=== PATIENT | female | born 1985 | race African-American/Black ===

== ENCOUNTER → 2020-04-15 11:07 | Outpatient (REF) | payer MEDICAID, SELFPAY | LOC: HO.SL 11:07 | PROVIDERS: PCP Internal Medicine Geriatric Medicine; Visit Provider Internal Medicine Geriatric Medicine | DX: G47.33 Obstructive sleep apnea (adult) (pediatric) (principal); E66.01 Morbid (severe) obesity due to excess calories; R06.83 Snoring; R40.0 Somnolence | CPT/HCPCS: 95806 ==

== ENCOUNTER 2020-06-14 11:54 | Outpatient (REF) | payer MEDICAID, SELFPAY ==
--- NOTE | 2020-06-14 12:02 | XR_ITS ---
EXAMINATION: XR HIP, RIGHT CLINICAL INFORMATION: Pain right hip: COMPARISON: None TECHNIQUE: Two views of the right hip. FINDINGS: There is no visible acute fracture, dislocation or subluxation. No bony erosive changes are seen. There is mild right lateral acetabular spurring. The soft tissues are normal. XR/XR hip RT min 2V IMPRESSION: Mild reduction in the right hip joint space. No visible acute fracture, dislocation or lytic process seen
== END 2020-06-14 11:55 | disposition home or self-care (01) ==
LOC: HO.XRAY 11:54
PROVIDERS: PCP Internal Medicine Geriatric Medicine; Visit Provider Internal Medicine Geriatric Medicine
DX: M25.551 Pain in right hip (principal)
CPT/HCPCS: 73502

== ENCOUNTER 2020-07-12 07:32 | Day surgery (SDC) | payer MEDICAID, SELFPAY ==
[2020-03-22 14:44] VITALS: BMI 45.4
--- NOTE | 2020-03-28 10:56 | HO.ANESPROP2 ---
HPI - Anesthesia Eval Consult details Narrative: 34yo F for Sacroiliac Joint Steroid Injection Rescheduled to 05/03/20 [facility] Past Medical History Medical History (Updated 03/28/20 @ 10:57 by Ute Kaur) Anemia Anxiety Asthma Chronic back pain Degenerative disc disease Depression Gait disturbance GERD (gastroesophageal reflux disease) History of blood transfusion Migraine Neuropathy ASAEL on CPAP Sacroiliitis Seizure disorder Surgical History Surgical History History of 3 sections History of partial hysterectomy Hx of umbilical hernia repair Social History Social History Smoking Status: Former smoker Second Hand Smoke Exposure: Yes Meds Allergies Allergy/AdvReac Type Severity Reaction Status Date / Time codeine [CODEINE] Allergy Unknown Itching Unverified 03/22/20 14:36 [place] Allergy Severe throat Uncoded 03/22/20 14:36 closed Home Medications Medication Instructions Recorded Confirmed Type albuterol sulfate 2.5 mg INHALATION QID PRN 03/22/20 03/22/20 History albuterol sulfate [ProAir HFA] 2 puff INHALATION Q4-6H PRN 03/22/20 03/22/20 History cyclobenzaprine 10 mg PO TID 03/22/20 03/22/20 History fluticasone propionate [Flovent 1 puff INHALATION Q12H 03/22/20 03/22/20 History HFA] levetiracetam [Keppra] 1,000 mg PO BID 03/22/20 03/22/20 History loperamide 2 mg PO Q4H PRN 03/22/20 03/22/20 History loratadine [Claritin] 10 mg PO DAILY 03/22/20 03/22/20 History nortriptyline 10 mg PO BEDTIME 03/22/20 03/22/20 History pantoprazole [Protonix] 40 mg PO DAILY 03/22/20 03/22/20 History quetiapine [Seroquel] 50 mg PO BEDTIME 03/22/20 03/22/20 History sumatriptan succinate [Imitrex] 50 mg PO Q2-4H PRN 03/22/20 03/22/20 History topiramate [Topamax] 100 mg PO BID 03/22/20 03/22/20 History Exam Exam Date and Time: March 28, 2020 1056 Height,Weight and Vital Signs: Height 5 ft 5 in Weight 123.831 kg Pertinent Lab Results Pertinent Lab Results: Laboratory Tests 12/24/19 12/24/19 12:37 12:37 WBC 7.2 Hgb 12.0 Hct 39.3 Plt Count 264 Sodium 141 Potassium 4.3 Chloride 109 H BUN 8 L Creatinine 0.83 Assessment and Plan Assessment Anesthesia Assessment: Chart Reviewed
--- NOTE | 2020-03-29 07:46 | MHC.SHP ---
Pre-Procedural Eval Section A The patient is an INPATIENT: No The History & Physical has been completed within 30 days and I have reviewed it.: No Section B Chief Complaint: SACROILIITIS Details of Present Illness: sacroliiltis Relevant Family History (Specify if Yes): No Present Medications: see Short Stay Collaborative assessment Medical History: No relevant PMH History of Previous Operations: No relevant previous surgery Allergies: Allergies Allergy/AdvReac Type Severity Reaction Status Date / Time codeine [CODEINE] Allergy Unknown Itching Unverified 03/22/20 14:36 [place] Allergy Severe throat Uncoded 03/22/20 14:36 closed Review of Systems Sugical H&P ROS: Negative: Constitution, Cardiovascular, Respiratory, Neurological, Psychiatric, Hem-Onc, Allergic/Immunologic, Gastrointestinal, Genitourinary, Musculoskeletal, Integumentary, Endocrine and Eyes/Ears/Nose/Throat Exam Surgical H&P Exam: Normal: HEENT, Normal: Heart, Normal: Lungs, Normal: Extremities, Normal: Abdomen, Normal: Skin and Normal: Neurological Plan Diagnosis/Plan: Unchanged Patient has been examined and remains a candidate for the planned procedure
--- NOTE | 2020-05-02 13:29 | P.CONAN_ITS ---
HPI - Anesthesia Eval Consult details Narrative: 34yo F for Sacroiliac Joint Steroid Injection (R) PMFSH Past Medical History Medical History (Updated 03/28/20 @ 10:57 by Ute Kaur) Anemia Anxiety Asthma Chronic back pain Degenerative disc disease Depression Gait disturbance GERD (gastroesophageal reflux disease) History of blood transfusion Migraine Neuropathy ASAEL on CPAP Sacroiliitis Seizure disorder Surgical History Surgical History History of 3 sections History of partial hysterectomy Hx of umbilical hernia repair Social History Social History Smoking Status: Former smoker Second Hand Smoke Exposure: Yes Meds Allergies Allergy/AdvReac Type Severity Reaction Status Date / Time codeine [CODEINE] Allergy Unknown Itching Unverified 03/22/20 14:36 [place] Allergy Severe throat Uncoded 03/22/20 14:36 closed Home Medications Medication Instructions Recorded Confirmed Type albuterol sulfate 2.5 mg INHALATION QID PRN 03/22/20 03/22/20 History albuterol sulfate [ProAir HFA] 2 puff INHALATION Q4-6H PRN 03/22/20 03/22/20 History cyclobenzaprine 10 mg PO TID 03/22/20 03/22/20 History fluticasone propionate [Flovent 1 puff INHALATION Q12H 03/22/20 03/22/20 History HFA] levetiracetam [Keppra] 1,000 mg PO BID 03/22/20 03/22/20 History loperamide 2 mg PO Q4H PRN 03/22/20 03/22/20 History loratadine [Claritin] 10 mg PO DAILY 03/22/20 03/22/20 History nortriptyline 10 mg PO BEDTIME 03/22/20 03/22/20 History pantoprazole [Protonix] 40 mg PO DAILY 03/22/20 03/22/20 History quetiapine [Seroquel] 50 mg PO BEDTIME 03/22/20 03/22/20 History sumatriptan succinate [Imitrex] 50 mg PO Q2-4H PRN 03/22/20 03/22/20 History topiramate [Topamax] 100 mg PO BID 03/22/20 03/22/20 History Exam Exam Date and Time: May 02, 2020 1329 Height,Weight and Vital Signs: Height 5 ft 5 in Weight 123.831 kg Pertinent Lab Results Pertinent Lab Results: Laboratory Tests 12/24/19 12/24/19 12:37 12:37 WBC 7.2 Hgb 12.0 Hct 39.3 Plt Count 264 Sodium 141 Potassium 4.3 Chloride 109 H BUN 8 L Creatinine 0.83 Assessment and Plan Assessment Anesthesia Assessment: Chart Reviewed
--- NOTE | 2020-07-11 13:39 | HO.ANESPROP2 ---
Documented by User: Ute Kaur 07/11/20 13:41 HPI - Anesthesia Eval Consult details Narrative: 34yo F for Sacroiliac Joint Steroid Injection PMFSH Past Medical History Medical History (Updated 07/11/20 @ 13:40 by Ute Kaur) Anemia Anxiety Asthma Chronic back pain Degenerative disc disease Depression Gait disturbance GERD (gastroesophageal reflux disease) History of blood transfusion Migraine Neuropathy Obesity PTSD (post-traumatic stress disorder) Sacroiliitis Seizure disorder Sleep apnea Surgical History Surgical History History of 3 sections History of partial hysterectomy Hx of umbilical hernia repair Social History Social History (Updated 07/09/20 @ 17:16 by Shantel Sterling) Smoking Status: Former smoker Smoking Quit Date: years Ago Second Hand Smoke Exposure: Yes Use of substances other than those prescribed or required for medical reasons: No Have you been hit, kicked, punched, or otherwise hurt by someone within the past year? If so, by whom?: No Advance Directives: No Advance Directives Information Provided: No Advance Directives on File: No Recently lost weight without trying: No Meds Allergies Allergy/AdvReac Type Severity Reaction Status Date / Time codeine [CODEINE] Allergy Unknown Itching Verified 07/12/20 08:03 [place] Allergy Severe throat Uncoded 07/12/20 08:03 closed Home Medications Medication Instructions Recorded Confirmed Last Taken Type albuterol sulfate 2.5 mg INHALATION QID PRN 03/22/20 03/22/20 Unknown History albuterol sulfate [ProAir HFA] 2 puff INHALATION Q4-6H PRN 03/22/20 03/22/20 Unknown History cyclobenzaprine 10 mg PO TID 03/22/20 03/22/20 Unknown History fluticasone propionate [Flovent 1 puff INHALATION Q12H 03/22/20 03/22/20 Unknown History HFA] levetiracetam [Keppra] 1,000 mg PO BID 03/22/20 03/22/20 Unknown History loperamide 2 mg PO Q4H PRN 03/22/20 03/22/20 Unknown History loratadine [Claritin] 10 mg PO DAILY 03/22/20 03/22/20 Unknown History nortriptyline 10 mg PO BEDTIME 03/22/20 03/22/20 Unknown History pantoprazole [Protonix] 40 mg PO DAILY 03/22/20 03/22/20 Unknown History quetiapine [Seroquel] 50 mg PO BEDTIME 03/22/20 03/22/20 Unknown History sumatriptan succinate [Imitrex] 50 mg PO Q2-4H PRN 03/22/20 03/22/20 Unknown History topiramate [Topamax] 100 mg PO BID 03/22/20 03/22/20 Unknown History Exam Exam Date and Time: July 11, 2020 1339 Height,Weight and Vital Signs: Height 5 ft 5 in Weight 123.831 kg Pertinent Lab Results Pertinent Lab Results: Laboratory Tests 12/24/19 12/24/19 12:37 12:37 WBC 7.2 Hgb 12.0 Hct 39.3 Plt Count 264 Sodium 141 Potassium 4.3 Chloride 109 H BUN 8 L Creatinine 0.83 Assessment and Plan Assessment Anesthesia Assessment: Chart Reviewed Documented by User: Nils Espinal MD 07/12/20 08:15 PMF Past Medical History Medical History (Updated 07/11/20 @ 13:40 by Ute Kaur) Anemia Anxiety Asthma Chronic back pain Degenerative disc disease Depression Gait disturbance GERD (gastroesophageal reflux disease) History of blood transfusion Migraine Neuropathy Obesity PTSD (post-traumatic stress disorder) Sacroiliitis Seizure disorder Sleep apnea Surgical History Surgical History History of 3 sections History of partial hysterectomy Hx of umbilical hernia repair Social History Social History (Updated 07/09/20 @ 17:16 by Shantel Sterling) Smoking Status: Former smoker Smoking Quit Date: years Ago Second Hand Smoke Exposure: Yes Use of substances other than those prescribed or required for medical reasons: No Have you been hit, kicked, punched, or otherwise hurt by someone within the past year? If so, by whom?: No Advance Directives: No Advance Directives Information Provided: No Advance Directives on File: No Recently lost weight without trying: No Meds Allergies Allergy/AdvReac Type Severity Reaction Status Date / Time codeine [CODEINE] Allergy Unknown Itching Verified 07/12/20 08:03 [place] Allergy Severe throat Uncoded 07/12/20 08:03 closed Home Medications Medication Instructions Recorded Confirmed Last Taken Type albuterol sulfate 2.5 mg INHALATION QID PRN 03/22/20 03/22/20 Unknown History albuterol sulfate [ProAir HFA] 2 puff INHALATION Q4-6H PRN 03/22/20 03/22/20 Unknown History cyclobenzaprine 10 mg PO TID 03/22/20 03/22/20 Unknown History fluticasone propionate [Flovent 1 puff INHALATION Q12H 03/22/20 03/22/20 Unknown History HFA] levetiracetam [Keppra] 1,000 mg PO BID 03/22/20 03/22/20 Unknown History loperamide 2 mg PO Q4H PRN 03/22/20 03/22/20 Unknown History loratadine [Claritin] 10 mg PO DAILY 03/22/20 03/22/20 Unknown History nortriptyline 10 mg PO BEDTIME 03/22/20 03/22/20 Unknown History pantoprazole [Protonix] 40 mg PO DAILY 03/22/20 03/22/20 Unknown History quetiapine [Seroquel] 50 mg PO BEDTIME 03/22/20 03/22/20 Unknown History sumatriptan succinate [Imitrex] 50 mg PO Q2-4H PRN 03/22/20 03/22/20 Unknown History topiramate [Topamax] 100 mg PO BID 03/22/20 03/22/20 Unknown History Assessment and Plan Assessment Anesthesia Assessment: Anesthesia Plan Discussed and Chart Reviewed Final Anesthetic Review NPO: Yes ASA Class: III Final Preanesthetic Review: No Changes in Pt Med Stat, Meds/Allgs Chart Reviewed, Consent Obtained/Reviewed and Anes Risks/Benef Reviewed Patient Risk: High Procedure Risk: Low Anesthetic Plan Anesthetic Plan: MAC: Disposition: Standard PACU
--- NOTE | ~2020-07-12 | FL_ITS ---
EXAMINATION: XR FLUOROSCOPY WITH IMAGES CLINICAL INFORMATION: Right sacroiliac joint injection COMPARISON: None. TECHNIQUE: Fluoroscopy performed by Dr. Juan Francisco Kay. Fluoroscopy time: 0.2 minutes DAP: 4.8 mGycm2 Images: 1 FINDINGS: Images demonstrate needle placement and contrast injection over the right inferior sacroiliac joint. FL/FL guidance in OR IMPRESSION: Fluoroscopic guidance for right sacroiliac joint injection.
[2020-07-12 07:41] VITALS: BP 133/79; PULSE 85; RESP 18; TEMP 35.8; O2SAT 98
[2020-07-12] MEDS: Lactated Ringers 1,000 ML 100 ML IVCONT (08:07)
--- NOTE | 2020-07-12 08:11 | MHC.SHP ---
Pre-Procedural Eval Section A The patient is an INPATIENT: No Changes since office visit: Yes Patient answered all questions The History & Physical has been completed within 30 days and I have reviewed it.: No Section B Chief Complaint: SACROILIITIS Details of Present Illness: as above Relevant Family History (Specify if Yes): No Relevant Social History: None Present Medications: see Short Stay Collaborative assessment Medical History: Significant History History of Previous Operations: No relevant previous surgery Allergies: Allergies Allergy/AdvReac Type Severity Reaction Status Date / Time codeine [CODEINE] Allergy Unknown Itching Verified 07/12/20 08:03 [place] Allergy Severe throat Uncoded 07/12/20 08:03 closed Review of Systems Sugical H&P ROS: Negative: Cardiovascular, Respiratory, Neurological, Psychiatric, Hem-Onc, Allergic/Immunologic, Gastrointestinal, Genitourinary, Musculoskeletal, Integumentary, Endocrine and Eyes/Ears/Nose/Throat and Yes, Specify: Constitution (morbid obesity) Exam Surgical H&P Exam: Normal: HEENT, Normal: Heart, Normal: Lungs, Normal: Extremities, Normal: Abdomen, Normal: Skin and Normal: Neurological Plan Diagnosis/Plan: Unchanged I have reviewed the history and physical and performed a pertinent physical examination on my patient. No changes have occurred unless specified.
--- NOTE | 2020-07-12 08:19 | PC.NURSE ---
THIS RN TOLD DR. PRUITT ABOUT PATIENT'S ALLERGY TO FACET INJECTION MEDICATION (name of medication unknown). ANESTHESIA AWARE.
[2020-07-12 08:45] VITALS: BP 108/56; PULSE 72; RESP 16; TEMP 36.2; O2SAT 100
--- NOTE | 2020-07-12 08:52 | PM.OP ---
Brief Operative Note Date of Service: 07/12/20 Pre-op diagnosis: sacroiliitis Post-op diagnosis: other Procedure: sacroiliac joint instability Surgeon: Juan Francisco Kay MD Anesthesia: MAC Estimated blood loss (mL): 0 Condition: stable Disposition: PACU
[2020-07-12] MEDS: levETIRAcetam 1,000 MG TABLET 1000 MG PO (08:58)
[2020-07-12 09:00] VITALS: BP 108/56; PULSE 84; RESP 17; O2SAT 100
--- NOTE | 2020-07-17 07:58 | P.OP_ITS ---
Operative Note Operative Note Date of Service: 07/12/20 Narrative: Informed consent was explained thoroughly to the patient. All questions about benefits and risks for the procedure were answered. Patient came to the operating room she was positioned prone on the operating table with the pillow under her pelvis. [place] [employer] monitors were applied and patient was deeply sedated. Her lower back and buttocks was prepped with ChloraPrep prepped and draped with sterile towels. Sterilely draped C-arm was brought over the operating field and sq picture of patient's pelvis was demonstrated on the screen. For right joint tilting C-arm contralateral to the site of the joint and 10? to the foot of the patient the most posterior portion of the joints were clearly delineated on the screen. Skin was injected in the projection of the joint slightly medial to the location of the joint with 25 gauge 1/2 inch needle using local lidocaine 2% without epinephrine. After that 22 gauge 3 and 1/2 inch needle was driven to were each point of interest in tunnel vision fashion. When needle entered the joint capsule injection of the contrast was performed demonstrating intra-articular and minimally periarticular spread of the contrast. After that 4 cc. of bupivacaine 0.5% mixed with kenalog was injected into the joint. Upon completion of the injections the needles were removed and pressure were applied. Sterile dressing was applied. Upon completion of the injection patient was awaken taking outside of the operating room to the recovery room where she recovered uneventfully. She went home without immediate complications.
--- NOTE | 2020-07-17 13:25 | W.PM.OPN ---
Operative Note Operative Note Date of Service: 07/12/20 Narrative: Informed consent was explained thoroughly to the patient. All questions about benefits and risks for the procedure were answered. Patient came to the operating room she was positioned prone on the operating table with the pillow under her pelvis. [place] [employer] monitors were applied and patient was deeply sedated. Her lower back and buttocks was prepped with ChloraPrep prepped and draped with sterile towels. Sterilely draped C-arm was brought over the operating field and sq picture of patient's pelvis was demonstrated on the screen. For right joint tilting C-arm contralateral to the site of the joint and 10 ? to the foot of the patient the most posterior portion of the joints were clearly delineated on the screen. Skin was injected in the projection of the joint slightly medial to the location of the joint with 25 gauge 1/2 inch needle using local lidocaine 2% without epinephrine. After that 22 gauge 3 and 1/2 inch needle was driven to were each point of interest in tunnel vision fashion. When needle entered the joint capsule injection of the contrast was performed demonstrating intra-articular and minimally periarticular spread of the contrast. After that 4 cc. of bupivacaine 0.5% mixed with Kenalog 40 mg was injected into right joint. Upon completion of the injections the needle was removed and pressure were applied. Sterile dressing was applied. Upon completion of the injection patient was awaken , taken outside of the operating room to the recovery room where she recovered uneventfully. She went home without immediate complications.
== END 2020-07-12 09:39 | disposition home or self-care (01) ==
PROVIDERS: PCP Internal Medicine Geriatric Medicine; Visit Provider Anesthesiology
PROC: 3E0U33Z Introduction of Anti-inflammatory into Joints, Percutaneous Approach (ICD-10-PCS; CPT 27096; principal; 2020-07-12 08:50)
DX: M46.1 Sacroiliitis, not elsewhere classified (principal); M47.816 Spondylosis without myelopathy or radiculopathy, lumbar region; G89.4 Chronic pain syndrome; G47.33 Obstructive sleep apnea (adult) (pediatric); G40.909 Epilepsy, unspecified, not intractable, without status epilepticus; J45.909 Unspecified asthma, uncomplicated; Z79.51 Long term (current) use of inhaled steroids; Z79.899 Other long term (current) drug therapy; Z88.8 Allergy status to other drugs, medicaments and biological substances
CPT/HCPCS: 27096; J0131; J2250; J3010; J3300; Q9967

== ENCOUNTER 2020-08-18 13:18 | Emergency (ER) | payer MEDICAID, SELFPAY ==
--- NOTE | 2020-08-18 | ECG_ITS ---
Test Reason : CP Blood Pressure : / mmHG Vent. Rate : 076 BPM Atrial Rate : 076 BPM P-R Int : 174 ms QRS Dur : 078 ms QT Int : 382 ms P-R-T Axes : 047 051 031 degrees QTc Int : 429 ms Normal sinus rhythm with sinus arrhythmia Normal ECG When compared with ECG of 14-MAY-2019 21:27, No significant change was found Referred By: Cynthia Reed Electronically Signed By:DARRELL HYDE
--- NOTE | ~2020-08-18 | US_ITS ---
EXAMINATION: US VENOUS ULTRASOUND WITH DOPPLER LOWER EXTREMITY, BILATERAL CLINICAL INFORMATION: Swelling evaluate for DVT COMPARISON: None TECHNIQUE: Ultrasound of the deep veins is performed from the hip to the calf with compression sonography and color and pulse Doppler assessment. Spectral analysis with color-flow imaging is performed. FINDINGS: RIGHT: There is normal venous compression and respiratory variation and augmented flow. The visualized common femoral vein, superficial femoral vein, profunda femoral vein, popliteal vein, and the trifurcation region shows no evidence of deep venous thrombosis. There is no significant popliteal fossa cyst. LEFT: There is normal venous compression and respiratory variation and augmented flow. The visualized common femoral vein, superficial femoral vein, profunda femoral vein, popliteal vein, and the trifurcation region shows no evidence of deep venous thrombosis. There is no significant popliteal fossa cyst. US/US venous duplex LE BI IMPRESSION: No DVT demonstrated in the bilateral lower extremity.
--- NOTE | ~2020-08-18 | CT_ITS ---
EXAMINATION: CT ANGIOGRAM OF THE CHEST WITH AND WITHOUT CONTRAST (CT PULMONARY ANGIOGRAM FOR PE) CLINICAL INFORMATION: Sudden onset chest pain and lower extremity swelling. COMPARISON: Chest radiograph dated 05/14/2019. TECHNIQUE: Prior to contrast administration, noncontrast localization images were obtained. Subsequently, multidetector volumetric imaging was performed from the thoracic inlet to below the diaphragms following the administration of 71 mL Omnipaque 350 intravenous contrast. No contrast reaction reported. Sagittal, coronal, and MIP oblique sagittal reformatted images were obtained on the CT workstation, uploaded to PACS, and reviewed. This CT examination was performed using dose optimization techniques as appropriate, variously including the following: *Automated exposure control. *Adjustment of mA and/or kV according to patient size (this includes techniques or standardized protocols for targeted exams where dose is matched to indication/reason for exam; i.e. extremities or head). *Use of iterative reconstruction technique. Total exam dose-length product 547 mGy-cm. FINDINGS: QUALITY OF STUDY/CONTRAST BOLUS: Satisfactory. PULMONARY ARTERIES: Within a subsegmental left lower lobe pulmonary artery, there is a focal filling defect (series 6 image [id number], series 602 image 5/32). Findings may represent a focal subsegmental pulmonary embolism. Alternatively, findings may be due to underdistention with contrast. No additional pulmonary emboli is identified. THORACIC AORTA: No aneurysm or dissection. LUNG: No focal consolidation, nodules or masses. PLEURA: No pleural effusion or pneumothorax. MEDIASTINUM: No cardiomegaly. No pericardial effusion. No significant mediastinal or hilar lymphadenopathy. Partially visualized and unremarkable thyroid. No evidence of septal bowing or right heart strain. CHEST WALL/AXILLA: No axillary or internal mammary lymphadenopathy. OSSEOUS STRUCTURES: No acute or suspicious osseous abnormality. UPPER ABDOMEN: Unremarkable. No reflux of contrast into the hepatic veins to suggest elevated right heart pressures. CT/CT angio chest PE protocol IMPRESSION: 1. Focal contrast filling defect within a left lower lobe subsegmental pulmonary artery. Findings may represent a subsegmental pulmonary embolism. Alternatively, findings may be due to underdistention with contrast. No additional pulmonary emboli identified. 2. No pulmonary nodule, mass, or airspace consolidation. 3. No significant lymphadenopathy. VTE: positive This critical result was discussed with Dr. Reed at 4:19 PM on 08/18/2020 and it was ascertained that the content and urgency of the report was understood at the time of direct communication.
[2020-08-18 13:29] VITALS: BP 119/86; PULSE 70; RESP 16; TEMP 36.5; O2SAT 100; BMI 40.1
--- NOTE | 2020-08-18 13:33 | ED_ITS ---
HPI - Chest Pain General Chief Complaint: Chest Pain Stated Complaint: CHEST PAIN Time Seen by Provider: 08/18/20 13:29 Source: patient and family Mode of arrival: ambulatory Limitations: no limitations History of Present Illness HPI narrative: 34-year-old female was driven into our emergency department by her , patient with complains of severe chest pain in the chest, and bilateral lower extremity swelling and pain in the lower extremities, symptoms started about 2 weeks ago but today the chest pain and lower extremities pain and swelling is the worst today that is why patient seek medical attention, p atient declined any recent travel or history of DVT or PE in the past, patient also declined any cardiac history, patient declined use of heroin or cocaine ?only use medical marijuana ?patient also complain of shortness of breath when she has the chest pain. Patient also been complaining of urinary incontinence for the past 3 months. Pain is localized to the mid chest, started 2 weeks ago but today was the worst, with no radiation, described as severe 10/10, associated with shortness of breath, nothing made the pain better, nothing made it worse, patient never had this pain before. Related Data Home Medications Medication Instructions Recorded Confirmed albuterol sulfate 2.5 mg INHALATION QID PRN 03/22/20 03/22/20 albuterol sulfate [ProAir HFA] 2 puff INHALATION Q4-6H PRN 03/22/20 03/22/20 cyclobenzaprine 10 mg PO TID 03/22/20 03/22/20 fluticasone propionate [Flovent 1 puff INHALATION Q12H 03/22/20 03/22/20 HFA] levetiracetam [Keppra] 1,000 mg PO BID 03/22/20 03/22/20 loperamide 2 mg PO Q4H PRN 03/22/20 03/22/20 loratadine [Claritin] 10 mg PO DAILY 03/22/20 03/22/20 nortriptyline 10 mg PO BEDTIME 03/22/20 03/22/20 pantoprazole [Protonix] 40 mg PO DAILY 03/22/20 03/22/20 quetiapine [Seroquel] 50 mg PO BEDTIME 03/22/20 03/22/20 sumatriptan succinate [Imitrex] 50 mg PO Q2-4H PRN 03/22/20 03/22/20 topiramate [Topamax] 100 mg PO BID 03/22/20 03/22/20 Previous Rx's Medication Instructions Recorded apixaban [Eliquis DVT-PE Treat 30D 5 mg PO BID #74 ea 08/18/20 Start] furosemide [Lasix] 20 mg PO DAILY #7 tab 08/18/20 Allergies Allergy/AdvReac Type Severity Reaction Status Date / Time codeine [CODEINE] Allergy Unknown Itching Verified 07/12/20 08:03 [place] Allergy Severe throat Uncoded 07/12/20 08:03 closed Review of Systems Review of Systems: All other systems are reviewed and are negative Constitutional: Reports as per HPI and Reports no additional constitutional complaints Eyes: Reports as per HPI and Reports no additional eye complaints Reports system reviewed and no additional complaints, except as documented Cardiovascular: Reports as per HPI and Reports no additional cardiovascular complaints Respiratory: Reports as per HPI and Reports no additional respiratory complaints Gastrointestinal: Reports as per HPI and Reports no additional gastrointestinal complaints Genitourinary: Reports no additional female genitourinary complaints Musculoskeletal: Reports no additional musculoskeletal complaints Skin/Breast: Reports system reviewed and no additional complaints, except as docu Psychiatric: Reports no additional psychiatric complaints Endocrine: Reports no additional endocrine complaints Hematologic/Lymphatic: Reports no additional hematologic/lymphatic complaints Allergic/Immunologic: Reports no additional allergic/immunologic complaints Reports system reviewed and no additional complaints, except as documented and Reports Abnormal speech present [facility] Past Medical History Medical History Anemia Anxiety Asthma Chronic back pain Degenerative disc disease Depression Gait disturbance GERD (gastroesophageal reflux disease) History of blood transfusion Migraine Neuropathy Obesity PTSD (post-traumatic stress disorder) Sacroiliitis Seizure disorder Sleep apnea Surgical History History of 3 sections History of partial hysterectomy Hx of umbilical hernia repair Social History Social History (Updated 07/09/20 @ 17:16 by Shantel Sterling) Smoking Status: Former smoker Second Hand Smoke Exposure: Yes Advance Directives: No Advance Directives Information Provided: No Physical Exam Vital Signs: Vital Signs: Last Vital Signs Temp 97.6 F 08/18/20 15:17 Pulse 63 08/18/20 16:00 Resp 16 08/18/20 16:00 BP 112/42 L 08/18/20 16:00 Pulse Ox 100 08/18/20 15:17 Body Mass Index 40.1 Vital signs have been reviewed as appeared to be correct. Blood pressure normal. Heart rate normal. Respiration rate normal. Temperature normal. Oxygen saturation normal. Appearance: Alert. Oriented X3. No acute distress. Head: Normal external exam. Normocephalic. Atraumatic. No Cervantes signs noted. No raccoon eyes noted Eyes: PERRLA. EOMI. Conjunctiva and sclera normal. Eyelids normal. ENT: TM's Normal. Pharynx normal. Uvula midline. Moist mucous membranes. No trismus noted. No drooling noted. No muffled voice noted. Neck: Normal inspection. Neck supple. FROM. No adenopathy. Thyroid Normal. No meningeal signs. No neck mass noted. CVS: Normal heart rate and rhythm. Heart sound normal. No murmurs noted. Pulses normal throughout. Respiratory: No respiratory distress. Painless inspiration. Breath sounds normal. No wheezes/rales/rhonchi noted. Chest nontender. No accessory muscle usage noted or decreased air movement noted. Abdomen: Soft, obese, and nontender. Bowel sounds normal in all 4 quadrants. No distention noted. No organomegaly noted. No visible injury noted. Back: No CVA tenderness. Full range of motion noted. Skin: Skin warm and dry. Normal skin color. Normal skin turgor. No rashes/lesions/lacerations noted. Extremities: +1 pitting edema bilaterally, bilateral leg tenderness to palpation. No calf tenderness. Neuro: Oriented X 3. No motor deficit. No sensory deficit. Reflexes normal. Course Course Course Narrative: 34 years old female who is morbidly obese presented today with 2 weeks of chest pain and lower extremity swelling. Patient labs are unremarkable, cardiac workup is unremarkable, PE is unlikely with a low value D-dimer however CTA is pending patient will be discharged after the result. Will start the patient on Lasix for week for diuresis and for follow-up with her primary doctor. Patient also been having urinary incontinence for the past 3 months will refer to Dr. Del Castillo for further outpatient workup. Reevaluation(s) Reevaluation #1: Radiologist called me for a verbal report on the CT of the chest, CT consistent with left focal subsegmental pulmonary embolism. Given patient's symptoms with concerning of pulmonary embolism will start the patient on Eliquis patient will be provided for 30 days supply. Patient has been satting 100% on room air, with normal heart rate, no tachypnea. Time: 16:33 MDM - Chest Pain Lab Data Attestation: I reviewed the patient's lab results. Result diagrams: 08/18/20 14:47 08/18/20 14:47 Labs: Lab Results 08/18/20 08/18/20 08/18/20 Range/Units 14:47 14:47 14:47 WBC 5.8 (4.8-10.8) X10*3/uL RBC 4.14 L (4.20-5.50) X10*6/uL Hgb 11.4 L (12.0-16.0) g/dl Hct 36.3 L (37-47) % MCV 87.7 (80-98) fL MCH 27.5 (27.0-33.0) pg MCHC 31.4 (31.0-35.0) g/dl RDW 14.6 (11.0-16.0) % Plt Count 261 (160-400) X10*3/uL MPV 9.8 (9.4-12.3) fL Immature Gran % (Auto) 0.2 (0.0-0.4) % Neut % (Auto) 54.3 (45-73) % Lymph % (Auto) 38.1 (20-40) % Starr % (Auto) 6.0 (2-11) % Eos % (Auto) 1.2 (0-4) % Baso % (Auto) 0.2 (0-2) % Lymph # (Auto) 2.2 (1.2-4.9) X10*3/uL Starr # (Auto) 0.4 (0.1-1.2) X10*3/uL Eos # (Auto) 0.1 (0.0-0.4) X10*3/uL Baso # (Auto) 0.0 (0.0-0.2) X10*3/uL Abs Immat Gran (auto) 0.01 (0.00-0.03) X10*3/uL Absolute Neuts (auto) 3.2 (2.0-8.3) X10*3/uL Absolute Nucleated RBC 0.000 (0.0-0.012) X10*3/uL Nucleated RBC % (auto) 0.0 (0.0-0.2) /100WBC PT (10.8-13.0) SEC INR (0.9-1.1) APTT (24.1-38.0) SEC D-Dimer NG/ML Sodium 140 (135-145) mmol/L Potassium 4.4 (3.3-5.1) mmol/L Chloride 104 (96-108) mmol/L Carbon Dioxide 27 (22-29) mmol/L Anion Gap 13 (12-20) BUN 10 (9-16) mg/dL Creatinine 0.84 (0.5-1.4) mg/dL Estim Creat Clear Calc 139.5 Estimated GFR > 60 Random Glucose 86 (60-115) mg/dL Calcium 8.7 (8.4-10.2) mg/dL Total Bilirubin < 0.2 (0.0-1.0) mg/dL Direct Bilirubin < 0.2 (0.0-0.5) mg/dL AST 18 (5-31) U/L ALT 12 (0-31) U/L Alkaline Phosphatase 91 (39-117) U/L Troponin I High Sens < 3.5 (<3.5-17.0) ng/L B-Natriuretic Peptide < 10 (<100) pg/mL Total Protein 6.9 (6.5-8.0) g/dL Albumin 3.8 (3.5-5.0) g/dL Lipase 4 L (8-78) U/L Urine Color Urine Appearance Urine pH (5.0-8.0) Ur Specific [place] (1.005-1.025) Urine Protein (NEG-TRACE) MG/DL Urine Glucose (UA) (NEG) MG/DL Urine Ketones (NEG) MG/DL Urine Blood (NEG) Urine Nitrite (NEG) Ur Leukocyte Esterase (NEG) Urine Test (NEGATIVE) COVID-19 (DANIELA) (Negative) COVID-19 Clin Com 08/18/20 08/18/20 08/18/20 Range/Units 14:47 15:05 15:05 WBC (4.8-10.8) X10*3/uL RBC (4.20-5.50) X10*6/uL Hgb (12.0-16.0) g/dl Hct (37-47) % MCV (80-98) fL MCH (27.0-33.0) pg MCHC (31.0-35.0) g/dl RDW (11.0-16.0) % Plt Count (160-400) X10*3/uL MPV (9.4-12.3) fL Immature Gran % (Auto) (0.0-0.4) % Neut % (Auto) (45-73) % Lymph % (Auto) (20-40) % Starr % (Auto) (2-11) % Eos % (Auto) (0-4) % Baso % (Auto) (0-2) % Lymph # (Auto) (1.2-4.9) X10*3/uL Starr # (Auto) (0.1-1.2) X10*3/uL Eos # (Auto) (0.0-0.4) X10*3/uL Baso # (Auto) (0.0-0.2) X10*3/uL Abs Immat Gran (auto) (0.00-0.03) X10*3/uL Absolute Neuts (auto) (2.0-8.3) X10*3/uL Absolute Nucleated RBC (0.0-0.012) X10*3/uL Nucleated RBC % (auto) (0.0-0.2) /100WBC PT (10.8-13.0) SEC INR (0.9-1.1) APTT (24.1-38.0) SEC D-Dimer NG/ML Sodium (135-145) mmol/L Potassium (3.3-5.1) mmol/L Chloride (96-108) mmol/L Carbon Dioxide (22-29) mmol/L Anion Gap (12-20) BUN (9-16) mg/dL Creatinine (0.5-1.4) mg/dL Estim Creat Clear Calc Estimated GFR Random Glucose (60-115) mg/dL Calcium (8.4-10.2) mg/dL Total Bilirubin (0.0-1.0) mg/dL Direct Bilirubin (0.0-0.5) mg/dL AST (5-31) U/L ALT (0-31) U/L Alkaline Phosphatase (39-117) U/L Troponin I High Sens (<3.5-17.0) ng/L B-Natriuretic Peptide (<100) pg/mL Total Protein (6.5-8.0) g/dL Albumin (3.5-5.0) g/dL Lipase (8-78) U/L Urine Color STRAW Urine Appearance CLEAR Urine pH 8.5 H (5.0-8.0) Ur Specific [place] 1.015 (1.005-1.025) Urine Protein NEG (NEG-TRACE) MG/DL Urine Glucose (UA) NEG (NEG) MG/DL Urine Ketones NEG (NEG) MG/DL Urine Blood NEG (NEG) Urine Nitrite NEG (NEG) Ur Leukocyte Esterase NEG (NEG) Urine Test NEGATIVE (NEGATIVE) COVID-19 (DANIELA) Negative (Negative) COVID-19 Clin Com See Note 08/18/20 Range/Units 15:14 WBC (4.8-10.8) X10*3/uL RBC (4.20-5.50) X10*6/uL Hgb (12.0-16.0) g/dl Hct (37-47) % MCV (80-98) fL MCH (27.0-33.0) pg MCHC (31.0-35.0) g/dl RDW (11.0-16.0) % Plt Count (160-400) X10*3/uL MPV (9.4-12.3) fL Immature Gran % (Auto) (0.0-0.4) % Neut % (Auto) (45-73) % Lymph % (Auto) (20-40) % Starr % (Auto) (2-11) % Eos % (Auto) (0-4) % Baso % (Auto) (0-2) % Lymph # (Auto) (1.2-4.9) X10*3/uL [place] # (Auto) (0.1-1.2) X10*3/uL Eos # (Auto) (0.0-0.4) X10*3/uL Baso # (Auto) (0.0-0.2) X10*3/uL Abs Immat Gran (auto) (0.00-0.03) X10*3/uL Absolute Neuts (auto) (2.0-8.3) X10*3/uL Absolute Nucleated RBC (0.0-0.012) X10*3/uL Nucleated RBC % (auto) (0.0-0.2) /100WBC PT 11.9 (10.8-13.0) SEC INR 1.0 (0.9-1.1) APTT 40.1 H (24.1-38.0) SEC D-Dimer 234 NG/ML Sodium (135-145) mmol/L Potassium (3.3-5.1) mmol/L Chloride (96-108) mmol/L Carbon Dioxide (22-29) mmol/L Anion Gap (12-20) BUN (9-16) mg/dL Creatinine (0.5-1.4) mg/dL Estim Creat Clear Calc Estimated GFR Random Glucose (60-115) mg/dL Calcium (8.4-10.2) mg/dL Total Bilirubin (0.0-1.0) mg/dL Direct Bilirubin (0.0-0.5) mg/dL AST (5-31) U/L ALT (0-31) U/L Alkaline Phosphatase (39-117) U/L Troponin I High Sens (<3.5-17.0) ng/L B-Natriuretic Peptide (<100) pg/mL Total Protein (6.5-8.0) g/dL Albumin (3.5-5.0) g/dL Lipase (8-78) U/L Urine Color Urine Appearance Urine pH (5.0-8.0) Ur Specific [place] (1.005-1.025) Urine Protein (NEG-TRACE) MG/DL Urine Glucose (UA) (NEG) MG/DL Urine Ketones (NEG) MG/DL Urine Blood (NEG) Urine Nitrite (NEG) Ur Leukocyte Esterase (NEG) Urine Test (NEGATIVE) COVID-19 (DANIELA) (Negative) COVID-19 Clin Com Imaging Data Venous duplex bilateral lower extremities: Radiologist's impression: No DVT demonstrated in the bilateral lower extremity. CT angiogram chest: Radiologist's impression: Possible left focal subsegmental pulmonary embolism. ECG Data ECG #1: Interpretation: Normal sinus rhythm with sinus arrhythmia at 76 beats per minutes, normal axis deviation, normal intervals, nonspecific T-wave inversion in lead III. Discharge Plan Discharge Clinical Impression: Atypical chest pain, Bilateral edema of lower extremity Urinary incontinence Qualifiers: Urinary Incontinence type: unspecified incontinence Qualified Code(s): R32 - Unspecified urinary incontinence Pulmonary embolism Qualifiers: Pulmonary embolism type: other Chronicity: acute Acute cor pulmonale presence: without acute cor pulmonale Qualified Code(s): I26.99 - Other pulmonary embolism without acute cor pulmonale Patient Disposition: Home, Self-Care Instructions: Edema (ED) Prescriptions: New furosemide [Lasix] 20 mg tablet 20 mg PO DAILY Qty: 7 RF: 0 Eliquis DVT-PE Treat 30D Start 5 mg (74 tabs) tablets,dose pack 5 mg PO BID Qty: 74 RF: 0 No Action cyclobenzaprine 10 mg Tablet 10 mg PO TID RF: 0 albuterol sulfate 2.5 mg /3 mL (0.083 %) Solution For Nebulization 2.5 mg INHALATION QID PRN (Reason: Wheezing) RF: 0 loperamide 2 mg Capsule 2 mg PO Q4H PRN (Reason: Diarrhea) RF: 0 sumatriptan succinate [Imitrex] 50 mg Tablet 50 mg PO Q2-4H PRN (Reason: Migraine Headache) RF: 0 pantoprazole [Protonix] 40 mg Tablet,Delayed Release (Dr/Ec) 40 mg PO DAILY RF: 0 nortriptyline 10 mg Capsule 10 mg PO BEDTIME RF: 0 Flovent HFA 220 mcg/actuation Hfa Aerosol Inhaler 1 puff INHALATION Q12H RF: 0 albuterol sulfate [ProAir HFA] 90 mcg/actuation Hfa Aerosol Inhaler 2 puff INHALATION Q4-6H PRN (Reason: Wheezing) RF: 0 topiramate [Topamax] 100 mg Tablet 100 mg PO BID RF: 0 loratadine [Claritin] 10 mg Tablet 10 mg PO DAILY RF: 0 quetiapine [Seroquel] 50 mg Tablet 50 mg PO BEDTIME RF: 0 levetiracetam [Keppra] 1,000 mg Tablet 1,000 mg PO BID RF: 0 Referrals: Ariel Del Castillo MD [Physician] - 2 days Name,MD Ernie [Primary Care Provider] - 2 days
[2020-08-18 14:51] LABS: MANUAL DIFF FLAG NO
[2020-08-18 14:53] LABS: Basophils Percent Auto 0.2 % (0-2); Eosinophils Absolute Auto 0.1 X10*3/uL (0.0-0.4); Eosinophils Percent Auto 1.2 % (0-4); Hematocrit 36.3 % (37-47); Hemoglobin 11.4 g/dl (12.0-16.0); Imm Gran Abs Auto 0.01 X10*3/uL (0.00-0.03); Imm Gran Pct Auto 0.2 % (0.0-0.4); Lymphocytes Absolute Auto 2.2 X10*3/uL (1.2-4.9); Lymphocytes Percent Auto 38.1 % (20-40); Mean Corpuscular HGB Conc 31.4 g/dl (31.0-35.0); Mean Corpuscular Hemoglobin 27.5 pg (27.0-33.0); Mean Corpuscular Volume 87.7 fL (80-98); Mean Platelet Volume 9.8 fL (9.4-12.3); Monocytes Absolute Auto 0.4 X10*3/uL (0.1-1.2); Neutrophils Absolute Auto 3.2 X10*3/uL (2.0-8.3); Neutrophils Percent Auto 54.3 % (45-73); Platelet Count 261 X10*3/uL (160-400); Red Blood Count 4.14 X10*6/uL (4.20-5.50); Red Cell Distribution Width 14.6 % (11.0-16.0); White Blood Count 5.8 X10*3/uL (4.8-10.8)
[2020-08-18] MEDS: 0.9 % Sodium Chloride 1,000 ML 999 ML IVCONT (15:07)
[2020-08-18 15:09] LABS: COVID-19 Test Negative (Negative)
[2020-08-18 15:13] LABS: Alanine Aminotransferase 12 U/L (0-31); Albumin Level 3.8 g/dL (3.5-5.0); Alkaline Phosphatase 91 U/L (39-117); Anion Gap 13 (12-20); Aspartate Amino Transferase 18 U/L (5-31); Bilirubin Direct < 0.2 mg/dL (0.0-0.5); Bilirubin Total < 0.2 mg/dL (0.0-1.0); Blood Urea Nitrogen 10 mg/dL (9-16); Calcium 8.7 mg/dL (8.4-10.2); Carbon Dioxide 27 mmol/L (22-29); Chloride 104 mmol/L (96-108); Creatinine Clr Calc Pharmacy 139.5; Estimated Glomerular Filt Rate > 60; Glucose Random 86 mg/dL (60-115); Lipase 4 U/L (8-78); Potassium 4.4 mmol/L (3.3-5.1); Sodium 140 mmol/L (135-145); Total Protein 6.9 g/dL (6.5-8.0)
[2020-08-18 15:16] LABS: Glucose Urine UA NEG (NEG); Leukocyte Esterase Urine NEG (NEG); Nitrite Urine NEG (NEG); PH 8.5 (5.0-8.0); Specific Gravity - Urine 1.015 (1.005-1.025); Urine Blood NEG (NEG); Urine Ketones NEG (NEG); Urine Protein NEG (NEG-TRACE)
[2020-08-18 15:17] VITALS: PULSE 62; RESP 21; TEMP 36.4; O2SAT 100
[2020-08-18 15:18] LABS: B Type Natriuretic Peptide < 10 pg/mL (<100); Troponin-I High Sensitivity < 3.5 ng/L (<3.5-17.0)
[2020-08-18 15:18] LABS: Appearance Urine CLEAR; Color Urine STRAW; UPreg QC Valid YES; Urine Pregnancy NEGATIVE (NEGATIVE)
[2020-08-18 15:28] LABS: Prothrombin Time 11.9 SEC (10.8-13.0)
[2020-08-18 15:31] LABS: D Dimer 234 NG/ML; Partial Thromboplastin Time 40.1 SEC (24.1-38.0)
[2020-08-18 16:00] VITALS: BP 112/42; PULSE 63; RESP 16
[2020-08-18] MEDS: Morphine Sulfate 2 MG/ML CARTRIDGE IVPUSH (16:00)
[2020-08-18] MEDS: Furosemide 40 MG TABLET PO (16:00)
[2020-08-18] MEDS: Apixaban 5 MG TABLET 10 MG PO (16:59)
== END 2020-08-18 19:03 | disposition home or self-care (01) ==
PROVIDERS: Emergency Provider Emergency Medicine; PCP Internal Medicine Geriatric Medicine
DX: R07.89 Other chest pain (principal); I26.99 Other pulmonary embolism without acute cor pulmonale; R60.0 Localized edema; R32 Unspecified urinary incontinence; M79.662 Pain in left lower leg; M79.661 Pain in right lower leg; Z20.822 Contact with and (suspected) exposure to COVID-19; J45.909 Unspecified asthma, uncomplicated
CPT/HCPCS: 36415; 71275; 80048; 80076; 81003; 81025; 83690; 83880; 84484; 85025; 85379; 85610; 85730; 87635; 93005; 93970; 96361; 96374; 99284; J2270; Q9967

== ENCOUNTER 2020-10-15 15:51 | Emergency (ER) | payer MEDICAID, SELFPAY ==
[2020-10-15 16:27] VITALS: BP 133/66; PULSE 83; RESP 18; TEMP 36.6; O2SAT 97; BMI 49.1
== END 2020-10-15 19:10 | disposition left against medical advice (07) ==
PROVIDERS: Emergency Provider Emergency Medicine; PCP Internal Medicine Geriatric Medicine
DX: L02.213 Cutaneous abscess of chest wall (principal)
CPT/HCPCS: 99281; 99282

== ENCOUNTER → 2020-11-21 10:19 | Outpatient (BNVA) | payer MEDICAID, SELFPAY | PROVIDERS: PCP Internal Medicine Geriatric Medicine; Referring Provider Internal Medicine Geriatric Medicine; Visit Provider Surgery | DX: L73.2 Hidradenitis suppurativa (principal); L72.0 Epidermal cyst | CPT/HCPCS: 99202 ==

== ENCOUNTER 2020-12-06 | Outpatient (REF) | payer MEDICAID, SELFPAY ==
[2020-12-06 12:41] VITALS: BP 130/79; PULSE 88; RESP 19; TEMP 36.6; O2SAT 100; BMI 48.2
--- NOTE | 2020-12-06 13:31 | P.OP_ITS ---
Operative Note Operative Note Date of Service: 12/06/20 Narrative: Preoperative diagnosis: Dermal inclusion cyst left chest Postoperative diagnosis: Same Procedure: Excision of epidermal inclusion cyst left chest Surgeon: Rico Martinez MD Timing Adjuster: No physician Anesthesia: Local Indications for procedure: 35-year-old female with a previously infected cyst located in the inframammary crease of the left breast, presenting today for excision prevent recurrent infections Operative findings:. 1 cm epidermal inclusion cyst evidence of infection. Specimen: Epidermal inclusion cyst left chest Estimated blood loss: 2 mL Complications: None Procedure details: Patient was brought to the minor surgery suite placed in a supine position. The site of surgery was confirmed by the patient in the left chest below the inframammary crease. Informed consent was confirmed as well. Skin was prepped with Betadine and draped in sterile fashion. Local anesthesia consisting of 1% lidocaine with epinephrine was then infiltrated around the cyst in elliptical incision oriented parallel to the inframammary crease was then created with a scalpel. This was carried out through subcutaneous tissue and around the cyst wall. Lesion was completely excised and sent to pathology for further examination. Dermis was then reapproximated using interrupted 3-0 Polysorb sutures. Skin was closed using interrupted 4 0 nylon sutures. Sterile dressings consisting of 2 x 2 gauze and Tegaderm were then applied. The patient tolerated the procedure well. Sponge, instrument, and needle counts reported as correct. Patient was discharged to home in stable condition.
--- NOTE | 2020-12-06 13:34 | MHC.SHP ---
Pre-Procedural Eval Section A Date of Service: 12/06/20 The patient is an INPATIENT: No Changes since office visit: Yes Patient answered all questions; No Cold of Flu in the past 2 weeks, No New Medical Problems and No Changes in Medication The History & Physical has been completed within 30 days and I have reviewed it.: Yes Section B Chief Complaint: Inclusion Cyst Allergies: Allergies Allergy/AdvReac Type Severity Reaction Status Date / Time codeine [CODEINE] Allergy Unknown Itching Verified 07/12/20 08:03 nut - unspecified Allergy Anaphylaxis Verified 10/15/20 16:27 [place] Allergy Severe throat Uncoded 07/12/20 08:03 closed Plan Diagnosis/Plan: Unchanged I have reviewed the history and physical and performed a pertinent physical examination on my patient. No changes have occurred unless specified.
== END 2020-12-06 00:01 | disposition home or self-care (01) ==
LOC: HO.MS
PROVIDERS: PCP Internal Medicine Geriatric Medicine; Visit Provider Surgery
PROC: (CPT 11401; principal; 2020-12-06 12:50)
DX: L72.0 Epidermal cyst (principal); L08.9 Local infection of the skin and subcutaneous tissue, unspecified
CPT/HCPCS: 11401; 88304; 88305

== ENCOUNTER → 2020-12-09 14:18 | Outpatient (BNVA) | payer MEDICAID, SELFPAY | PROVIDERS: PCP Internal Medicine Geriatric Medicine; Referring Provider Internal Medicine Geriatric Medicine; Visit Provider Surgery ==

== ENCOUNTER → 2020-12-13 11:10 | Outpatient (BNVA) | payer MEDICAID, SELFPAY | PROVIDERS: PCP Internal Medicine Geriatric Medicine; Referring Provider Internal Medicine Geriatric Medicine; Visit Provider Surgery | DX: Z48.817 Encounter for surgical aftercare following surgery on the skin and subcutaneous tissue (principal); Z87.2 Personal history of diseases of the skin and subcutaneous tissue | CPT/HCPCS: 99212 ==

== ENCOUNTER → 2021-06-04 14:35 | Outpatient (BNVA) | payer MEDICAID, SELFPAY | PROVIDERS: PCP Internal Medicine Geriatric Medicine; Visit Provider Anesthesiology | DX: M46.1 Sacroiliitis, not elsewhere classified (principal); M47.816 Spondylosis without myelopathy or radiculopathy, lumbar region; E66.01 Morbid (severe) obesity due to excess calories; Z68.43 Body mass index [BMI] 50.0-59.9, adult | CPT/HCPCS: 99212 ==

== ENCOUNTER → 2021-08-06 11:21 | Outpatient (BNVA) | payer MEDICAID, SELFPAY | PROVIDERS: PCP Internal Medicine Geriatric Medicine; Visit Provider Anesthesiology ==

== ENCOUNTER → 2021-08-08 11:40 | Outpatient (BNV) | payer MEDICAID, SELFPAY | PROVIDERS: PCP Internal Medicine Geriatric Medicine; Visit Provider Internal Medicine Medical Oncology | DX: D64.9 Anemia, unspecified (principal); I26.99 Other pulmonary embolism without acute cor pulmonale | CPT/HCPCS: 99203; 99213 ==

== ENCOUNTER 2021-08-08 13:06 | Emergency (ER) | payer MEDICAID, SELFPAY | END 2021-08-08 16:43 | disposition left against medical advice (07) | PROVIDERS: Emergency Provider Emergency Medicine | DX: R20.0 Anesthesia of skin (principal) ==

== ENCOUNTER 2021-09-15 12:14 | Outpatient (REF) | payer MEDICAID, SELFPAY ==
--- NOTE | ~2021-09-15 | XR_ITS ---
EXAMINATION: XR LUMBOSACRAL SPINE WITH OBLIQUES CLINICAL INFORMATION: Low back pain. COMPARISON: None TECHNIQUE: AP, both oblique, and lateral views of the lumbar spine. Lateral view of the lumbosacral junction. FINDINGS: The vertebral bodies and posterior elements are normal. The disc spaces are preserved and the vertebral alignment is normal. The paraspinal soft tissues are normal. Pelvic phleboliths. XR/XR lumbar spine 4V min IMPRESSION: Unremarkable examination. However, if pain persists consider correlation with an MR or CT.
--- NOTE | ~2021-09-15 | XR_ITS ---
EXAMINATION: XR CERVICAL SPINE CLINICAL INFORMATION: Cervicalgia. COMPARISON: None TECHNIQUE: 4 views of the cervical spine were obtained. FINDINGS: There are no prevertebral soft tissue or bony abnormalities demonstrated. No compression fractures or subluxations are identified. Alignment is maintained at the atlanto-axial articulation. The disc spaces are preserved. No endplate changes are seen. The prevertebral soft tissues are normal. The foramina are patent. XR/XR cervical spine 4V IMPRESSION: Unremarkable examination. However, if pain persists, consider correlation with a CT or MR.
== END 2021-09-15 12:15 | disposition home or self-care (01) ==
LOC: HO.XRAY 12:14
PROVIDERS: PCP Internal Medicine Geriatric Medicine; Visit Provider Internal Medicine Geriatric Medicine
DX: M54.2 Cervicalgia (principal); M54.50 Low back pain, unspecified
CPT/HCPCS: 72050; 72110

== ENCOUNTER 2022-05-22 10:54 | Outpatient (REF) | payer MEDICAID, SELFPAY | END 2022-05-22 10:55 | disposition home or self-care (01) | LOC: HO.MDS 10:54 | PROVIDERS: Visit Provider Internal Medicine Medical Oncology | DX: D50.9 Iron deficiency anemia, unspecified (principal) | CPT/HCPCS: 96365; J1756 ==

== ENCOUNTER 2022-06-02 11:15 | Outpatient (REF) | payer MEDICAID, SELFPAY | END 2022-06-02 11:16 | disposition home or self-care (01) | LOC: HO.MDS 11:15 | PROVIDERS: Visit Provider Internal Medicine Medical Oncology | DX: D50.9 Iron deficiency anemia, unspecified (principal) | CPT/HCPCS: 96365; J1756 ==

== ENCOUNTER 2022-06-22 10:52 | Outpatient (REF) | payer MEDICAID, SELFPAY | END 2022-06-22 10:53 | disposition home or self-care (01) | LOC: HO.MDS 10:52 | PROVIDERS: Visit Provider Internal Medicine Medical Oncology | DX: D50.9 Iron deficiency anemia, unspecified (principal) | CPT/HCPCS: 96365; J1756 ==

== ENCOUNTER 2022-07-16 10:23 | Outpatient (REF) | payer MEDICAID, SELFPAY ==
[2022-07-16 11:28] LABS: MANUAL DIFF FLAG NO
[2022-07-16 11:49] LABS: Basophils Percent Auto 0.1 % (0-2); Eosinophils Absolute Auto 0.1 X10*3/uL (0.0-0.4); Eosinophils Percent Auto 1.8 % (0-4); Hematocrit 36.3 % (37.0-47.0); Hemoglobin 11.8 g/dl (12.0-16.0); Imm Gran Abs Auto 0.03 X10*3/uL (0.00-0.03); Imm Gran Pct Auto 0.4 % (0.0-0.4); Lymphocytes Absolute Auto 3.1 X10*3/uL (1.2-4.9); Lymphocytes Percent Auto 42.4 % (20-40); Mean Corpuscular HGB Conc 32.5 g/dl (31.0-35.0); Mean Corpuscular Hemoglobin 27.4 pg (27.0-33.0); Mean Corpuscular Volume 84.4 fL (80.0-98.0); Mean Platelet Volume 10.1 fL (9.4-12.3); Monocytes Absolute Auto 0.3 X10*3/uL (0.1-1.2); Monocytes Percent Auto 3.8 % (2-11); Neutrophils Absolute Auto 3.7 x10*3/uL (2.0-8.3); Neutrophils Percent Auto 51.5 % (45-73); Platelet Count 236 X10*3/uL (160-400); Red Cell Distribution Width 14.6 % (11.0-16.0); White Blood Count 7.2 X10*3/uL (4.8-10.8)
== END 2022-07-16 10:24 | disposition home or self-care (01) ==
LOC: HO.MDS 10:23
PROVIDERS: Visit Provider Internal Medicine Medical Oncology
DX: D50.9 Iron deficiency anemia, unspecified (principal)
CPT/HCPCS: 36415; 85025; 96413; J1756

== ENCOUNTER 2022-10-20 10:14 | Outpatient (REF) | payer MEDICAID, SELFPAY ==
--- NOTE | ~2022-10-20 | XR_ITS ---
EXAMINATION: XR HIP, RIGHT CLINICAL INFORMATION: Chronic right hip pain COMPARISON: Previous x-ray May 2020 TECHNIQUE: Two views of the right hip. FINDINGS: Bone alignment is normal. No fracture or dislocation. Mild degenerative changes with superior lateral acetabular osteophyte. Soft tissues are normal. XR/XR hip RT min 2V IMPRESSION: Mild right hip arthritis.
== END 2022-10-20 10:15 | disposition home or self-care (01) ==
LOC: HO.XRAY 10:14
PROVIDERS: PCP Internal Medicine Geriatric Medicine; Visit Provider Internal Medicine Geriatric Medicine
DX: M70.61 Trochanteric bursitis, right hip (principal)
CPT/HCPCS: 73502

== ENCOUNTER 2022-10-20 10:48 | Emergency (ER) | payer MEDICAID, SELFPAY ==
--- NOTE | ~2022-10-20 | CT_ITS ---
EXAMINATION: Head and cervical spine CT without IV contrast CLINICAL INFORMATION: Seizure. Patient on blood thinning medicine. COMPARISON: Cervical spine x-ray August 2021 TECHNIQUE: Axial images through the head and cervical spine without IV contrast. Sagittal and coronal reconstructions on the technologist workstation were performed. This CT examination was performed using dose optimization techniques as appropriate, variously including the following: *Automated exposure control *Adjustment of mA and/or kV according to patient size (this includes techniques or standardized protocols for targeted exams where dose is matched to indication/reason for exam; i.e. extremities or head) *Use of iterative reconstruction technique DLP 753+7-0 mg/cm. FINDINGS: Cervical spine CT: Bone alignment is normal. No acute fracture or dislocation. Disc spaces are normal. Degenerative changes at the C1 dens articulation. Prevertebral soft tissues are normal. Visualized lung apices are clear. Head CT: There is no evidence of an extra-axial collection. There is no evidence of intra or extra-axial hemorrhage. Ventricles and extra-axial CSF spaces are appropriate. Clay-white matter differentiation is normal. No mass, mass effect or infarct. No skull fracture. Inflammatory changes in the ethmoid sinuses. Small polyp or cyst in the left maxillary sinus. CT/CT head/brain wo IV con IMPRESSION: Cervical spine: Degenerative changes of the C1 dens articulation otherwise unremarkable exam. Head CT: Unremarkable exam.
--- NOTE | ~2022-10-20 | CT_ITS ---
EXAMINATION: Head and cervical spine CT without IV contrast CLINICAL INFORMATION: Seizure. Patient on blood thinning medicine. COMPARISON: Cervical spine x-ray August 2021 TECHNIQUE: Axial images through the head and cervical spine without IV contrast. Sagittal and coronal reconstructions on the technologist workstation were performed. This CT examination was performed using dose optimization techniques as appropriate, variously including the following: *Automated exposure control *Adjustment of mA and/or kV according to patient size (this includes techniques or standardized protocols for targeted exams where dose is matched to indication/reason for exam; i.e. extremities or head) *Use of iterative reconstruction technique DLP 753+7-0 mg/cm. FINDINGS: Cervical spine CT: Bone alignment is normal. No acute fracture or dislocation. Disc spaces are normal. Degenerative changes at the C1 dens articulation. Prevertebral soft tissues are normal. Visualized lung apices are clear. Head CT: There is no evidence of an extra-axial collection. There is no evidence of intra or extra-axial hemorrhage. Ventricles and extra-axial CSF spaces are appropriate. Clay-white matter differentiation is normal. No mass, mass effect or infarct. No skull fracture. Inflammatory changes in the ethmoid sinuses. Small polyp or cyst in the left maxillary sinus. CT/CT cervical spine wo IV con IMPRESSION: Cervical spine: Degenerative changes of the C1 dens articulation otherwise unremarkable exam. Head CT: Unremarkable exam.
[2022-10-20 10:54] VITALS: BP 125/67; PULSE 75; RESP 18; TEMP 37; O2SAT 98; BMI 47.3
--- NOTE | 2022-10-20 10:54 | ED.GENADULT ---
HPI - General Adult General Chief complaint: Seizure Stated complaint: seizure fell in hallway Time Seen by Provider: 10/20/22 10:54 Source: patient and family () Mode of arrival: other (Brought to ED by a stretcher from Radiology) Limitations: no limitations History of Present Illness HPI narrative: Patient is a 36-year-old female with history of seizure disorder, recent PE on Eliquis presenting after witnessed seizure in radiology. Patient states she was there for a hip x-ray due to recent pain, and there was loud construction noises. She states that she told her she felt as though she was about to have a seizure and asked him to get a wheelchair. Has been states he did not feel he would have time to get a wheelchair so he had patient sit in a chair. He reports that she began to have tonic clonic movements consistent with her prior seizures. He states that he and another male that was present lowered patient to the ground. He states that patient did not fall or hit her head. Patient states that she takes Keppra and Topamax for her seizures. She states that she took her usually doses as prescribed this morning. She states that she has been taking medication as prescribed without any missed doses. She denies any recent episodes of nausea or vomiting. She denies any current headache, blurred vision or other vision changes. She denies any drug or alcohol use. She denies recent fever or any recent infectious symptoms. She denies any head, neck or back pain. MD complaint: seizure Onset (ago): minute(s) Treatments prior to arrival: none Related Data Home Medications Medication Instructions Recorded Confirmed albuterol sulfate 2.5 mg/3 mL 2.5 mg inhalation QID PRN Wheezing 03/22/20 08/06/22 (0.083 %) solution for nebulization albuterol sulfate 90 mcg/actuation 2 puff inhalation Q4-6H PRN 03/22/20 08/06/22 aerosol inhaler (ProAir HFA) Wheezing fluticasone propionate 220 1 puff inhalation Q12H 03/22/20 08/06/22 mcg/actuation HFA aerosol inhaler (Flovent HFA) levetiracetam 1,000 mg tablet 1,000 mg PO BID 03/22/20 08/06/22 (Keppra) loperamide 2 mg capsule 2 mg PO Q4H PRN Diarrhea 03/22/20 08/06/22 loratadine 10 mg tablet (Claritin) 10 mg PO DAILY 03/22/20 08/06/22 nortriptyline 10 mg capsule 10 mg PO BEDTIME 03/22/20 08/06/22 pantoprazole 40 mg tablet,delayed 40 mg PO DAILY 03/22/20 08/06/22 release (Protonix) quetiapine 50 mg tablet (Seroquel) 50 mg PO BEDTIME 03/22/20 08/06/22 topiramate 100 mg tablet (Topamax) 100 mg PO BID 03/22/20 08/06/22 Previous Rx's Medication Instructions Recorded apixaban 5 mg (74 tabs) tablets in 5 mg PO BID #74 ea 08/18/20 a dose pack (Eliquis DVT-PE Treat 30D Start) furosemide 20 mg tablet (Lasix) 20 mg PO DAILY #7 tabs 08/18/20 chlorhexidine gluconate 4 % 1 appl topical .3 times weekly 1 11/21/20 topical liquid (Hibiclens) month #473 mL baclofen 20 mg tablet 20 mg PO TID 30 days #90 tabs 06/04/21 apixaban 5 mg tablet (Eliquis) 5 mg PO BID #60 tabs 11/03/21 folic acid 1 mg tablet 1 mg PO DAILY #90 tabs 11/03/21 Allergies Allergy/AdvReac Type Severity Reaction Status Date / Time codeine [CODEINE] Allergy Unknown Itching Verified 05/07/22 11:39 nut - unspecified Allergy Anaphylaxis Verified 05/07/22 11:39 [place] Allergy Severe throat Uncoded 05/07/22 11:39 closed Review of Systems Review of Systems: As per HPI Yes all other systems are reviewed and are negative Constitutional: Constitutional: Reports no additional constitutional complaints Eyes: Eyes: Reports no additional eye complaints ENT: Reports system reviewed and no additional complaints, except as documented Cardiovascular: Cardiovascular: Reports no additional cardiovascular complaints Respiratory: Respiratory: Reports no additional respiratory complaints Gastrointestinal: Gastrointestinal: Reports no additional gastrointestinal complaints Genitourinary: Genitourinary: Reports no additional female genitourinary complaints Musculoskeletal: Musculoskeletal: Reports no additional musculoskeletal complaints Integumentary/Breasts: Skin/Breast: Reports system reviewed and no additional complaints, except as docu Neurologic: Reports system reviewed and no additional complaints, except as documented Psychiatric: Psychiatric: Reports no additional psychiatric complaints Endocrine: Endocrine: Reports no additional endocrine complaints Hematologic/Lymphatic: Hematologic/Lymphatic: Reports no additional hematologic/lymphatic complaints Allergic/Immunologic: Allergic/Immunologic: Reports no additional allergic/immunologic complaints [facility] Past Medical History Medical History (Updated 10/20/22 @ 13:54 by Genny Negro NP) Anemia Anxiety Asthma Chronic back pain Degenerative disc disease Depression Gait disturbance GERD (gastroesophageal reflux disease) History of blood transfusion Migraine Morbid obesity due to excess calories Neuropathy Obesity PTSD (post-traumatic stress disorder) Sacroiliitis Sacroiliitis Seizure disorder Sleep apnea Spondylosis of lumbar spine Surgical History History of 3 sections History of partial hysterectomy Hx of umbilical hernia repair Family History Family History Maternal Uncle Lung cancer Father Prostate cancer Social History Social History Household Members: Spouse and Children Housing: Apartment Are you a primary career services officer to a significant other at home: No 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 have visiting nurse or other home 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 (final operations technician) Alcohol intake: never Patient Tobacco Use Status: Never used Tobacco Smoked in Last 30 Days: No Second Hand Smoke Exposure: Yes Use of substances other than those prescribed or required for medical reasons: No Advance Directives: No Advance Directives Information Provided: Yes Patient : No service: No Current occupational status: disabled Physical Exam ED Vital Signs: Vital Signs - 24 hr 10/20/22 10:54 Temperature 98.6 F Pulse Rate 75 Respiratory Rate 18 Blood Pressure 125/67 Pulse Oximetry 98 Oxygen Delivery Method Room Air BMI result Body Mass Index 47.3 Vital signs have been reviewed and appear to be correct. Blood pressure normal. Heart rate normal. Respiratory rate normal. Temperature normal. Oxygen saturation normal. Const General: cooperative, healthy appearing, no acute distress and awake; No acute distress Nutritional Appearance: obese Orientation/consciousness: oriented to person, oriented to place, oriented to time and patient oriented x3 Limitations: no limitations HENMT Head: Yes normocephalic and Yes atraumatic Ears: external ears normal General nose exam: Normal external nose present Face and sinus: Yes face symmetric Mouth: oropharynx normal and moist mucous membranes Throat: Yes uvula midline Eyes General: appearance normal, both eyes and all related structures Pupils: Equal, round and reactive pupils present EOM: EOMs intact bilaterally Neck Neck: Yes normal visual inspection and Yes supple Resp Effort & Inspection: normal respiratory effort and able to speak in complete sentences Auscultation: clear to auscultation bilaterally Cardio Rate: regular rate Rhythm: regular rhythm Heart sounds: S1 normal heart sound present and S2 normal heart sound present GI Palpation (GI): Soft to palpation and nontender Auscultation: normoactive bowel sounds General: Yes no CVA tenderness Back/Spine/Pelvis Back: no CVA tenderness Cervical Spine: cervical ROM normal, No Cervical spine tenderness and No step off deformity Thoracic/Lumbar Spine: No thoracic spinal tenderness and No lumbar spinal tenderness Skin General skin exam: elasticity normal and turgor normal Neuro General: oriented to person, oriented to place, oriented to time, patient oriented x3, moves all extremities, no focal motor deficits and CN's II-XI intact bilaterally Cranial nerves: Yes Equal, round and reactive pupils present Cognition (Neuro): normal cognition Extrem General: Yes full ROM, Yes no pedal edema and Yes no calf tenderness Psych Mental Status: mental status grossly normal Affect: normal affect Thought process: Normal thought process present Medications Administered Discontinued Medications Generic Name Dose Route Start Last Admin Trade Name Kathrine PRN Reason Stop Dose Admin Acetaminophen 975 mg 10/20/22 12:52 10/20/22 13:25 Acetaminophen 325 Mg Tablet PO 10/20/22 12:53 975 mg ONCE ONE Administration Ibuprofen 600 mg 10/20/22 12:52 10/20/22 13:25 Ibuprofen 600 Mg Tablet PO 10/20/22 12:53 600 mg ONCE ONE Administration Medical Decision Making Medical Decision Making [facility] Narrative: Patient is a 36-year-old female with history of seizure disorder, recent PE on Eliquis presenting after witnessed seizure in radiology. On exam patient is awake, A+Ox3, remembers all events leading up to her seizure, normal neurological exam without focal deficits, head atraumatic, no midline C-spine, T-spine, or L-spine tenderness, stepoffs, crepitus, or deformities. Presentation and physical exam findings are consistent with patient's typical seizures per herself and her . Will obtain CT head and neck to rule out ICH or spinal fracture. Considered, but think less likely, secondary etiologies such as metabolic disturbances, acute PARENT TRAINER infections, mass/malignancy. Unlikely CVA as patient is currently anticoagulated. Think syncope less likely given 's report that episode was consistent with prior seizures, but will obtain EKG and labs including troponin to rule out cardiac etiology. Plan: labs, including troponin, Keppra level, head and neck CT, reassess 12:53 patient now complaining of headache, awaiting results of CT, will order Tylenol and ibuprofen and reassess. 13:48 Patient stating that she has to leave to get her children off the bus. Patient has remained seizure-free during ED stay. Labs pending. Instructed patient that we will contact her if any lab values indicate need for intervention. Risks up to and including , of leaving prior to completion of exam were discussed with patient and who verbalizing understanding. Patient signed AMA form. Differential Diagnosis Differential Diagnoses: The differential diagnosis associated with the presentation includes As above. Admission/Observation Consideration of admission/observation: Escalation of care including admission/observation considered Lab Data MDM Lab Attestation statement: I reviewed the patient's lab results. 10/20/22 13:30 10/20/22 13:30 Labs: Lab Results 10/20/22 Range/Units 13:30 WBC 6.8 (4.8-10.8) X10*3/uL RBC 4.40 (4.20-5.50) X10*6/uL Hgb 11.9 L (12.0-16.0) g/dl Hct 37.5 (37.0-47.0) % MCV 85.2 (80.0-98.0) fL MCH 27.0 (27.0-33.0) pg MCHC 31.7 (31.0-35.0) g/dl RDW 13.9 (11.0-16.0) % Plt Count 252 (160-400) X10*3/uL MPV 9.8 (9.4-12.3) fL Immature Gran % (Auto) 0.1 (0.0-0.4) % Neut % (Auto) 45.9 (45-73) % Lymph % (Auto) 47.5 H (20-40) % Bradley % (Auto) 4.9 (2-11) % Eos % (Auto) 1.3 (0-4) % Baso % (Auto) 0.3 (0-2) % Lymph # (Auto) 3.2 (1.2-4.9) X10*3/uL Bradley # (Auto) 0.3 (0.1-1.2) X10*3/uL Eos # (Auto) 0.1 (0.0-0.4) X10*3/uL Baso # (Auto) 0.0 (0.0-0.2) X10*3/uL Abs Immat Gran (auto) 0.01 (0.00-0.03) X10*3/uL Absolute Neuts (auto) 3.1 (2.0-8.3) x10*3/uL Absolute Nucleated RBC 0.000 (0.0-0.012) X10*3/uL Nucleated RBC % (auto) 0.0 (0.0-0.2) /100WBC Independent Interpretation I performed an independent interpretation of an: EKG and CT Scan Interpretation: EKG: Normal sinus rhythm with sinus arrhythmia, rate 60 3p p.m., normal VT/QT intervals, no evidence of STEMI. I independently reviewed the CT scans and agree with the radiologist's interpretation. Radiology Impression Discussion of test interpretation with radiology: I have reviewed the radiologist's reading. Radiologist Impression: FINDINGS: Cervical spine CT: Bone alignment is normal. No acute fracture or dislocation. Disc spaces are normal. Degenerative changes at the C1 dens articulation. Prevertebral soft tissues are normal. Visualized lung apices are clear. Head CT: There is no evidence of an extra-axial collection. There is no evidence of intra or extra-axial hemorrhage. Ventricles and extra-axial CSF spaces are appropriate. Clay-white matter differentiation is normal. No mass, mass effect or infarct. No skull fracture. Inflammatory changes in the ethmoid sinuses. Small polyp or cyst in the left maxillary sinus.? CT/CT cervical spine wo IV con IMPRESSION: ? Cervical spine: Degenerative changes of the C1 dens articulation otherwise unremarkable exam. Head CT: Unremarkable exam.? Independent Historian Clinical information obtained from an independent historian. History obtained from or confirmed by: Spouse External Record Review External record reviewed: Inpatient record, Office record and Outpatient record Prescription Management I considered prescription management with: Pain Medication Discharge Plan Discharge Clinical Impression: Epileptic seizure, Seizure Patient Disposition: Home, Self-Care Instructions: Recurrent Seizures in Adults (ED) Additional Instructions: You were evaluated in the emergency department today following a seizure. You are choosing to leave prior to completion of the full exam. Your CT scan of your brain was unremarkable. You will be contacted if any of your lab values that are pending require intervention. Please follow-up with your primary care physician within 2 days. Return to the emergency department for additional seizures, severe headache, difficulty walking or moving her arms or legs, slurred speech, difficulty with normal activities, abnormal behavior, vision changes or for any other concerning symptoms. Prescriptions: No Action albuterol sulfate 2.5 mg /3 mL (0.083 %) Solution For Nebulization 2.5 mg INHALATION QID PRN (Reason: Wheezing) loperamide 2 mg Capsule 2 mg PO Q4H PRN (Reason: Diarrhea) pantoprazole [Protonix] 40 mg Tablet,Delayed Release (Dr/Ec) 40 mg PO DAILY nortriptyline 10 mg Capsule 10 mg PO BEDTIME fluticasone propionate [Flovent HFA] 220 mcg/actuation Hfa Aerosol Inhaler 1 puff INHALATION Q12H albuterol sulfate [ProAir HFA] 90 mcg/actuation Hfa Aerosol Inhaler 2 puff INHALATION Q4-6H PRN (Reason: Wheezing) topiramate [Topamax] 100 mg Tablet 100 mg PO BID loratadine [Claritin] 10 mg Tablet 10 mg PO DAILY quetiapine [Seroquel] 50 mg Tablet 50 mg PO BEDTIME levetiracetam [Keppra] 1,000 mg Tablet 1,000 mg PO BID furosemide [Lasix] 20 mg tablet 20 mg PO DAILY Qty: 7 0RF Eliquis DVT-PE Treat 30D Start 5 mg (74 tabs) tablets,dose pack 5 mg PO BID Qty: 74 0RF Rx Instructions: take 10 mg (2 tablets) twice a day for 7 days then take 5 mg ( one tablet) twice a day for next 23 days. folic acid 1 mg Tablet 1 mg PO DAILY Qty: 90 4RF Eliquis 5 mg Tablet 5 mg PO BID Qty: 60 3RF chlorhexidine gluconate [Hibiclens] 4 % liquid 1 appl topical .3 times weekly 30 Days Qty: 473 0RF baclofen 20 mg tablet 20 mg PO TID 30 Days Qty: 90 8RF Stand Alone Forms: Against Medical Advice Interventions: ED Discharge Assessment Last Done: 10/20/22 13:49 Discharge Date/Time: 10/20/22 13:49
--- NOTE | 2022-10-20 11:00 | ECG_ITS ---
Test Reason : SEIZURE VS SYNCOPE Blood Pressure : / mmHG Vent. Rate : 063 BPM Atrial Rate : 063 BPM P-R Int : 178 ms QRS Dur : 076 ms QT Int : 390 ms P-R-T Axes : 044 014 005 degrees QTc Int : 399 ms Normal sinus rhythm with sinus arrhythmia Low voltage QRS Borderline ECG When compared with ECG of 18-AUG-2020 13:21, No significant change was found Referred By: Genny Negro Electronically Signed By:DARRELL HYDE
[2022-10-20] MEDS: Acetaminophen 325 MG TABLET 975 MG PO (13:25)
[2022-10-20] MEDS: Ibuprofen 600 MG TABLET PO (13:25)
[2022-10-20 13:37] LABS: MANUAL DIFF FLAG NO
[2022-10-20 13:42] LABS: Basophils Percent Auto 0.3 % (0-2); Eosinophils Absolute Auto 0.1 X10*3/uL (0.0-0.4); Eosinophils Percent Auto 1.3 % (0-4); Hematocrit 37.5 % (37.0-47.0); Hemoglobin 11.9 g/dl (12.0-16.0); Imm Gran Abs Auto 0.01 X10*3/uL (0.00-0.03); Imm Gran Pct Auto 0.1 % (0.0-0.4); Lymphocytes Absolute Auto 3.2 X10*3/uL (1.2-4.9); Lymphocytes Percent Auto 47.5 % (20-40); Mean Corpuscular HGB Conc 31.7 g/dl (31.0-35.0); Mean Corpuscular Volume 85.2 fL (80.0-98.0); Mean Platelet Volume 9.8 fL (9.4-12.3); Monocytes Absolute Auto 0.3 X10*3/uL (0.1-1.2); Monocytes Percent Auto 4.9 % (2-11); Neutrophils Absolute Auto 3.1 x10*3/uL (2.0-8.3); Neutrophils Percent Auto 45.9 % (45-73); Platelet Count 252 X10*3/uL (160-400); Red Cell Distribution Width 13.9 % (11.0-16.0); White Blood Count 6.8 X10*3/uL (4.8-10.8)
[2022-10-20 13:59] LABS: Alanine Aminotransferase 16 U/L (0-31); Albumin Level 4.2 g/dL (3.5-5.0); Alkaline Phosphatase 84 U/L (39-117); Anion Gap 11 (12-20); Aspartate Amino Transferase 15 U/L (5-31); Bilirubin Total 0.4 mg/dL (0.0-1.0); Blood Urea Nitrogen 10 mg/dL (9-16); Calcium 9.3 mg/dL (8.4-10.2); Carbon Dioxide 25 mmol/L (22-29); Chloride 109 mmol/L (96-108); Creatinine Clr Calc Pharmacy 130.8; Estimated Glomerular Filt Rate > 60; Glucose Random 89 mg/dL (60-115); Potassium 4.2 mmol/L (3.3-5.1); Sodium 141 mmol/L (135-145); Total Protein 7.2 g/dL (6.5-8.0)
[2022-10-20 14:00] LABS: INTERNATIONAL NORM RATIO 1.2 (0.9-1.1); Prothrombin Time 13.3 SEC (10.0-13.1)
[2022-10-20 14:04] LABS: Troponin-I High Sensitivity < 2.7 ng/L (<3.5-17.0)
[2022-10-20 15:03] LABS: Erythrocyte Sedimentation Rate 13 MM/HR (0-20)
[2022-10-22 19:09] LABS: CRP High Sensitivity >10.0 mg/L
[2022-10-26 18:24] LABS: Levetiracetam Keppra 14.5 mcg/mL (6.0-46.0)
== END 2022-10-20 13:49 | disposition home or self-care (01) ==
LOC: HO.ED 11:09
PROVIDERS: Registered Nurse Emergency; Emergency Provider Emergency Medicine Emergency Medical Services; PCP Internal Medicine Geriatric Medicine
DX: G40.909 Epilepsy, unspecified, not intractable, without status epilepticus (principal); I26.99 Other pulmonary embolism without acute cor pulmonale; Z79.01 Long term (current) use of anticoagulants; Z79.899 Other long term (current) drug therapy
CPT/HCPCS: 36415; 70450; 72125; 80053; 80177; 84484; 85025; 85610; 85652; 86141; 93005; 99284

== ENCOUNTER 2023-02-15 09:57 | Outpatient (RCR) | payer MEDICAID, SELFPAY ==
[2023-02-15 10:03] VITALS: PULSE 66; O2SAT 97
== END 2023-05-18 11:35 | disposition home or self-care (01) ==
LOC: HO.PTWFD 09:57
PROVIDERS: PCP Internal Medicine Geriatric Medicine; Visit Provider Family Medicine
DX: M54.31 Sciatica, right side (principal); M54.16 Radiculopathy, lumbar region; R29.898 Other symptoms and signs involving the musculoskeletal system
CPT/HCPCS: 97163; 97530; 97535

== ENCOUNTER 2023-04-27 08:03 | Outpatient (REF) | payer MEDICAID, SELFPAY ==
--- NOTE | ~2023-04-27 | XR_ITS ---
EXAMINATION: XR WRIST, RIGHT CLINICAL INFORMATION: Patient states right wrist pain. COMPARISON: None available. TECHNIQUE: Four views of the right wrist. FINDINGS: Moderate degenerative changes in the first carpometacarpal joint with joint space narrowing and hypertrophic change. Ulnar minus variance. No displaced fracture. Recommend follow-up imaging in 10-14 days if fracture is suspected. XR/XR wrist RT min 3V IMPRESSION: 1. Moderate degenerative changes in the first carpometacarpal joint. 2. Ulnar minus variance. 3. No displaced fracture. Recommend follow-up imaging in 10-14 days if fracture is suspected.
== END 2023-04-27 08:04 | disposition home or self-care (01) ==
LOC: HO.XRAY 08:03
PROVIDERS: Visit Provider Family Medicine
DX: M25.531 Pain in right wrist (principal)
CPT/HCPCS: 73110

== ENCOUNTER 2023-05-06 10:53 | Outpatient (AMB) | payer MEDICAID, SELFPAY ==
--- NOTE | 2023-05-06 10:55 | A.OFFVIS_ITS ---
Intake Vital Signs 05/06/23 10:56 Height 5 ft 5 in Weight 305 lb 2 oz BMI 50.8 BP 130/90 H Blood Pressure Location Lt brachial Position Sitting Pulse 76 Intake Visit Reasons: abscess axilla Intake Note: Patient is seen in office for evaluation of an abscess of the axilla. Pt c/o: onset 3 wks, discharge for the past week, greenish , foul odor, sensitive to touch, redness, swollen, went down some, had some in the past that have resolve on its own, currently not taking antibiotics Package Liner Required: No Accompanied by: Self / Same As Patient Allergies codeine [CODEINE] Allergy (Unknown, Verified 05/06/23 11:06) Itching nut - unspecified Allergy (Verified 05/06/23 11:06) Anaphylaxis [place] Allergy (Severe, Uncoded 05/06/23 11:06) throat closed HPI HPI Comments History of Present Illness Details 37-year-old female presenting with a right axillary abscess which was quite painful several days ago but then began to drain spontaneously. She has a history of hidradenitis with numerous infections in the bilateral axilla. She denies fever, chills, nausea or vomiting. She does note some purulence discharge from the outer portion of the axilla. She is not currently on any antibiotics. [facility] Medical History Morbid obesity due to excess calories Spondylosis of lumbar spine Sacroiliitis Obesity PTSD (post-traumatic stress disorder) Sleep apnea Sacroiliitis Gait disturbance Degenerative disc disease Chronic back pain History of blood transfusion Anemia GERD (gastroesophageal reflux disease) Neuropathy Anxiety Depression Migraine Seizure disorder Asthma Surgical History H/O excision of epidermal inclusion cyst (12/06/20) Hx of umbilical hernia repair History of partial hysterectomy History of 3 sections Family History Maternal Uncle Lung cancer Father Prostate cancer Social History Household Members: Spouse and Children Housing: Apartment Are you a primary field care advocate to a significant other at home: No 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 have visiting nurse or 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 home 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 (platform inspector) Alcohol intake: never Comment: no count Patient Tobacco Use Status: Never used Tobacco Second Hand Smoke Exposure: Yes service: No Current occupational status: disabled Female Reproductive History Menstrual Age of Menarche: 12 Review of Systems Const All systems reviewed & are unremarkable except as noted in HPI and below Denies chills, Denies fever(s), Denies poor appetite and Denies weight loss Card Denies chest pain, Denies rapid heart rate and Denies irregular heart rhythm Resp Denies chest congestion, Denies cough and Denies hemoptysis GI Reports no additional complaints Denies nipple discharge Skin/Breast Reports as per HPI and Denies nipple discharge Rahul/Lymph Reports easy bleeding and Denies lymphadenopathy Physical Exam Vital Signs: Last Vital Signs Pulse 76 05/06/23 10:56 BP 174/107 H 05/06/23 10:56 BMI result Body Mass Index 50.8 HEENT Head: Yes normocephalic and Yes atraumatic Ears: hearing grossly normal bilaterally Chest Other: Right axilla with evidence of scarring from prior hidradenitis. An area of drainage is identified with underlying inflammation in the lateral axilla which is moderately tender to palpation. No erythema is appreciated. Findings are suggestive of a resolving hidradenitis infection. Resp Effort & Inspection: normal respiratory effort GI Inspection: Yes normal to inspection Skin Other: as noted above, otherwise warm, dry without rashes Extrem General: Yes no clubbing, cyanosis or edema Assessment & Plan Assessment & Plan (1) Hidradenitis: Code(s): L73.2 - Hidradenitis suppurativa Plan 37-year-old female patient with a prior history of hidradenitis now with a new abscess of the right axilla which drained spontaneously. I recommended starting oral antibiotics and warm compresses. A clean dressing was applied. She will return 1 week for follow-up Examination. Medications: New sulfamethoxazole-trimethoprim 800-160 mg (Bactrim DS) 1 tab PO Q12H 20 tabs 0RF L73.2 - Hidradenitis suppurativa Coding Level of Care Code Est Pt Level 3 (76751) Diagnoses Hidradenitis L73.2
[2023-05-06 10:56] VITALS: BP 130/90; PULSE 76; BMI 50.8
== END 2023-05-06 11:16 | disposition home or self-care (01) ==
PROVIDERS: PCP Internal Medicine Geriatric Medicine; Referring Provider Internal Medicine Geriatric Medicine; Visit Provider Surgery
DX: L73.2 Hidradenitis suppurativa (principal)
CPT/HCPCS: 99213

== ENCOUNTER → 2023-05-06 10:53 | Outpatient (BNVA) | payer MEDICAID, SELFPAY | PROVIDERS: PCP Internal Medicine Geriatric Medicine; Referring Provider Internal Medicine Geriatric Medicine; Visit Provider Surgery | DX: L73.2 Hidradenitis suppurativa (principal) | CPT/HCPCS: 99212 ==

== ENCOUNTER → 2023-05-11 19:30 | Outpatient (REF) | payer MEDICAID, SELFPAY | LOC: HO.SL 19:30 | PROVIDERS: PCP Internal Medicine Geriatric Medicine; Visit Provider Emergency Medicine | DX: G47.33 Obstructive sleep apnea (adult) (pediatric) (principal) | CPT/HCPCS: 95810 ==

== ENCOUNTER → 2023-05-11 19:30 | Outpatient (BNV) | payer MEDICAID, SELFPAY | PROVIDERS: PCP Internal Medicine Geriatric Medicine; Visit Provider Psychiatry & Neurology Neurology | DX: R06.83 Snoring (principal) | CPT/HCPCS: 95810 ==

== ENCOUNTER 2023-05-14 10:32 | Outpatient (AMB) | payer MEDICAID, SELFPAY ==
--- NOTE | 2023-05-14 10:34 | A.OFFVIS_ITS ---
Intake Vital Signs 05/14/23 10:41 Height 5 ft 5 in Weight 305 lb BMI 50.7 BP 175/108 H Blood Pressure Location Lt brachial Position Sitting Pulse 85 Intake Visit Reasons: 1 wk follow up abscess axilla Intake Note: Patient is seen in office for one week follow up visit, following hidradenitis of the right axilla. Pt c/o: minimal discharge since last visit, still taking the antibiotics, feels there still a pocket of fluid Family Assessment Worker Required: No Accompanied by: Family/Other Allergies codeine [CODEINE] Allergy (Unknown, Verified 05/14/23 10:40) Itching nut - unspecified Allergy (Verified 05/14/23 10:40) Anaphylaxis [place] Allergy (Severe, Uncoded 05/14/23 10:40) throat closed HPI HPI Comments History of Present Illness Details Patient returns for follow-up examination of her right axilla. She reports minimal to no discharge currently and reports the pain is much improved. She has nearly completed the antibiotic course and denies any fever or chills. [facility] Medical History Morbid obesity due to excess calories Spondylosis of lumbar spine Sacroiliitis Obesity PTSD (post-traumatic stress disorder) Sleep apnea Sacroiliitis Gait disturbance Degenerative disc disease Chronic back pain History of blood transfusion Anemia GERD (gastroesophageal reflux disease) Neuropathy Anxiety Depression Migraine Seizure disorder Asthma Surgical History H/O excision of epidermal inclusion cyst (12/06/20) Hx of umbilical hernia repair History of partial hysterectomy History of 3 sections Family History Maternal Uncle Lung cancer Father Prostate cancer Social History Household Members: Spouse and Children Housing: Apartment Are you a primary clinical care coordinator to a significant other at home: No 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 have visiting nurse or other 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) Alcohol intake: never Comment: no count Patient Tobacco Use Status: Never used Tobacco Second Hand Smoke Exposure: Yes service: No Current occupational status: disabled Female Reproductive History Menstrual Age of Menarche: 12 Physical Exam Const General: healthy appearing Chest Other: Right axilla with some postinflammatory changes to the overlying skin but no palpable abscess and no residual hidradenitis appreciated Resp Effort & Inspection: normal respiratory effort Assessment & Plan Assessment & Plan (1) Hidradenitis: Code(s): L73.2 - Hidradenitis suppurativa Plan 37-year-old female patient presenting with a recent history of hidradenitis abscess of the right axilla. The site drained spontaneously and has essentially resolved with oral antibiotics. There is no evidence of residual abscess at this time. No surgical intervention is required at this time. I recommended patient seek consultation with a training and development professional to discuss possible biologic treatments for this disease. She expressed understanding and agrees with the plan. Coding Level of Care Code Est Pt Level 3 (29323) Diagnoses Hidradenitis L73.2
[2023-05-14 10:41] VITALS: BP 175/108; PULSE 85; BMI 50.7
== END 2023-05-14 10:44 | disposition home or self-care (01) ==
PROVIDERS: PCP Internal Medicine Geriatric Medicine; Visit Provider Surgery
DX: L73.2 Hidradenitis suppurativa (principal)
CPT/HCPCS: 99213

== ENCOUNTER → 2023-05-14 10:32 | Outpatient (BNVA) | payer MEDICAID, SELFPAY | PROVIDERS: PCP Internal Medicine Geriatric Medicine; Visit Provider Surgery | DX: L73.2 Hidradenitis suppurativa (principal) | CPT/HCPCS: 99212 ==

== ENCOUNTER 2023-06-03 10:05 | Outpatient (REF) | payer MEDICAID, SELFPAY | END 2023-06-03 10:06 | disposition home or self-care (01) | LOC: HO.NEURO 10:05 | PROVIDERS: PCP Internal Medicine Geriatric Medicine; Visit Provider Family Medicine | DX: M25.531 Pain in right wrist (principal) | CPT/HCPCS: 95886; 95909 ==

== ENCOUNTER 2023-07-27 14:47 | Outpatient (AMB) | payer MEDICAID, SELFPAY ==
[2023-07-27 14:48] VITALS: BMI 50.7
--- NOTE | 2023-07-27 14:48 | A.OFFVIS_ITS ---
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 States pain is mainly on her volar aspect of wrist. Pain with ROM for approx 2-3 months. Denies recent injury. She is experiencing numbness and tingling constant thought out the day. 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 The patient reports her pain is mainly on the volar aspect of her right wrist. She reports pain with ROM for the past 2-3 months. She does not recall any known injury. She reports numbness and tingling through out the day. [facility] Medical History Morbid obesity due to excess calories Spondylosis of lumbar spine Sacroiliitis Obesity PTSD (post-traumatic stress disorder) Sleep apnea Sacroiliitis Gait disturbance Degenerative disc disease Chronic back pain History of blood transfusion Anemia GERD (gastroesophageal reflux disease) Neuropathy Anxiety Depression Migraine Seizure disorder Asthma Surgical History H/O excision of epidermal inclusion cyst (12/06/20) Hx of umbilical hernia repair History of partial hysterectomy History of 3 sections Family History Maternal Uncle Lung cancer Father Prostate cancer Social History (Updated 07/27/23 @ 14:58 by MANJU Jarrett) Household Members: Spouse and Children Housing: Apartment Are you a primary pet care worker to a significant other at home: No 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 have 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) Alcohol intake: never Comment: no count Patient Tobacco Use Status: Never used Tobacco Second Hand Smoke Exposure: Yes service: No Current occupational status: disabled 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 No ecchymosis, erythema, or edema. Able to perform full finger flexion, extension, abduction, adduction, finger cross, okay sign, and thumbs up without deficit. Able to make a closed fist. Positive Cassandra?s. Tenderness to palpation over the first dorsal compartment. Sensation intact. Capillary refill is brisk. Radial pulse intact. Assessment & Plan Assessment & Plan (1) De Quervain's tenosynovitis, right: Code(s): M65.4 - Radial styloid tenosynovitis [de Quervain] Plan Ms. Brothers is a 37-year-old female who presents in the office today, as a new patient, for an evaluation of right wrist pain. The patient reports her pain is mainly on the volar aspect of her right wrist. She reports pain with ROM for the past 2-3 months. She does not recall any known injury. She reports numbness and tingling through out the day. The patient was given a comfort cool brace off the shelf. Follow up will be in 6 weeks for possible injections, or sooner if needed. EMG of the right upper extremity, obtained on 06/03/2023, revealed: This is an unremarkable study with no evidence of entrapment, neuropathy, or radiculopathy. Patient Instructions: Scribed by Marlee Lange medical radiation therapist, for Ann Bright PA-C on 07/20/2023 at 3:03 pm, EST. Coding Level of Care Code New Pt Level 3 (65949) Diagnoses De Quervain's tenosynovitis, right M65.4
== END 2023-07-27 15:37 | disposition home or self-care (01) ==
PROVIDERS: PCP Internal Medicine Geriatric Medicine; Visit Provider Orthopaedic Surgery
DX: M65.4 Radial styloid tenosynovitis [de Quervain] (principal)
CPT/HCPCS: 99203

== ENCOUNTER → 2023-07-27 14:47 | Outpatient (BNVA) | payer MEDICAID, SELFPAY | PROVIDERS: PCP Internal Medicine Geriatric Medicine; Visit Provider Orthopaedic Surgery | DX: M65.4 Radial styloid tenosynovitis [de Quervain] (principal) | CPT/HCPCS: 99202 ==

== ENCOUNTER 2023-08-10 11:49 | Outpatient (REF) | payer MEDICAID, SELFPAY ==
[2023-08-14 16:33] LABS: Levetiracetam Keppra 12.9 mcg/mL (6.0-46.0)
== END 2023-08-10 11:50 | disposition home or self-care (01) ==
LOC: HO.HHCL 11:49
PROVIDERS: Visit Provider Family Medicine
DX: G40.909 Epilepsy, unspecified, not intractable, without status epilepticus (principal)
CPT/HCPCS: 36415; 80177

== ENCOUNTER 2023-09-22 10:47 | Outpatient (REF) | payer OTHER, SELFPAY ==
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
== END 2023-09-22 10:48 | disposition home or self-care (01) ==
LOC: HO.HHCX 10:47
PROVIDERS: Visit Provider Emergency Medicine
DX: S13.4XXS Sprain of ligaments of cervical spine, sequela (principal); V89.2XXS Person injured in unspecified motor-vehicle accident, traffic, sequela
CPT/HCPCS: 72040

== ENCOUNTER 2023-09-23 10:48 | Observation (INO) | payer MEDICAID, SELFPAY ==
--- NOTE | 2023-09-23 | EEG_ITS ---
This is a 16-channel EEG with an EKG lead. The patient is reported awake and drowsy during the tracing. Background EEG rhythm is low to medium amplitude, mixed theta, beta with no obvious asymmetry or paroxysmal tendency. Photic stimulation and hyperventilation were not performed. Cardiac lead did not reveal any significant abnormality. IMPRESSION: Unremarkable EEG. MD SANAZ Villalta/THANG / [id number]
--- NOTE | ~2023-09-23 | CT_ITS ---
EXAMINATION: CT HEAD WITHOUT CONTRAST CLINICAL INFORMATION: Seizure. COMPARISON: 10/20/2022 TECHNIQUE: Contiguous axial imaging was performed from the skull base to vertex without intravenous administration of contrast. This CT examination was performed using dose optimization techniques as appropriate, variously including the following: *Automated exposure control *Adjustment of mA and/or kV according to patient size (this includes techniques or standardized protocols for targeted exams where dose is matched to indication/reason for exam; i.e. extremities or head) *Use of iterative reconstruction technique DLP: 672 mGy-cm FINDINGS: The brain parenchyma has normal attenuation. The contreras-white matter differentiation is well preserved. No evidence of an acute major vascular territory infarction. No intracranial hemorrhage, extra-axial fluid collection, focal mass effect or midline shift. The ventricles have normal size and configuration; no hydrocephalus. The brainstem and cerebellum have a normal appearance. The cerebellar tonsils are in normal position. The calvarium is intact. There is lack of development of the frontal sinuses. Mucosal thickening observed at some of the ethmoid air cells, anterior wall of the sphenoid sinus and hope of the partially visualized maxillary sinuses. The orbits and temporomandibular joints are normal. The mastoid air cells are well aerated. CT/CT head/brain wo IV con IMPRESSION: No acute intracranial pathology. No evidence of intracranial mass, hemorrhage or infarction.
[2023-09-23 10:53] VITALS: BP 108/78; BP 120/67; PULSE 80; PULSE 88; RESP 18; TEMP 37; O2SAT 100; O2SAT 98; BMI 49.1
--- OUTSIDE RECORDS SUMMARY | 2023-09-23 11:25 | XMS_ITS | Continuity of Care Document ---
Author Organization [facility] Address [address] [place] [address]- Care Team Providers Care Supervisor Payroll Name Role Phone Name Ernie MOE Primary Care Physician Encounter [facility] Date(s): 01/21/21 - 01/21/[address] [address]- Encounter Diagnosis Seizure(Final) - 01/21/21 Discharge Disposition: A-D/C Home Attending Physician: Moira Goodrich DO Admitting Physician: Moira Goodrich DO Referring Physician: Not on Staff, Referring MD Allergies, Adverse Reactions, Alerts Substance Reaction Severity Status codeine Active Immunizations Given and Recorded Vaccine Date Status Refusal Reason pneumococcal 23-valent vaccine 10/23/18 Given Medications dicyclomine 10 mg oral capsule 1 capsule = 10 mg, By Mouth, 3 times a day, # 28 capsule, 0 Refills, Maintenance, 10/22/18 14:23:48EDT, Capsule Start Date: 10/22/18 Stop Date: 10/29/18 Status: Ordered esomeprazole 20 mg oral enteric coated capsule 1 capsule = 20 mg, By Mouth, 2 times a day, # 60 capsule, 0 Refills, Maintenance, 07/01/20 8:56:00 EST, EC Capsule, [id number], Partial fill upon patient request if the prescription is for a schedule II opioid drug., 165, cm, 04/30/20... Start Date: 07/01/20 Stop Date: 07/31/20 Status: Ordered Keppra XR 500 mg oral tablet, extended release 2 tablet = 1,000 mg, By Mouth, Daily, # 60 tablet, 0 Refills, Maintenance, 04/01/19 23:31:50 EDT, ER Tablet Start Date: 04/01/19 Status: Ordered topiramate 100 mg oral tablet 1 tablet = 100 mg, By Mouth, 2 times a day, # 60 tablet, 0 Refills, Maintenance, 02/10/20 9:06:00 EDT, Tablet Start Date: 02/10/20 Status: Ordered Problem List Condition Effective Dates Status Health Status Inform ant Anxiety(Confirmed) Active Facet syndrome, lumbar(Confirmed) Active Morbid obesity(Confirmed) Active Lumbar radiculitis(Confirmed) Active PTSD (post-traumatic stress disorder)(Confirmed) Active (Confirmed) Active Results Radiology Reports * Exam Date Time Procedure Performing Provider Status 01/21/21 10:59 AM Chest Portable Sudha Pruitt (Verified) Notes: (Chest Portable) Reason For Exam: Shortness of Breath RESULT: Chest Portable Chest Portable CLINICAL INDICATION: Shortness of breath. COMPARISON: Chest x-ray, 05/29/2007. FINDINGS: The cardiac silhouette is within normal limits. Hilar and mediastinal contours are normal. The lungs are clear. There is no pleural effusion, pneumothorax, or evidence of CHF. No acute osseous abnormality is noted. IMPRESSION: No acute cardiopulmonary process. WSN: [id number] Ordering Physician: Moira Goodrich Dictated By: Samantha Almonte MD Dictated Date/Time: 01/21/21 11:03 a Reviewed By: Samantha Almonte MD Signed By: Samantha Almonte MD Signed Date/Time: 01/21/21 11:03 am Transcribed By: ANGEL Transcribed Date/Time: 01/21/21 11:02 am Vital Signs Most recent to oldest [Reference Range]: 1 2 Oxygen Saturation [94-100 %] 100 % (01/21/21 1:06 PM) 100 % (01/21/21 10:22 AM) Pulse Rate [55-90 bpm] 60 bpm (01/21/21 1:06 PM) 58 bpm (01/21/21 10:22 AM) Blood Pressure [90-138/55-84 mm Hg] 118/ 67mm Hg (01/21/21 1:06 PM) 113/87mm Hg (01/21/21 10:22 AM) Respiratory Rate [16-30 br/min] 18 br/mi n (01/21/21 1:06 PM) 16 br/min (01/21/21 10:22 AM) Temperature [96.8-100.4 DegF] 98.4 DegF (01/21/21 10:22 AM) Blood pressure sites Arm, left (01/21/21 1:06 PM) Arm, left (01/21/21 10:22 AM) Temperature Route Oral (01/21/21 10:22 AM) Social History Social History Type Response Smoking Status Former smoker, quit more than 30 days ago entered on: 04/30/20 Sex
--- OUTSIDE RECORDS SUMMARY | 2023-09-23 11:25 | XMS_ITS | Continuity of Care Document ---
Author Organization [facility] Address [address] [place] [address]- Care Team Providers Care Director Of Catering Name Role Phone Name Ernie MOE Primary Care Physician [place] [facility] Date(s): 02/22/23 - 03/24/23 [facility] [address] [place] [address]- Attending Physician: Mahogany Westfall Admitting Physician: Mahogany Westfall Referring Physician: Admtr, Ar8 Allergies, Adverse Reactions, Alerts Substance Reaction Severity Status codeine Active Other Food Allergy 1 Active 1mayonnaise and all nuts except peanuts Immunizations Given and Recorded Vaccine Date Status Refusal Reason pneumococcal 23-valent vaccine 10/23/18 Given Medications albuterol 5 mg/mL (0.5%) inhalation solution 0.5 mL = 2.5 mg, Neb, Every 6 hours, PRN as needed for wheezing, # 30 mL, 0 Refills, Maintenance, 04/01/21 10:08:00 EDT, Solution, Partial fill upon patient request if the prescription is for a schedule II opioid drug. Start Date: 04/01/21 Status: Ordered baclofen 20 mg oral tablet 20 mg, 1, tablet, By Mouth, Daily, Refills 0, Maintenance, 10/11/21 12:43:00 EDT, Partial fill uponpatient request if the prescription is for a schedule II opioid drug. Start Date: 10/11/21 Status: Ordered dicyclomine 10 mg oral capsule 1 capsule, By Mouth, 4 times a day, # 40 capsule, 4 Refills, Maintenance, 01/20/23 17:32:00 EDT, [facility], 164, cm, 12/17/22 22:30:00 EDT, Height, 131.5, kg, 12/17/22 22:30:00 EDT, Dry Weight Start Date: 01/20/23 Stop Date: 01/30/23 Status: Ordered Eliquis 5 mg oral tablet 1 tablet = 5 mg, By Mouth, 2 times a day, # 60 tablet, 5 Refills, Maintenance, 08/13/21 6:41:00 EDT, Tablet, Partial fill upon patient request if the prescription is for a schedule II opioid drug. Start Date: 08/13/21 Status: Ordered esomeprazole 20 mg oral enteric coated capsule 1 capsule = 20 mg, By Mouth, 2 times a day, # 60 capsule, 3 Refills, Maintenance, 05/28/21 16:06:00EST, EC Capsule, [facility], Partial fill upon patient request if the prescription is for a schedule II opioid drug., 165, cm, 05/01... Start Date: 05/28/21 Stop Date: 09/25/21 Status: Ordered Flonase 50 mcg/inh nasal spray 1 sprays, Nares, Both, 2 times a day, # 16 Gm, 0 Refills, Maintenance, 03/30/21 16:16:00 EDT, [place], [id number], Partial fill upon patient request if the prescription is for a schedule II opioid drug., 1 sprays Nares, Both 2 times a d... Start Date: 03/30/21 Status: Ordered Flovent Diskus 50 mcg/inh inhalation powder 1 each, Inhalation, 2 times a day, # 60 each, 0 Refills, Maintenance, 04/01/21 10:09:00 EDT, Powder, Partial fill upon patient request if the prescription is for a schedule II opioid drug. Start Date: 04/01/21 Status: Ordered gabapentin 300 mg oral capsule 300 mg, 1, capsule, By Mouth, 3 times a day, # 90 capsule, Refills 0, Tot. Refills 0, Maintenance, 09/20/21 13:59:00 EDT, Route to Pharmacy Electronically, [facility], Partial fill uponpatient request if the prescription is for a schedu... Start Date: 09/20/21 Status: Ordered HydrOXYzine = 10 mg, By Mouth, 2 times a day, 0 Refills, Maintenance, 10/11/21 12:43:00 EDT, Partial fill upon patient request if the prescription is for a schedule II opioid drug. Start Date: 10/11/21 Status: Ordered Keppra XR 750 mg oral tablet, extended release 2 tablet = 1,500 mg, By Mouth, Daily, # 60 tablet, 0 Refills, Maintenance, 01/29/21 10:58:00 EDT, ER Tablet, Partial fill upon patient request if the prescription is for a schedule II opioid drug. Start Date: 01/29/21 Status: Ordered lidocaine 5% topical ointment 1 application, Topically, 3 times a day, for 10 days, # 30 Gm, 0 Refills, Acute 03/26/23 2:19:00 EDT, 03/16/23 2:19:00 EDT, Ointment, [facility], Partial fill upon patient requestif the prescription is for a schedule II opioid theodore... Start Date: 03/16/23 Stop Date: 03/26/23 Status: Ordered loperamide 2 mg oral tablet 1 tablet = 2 mg, By Mouth, 2 times a day, 0 Refills, Maintenance, 10/11/21 12:45:00 EDT, Partial fill upon patient request if the prescription is for a schedule II opioid drug. Start Date: 10/11/21 Status: Ordered prazosin 1 mg oral capsule 1 mg, 1, capsule, By Mouth, Daily at bedtime, # 30 tablet, Refills 0, Maintenance, 08/13/21 6:41:00EDT, Partial fill upon patient request if the prescription is for a schedule II opioid drug. Start Date: 08/13/21 Status: Ordered SEROquel 50 mg oral tablet 1 tablet = 50 mg, By Mouth, Daily at bedtime, # 30 tablet, 0 Refills, Maintenance, 09/20/21 14:00:00 EDT, Tablet, [facility], Partial fill upon patient request if the prescription is for a schedule II opioid drug., 165, cm, 09/20/21 11:4... Start Date: 09/20/21 Status: Ordered topiramate 100 mg oral tablet 1 tablet = 100 mg, By Mouth, 2 times a day, # 60 tablet, 0 Refills, Maintenance, 02/10/20 9:06:00 EDT, Tablet Start Date: 02/10/20 Status: Ordered Viberzi 100 mg oral tablet 1 tablet = 100 mg, By Mouth, 2 times a day, with food, # 60 tablet, 0 Refills, Maintenance, 02/23/23 14:22:00 EDT, Tablet, [id number], Partial fill upon patient request if the prescription is for a schedule II opioid drug., 164, cm, 0... Start Date: 02/23/23 Status: Ordered Problem List Condition Confirmation Course Effective Dates Status Health St atus Informant Anxiety Confirmed Active Factor XI deficiency Confirmed Active History of pulmonary embolism Confirmed Active Irritable bowel syndrome Confirmed Active Facet syndrome, lumbar Confirmed Active Migraines Confirmed Active Morbid obesity Confirmed Active Lumbar radiculitis Confirmed Active Obstructive sleep apnea Confirmed Active PTSD (post-traumatic stress disorder) Confirmed Active Confirmed Active Severe obesity Confirmed Active Social History Social History Type Response Smoking Status Never (less than 100 in lifetime) entered on: 10/11/21 Sex Patient Care team information Care Team Personnel Name: Sonia Loomis RN Position: [facility] RN Member Role: Primary Care Nurse Name: Diamond Pollack RN Position: [facility] HBO Wound Member Role: Primary Care Nurse Name: Graciela Kunz Position: [facility] Outreach Member Role: Lifetime Consulting Physician Name: Ernie Nobles MD Position: [facility] Outreach Member Role: PCP Address: Address: [address] [place] [address]- Name: Mar Elizondo RN Position: [facility] SN RN Member Role: Primary Care Nurse Name: Tammie Fonseca RN Position: [facility] SN RN Member Role: Primary Care Nurse Care Team Related Persons Name: WALDO ROJAS Address: home [address] [address] Name: WILBER BOWDEN Address: home PT UNEMPLOYMENT BENEFITS CLAIMS TAKER Name: CONNOR FAGAN Address: [address] [address]
--- OUTSIDE RECORDS SUMMARY | 2023-09-23 11:25 | XMS_ITS | Continuity of Care Document ---
Author Organization [facility] Address [address] [place] [address]- Care Team Providers Care Sample Grader Name Role Phone Name Ernie MOE Primary Care Physician Encounter [facility] Date(s): 02/06/22 - 03/08/22 [facility] [address] [place] [address]- Attending Physician: Mahogany Westfall Admitting Physician: Mahogany Westfall Referring Physician: [id number] Allergies, Adverse Reactions, Alerts Substance Reaction Severity [...] opioid drug. Start Date: 10/11/21 Status: Ordered Eliquis 5 mg oral tablet [...] 3 Refills, Maintenance, 05/28/21 16:06:00EST, EC Capsule, [facility], Partial fill upon patient request if the prescription is for a schedule II opioid drug., 165, cm, 05/01... Start Date: 05/28/21 Stop Date: 09/25/21 Status: Ordered Flonase 50 mcg/inh nasal spray 1 sprays, Nares, Both, 2 times a day, # 16 Gm, 0 Refills, Maintenance, 03/30/21 16:16:00 EDT, [place], [id number], Partial fill upon patient request if the [...] 09/20/21 13:59:00 EDT, Route to Pharmacy Electronically, [facility], Partial fill uponpatient request if the [...] opioid drug. Start Date: 01/29/21 Status: Ordered loperamide 2 mg oral tablet [...] 0 Refills, Maintenance, 09/20/21 14:00:00 EDT, Tablet, [facility], Partial fill upon patient request if the prescription is for a schedule II opioid drug., 165, cm, 09/20/21 11:4... Start Date: 09/20/21 Status: Ordered topiramate 100 mg oral tablet 1 tablet = 100 mg, By Mouth, 2 times a day, # 60 tablet, 0 Refills, Maintenance, 02/10/20 9:06:00 EDT, Tablet Start Date: 02/10/20 Status: Ordered Problem List Condition Confirmation Course [...] on: 10/11/21 Sex Patient Care team information Personnel Name: Name Ernie MOE Address: Address: [address] [place] [id number]
--- OUTSIDE RECORDS SUMMARY | 2023-09-23 11:25 | XMS_ITS | Continuity of Care Document ---
Author Organization [facility] Address [address] [place] [address]- Care Team Providers Care Perl Developer Name Role Phone Name Ernie MOE Primary Care Physician [place] [facility] [place](s): 09/21/22 - 10/21/22 [facility] [address] [place] [address]- Attending Physician: Mahogany Westfall Admitting Physician: Mahogany [...] 3 Refills, Maintenance, 05/28/21 16:06:00EST, EC Capsule, [facility], Partial fill upon patient request if the prescription is for a schedule II opioid drug., 165, cm, 05/01... Start Date: 05/28/21 Stop Date: 09/25/21 Status: Ordered Flonase 50 mcg/inh nasal spray 1 sprays, Nares, Both, 2 times a day, # 16 Gm, 0 Refills, Maintenance, 03/30/21 16:16:00 EDT, [place], [facility] #[id number], Partial fill upon patient request if the [...] 09/20/21 13:59:00 EDT, Route to Pharmacy Electronically, [facility], Partial fill uponpatient request if the [...] 0 Refills, Maintenance, 09/20/21 14:00:00 EDT, Tablet, [facility], Partial fill upon patient request if [...] Care team information Care Team Personnel Name: Renzo Hagan RN Position: [facility] RN Member Role: Primary Care Nurse Name: Sonia Loomis RN Position: [facility] RN Member Role: Primary Care Nurse Name: Diamond Pollack RN Position: [facility] HBO Wound Member Role: Primary Care Nurse Name: Jailene Kaur RN Position: [facility] AMB Nurse Member Role: Primary Care Nurse Name: Graciela Kunz Position: [facility] Outreach Member Role: Lifetime Consulting Physician Name: Ernie Nobles MD Position: [facility] Outreach Member Role: PCP Address: Address: [address] [place] [address]- Name: Raymundo VIZCARRA, Tammie Alfaro Position: S RN Member Role: Primary Care Nurse Care Team Related Persons Name: WALDO ROJAS Address: home [address] [facility] [address] [place] [address] Name: WILBER BOWDEN Address: home PT DIRECTOR OF ADVERTISING SALES Name: CONNOR FAGAN Address: home [address] [facility] [address] [place] [address]
--- OUTSIDE RECORDS SUMMARY | 2023-09-23 11:25 | XMS_ITS | Continuity of Care Document ---
Author Organization [facility] Address [address] [place] [address] [address], [address] [place] [address]- Care Team Providers Care Well Shooter Name Role Phone Name Ernie MOE Primary Care Physician Encounter [facility] [place] Date(s): 12/18/19 - 02/10/20 [facility] [address] [place] [address] Drive, [address] [place] [address]- [facility] Attending Physician: Sean Hatch MD Referring Physician: Ramses Hunt, Vinicio Robledo Allergies, Adverse Reactions, Alerts Substance Reaction Severity Status codeine Active Immunizations Given and Recorded Vaccine Date Status Refusal Reason pneumococcal 23-valent vaccine 10/23/18 Given Medications dicyclomine 10 mg oral capsule 1 capsule = 10 mg, By Mouth, 3 times a day, # 28 capsule, 0 Refills, Maintenance, 10/22/18 14:23:48EDT, Capsule Start Date: 10/22/18 Stop Date: 10/29/18 Status: Ordered Keppra XR 500 mg oral tablet, extended release 2 tablet = 1,000 mg, By Mouth, Daily, # 60 tablet, 0 Refills, Maintenance, 04/01/19 23:31:50 EDT, ER Tablet Start Date: 04/01/19 Status: Ordered omeprazole 20 mg oral delayed release tablet 1 tablet = 20 mg, By Mouth, Daily, # 30 tablet, 11 Refills, Maintenance, 01/26/19 10:59:09 EDT Start Date: 01/26/19 Stop Date: 01/21/20 Status: Ordered topiramate 100 mg oral tablet 1 tablet = 100 mg, By Mouth, 2 times a day, # 60 tablet, 0 Refills, Maintenance, 02/10/20 9:06:00 EDT, Tablet Start Date: 02/10/20 Status: Ordered Problem List Condition Effective Dates Status Health Status Inform ant Anxiety(Confirmed) Active Facet syndrome, lumbar(Confirmed) Active Morbid obesity(Confirmed) Active Lumbar radiculitis(Confirmed) Active PTSD (post-traumatic stress disorder)(Confirmed) Active (Confirmed) Active Vital Signs Most recent to oldest [Reference Range]: 1 Height 165 cm (01/10/20 4:53 PM) Weight 125.2 kg (01/10/20 4:53 PM) Body Mass Index [18.5-24.99] 45.99 *>HHI* (01/10/20 4:53 PM) Social History Social History Type Response Smoking Status Never (less than 100 in lifetime) entered on: 12/13/18 Sex
--- OUTSIDE RECORDS SUMMARY | 2023-09-23 11:25 | XMS_ITS | Continuity of Care Document ---
Author Organization [facility] Address [address] [place] [address] [address], [address] [place] [address]- Care Team Providers Care Compound Mixer Name Role Phone Name Ernie MOE Primary Care Physician Encounter [facility] [place] Date(s): 03/29/23 - 05/12/23 [facility] [address] [place] [address] Drive, [address] [place] [address]- Attending Physician: Funmi Soto MD Allergies, Adverse Reactions, Alerts Substance Reaction [...] opioid drug. Start Date: 04/01/21 Status: Ordered dicyclomine 10 mg oral capsule 1 capsule, By Mouth, 4 times a day, # 40 capsule, 4 Refills, Maintenance, 01/20/23 17:32:00 EDT, [facility], 164, cm, 12/17/22 22:30:00 EDT, [...] 3 Refills, Maintenance, 05/28/21 16:06:00EST, EC Capsule, [facility], Partial fill upon patient request if the prescription is for a schedule II opioid drug., 165, cm, 05/01... Start Date: 05/28/21 Stop Date: 09/25/21 Status: Ordered Flonase 50 mcg/inh nasal spray 1 sprays, Nares, Both, 2 times a day, # 16 Gm, 0 Refills, Maintenance, 03/30/21 16:16:00 EDT, [place], [facility] #[id number], Partial fill upon patient request if the [...] opioid drug. Start Date: 04/01/21 Status: Ordered HydrOXYzine = 50 mg, By Mouth, 2 times a day, [...] opioid drug. Start Date: 10/11/21 Status: Ordered OXcarbazepine 150 mg oral tablet TAKE 1 TABLET BY MOUTH TWICE DAILY Start Date: 04/20/23 Status: Ordered prazosin 1 mg oral capsule 1 mg, 1, capsule, By Mouth, Daily at bedtime, # 30 tablet, Refills 0, Maintenance, 08/13/21 6:41:00EDT, Partial fill upon patient request if the prescription is for a schedule II opioid drug. Start Date: 08/13/21 Status: Ordered topiramate 100 mg oral tablet 1 tablet = 100 mg, By Mouth, 2 times a day, # 60 tablet, 0 Refills, Maintenance, 02/10/20 9:06:00 EDT, Tablet Start Date: 02/10/20 Status: Ordered Viberzi 100 mg oral tablet 1 tablet = 100 mg, By Mouth, 2 times a day, with food, # 60 tablet, 0 Refills, Maintenance, 02/23/23 14:22:00 EDT, [place], [facility] #[id number], Partial fill upon patient request if the [...] Team Personnel Name: Sonia Loomis RN Position: [facility] RN Member Role: Primary Care Nurse Name: Diamond Pollack RN Position: [facility] HBO Wound Member Role: Primary Care Nurse Name: Graciela Kunz Position: [facility] Outreach Member Role: Lifetime Consulting Physician Name: Ernie Nobles MD Position: [facility] Outreach Member Role: PCP Address: Address: [address] [place] [id number] Name: Mar Elizondo RN Position: [facility] SN RN Member Role: Primary Care Nurse Name: Tammie Fonseca RN Position: [facility] SN RN Member Role: Primary Care Nurse Care Team Related Persons Name: WALDO ROJAS Address: home [address] [facility] [address] [place] [address] Name: WILBER BOWDEN Address: home PT CYBER INTEL PLANNER Name: CONNOR FAGAN Address: home [address] [address]
--- OUTSIDE RECORDS SUMMARY | 2023-09-23 11:25 | XMS_ITS | Continuity of Care Document ---
Author Organization [facility] Address [address] [place] [address] [address], [address] [place] [address]- Care Team Providers Care Systems Protection Technician Name Role Phone Name Ernie MOE Primary Care Physician Encounter [facility] Date(s): 04/12/23 - 05/12/[address], [address] [place], [place] [address] Attending Physician: Admarnaud, Mahogany Admitting Physician: AdmtrMahogany Referring Physician: Admtr, Ar8 Allergies, Adverse Reactions, [...] capsule, 4 Refills, Maintenance, 01/20/23 17:32:00 EDT, [facility], 164, cm, 12/17/22 22:30:00 EDT, [...] 3 Refills, Maintenance, 05/28/21 16:06:00EST, EC Capsule, [facility], Partial fill upon patient request if the prescription is for a schedule II opioid drug., 165, cm, 05/01... Start Date: 05/28/21 Stop Date: 09/25/21 Status: Ordered Flonase 50 mcg/inh nasal spray 1 sprays, Nares, Both, 2 times a day, # 16 Gm, 0 Refills, Maintenance, 03/30/21 16:16:00 EDT, [place], [facility] #[id number], Partial fill upon patient request if the [...] 0 Refills, Maintenance, 02/23/23 14:22:00 EDT, [place], [facility] #[id number], Partial fill upon patient request if the [...] Team Personnel Name: Sonia Loomis RN Position: [facility] RN Member Role: Primary Care Nurse Name: Diamond Pollack RN Position: [facility] HBO Wound Member Role: Primary Care Nurse Name: Graciela Kunz Position: [facility] Outreach Member Role: Lifetime Consulting Physician Name: Name Ernie MOE Position: [facility] Outreach Member Role: PCP Address: Address: [address] [place] [id number] Name: Mar Elizondo RN Position: [facility] SN RN Member Role: Primary Care Nurse Name: Tammie Fonseca RN Position: [facility] RN Member Role: Primary Care Nurse Care Team Related Persons Name: WALDO ROJAS Address: home [address] [place] [address] Name: WILBER BOWDEN Address: home PT PROFESSIONAL SYSTEM ADMINISTRATOR Name: CONNOR FAGAN Address: home [address] [place] [address]
--- OUTSIDE RECORDS SUMMARY | 2023-09-23 11:25 | XMS_ITS | Continuity of Care Document ---
Author Organization [facility] Address [address] [place] [address]- Care Team Providers Care Chief Petroleum Engineer Name Role Phone Name Ernie MOE Primary Care Physician [id number] Date[facility]s): 02/06/22 - 05/28/22 [facility] [address] [place] [address]- Attending Physician: Fly Villalobos MD Admitting Physician: Fly Villalobos MD Referring Physician: Marina Bedolla MD Allergies, Adverse Reactions, Alerts Substance Reaction [...] 3 Refills, Maintenance, 05/28/21 16:06:00EST, EC Capsule, [facility], Partial fill upon patient request if the prescription is for a schedule II opioid drug., 165, cm, 05/01... Start Date: 05/28/21 Stop Date: 09/25/21 Status: Ordered Flonase 50 mcg/inh nasal spray 1 sprays, Nares, Both, 2 times a day, # 16 Gm, 0 Refills, Maintenance, 03/30/21 16:16:00 EDT, [place], [facility] #[id number], Partial fill upon patient request if the [...] 09/20/21 13:59:00 EDT, Route to Pharmacy Electronically, [facility], Partial fill uponpatient request [...] Maintenance, 09/20/21 14:00:00 EDT, Tablet, [facility], Partial fill upon patient [...] Team Personnel Name: Sonia Loomis RN Position: [facility] RN Member Role: Primary Care Nurse Name: Diamond Pollack RN Position: [facility] HBO Wound Member Role: Primary Care Nurse Name: Jailene Kaur RN Position: [facility] AMB Nurse Member Role: Primary Care Nurse Name: Graciela Kunz Position: [facility] Outreach Member Role: Lifetime Consulting Physician Name: Ernie Nobles MD Position: [facility] Outreach Member Role: PCP Address: Address: [address] [place] [id number]- Name: Diamond Desai RN Position: S RN Member Role: Primary Care Nurse Name: Mar Elizondo RN Position: [facility] RN Member Role: Primary Care Nurse Name: Tammie Fonseca RN Position: [facility] RN Member Role: Primary Care Nurse Care Team Related Persons Name: WALDO ROJAS Address: home [address] [facility] [address] [place] [address] Name: CONNOR FAGAN Address: home [address] [address]
--- OUTSIDE RECORDS SUMMARY | 2023-09-23 11:25 | XMS_ITS | Continuity of Care Document ---
Author Organization [facility] Address Unknown Care Team Providers Care Custody Assistant Name Role Phone Name Ernie MOE Primary Care Physician Encounter [facility] Date(s): 03/14/21 - 04/13/21 [facility] Attending Physician: Mahogany Westfall Admitting Physician: Mahogany Westfall Referring Physician: Mahogany Westfall Allergies, Adverse Reactions, Alerts Substance Reaction Severity [...] Ordered dicyclomine 10 mg oral capsule 1 capsule = 10 mg, By Mouth, 3 times a day, # 28 capsule, 0 Refills, Maintenance, 10/22/18 14:23:48EDT, Capsule Start Date: 10/22/18 Stop Date: 10/29/18 Status: Ordered esomeprazole 20 mg oral enteric coated capsule 1 capsule = 20 mg, By Mouth, 2 times a day, # 60 capsule, 0 Refills, Maintenance, 07/01/20 8:56:00 EST, EC Capsule, [facility] #[id number], Partial fill upon patient request if the prescription is for a schedule II opioid drug., 165, cm, 04/30/20... Start Date: 07/01/20 Stop Date: 07/31/20 Status: Ordered Flonase 50 mcg/inh nasal spray 1 sprays, Nares, Both, 2 times a day, # 16 Gm, 0 Refills, Maintenance, 03/30/21 16:16:00 EDT, [place], [facility] #[id number], Partial fill upon patient request if the [...] opioid drug. Start Date: 04/01/21 Status: Ordered Keppra 1000 mg oral tablet 1 tablet = 1,000 mg, By Mouth, Daily at bedtime, # 30 tablet, 0 Refills, Maintenance, 03/30/21 15:10:00 EDT, Tablet, Partial fill upon patient request if the prescription is for a schedule II opioid drug. Start Date: 03/30/21 Status: Ordered Keppra XR 750 mg oral tablet, extended release 2 tablet = 1,500 mg, By Mouth, Daily, # 60 tablet, 0 Refills, Maintenance, 01/29/21 10:58:00 EDT, ER Tablet, Partial fill upon patient request if the prescription is for a schedule II opioid drug. Start Date: 01/29/21 Status: Ordered topiramate 100 mg oral tablet 1 tablet = 100 mg, By Mouth, 2 times a day, # 60 tablet, 0 Refills, Maintenance, 02/10/20 9:06:00 EDT, Tablet Start Date: 02/10/20 Status: Ordered Problem List Condition Effective Dates Status Health Status Inform ant Anxiety(Confirmed) Active Facet syndrome, lumbar(Confirmed) Active Morbid obesity(Confirmed) Active Lumbar radiculitis(Confirmed) Active PTSD (post-traumatic stress disorder)(Confirmed) Active (Confirmed) Active Social History Social History Type Response Smoking Status Former smoker, quit more than 30 days ago entered on: 01/29/21 Sex
--- OUTSIDE RECORDS SUMMARY | 2023-09-23 11:25 | XMS_ITS | Continuity of Care Document ---
Author Organization [facility] Address [address] [place] [address]- Care Team Providers Care Motion Picture Projectionist Name Role Phone Name Ernie MOE Primary Care Physician [place] [facility] Date(s): 05/27/21 - 06/26/21 [facility] [address] [place] [address]- Allergies, Adverse Reactions, Alerts Substance Reaction Severity [...] 3 Refills, Maintenance, 05/28/21 16:06:00EST, EC Capsule, [facility], Partial fill upon patient request if the prescription is for a schedule II opioid drug., 165, cm, 05/01... Start Date: 05/28/21 Stop Date: 09/25/21 Status: Ordered Flonase 50 mcg/inh nasal spray 1 sprays, Nares, Both, 2 times a day, # 16 Gm, 0 Refills, Maintenance, 03/30/21 16:16:00 EDT, [place], [facility] #[id number], Partial fill upon patient request if the [...] PTSD (post-traumatic stress disorder)(Confirmed) Active (Confirmed) Active Severe obesity(Confirmed) Active Social History Social History Type Response Smoking Status Former smoker, quit more than 30 days ago entered on: 01/29/21 Sex
[2023-09-23 11:26] LABS: MANUAL DIFF FLAG NO
--- OUTSIDE RECORDS SUMMARY | 2023-09-23 11:26 | XMS_ITS | Continuity of Care Document ---
Author Organization [facility] Address Unknown Care Team Providers Care Rifle Case Repairer Name Role Phone Name Ernie MOE Primary Care Physician Encounter [facility] [place] Date(s): 12/02/21 - 01/01/22 [facility] Attending Physician: Mahogany Westfall Admitting [...] 3 Refills, Maintenance, 05/28/21 16:06:00EST, EC Capsule, [facility], Partial fill upon patient request if the prescription is for a schedule II opioid drug., 165, cm, 05/01... Start Date: 05/28/21 Stop Date: 09/25/21 Status: Ordered Flonase 50 mcg/inh nasal spray 1 sprays, Nares, Both, 2 times a day, # 16 Gm, 0 Refills, Maintenance, 03/30/21 16:16:00 EDT, [place], [facility] #[id number], Partial fill upon patient request if the [...] 09/20/21 13:59:00 EDT, Route to Pharmacy Electronically, [facility], Partial fill uponpatient request [...] 0 Refills, Maintenance, 09/20/21 14:00:00 EDT, Tablet, [facility], Partial fill upon patient [...] Status Health Status Inform ant Anxiety(Confirmed) Active Factor XI deficiency(Confirmed) Active History of pulmonary embolism(Confirmed) Active Irritable bowel syndrome(Confirmed) Active Facet syndrome, lumbar(Confirmed) Active Migraines(Confirmed) Active Morbid obesity(Confirmed) Active Lumbar radiculitis(Confirmed) Active Obstructive sleep apnea(Confirmed) Active PTSD (post-traumatic stress disorder)(Confirmed) Active (Confirmed) Active Severe obesity(Confirmed) Active Social History Social History Type Response Smoking Status Never (less than 100 in lifetime) entered on: 10/11/21 Sex
--- OUTSIDE RECORDS SUMMARY | 2023-09-23 11:26 | XMS_ITS | Continuity of Care Document ---
Author Organization [facility] Address [address] [place] [address]- Care Team Providers Care Lasting Floorworker Name Role Phone Name Ernie MOE Primary Care Physician [place] [facility] [place] 10/04/20 - 10/04/[address] [address]- Discharge Disposition: A-D/C Home Attending Physician: Enrique Elena MD Admitting Physician: Enrique Elena MD Referring Physician: Not on Staff, Referring MD [...] Refills, Maintenance, 07/01/20 8:56:00 EST, EC Capsule, [facility] #[id number], Partial fill upon patient request if the [...] Exam Date Time Procedure Performing Provider Status 10/04/20 2:09 PM Cervical Spine 3 Views or Less Tuyet Pugh (Verified) Notes: (Cervical Spine 3 Views or Less) Reason For Exam: with Pain;Trauma RESULT: Cervical Spine 3 Views or Less Cervical spine 3 views dated October 14, 2020. No prior studies are available. HISTORY: Pain. FINDINGS: There is reversal of normal cervical adenosis consistent with muscular spasm. The vertebral bodies are normal in height. Intervertebral disc spaces are well preserved. Prevertebral soft tissues are within normal limits. IMPRESSION: Evidence of muscular spasm. No evidence of fracture or dislocation. Examination [address]. Thank you for allowing me to participate in the care of this patient. WSN: [id number] Ordering Physician: Enrique Elena Dictated By: Андрей Diallo MD Dictated Date/Time: 10/04/20 2:12 pm Reviewed By: Андрей Diallo MD Signed By: Андрей Diallo MD Signed Date/Time: 10/04/20 2:12 pm Transcribed By: ANGEL Transcribed Date/Time: 10/04/20 2:10 pm Vital Signs Most recent to oldest [Reference Range]: 1 2 Height 165 cm (10/04/20 12:38 PM) Weight 135.5 kg (10/04/20 12:38 PM) Oxygen Saturation [94-100 %] 99 % (10/04/20 1:26 PM) 96 % (10/04/20 12:38 PM) Pulse Rate [55-90 bpm] 69 bpm (10/04/20 1:26 PM) 66 bpm (10/04/20 12:38 PM) Blood Pressure [90-138/55-84 mm Hg] 127/ 69mm Hg (10/04/20 1:26 PM) 119/78mm Hg (10/04/20 12:38 PM) Respiratory Rate [16-30 br/min] 17 br/mi n (10/04/20 1:26 PM) 20 br/min (10/04/20 12:38 PM) Temperature [96.8-100.4 DegF] 98.2 DegF (10/04/20 1:26 PM) 98.0 DegF (10/04/20 12:38 PM) Mode of Delivery (Oxygen) Room air (10/04/20 1:26 PM) Room air (10/04/20 12:38 PM) Temperature Route Oral (10/04/20 1:26 PM) Oral (10/04/20 12:38 PM) Dry Weight 135.5 kg (10/04/20 12:38 PM) Social History Social History Type Response Smoking Status Former smoker, quit more than 30 days ago entered on: 04/30/20 Sex
--- OUTSIDE RECORDS SUMMARY | 2023-09-23 11:26 | XMS_ITS | Continuity of Care Document ---
Author Organization [facility] Address [address] [place] [address]- Care Team Providers Care Small Engine Mechanic Name Role Phone Name Ernie MOE Primary Care Physician Encounter [facility] [place] Date(s): 12/05/21 - 12/05/[address] [address]- Encounter Diagnosis Postictal state(Final) - 12/05/21 Discharge Disposition: A-D/C Home Attending Physician: Florin Hope MD Admitting Physician: Florin Hope MD Referring Physician: Not on Staff, Referring MD Vital Signs Most recent to oldest [Reference Range]: 1 2 Oxygen Saturation [94-100 %] 97 % (12/05/21 9:33 AM) 96 % (12/05/21 4:45 AM) Pulse Rate [55-90 bpm] 67 bpm (12/05/21 9:33 AM) 80 bpm (12/05/21 4:45 AM) Blood Pressure [90-138/55-84 mm Hg] 118/ 65mm Hg (12/05/21 9:33 AM) 126/88mm Hg (12/05/21 4:45 AM) Respiratory Rate [16-30 br/min] 20 br/mi n (12/05/21 9:33 AM) 17 br/min (12/05/21 4:45 AM) Temperature [96.8-100.4 DegF] 97.8 DegF (12/05/21 9:33 AM) 98.5 DegF (12/05/21 4:45 AM) Mode of Delivery (Oxygen) Room air (12/05/21 9:33 AM) Room air (12/05/21 4:45 AM) Blood pressure sites Arm, left (12/05/21 9:33 AM) Arm, left (12/05/21 4:45 AM) Temperature Route Oral (12/05/21 9:33 AM) Oral (12/05/21 4:45 AM)
--- OUTSIDE RECORDS SUMMARY | 2023-09-23 11:26 | XMS_ITS | Continuity of Care Document ---
Author Organization [facility] Address [address] [place] [address]- Care Team Providers Care Orchid Worker Name Role Phone Name Ernie MOE Primary Care Physician [phone] [id number] Date(s): 11/25/22 - 12/25/22 [facility] [address] [place] [address]- Patient Care team information Care Team Personnel Name: Name Ernie MOE Position: [facility] Outreach Member Role: PCP Address: Address: [address] [place] [id number]
--- OUTSIDE RECORDS SUMMARY | 2023-09-23 11:26 | XMS_ITS | Continuity of Care Document ---
Author Organization [facility] Address [address] [place] [address]- Care Team Providers Care Sample Card Maker Name Role Phone Name Ernie MOE Primary Care Physician [place] [facility] [place](s): 11/08/21 - 03/08/22 [facility] [address] [place] [address]- Attending Physician: Fly Villalobos MD Admitting Physician: Fly Villalobos MD Referring Physician: Name Ernie MOE Allergies, Adverse Reactions, Alerts Substance Reaction Severity [...] 3 Refills, Maintenance, 05/28/21 16:06:00EST, EC Capsule, [facility], Partial fill upon patient request if the prescription is for a schedule II opioid drug., 165, cm, 05/01... Start Date: 05/28/21 Stop Date: 09/25/21 Status: Ordered Flonase 50 mcg/inh nasal spray 1 sprays, Nares, Both, 2 times a day, # 16 Gm, 0 Refills, Maintenance, 03/30/21 16:16:00 EDT, [place], [facility] #[id number], Partial fill upon patient request if the [...] 09/20/21 13:59:00 EDT, Route to Pharmacy Electronically, [facility], Partial fill uponpatient request if the [...] 0 Refills, Maintenance, 09/20/21 14:00:00 EDT, Tablet, [facility], Partial fill upon patient request if [...] Personnel Name: Name Ernie MOE Address: Address: [address] [place] [address]
--- OUTSIDE RECORDS SUMMARY | 2023-09-23 11:26 | XMS_ITS | Continuity of Care Document ---
Author Organization [facility] ter Address [address] [place] [address]- Care Team Providers Care Claim Attorney Name Role Phone Name Ernei MOE Primary Care Physician Encounter [facility] Date(s): 08/27/23 - 08/27/[address] [address]- Encounter Diagnosis Seizure-like activity(Final) - 08/27/23 Discharge Disposition: A-D/C Home Attending Physician: Noreen Mcarthur MD Admitting Physician: Noreen Mcarthur MD Referring Physician: Not on Staff, Referring [...] capsule, 4 Refills, Maintenance, 01/20/23 17:32:00 EDT, [facility], 164, cm, 12/17/22 22:30:00 EDT, [...] 3 Refills, Maintenance, 05/28/21 16:06:00EST, EC Capsule, [facility], Partial fill upon patient request if the prescription is for a schedule II opioid drug., 165, cm, 05/01... Start Date: 05/28/21 Stop Date: 09/25/21 Status: Ordered Flonase 50 mcg/inh nasal spray 1 sprays, Nares, Both, 2 times a day, # 16 Gm, 0 Refills, Maintenance, 03/30/21 16:16:00 EDT, [place], [facility] #[id number], Partial fill upon patient request if the [...] opioid drug. Start Date: 04/01/21 Status: Ordered FLUoxetine (Eqv-Prozac) 10 mg oral tablet 1 tablet = 10 mg, By Mouth, Daily, 0 Refills, Maintenance, 06/29/23 15:39:00 EST, Partial fill uponpatient request if the prescription is for a schedule II opioid drug. Start Date: 06/29/23 Status: Ordered HydrOXYzine = 50 mg, By [...] opioid drug. Start Date: 10/11/21 Status: Ordered nortriptyline 10 mg oral capsule TAKE 1 CAPSULE BY MOUTH EVERY DAY Start Date: 06/29/23 Status: Ordered OXcarbazepine 150 mg oral tablet TAKE 1 TABLET BY MOUTH TWICE DAILY Start Date: 04/20/23 Status: Ordered prazosin 1 mg oral capsule 1 mg, 1, capsule, By Mouth, Daily at bedtime, # 30 tablet, Refills 0, Maintenance, 08/13/21 6:41:00EDT, Partial fill upon patient request if the prescription is for a schedule II opioid drug. Start Date: 08/13/21 Status: Ordered SUMAtriptan 50 mg oral tablet TAKE 1 TABLET BY MOUTH AT ONSET OF MIGRAINE. MAY REPEAT ONCE AFTER 2 HOURS IF NEEDED, DO NOT EXCEED4 TABLETS IN 24 HOURS Start Date: 06/29/23 Status: Ordered topiramate 100 mg oral tablet 1 tablet = 100 mg, By Mouth, 2 times a day, # 60 tablet, 0 Refills, Maintenance, 02/10/20 9:06:00 EDT, Tablet Start Date: 02/10/20 Status: Ordered Viberzi 100 mg oral tablet 1 tablet = 100 mg, By Mouth, 2 times a day, with food, # 60 tablet, 0 Refills, Maintenance, 02/23/23 14:22:00 EDT, Table[place], [id number], Partial fill upon patient request if the [...] (post-traumatic stress disorder) Confirmed Active Confirmed Active Seizure - Recurrent Confirmed Active Severe obesity Confirmed Active Vital Signs Most recent to oldest [Reference Range]: 1 Oxygen Saturation [94-100 %] 96 % (08/27/23 10:48 AM) Pulse Rate [55-90 bpm] 81 bpm (08/27/23 10:48 AM) Blood Pressure [90-138/55-84 mm Hg] 114/ 75mm Hg (08/27/23 10:48 AM) Respiratory Rate [16-30 br/min] 18 br/mi n (08/27/23 10:48 AM) Temperature [96.8-100.4 DegF] 98.1 DegF (08/27/23 10:48 AM) Mode of Delivery (Oxygen) Room air (08/27/23 10:48 AM) Blood pressure sites Arm, right (08/27/23 10:48 AM) Temperature Route Oral (08/27/23 10:48 AM) Social History Social History Type Response Smoking Status Never (less than 100 in lifetime) entered on: 08/25/23 Sex Note * Isis Isidro DO: PERFORM Event Display: Patient Education Leaflets Authored Date: [id number] Recurrent Seizure (Adult) ?? [id number] Recurrent Seizure (Adult) You have had another seizure today. A common cause of seizures that keep happening (recurrent seizures) is missing doses of seizure medicine. But sometimes seizures are hard to control even when you take the medicine correctly. If this is the case for you, your healthcare provider may need to increase your dosage. Or you may need to add or change to another medicine. Home care Follow these tips when caring for yourself at home. ??? Seizures aren???t predictable. So don't do anything that might cause danger to you or other people if you have another seizure. Until the seizures are under good control, take these safety steps:o Don???t drive, ride a motorcycle, or ride a bike. o Don???t operate dangerous equipment such as power tools. o Take showers instead of baths. o Don???t swim or climb ladders, trees, or roofs. ??? Tell your close friends and relatives about your seizure. Teach them what to do for you if it happensagain. ??? If medicine was prescribed to prevent seizures, take it exactly as directed. Missing doses will increase the risk of having another seizure. ??? If you miss a dose, take the missed dose assoon as you remember. If it's almost time for your next dose, skip the missed dose. Restart the medicine at your next scheduled time. Don???t take extra medicine to make up for the missed dose. ??? Wear a Medic-Alert bracelet to let emergency staff know about your condition. ??? Follow a regular sleep schedule so that you get at least 6 to 8 hours of restful sleep every night. This is especially important when you're sick with a cold or flu or another type of infection. ??? Alcohol and illegal drugs can cause you to have more seizures. Ask your provider if you are allowed to drink any alcohol at all. For future seizures, if you're alone: ??? If you feel a seizure coming on, lie down on a bed or on the floor with something soft under your head. This will keep you from falling. Lie on your left side, not on your back. This will let fluid drain out of your mouth and prevent choking. Be sure you are clear of any objects that might injure you during the seizure. Call for help if there is time. For future seizures, if someone is with you: ??? The person should help you get into a safe position and call for help. The person shouldn???t try to force anything in your mouth once the seizure begins. This could harm your teeth or jaw. ?? Follow-up care Follow up with your healthcare provider. Keep a seizure calendar to record how often you have a seizure. If you're being started on anti-seizure medicine, ask your provider if you need additional control. Seizure medicine can affect how well control pills work, and you could become . Some women who take seizure medicine also need certain vitamins. Tell your provider if you plan on getting or if you become . Don't drink alcohol until your provider tells you it???s OK. Each state has different laws that say when someone with seizures is allowed to drive. Some states require that a seizure disorder to be reported to the state. They don't allow you to drive until your seizures are controlled. Talk with your provider to see if this applies to you. ?? Important Don't drive until you've followed up with your healthcare provider and you've been cleared to drive. ?? When to get medical care Call your healthcare provider right away??if any of these occur: ??? Seizures happen more often or last longer than normal ??? A seizure lasts more than 5 minutes ??? You don???t wake up between seizures ??? Confusion that lasts more than 30 minutes after a seizure ??? Injury during a seizure ??? Fever of 100.4??F (38.0??C) or higher, or as advised by your provider ??? Unusual grouchiness, drowsiness, or confusion ??? Stiff or painful neck ??? Headache that gets worse? Last Reviewed Date: 2021 ?? 1001-9847 [employer]. All rights reserved. This information is not intended as a substitute for professional medical care. Always follow your healthcare professional's instructions. ?? Patient Care team information Care Team Personnel Name: Renzo Hagan RN Position: [facility] RN Member Role: Primary Care Nurse Name: Sonia Loomis RN Position: [facility] RN Member Role: Primary Care Nurse Name: Diamond Pollack RN Position: [facility] HBO Wound Member Role: Primary Care Nurse Name: Graciela Kunz Position: [facility] Outreach Member Role: Lifetime Consulting Physician Name: Ernie Nobles MD Position: [facility] Outreach Member Role: PCP Address: Address: [address] [place] [id number] Name: Mar Elizondo RN Position: [facility] SN RN Member Role: Primary Care Nurse Name: Tammie Fonseca RN Position: [facility] SN RN Member Role: Primary Care Nurse Care Team Related Persons Name: WALDO ROJAS Address: home [address] [place] [address] Name: WILBER BOWDEN Address: home PT POCKETED SPRING MACHINE OPERATOR Name: CONNOR FAGAN Address: home [address] [place] [address]
--- OUTSIDE RECORDS SUMMARY | 2023-09-23 11:26 | XMS_ITS | Continuity of Care Document ---
Author Organization [facility] Address [address] [place] [address]- Care Team Providers Care Stock Shipper Name Role Phone Name Ernie MOE Primary Care Physician Encounter [facility] [id number] Date(s): 01/19/20 - 03/16/20 [facility] [address] [place] [address]- [facility] Attending Physician: Haily Christiansen Admitting Physician: Haily Christiansen Referring Physician: Fly Villalobos MD Allergies, Adverse Reactions, Alerts Substance Reaction [...]
--- OUTSIDE RECORDS SUMMARY | 2023-09-23 11:26 | XMS_ITS | Continuity of Care Document ---
Author Organization [facility] Address [address] [place] [address] [address], [address] [place] [address]- Care Team Providers Care Snailer Name Role Phone Name Ernie MOE Primary Care Physician [phone] Encounter [facility] Date(s): 03/29/23 - 04/28/23 [facility] [address] [place] [address], [address] [place] [address]- Allergies, Adverse Reactions, Alerts Substance Reaction Severity [...] capsule, 4 Refills, Maintenance, 01/20/23 17:32:00 EDT, [facility], 164, cm, 12/17/22 22:30:00 EDT, Height, [...] 3 Refills, Maintenance, 05/28/21 16:06:00EST, EC Capsule, [facility], Partial fill upon patient request if the prescription is for a schedule II opioid drug., 165, cm, 2... Start Date: 05/28/21 Stop Date: 09/25/21 Status: Ordered Flonase 50 mcg/inh nasal spray 1 sprays, Nares, Both, 2 times a day, # 16 Gm, 0 Refills, Maintenance, 03/30/21 16:16:00 EDT, [place], [facility] #[id number], Partial fill upon patient request if the [...] 0 Refills, Maintenance, 02/23/23 14:22:00 EDT, [place], [facility] #[id number], Partial fill upon patient request if the [...] Team Personnel Name: Sonia Loomis RN Position: [facility] RN Member Role: Primary Care Nurse Name: Diamond Pollack RN Position: [facility] HBO Wound Member Role: Primary Care Nurse Name: Graciela Kunz Position: [facility] Outreach Member Role: Lifetime Consulting Physician Name: Ernie Nobles MD Position: [facility] Outreach Member Role: PCP Address: Address: [address] [place] [id number] Name: Mar Elizondo RN Position: [facility] SN RN Member Role: Primary Care Nurse Name: Tammie Fonseca RN Position: [facility] SN RN Member Role: Primary Care Nurse Care Team Related Persons Name: WALDO ROJAS Address: home [address] [place] [address] Name: WILBER BOWDEN Address: home PT SENIOR ENVIRONMENTAL ENGINEER Name: CONNOR FAGAN Address: home [address] [address]
--- OUTSIDE RECORDS SUMMARY | 2023-09-23 11:26 | XMS_ITS | Continuity of Care Document ---
Author Organization [facility] Address [address] [place] [address] [address], [address] [place] [address]- Care Team Providers Care Braiding Machine Tender Name Role Phone Name Ernie MOE Primary Care Physician Encounter [facility] Date(s): 01/11/20 - 02/10/20 [facility] [address] [place] [address], [address] [place] [address]- [facility] Attending Physician: Mahogany Westfall Admitting Physician: AdmMahogany lares Referring Physician: Admtr Ar8 Allergies, Adverse Reactions, Alerts Substance Reaction [...]
--- OUTSIDE RECORDS SUMMARY | 2023-09-23 11:26 | XMS_ITS | Continuity of Care Document ---
Author Organization [facility] Address [address] [place] [address]- Care Team Providers Care Mathematics Department Chair Name Role Phone Name Ernie MOE Primary Care Physician [phone] Encounter [facility] Date(s): 02/15/20 - 03/16/20 [facility] [address] [place] [address]- [facility] Attending Physician: Mahogany Westfall Admitting Physician: Mahogany Westfall Referring Physician: AdmtrMahogany Allergies, Adverse Reactions, Alerts Substance Reaction Severity [...]
--- OUTSIDE RECORDS SUMMARY | 2023-09-23 11:26 | XMS_ITS | Continuity of Care Document ---
Author Organization [facility] Address [address] [place] [address]- Care Team Providers Care Tarper Name Role Phone Name Ernie MOE Primary Care Physician Encounter [facility] Date(s): 04/28/22 - 05/28/22 [facility] [address] [place] [address]- Attending Physician: Mahogany Westfall Admitting Physician: Mahogany [...] 3 Refills, Maintenance, 05/28/21 16:06:00EST, EC Capsule, [facility], Partial fill upon patient request if the prescription is for a schedule II opioid drug., 165, cm, 05/01... Start Date: 05/28/21 Stop Date: 09/25/21 Status: Ordered Flonase 50 mcg/inh nasal spray 1 sprays, Nares, Both, 2 times a day, # 16 Gm, 0 Refills, Maintenance, 03/30/21 16:16:00 EDT, [place], [facility] #[id number], Partial fill upon patient request if the [...] 09/20/21 13:59:00 EDT, Route to Pharmacy Electronically, [facility], Partial fill uponpatient request if the [...] 0 Refills, Maintenance, 09/20/21 14:00:00 EDT, Tablet, [facility], Partial fill upon patient request if [...] Team Personnel Name: Sonia Loomis RN Position: [facility] RN Member Role: Primary Care Nurse Name: Diamond Pollack RN Position: [facility] HBO Wound Member Role: Primary Care Nurse Name: Jailene Kaur RN Position: [facility] AMB Nurse Member Role: Primary Care Nurse Name: Graciela Kunz Position: [facility] Outreach Member Role: Lifetime Consulting Physician Name: Ernie Nobles MD Position: [facility] Outreach Member Role: PCP Address: Address: [address] [place] [address]- Name: Diamond Desai RN Position: S RN Member Role: Primary Care Nurse Name: Mar Elizondo RN Position: [facility] RN Member Role: Primary Care Nurse Name: Tammie Fonseca RN Position: [facility] RN Member Role: Primary Care Nurse Care Team Related Persons Name: WALDO ROJAS Address: home [address] [place] [address] Name: CONNOR FAGAN Address: home [address] [address]
--- OUTSIDE RECORDS SUMMARY | 2023-09-23 11:26 | XMS_ITS | Continuity of Care Document ---
Author Organization [facility] ter Address [address] [place] [address]- Care Team Providers Care China And Silverware Salesperson Name Role Phone Name Ernie MOE Primary Care Physician [phone] Encounter [facility] Date(s): 03/04/22 - 03/04/[address] [address]- Encounter Diagnosis Psychogenic nonepileptic seizure(Final) - 03/04/22 Discharge Disposition: A-D/C Home Attending Physician: Moira [...] 3 Refills, Maintenance, 05/28/21 16:06:00EST, EC Capsule, [facility], Partial fill upon patient request if the prescription is for a schedule II opioid drug., 165, cm, 05/01... Start Date: 05/28/21 Stop Date: 09/25/21 Status: Ordered Flonase 50 mcg/inh nasal spray 1 sprays, Nares, Both, 2 times a day, # 16 Gm, 0 Refills, Maintenance, 03/30/21 16:16:00 EDT, [place], [facility] #[id number], Partial fill upon patient request if the [...] 09/20/21 13:59:00 EDT, Route to Pharmacy Electronically, [facility], Partial fill uponpatient request if the [...] Refills, Maintenance, 09/20/21 14:00:00 EDT, Tablet, [facility], Partial fill upon patient request [...] Active Confirmed Active Severe obesity Confirmed Active Vital Signs Most recent to oldest [Reference Range]: 1 2 3 Oxygen Saturation [94-100 %] 99 % (03/04/22 2:31 PM) 100 % (03/04/22 11:34 AM) 3 % *L* (03/04/22 11:06 AM) Pulse Rate [55-90 bpm] 72 bpm (03/04/22 2:31 PM) 80 bpm (03/04/22 11:34 AM) 80 bpm (03/04/22 11:06 AM) Blood Pressure [90-138/55-84 mm Hg] 122/30mm Hg (03/04/22 2:31 PM) 109/62mm Hg (03/04/22 11:34 AM) 128/97mm Hg (03/04/22 11:06 AM) Respiratory Rate [16-30 br/min] 18 br/min (03/04/22 2:31 PM) 18 br/min (03/04/22 11:34 AM) 18 br/min (03/04/22 11:06 AM) Temperature [96.8-100.4 DegF] 98.4 DegF (03/04/22:34 AM) 97.7 DegF (03/04/22 11:06 AM) Mode of Delivery (Oxygen) Room air (03/04/22 2:31 PM) Room air (03/04/22 11:34 AM) Nasal cannula (03/04/22 11:06 AM) Blood pressure sites Arm, left (03/04/22 2:31 PM) Arm, right (03/04/22 11:34 AM) Arm, right (03/04/22 11:06 AM) Temperature Route Oral (03/04/22 11:34 AM) Oral (03/04/22 11:06 AM) Social History Social History Type Response Smoking Status Never (less than 100 in lifetime) entered on: 10/11/21 Sex Patient Care team information Personnel Name: Ernie Nobles MD Address: Address: [address] [place] [id number]
--- OUTSIDE RECORDS SUMMARY | 2023-09-23 11:26 | XMS_ITS | Continuity of Care Document ---
Author Organization [facility] ter Address [address] [place] [address]- Care Team Providers Care House Detective Name Role Phone Name Ernie MOE Primary Care Physician [phone] Encounter [facility] Date(s): 03/10/22 - 03/11/[address] [address]- Encounter Diagnosis Seizure-like activity(Final) - 03/11/22 Discharge Disposition: A-D/C Home Attending Physician: Kirsten Briones DO Admitting Physician: Kirsten Briones DO Referring Physician: Not on Staff, Referring [...] 3 Refills, Maintenance, 05/28/21 16:06:00EST, EC Capsule, [facility], Partial fill upon patient request if the prescription is for a schedule II opioid drug., 165, cm, 05/01... Start Date: 05/28/21 Stop Date: 09/25/21 Status: Ordered Flonase 50 mcg/inh nasal spray 1 sprays, Nares, Both, 2 times a day, # 16 Gm, 0 Refills, Maintenance, 03/30/21 16:16:00 EDT, [place], [facility] #[id number], Partial fill upon patient request if the [...] 09/20/21 13:59:00 EDT, Route to Pharmacy Electronically, [facility], Partial [...] 0 Refills, Maintenance, 09/20/21 14:00:00 EDT, Tablet, [facility], Partial fill [...] [Reference Range]: 1 Oxygen Saturation [94-100 %] 100 % (03/10/22 8:08 PM) Pulse Rate [55-90 bpm] 82 bpm (03/10/22 8:08 PM) Blood Pressure [90-138/55-84 mm Hg] 128/ 80mm Hg (03/10/22 8:08 PM) Respiratory Rate [16-30 br/min] 16 br/mi n (03/10/22 8:08 PM) Temperature [96.8-100.4 DegF] 98 DegF (03/10/22 8:08 PM) Mode of Delivery (Oxygen) Room air (03/10/22 8:08 PM) Blood pressure sites Arm, left (03/10/22 8:08 PM) Temperature Route Oral (03/10/22 8:08 PM) Social History Social History Type Response Smoking Status Never (less than 100 in lifetime) entered on: 10/11/21 Sex Patient Care team information Personnel Name: Name Ernie MOE Address: Address: [address] [place] [id number]
--- OUTSIDE RECORDS SUMMARY | 2023-09-23 11:26 | XMS_ITS | Continuity of Care Document ---
Author Organization [facility] ter Address [address] [place] [address]- Care Team Providers Care Log Loader Name Role Phone Name Ernie MOE Primary Care Physician [phone] Encounter [facility] Date(s): 09/16/21 - 09/20/[address] [address]- Discharge Disposition: A-D/C Home Attending Physician: Jessica Adames DO Admitting Physician: Bradley Lara MD Referring Physician: Not on Staff, Referring MD Allergies, Adverse Reactions, Alerts Substance Reaction Severity Status codeine Active Other Food Allergy 1 Active 1mayonnaise and all nuts except peanuts Immunizations Given and Recorded Vaccine Date Status Refusal Reason pneumococcal 23-valent vaccine 10/23/18 Given Medications Acetaminophen Tablet 650 mg, Tablet, By Mouth, Every 4 hours, PRN for Pain , Mild, Temperature Greater than 100.5, Routine, 09/17/21 0:19:00 EDT Start Date: 09/17/21 Stop Date: 09/21/21 Status: Discontinued albuterol 5 mg/mL (0.5%) inhalation solution 0.5 [...] Date: 10/22/18 Stop Date: 10/29/18 Status: Ordered Eliquis 5 mg oral tablet [...] 3 Refills, Maintenance, 05/28/21 16:06:00EST, EC Capsule, [facility], Partial fill upon patient request if the prescription is for a schedule II opioid drug., 165, cm, 05/01... Start Date: 05/28/21 Stop Date: 09/25/21 Status: Ordered Flonase 50 mcg/inh nasal spray 1 sprays, Nares, Both, 2 times a day, # 16 Gm, 0 Refills, Maintenance, 03/30/21 16:16:00 EDT, [place], [id number], Partial fill upon patient request if the [...] 09/20/21 13:59:00 EDT, Route to Pharmacy Electronically, [facility], Partial fill uponpatient request if the prescription is for a schedu... Start Date: 09/20/21 Status: Ordered gabapentin 300 mg oral capsule 300 mg, Capsule, By Mouth, 09/20/21 9:00:00 EDT Start Date: 09/20/21 Stop Date: 09/20/21 Status: Completed Keppra XR 750 mg oral tablet, extended release 2 tablet = 1,500 mg, By Mouth, Daily, # 60 tablet, 0 Refills, Maintenance, 01/29/21 10:58:00 EDT, ER Tablet, Partial fill upon patient request if the prescription is for a schedule II opioid drug. Start Date: 01/29/21 Status: Ordered MorPHINE Inj 1 mg, Injection, IV Push Slowly, Once, PRN for Pain , Moderate, Routine, 09/20/21 12:32:00 EDT Start Date: 09/20/21 Stop Date: 09/20/21 Status: Completed prazosin 1 mg oral capsule 1 mg, [...] 0 Refills, Maintenance, 09/20/21 14:00:00 EDT, Tablet, [facility], Partial fill upon patient request [...] Active Morbid obesity(Confirmed) Active Lumbar radiculitis(Confirmed) Active Obese class II(Confirmed) Active Obstructive sleep apnea(Confirmed) Active PTSD (post-traumatic stress disorder)(Confirmed) Active (Confirmed) Active Vital Signs Most recent to oldest [Reference Range]: 1 2 3 4 Height 165 cm (09/20/21 11:46 AM) 165 cm (09/20/21 7:49 AM) 165 cm (09/20/21 4:33 AM) Weight 107.1 kg (09/16/21 11:47 PM) Oxygen Saturation [94-100 %] 95 % (09/20/21 11:46 AM) 96 % (09/20/21 7:49 AM) 98 % (09/20/21 4:33 AM) Pulse Rate [55-90 bpm] 137 bpm *H* (09/20/21 11:46 AM) 101 bpm *H* (09/20/21 7:49 AM) 72 bpm (09/20/21 4:33 AM) Body Mass Index [18.5-24.99] 39.34 *>HHI* (09/16/21 11:47 PM) Blood Pressure [90-138/55-84 mm Hg] 153/108mm Hg *H* (09/20/21 11:46 AM) 110/67mm Hg (09/20/21 7:49 AM) 109/61mm Hg (09/20/21 4:33 AM) Respiratory Rate [16-30 br/min] 18 br/min (09/20/21 1:12 PM) 16 br/min (09/20/21 12:42 PM) 18 br/min (09/20/21 10:09 AM) 18 br/min (09/20/21 10:09 AM) Temperature [96.8-100.4 DegF] 98.3 DegF (09/20/21 11:46 AM) 97.9 DegF (09/20/21 7:49 AM) 97.8 DegF (09/20/21 4:33 AM) Mode of Delivery (Oxygen) Room air (09/20/21 11:46 AM) Room air (09/20/21 7:49 AM) Room air (09/20/21 4:33 AM) Blood pressure sites Arm, right (09/20/21 7:49 AM) Arm, right (09/20/21 4:33 AM) Arm, right (09/19/21 3:43 PM) Temperature Route Oral (09/20/21 11:46 AM) Oral (09/20/21 7:49 AM) Oral (09/20/21 4:33 AM) Dry Weight 107.1 kg (09/16/21 11:47 PM) Social History Social History Type Response Smoking Status Former smoker, quit more than 30 days ago entered on: 01/29/21 Sex
--- OUTSIDE RECORDS SUMMARY | 2023-09-23 11:26 | XMS_ITS | Continuity of Care Document ---
Author Organization [facility] ter Address [address] [place] [address]- Care Team Providers Care Intake Worker Name Role Phone Name Ernie MOE Primary Care Physician [phone] Encounter [facility] Date(s): 09/04/23 - 09/04/[address] [address]- Encounter Diagnosis Seizure(Final) - 09/04/23 PE (pulmonary thromboembolism)(Final) - 09/04/23 PTSD (post-traumatic stress disorder)(Final) - 09/04/23 Fall(Final) - 09/04/23 Discharge Disposition: A-D/C Home Attending Physician: Alberto Johnson DO Admitting Physician: Alberto Johnson DO Referring Physician: Not on Staff, Referring MD Allergies, Adverse Reactions, Alerts Substance Reaction Severity Status codeine Active Other Food Allergy 1 Active 1mayonnaise and all nuts except peanuts Immunizations Given and Recorded Vaccine Date Status Refusal Reason pneumococcal 23-valent vaccine 10/23/18 Given Medications Acetaminophen Tablet 975 mg, Tablet, By Mouth, Once, STAT, 09/04/23 14:07:00 EDT, Stop date 09/04/23 14:07:00 EDT Start Date: 09/04/23 Stop Date: 09/04/23 Status: Completed albuterol 5 mg/mL (0.5%) inhalation solution 0.5 [...] capsule, 4 Refills, Maintenance, 01/20/23 17:32:00 EDT, [facility], 164, cm, 12/17/22 22:30:00 EDT, [...] 3 Refills, Maintenance, 05/28/21 16:06:00EST, EC Capsule, [facility], Partial fill upon patient request if the prescription is for a schedule II opioid drug., 165, cm, 05/01... Start Date: 05/28/21 Stop Date: 09/25/21 Status: Ordered Flonase 50 mcg/inh nasal spray 1 sprays, Nares, Both, 2 times a day, # 16 Gm, 0 Refills, Maintenance, 03/30/21 16:16:00 EDT, [id number], Partial fill upon patient request if the [...] 0 Refills, Maintenance, 02/23/23 14:22:00 EDT, Tablet, [facility][id number], Partial fill upon patient request if the [...] Recurrent Confirmed Active Severe obesity Confirmed Active Results Radiology Reports * Exam Date Time Procedure Performing Provider Status 09/04/23 1:[address] Cervical Spine W/O Contrast Misty Coronado; Adrienne (Verified) Notes: (CT Cervical Spine W/O Contrast) Reason For Exam: Neck trauma, dangerous injury mechanism;Other: RESULT: CT Cervical Spine W/O Contrast INDICATION: Hx of Present Illness: HTN, head strike last night.; Reason: Trauma; Clinical Question(s): Hematoma; Order Comment: CLINICAL QUESTION: Hematoma TECHNIQUE: Noncontrast head and cervical spine CT using axial technique and reconstructed in axial,sagittal, and coronal plane. Age-based protocol was used to optimize exposure parameters. CTDIvol Body: 29.50 mGy, DLP Body: 718 mGy*cm. CTDIvol Head: 46.20 mGy, DLP Head: 773 mGy*cm. COMPARISON: 08/28/2023 FINDINGS: BRAIN: No parenchymal hemorrhage, midline shift or mass effect. Clay-white matter differentiation is well preserved. No acute infarct. Ventricles, sulci and basilar cisterns are normal. No white matter abnormalities. CALVARIUM, SKULL BASE and SINUSES: Moderate mucosal thickening in the right maxillary sinus. Bilateral mastoids are clear. There is no fracture. C-SPINE: The lung apices are clear. There is no acute fracture or subluxation. The prevertebral soft tissue is unremarkable. IMPRESSION: No acute findings. WSN: [id number] Ordering Physician: Rehana Goel Dictated By: Jana Waters MD Dictated Date/Time: 09/04/23 1:27 pm Reviewed By: Jana Waters MD Signed By: Jana Waters MD Signed Date/Time: 09/04/23 1:27 pm Transcribed By: ANGEL Transcribed Date/Time: 09/04/23 1:23 pm * Exam Date Time Procedure Performing Provider Status 09/04/23 1:[address] Head/Brain W/O Contrast Coronado Betitogh; Auth (Verified) Notes: (CT Head/Brain W/O Contrast) Reason For Exam: Trauma RESULT: CT Head/Brain W/O Contrast INDICATION: Hx of Present Illness: HTN, head strike last night.; Reason: Trauma; Clinical Question(s): Hematoma; Order Comment: CLINICAL QUESTION: Hematoma TECHNIQUE: Noncontrast head and cervical spine CT using axial technique and reconstructed in axial,sagittal, and coronal plane. Age-based protocol was used to optimize exposure parameters. CTDIvol Body: 29.50 mGy, DLP Body: 718 mGy*cm. CTDIvol Head: 46.20 mGy, DLP Head: 773 mGy*cm. COMPARISON: 08/28/2023 FINDINGS: BRAIN: No parenchymal hemorrhage, midline shift or mass effect. Clay-white matter differentiation is well preserved. No acute infarct. Ventricles, sulci and basilar cisterns are normal. No white matter abnormalities. CALVARIUM, SKULL BASE and SINUSES: Moderate mucosal thickening in the right maxillary sinus. Bilateral mastoids are clear. There is no fracture. C-SPINE: The lung apices are clear. There is no acute fracture or subluxation. The prevertebral soft tissue is unremarkable. IMPRESSION: No acute findings. WSN: [id number] Ordering Physician: Rehana Goel Dictated By: Jana Waters MD Dictated Date/Time: 09/04/23 1:27 pm Reviewed By: Jana Waters MD Signed By: Jana Waters MD Signed Date/Time: 09/04/23 1:27 pm Transcribed By: ANGEL Transcribed Date/Time: 09/04/23 1:23 pm * Exam Date Time Procedure Performing Provider Status 09/04/23 12:23 PM Chest 2 Views Frontal and Lat Tarik Wei; Auth (Verified) Notes: (Chest 2 Views Frontal and Lat) Reason For Exam: Shortness of Breath, Fever;Other: RESULT: Chest 2 Views Frontal and Lat Chest 2 Views Frontal and Lat Hx of Present Illness: HTN, head strike last night.; Reason: Other:; Shortness of Breath, Fever; Clinical Question(s): Pneumonia COMPARISON: Multiple prior chest x-rays, the most recent of which is dated 06/28/2023. FINDINGS: LINES AND TUBES: None. LUNGS AND PLEURA: Clear lungs. Normal pulmonary vascularity. No pleural effusion. No pneumothorax. HEART, MEDIASTINUM AND KASSY: Heart is normal in size. Normal mediastinal and hilar contour. BONES AND SOFT TISSUES: No acute abnormality. IMPRESSION: No acute abnormality. WSN: [id number] Ordering Physician: Rehana Goel Dictated By: Shannen Noyola MD Dictated Date/Time: 09/04/23 12:28 p Reviewed By: Shannen Noyola MD Signed By: Shannen Noyola MD Signed Date/Time: 09/04/23 12:28 pm Transcribed By: ANGEL Transcribed Date/Time: 09/04/23 12:27 pm Vital Signs Most recent to oldest [Reference Range]: 1 2 3 Height 165 cm (09/04/23 11:47 AM) Weight 138 kg (09/04/23 11:47 AM) Oxygen Saturation [94-100 %] 100 % (09/04/23 2:45 PM) 99 % (09/04/23 11:47 AM) Pulse Rate [55-90 bpm] 76 bpm (09/04/23 2:45 PM) 73 bpm (09/04/23 11:47 AM) Blood Pressure [90-138/55-84 mm Hg] 140/96mm Hg *H* (09/04/23 2:45 PM) 143/94mm Hg *H* (09/04/23 11:47 AM) Respiratory Rate [16-30 br/min] 18 br/min (09/04/23 3:10 PM) 22 br/min (09/04/23 2:45 PM) 19 br/min (09/04/23 11:47 AM) Temperature [96.8-100.4 DegF] 98.9 DegF (09/04/23 11:47 AM) Mode of Delivery (Oxygen) Room air (09/04/23 2:45 PM) Room air (09/04/23 11:47 AM) Temperature Route Oral (09/04/23 11:47 AM) Social History Social History Type Response Smoking Status Never (less than 100 in lifetime) entered on: 08/25/23 Sex EKG study * Event Display: ECG 12-Lead Authored Date: Please click on pdf link to open report * Event Display: ECG 12-Lead Authored Date: Ventricular Rate: 74 BPM Atrial Rate: 74 BPM P-R Interval: 180 ms QRS Duration: 80 ms Q-T Interval: 374 ms QTC Calculation(Bazett): 415 ms P Dixon: 49 degrees R Dixon: 17 degrees T Dixon: 24 degrees Normal sinus rhythm with sinus arrhythmia Low voltage QRS Borderline ECG When compared with ECG of 28-AUG-2023 13:21, No significant change was found Confirmed by DIANA FELIX MD ([id number]) on 09/04/2023 1:16:49 PM [place]: DIANA FELIX MD Note * Rehana Goel MD: PERFORM Event Display: Patient Education Leaflets Authored Date: Recurrent Seizure (Adult) ?? [id number] Recurrent Seizure (Adult) You have had another [...] gets worse? Last Reviewed Date: 2021 ?? [id number] [employer]. All rights reserved. This information is not intended as a substitute for professional medical care. Always follow your healthcare professional's instructions. ?? Patient Care team information Care Team Personnel Name: Renzo Hagan RN Position: [facility] RN Member Role: Primary Care Nurse Name: Sonia Loomis RN Position: [facility] RN Member Role: Primary Care Nurse Name: Diamond Pollack RN Position: [facility] HBO Wound Member Role: Primary Care Nurse Name: Graciela Kunz Position: [facility] Outreach Member Role: Lifetime Consulting Physician Name: Ernie Nobles MD Position: [facility] Outreach Member Role: PCP Address: Address: [address] [place] [address]- Name: Mar Elizondo RN Position: [facility] SN RN Member Role: Primary Care Nurse Name: Tammie Fonseca RN Position: [facility] SN RN Member Role: Primary Care Nurse Care Team Related Persons Name: WALDO ROJAS Address: home [address] [place] [address] Name: WILBER BOWDEN Address: home PT MEDICAL INSTRUMENT TECHNICIAN Name: CONNOR FAGAN Address: home [address] [facility] [address] [place] [address]
--- OUTSIDE RECORDS SUMMARY | 2023-09-23 11:26 | XMS_ITS | Continuity of Care Document ---
Author Organization [facility] Address [address], [address], [address] [place] [address]- Care Team Providers Care Silk Folder Name Role Phone Name Ernie MOE Primary Care Physician [phone] Encounter [facility] Date(s): 07/05/23 - 08/04/23 [facility] [address], [address], [address] [place] [address]- Allergies, Adverse Reactions, Alerts Substance Reaction Severity [...] capsule, 4 Refills, Maintenance, 01/20/23 17:32:00 EDT, [facility], 164, cm, 12/17/22 22:30:00 [...] 3 Refills, Maintenance, 05/28/21 16:06:00EST, EC Capsule, [facility], Partial fill upon patient request if the prescription is for a schedule II opioid drug., 165, cm, 05/01... Start Date: 05/28/21 Stop Date: 09/25/21 Status: Ordered Flonase 50 mcg/inh nasal spray 1 sprays, Nares, Both, 2 times a day, # 16 Gm, 0 Refills, Maintenance, 03/30/21 16:16:00 EDT, [place], [email or web address][id number], Partial fill upon patient request if the [...] 0 Refills, Maintenance, 02/23/23 14:22:00 EDT, Tablet, [id number], Partial fill upon patient request if the [...] Recurrent Confirmed Active Severe obesity Confirmed Active Social History Social History Type Response Smoking Status Former smoker, quit more than 30 days ago entered on: 04/30/20 Sex Patient Care team information Care Team Personnel Name: Renzo Hagan RN Position: [facility] RN Member Role: Primary Care Nurse Name: Sonia Loomis RN Position: [facility] RN Member Role: Primary Care Nurse Name: Diamond Pollack RN Position: [facility] HBO Wound Member Role: Primary Care Nurse Name: Graciela Kunz Position: [facility] Outreach Member Role: Lifetime Consulting Physician Name: Ernie Nobles MD Position: [facility] Outreach Member Role: PCP Address: Address: [address] [place] [address] Name: Mar Elizondo RN Position: [facility] SN RN Member Role: Primary Care Nurse Name: Tammie Fonseca RN Position: [facility] SN RN Member Role: Primary Care Nurse Care Team Related Persons Name: BOB WALDO Address: home [address] [address] Name: WILBER BOWDEN Address: home PT AUTOMATIC PROFILE SANDER OPERATOR Name: CONNOR FAGAN Address: home [address] [address]
--- OUTSIDE RECORDS SUMMARY | 2023-09-23 11:26 | XMS_ITS | Continuity of Care Document ---
Author Organization [facility] ter Address [address] [place] [address]- Care Team Providers Care Ux Architect Name Role Phone Name Ernie MOE Primary Care Physician Encounter [facility] Date(s): 07/03/20 - 07/03/[address] [address]- Discharge Disposition: A-D/C Home Attending Physician: Raymundo Nowak DO Admitting Physician: Raymundo Nowak DO Referring Physician: Not on Staff, Referring [...] Refills, Maintenance, 07/01/20 8:56:00 EST, EC Capsule, [facility][id number], Partial fill upon patient request if the prescription is for a schedule II opioid drug., 165, cm, 04/30/20... Start Date: 07/01/20 Stop Date: 07/31/20 Status: Ordered Keppra XR 500 mg oral tablet, extended release 2 tablet = 1,000 mg, By Mouth, Daily, # 60 tablet, 0 Refills, Maintenance, 04/01/19 23:31:50 EDT, ER Tablet Start Date: 04/01/19 Status: Ordered MorPHINE Inj 4 mg, Injection, IV Push Slowly, Every 5 minutes for 3 doses/times, PRN for Pain , Moderate, and SBP greater than 100, Routine, 07/03/20 19:12:00 EST, Stop date Limited # of times Start Date: 07/03/20 Status: Ordered topiramate 100 mg oral tablet [...] 1 2 3 Oxygen Saturation [94-100 %] 100 % (07/03/20 10:54 PM) 99 % (07/03/20 8:30 PM) 97 % (07/03/20 6:58 PM) Pulse Rate [55-90 bpm] 66 bpm (07/03/20 10:54 PM) 64 bpm (07/03/20 8:30 PM) 79 bpm (07/03/20 6:58 PM) Blood Pressure [90-138/55-84 mm Hg] 117/71mm Hg (07/03/20 10:54 PM) 126/76mm Hg (07/03/20 8:30 PM) 128/72mm Hg (07/03/20 6:58 PM) Respiratory Rate [16-30 br/min] 18 br/min (07/03/20 10:54 PM) 18 br/min (07/03/20 10:03 PM) 23 br/min (07/03/20 9:33 PM) Temperature [96.8-100.4 DegF] 98.8 DegF (07/03/20 8:30 PM) 98 DegF (07/03/20 6:58 PM) Mode of Delivery (Oxygen) Room air (07/03/20 10:54 PM) Room air (07/03/20 8:30 PM) Room air (07/03/20 6:58 PM) Blood pressure sites Arm, left (07/03/20 8:30 PM) Arm, left (07/03/20 6:58 PM) Temperature Route Oral (07/03/20 8:30 PM) Oral (07/03/20 6:58 PM) Social History Social History Type Response Smoking Status Former smoker, quit more than 30 days ago entered on: 04/30/20 Sex
--- OUTSIDE RECORDS SUMMARY | 2023-09-23 11:26 | XMS_ITS | Continuity of Care Document ---
Author Organization [facility] Address [address] [place] [address]- Care Team Providers Care Quartz Miner Blasting Name Role Phone Name Ernie MOE Primary Care Physician [place] [facility]s): 11/27/22 - 12/27/22 [facility] [address] [place] [address]- [place] Allergies, Adverse Reactions, Alerts Substance Reaction Severity [...] 1 capsule = 10 mg, By Mouth, 4 times a day, # 40 capsule, 0 Refills, Maintenance, 11/27/22 10:08:00EDT, Capsule, [facility], Partial fill upon patient request if the prescriptionis for a schedule II opioid drug., 167, cm, ... Start Date: 11/27/22 Stop Date: 12/07/22 Status: Ordered Eliquis 5 mg oral tablet [...] Gm, 0 Refills, Maintenance, 03/30/21 16:16:00 EDT, [place], [facility][id number], Partial fill upon patient request if the [...] 09/20/21 13:59:00 EDT, Route to Pharmacy Electronically, [facility], Partial fill uponpatient request if [...] 0 Refills, Maintenance, 09/20/21 14:00:00 EDT, Tablet, [facility], Partial fill upon patient request [...] Team Personnel Name: Renzo Hagan RN Position: [facility] RN Member Role: Primary Care Nurse Name: Sonia Loomis RN Position: [facility] RN Member Role: Primary Care Nurse Name: Diamond Pollack RN Position: [facility] HBO Wound Member Role: Primary Care Nurse Name: Jailene Kaur RN Position: [facility] AMB Nurse Member Role: Primary Care Nurse Name: Graciela Kunz Position: [facility] Outreach Member Role: Lifetime Consulting Physician Name: Ernie Nobles MD Position: [facility] Outreach Member Role: PCP Address: Address: [address] [place] [address] Name: Tammie Fonseca RN Position: [facility] SN RN Member Role: Primary Care Nurse Care Team Related Persons Name: WALDO ROJAS Address: home [address] [facility] [address] [place] [address] Name: WILBER BOWDEN Address: home PT STARCH TREATING ASSISTANT Name: CONNOR FAGAN Address: home [address] [facility] [address] [place] [address]
--- OUTSIDE RECORDS SUMMARY | 2023-09-23 11:26 | XMS_ITS | Continuity of Care Document ---
Author Organization [facility] ter Address [address] [place] [address]- Care Team Providers Care Occupational Safety And Health Manager Name Role Phone Name Ernie MOE Primary Care Physician Encounter [facility] Date(s): 08/13/21 - 08/13/[address] [address] Discharge Disposition: A-D/C AMA Attending Physician: Andrey Penaloza DO Admitting Physician: Everett Ospina MD Referring Physician: Everett Ospina MD Allergies, Adverse Reactions, Alerts Substance Reaction [...] 3 Refills, Maintenance, 05/28/21 16:06:00EST, EC Capsule, [facility], Partial fill upon patient request if the prescription is for a schedule II opioid drug., 165, cm, 05/01... Start Date: 05/28/21 Stop Date: 09/25/21 Status: Ordered Flonase 50 mcg/inh nasal spray 1 sprays, Nares, Both, 2 times a day, # 16 Gm, 0 Refills, Maintenance, 03/30/21 16:16:00 EDT, [place], [facility] #[id number], Partial fill upon patient request if the [...] drug. Start Date: 04/01/21 Status: Ordered Keppra XR 750 mg oral tablet, extended release 2 tablet = 1,500 mg, By Mouth, Daily, # 60 tablet, 0 Refills, Maintenance, 01/29/21 10:58:00 EDT, ER Tablet, Partial fill upon patient request if the prescription is for a schedule II opioid drug. Start Date: 01/29/21 Status: Ordered prazosin 1 mg oral capsule [...] disorder)(Confirmed) Active (Confirmed) Active Severe obesity(Confirmed) Active Vital Signs Most recent to oldest [Reference Range]: 1 2 Height 165.1 cm (08/13/21 5:26 PM) Weight 134 kg (08/13/21 5:26 PM) Oxygen Saturation [94-100 %] 97 % (08/13/21 5:26 PM) 97 % (08/13/21 2:00 PM) Pulse Rate [55-90 bpm] 71 bpm (08/13/21:26 PM) 71 bpm (08/13/21 2:00 PM) Body Mass Index [18.5-24.99] 49.16 *>HHI* (08/13/21 5:26 PM) Blood Pressure [90-138/55-84 mm Hg] 119/ 69mm Hg (08/13/21 5:26 PM) 119/69mm Hg (08/13/21 2:00 PM) Respiratory Rate [16-30 br/min] 20 br/mi n (08/13/21 5:26 PM) 20 br/min (08/13/21 2:00 PM) Temperature [96.8-100.4 DegF] 97.5 DegF (08/13/21 5:26 PM) 97.5 DegF (08/13/21 2:00 PM) Mode of Delivery (Oxygen) Room air (08/13/21 5:26 PM) Room air (08/13/21 2:00 PM) Blood pressure sites Arm, right (08/13/21 5:26 PM) Arm, left (08/13/21 2:00 PM) Temperature Route Oral (08/13/21 5:26 PM) Oral (08/13/21 2:00 PM) Dry Weight 134 kg (08/13/21 5:26 PM) Social History Social History Type Response Smoking Status Former smoker, quit more than 30 days ago entered on: 01/29/21 Sex
--- OUTSIDE RECORDS SUMMARY | 2023-09-23 11:26 | XMS_ITS | Continuity of Care Document ---
Author Organization [facility] Address [address] [place] [address]- Care Team Providers Care Outbound Sales Representative Name Role Phone Name Ernie MOE Primary Care Physician Encounter [facility] Date(s): 10/15/20 - 10/15/[address] [address]- Discharge Disposition: A-D/C Home Attending Physician: Noreen Mcarthur MD Admitting Physician: Noreen Mcarthur MD Referring Physician: Not on Staff, Referring MD Allergies, Adverse Reactions, Alerts Substance Reaction Severity Status codeine Active Immunizations Given and Recorded Vaccine Date Status Refusal Reason pneumococcal 23-valent vaccine 10/23/18 Given Medications Bactrim DS 800 mg-160 mg oral tablet 2 tablets, By Mouth, 2 times a day, for 5 days, # 20 tablet, 0 Refills, Acute 10/20/20 22:03:00 EDT, 10/15/20 22:03:00 EDT, Tablet, [id number], Partial fill upon patient request if the prescription is for a schedule II opioid drug., 2... Start Date: 10/15/20 Stop Date: 10/20/20 Status: Ordered dicyclomine 10 mg oral capsule [...] Refills, Maintenance, 07/01/20 8:56:00 EST, EC Capsule, [facility] #[id number], Partial fill upon patient request if the prescription is for a schedule II opioid drug., 165, cm, 04/30/20... Start Date: 07/01/20 Stop Date: 07/31/20 Status: Ordered Keppra XR 500 mg oral tablet, extended release 2 tablet = 1,000 mg, By Mouth, Daily, # 60 tablet, 0 Refills, Maintenance, 04/01/19 23:31:50 EDT, ER Tablet Start Date: 04/01/19 Status: Ordered oxyCODONE 5 mg oral tablet 10 mg, Tablet, By Mouth, Once, STAT, 10/15/20 21:45:00 EDT, Stop date 10/15/20 21:45:00 EDT Start Date: 10/15/20 Stop Date: 10/15/20 Status: Completed topiramate 100 mg oral tablet 1 tablet [...] Range]: 1 2 3 Height 165 cm (10/15/20 10:13 PM) 165 cm (10/15/20 9:02 PM) 165 cm (10/15/20 6:50 PM) Weight 142 kg (10/15/20 10:13 PM) 142 kg (10/15/20 9:02 PM) 142 kg (10/15/20 6:50 PM) Oxygen Saturation [94-100 %] 98 % (10/15/20 10:13 PM) 98 % (10/15/20 9:02 PM) 96 % (10/15/20 6:50 PM) Pulse Rate [55-90 bpm] 85 bpm (10/15/20 10:13 PM) 80 bpm (10/15/20 9:02 PM) 83 bpm (10/15/20 6:50 PM) Body Mass Index [18.5-24.99] 52.16 *>HHI* (10/15/20 10:13 PM) 52.16 *>HHI* (10/15/20 9:02 PM) Blood Pressure [90-138/55-84 mm Hg] 124/61mm Hg (10/15/20 10:13 PM) 114/69mm Hg (10/15/20 9:02 PM) Respiratory Rate [16-30 br/min] 20 br/min (10/15/20 10:13 PM) 20 br/min (10/15/20 10:05 PM) 20 br/min (10/15/20 9:02 PM) Temperature [96.8-100.4 DegF] 98.5 DegF (10/15/20 6:50 PM) Mode of Delivery (Oxygen) Room air (10/15/20 10:13 PM) Room air (10/15/20 9:02 PM) Room air (10/15/20 6:50 PM) Blood pressure sites Arm, left (10/15/20 10:13 PM) Arm, left (10/15/20 9:02 PM) Temperature Route Oral (10/15/20 6:50 PM) Dry Weight 142 kg (10/15/20 10:13 PM) 142 kg (10/15/20 9:02 PM) 142 kg (10/15/20 6:50 PM) Weight Obtained Via Standing scale (10/15/20 6:50 PM) Social History Social History Type Response Smoking Status Former smoker, quit more than 30 days ago entered on: 04/30/20 Sex
--- OUTSIDE RECORDS SUMMARY | 2023-09-23 11:26 | XMS_ITS | Continuity of Care Document ---
Author Organization [facility] Address [address] [place] [id number]- Care Team Providers Care Customer Support Manager Name Role Phone Name Ernie MOE Primary Care Physician Encounter [facility] Date(s): 06/23/22 - 07/23/22 [facility] [address] [place] [id number]- [place] Allergies, Adverse Reactions, Alerts Substance Reaction [...] 3 Refills, Maintenance, 05/28/21 16:06:00EST, EC Capsule, [facility], Partial fill upon patient request if the prescription is for a schedule II opioid drug., 165, cm, 05/01... Start Date: 05/28/21 Stop Date: 09/25/21 Status: Ordered Flonase 50 mcg/inh nasal spray 1 sprays, Nares, Both, 2 times a day, # 16 Gm, 0 Refills, Maintenance, 03/30/21 16:16:00 EDT, [place], [id number], Partial fill upon patient request if the [...] 09/20/21 13:59:00 EDT, Route to Pharmacy Electronically, [facility], Partial fill uponpatient request if the [...] 0 Refills, Maintenance, 09/20/21 14:00:00 EDT, Tablet, [facility], Partial fill upon patient request if [...] Team Personnel Name: Renzo Hagan RN Position: [facility] RN Member Role: Primary Care Nurse Name: Sonia Loomis RN Position: [facility] RN Member Role: Primary Care Nurse Name: Diamond Pollack RN Position: [facility] HBO Wound Member Role: Primary Care Nurse Name: Jailene Kaur RN Position: [facility] AMB Nurse Member Role: Primary Care Nurse Name: Graciela Kunz Position: [facility] Outreach Member Role: Lifetime Consulting Physician Name: Name Ernie MOE Position: [facility] Outreach Member Role: PCP Address: Address: [address] [place] [id number] Name: Mar Elizondo RN Position: S RN Member Role: Primary Care Nurse Name: Tammie Fonseca RN Position: S RN Member Role: Primary Care Nurse Care Team Related Persons Name: WALDO ROJAS Address: [address] [address] Name: CONNOR FAGAN Address: [address] [address]
--- OUTSIDE RECORDS SUMMARY | 2023-09-23 11:26 | XMS_ITS | Continuity of Care Document ---
Author Organization [facility] Address [address] [facility], [address] Floor, [address] [place] [address]- Care Team Providers Care Highway Maintainer Name Role Phone Name Ernie MOE Primary Care Physician Encounter [facility] Date(s): 05/02/23 - 06/01/23 [facility] [address], [address], [address] [place] [address]- Allergies, Adverse Reactions, Alerts Substance Reaction Severity [...] capsule, 4 Refills, Maintenance, 01/20/23 17:32:00 EDT, [facility], 164, cm, 12/17/22 22:30:00 EDT, [...] 3 Refills, Maintenance, 05/28/21 16:06:00EST, EC Capsule, [facility], Partial fill upon patient request if the prescription is for a schedule II opioid drug., 165, cm, 05/01... Start Date: 05/28/21 Stop Date: 09/25/21 Status: Ordered Flonase 50 mcg/inh nasal spray 1 sprays, Nares, Both, 2 times a day, # 16 Gm, 0 Refills, Maintenance, 03/30/21 16:16:00 EDT, [place], [facility] #[id number], Partial fill upon patient request if the [...] 0 Refills, Maintenance, 02/23/23 14:22:00 EDT, Tablet, [facility] #[id number], Partial fill upon patient request if the [...] Team Personnel Name: Sonia Loomis RN Position: [facility] RN Member Role: Primary Care Nurse Name: Diamond Pollack RN Position: [facility] HBO Wound Member Role: Primary Care Nurse Name: Graciela Kunz Position: [facility] Outreach Member Role: Lifetime Consulting Physician Name: Ernie Nobles MD Position: [facility] Outreach Member Role: PCP Address: Address: [address] [place] [id number] Name: Mar Elizondo RN Position: [facility] SN RN Member Role: Primary Care Nurse Name: Tammie Fonseca RN Position: [facility] SN RN Member Role: Primary Care Nurse Care Team Related Persons Name: BEN ROJASANCE Address: home [address] [address] [place] [address] Name: WILBER BOWDEN Address: home [employer] Name: CONNOR FAGAN Address: home [address] [facility] [address] [place] [address]
--- OUTSIDE RECORDS SUMMARY | 2023-09-23 11:26 | XMS_ITS | Continuity of Care Document ---
Author Organization [facility] Address [address] [place] [address]- Care Team Providers Care Cloud Solutions Architect Name Role Phone Name Ernie MOE Primary Care Physician Encounter [facility] Date(s): 04/11/21 - 05/11/21 [facility] [address] [place] [address]- [place] Allergies, Adverse Reactions, Alerts Substance Reaction [...] Refills, Maintenance, 07/01/20 8:56:00 EST, EC Capsule, [facility] #[id number], Partial fill upon patient request if the prescription is for a schedule II opioid drug., 165, cm, 04/30/20... Start Date: 07/01/20 Stop Date: 07/31/20 Status: Ordered Flonase 50 mcg/inh nasal spray 1 sprays, Nares, Both, 2 times a day, # 16 Gm, 0 Refills, Maintenance, 03/30/21 16:16:00 EDT, [place], [facility] #[id number], Partial fill upon patient request if the [...]
--- OUTSIDE RECORDS SUMMARY | 2023-09-23 11:26 | XMS_ITS | Continuity of Care Document ---
Author Organization [facility] Address [address] [place] [phone]- Care Team Providers Care Materials Intern Name Role Phone Name Ernie MOE Primary Care Physician [place] [facility] [place] 03/25/22 - 03/25/[address] [address]- Discharge Disposition: A-D/C Home Attending Physician: Darrell Leiva MD Admitting Physician: Darrell Leiva MD Referring Physician: Not on Staff, Referring [...] 3 Refills, Maintenance, 05/28/21 16:06:00EST, EC Capsule, [facility], Partial fill upon patient request if the prescription is for a schedule II opioid drug., 165, cm, 05/01... Start Date: 05/28/21 Stop Date: 09/25/21 Status: Ordered Flonase 50 mcg/inh nasal spray 1 sprays, Nares, Both, 2 times a day, # 16 Gm, 0 Refills, Maintenance, 03/30/21 16:16:00 EDT, [place], [facility][id number], Partial fill upon patient request if the [...] 09/20/21 13:59:00 EDT, Route to Pharmacy Electronically, [facility], Partial fill uponpatient request if [...] 0 Refills, Maintenance, 09/20/21 14:00:00 EDT, Tablet, [facility], Partial fill upon patient request [...] 1 Oxygen Saturation [94-100 %] 100 % (03/25/22 12:43 PM) Pulse Rate [55-90 bpm] 89 bpm (03/25/22 12:43 PM) Blood Pressure [90-138/55-84 mm Hg] 128/ 62mm Hg (03/25/22 12:43 PM) Respiratory Rate [16-30 br/min] 20 br/mi n (03/25/22 12:43 PM) Temperature [96.8-100.4 DegF] 97.2 DegF (03/25/22 12:43 PM) Mode of Delivery (Oxygen) Room air (03/25/22 12:43 PM) Blood pressure sites Arm, left (03/25/22 12:43 PM) Temperature Route Oral (03/25/22 12:43 PM) Social History Social History Type Response Smoking Status Never (less than 100 in lifetime) entered on: 10/11/21 Sex Patient Care team information Personnel Name: Name Ernie MOE Address: Address: [address] [place] [id number]
--- OUTSIDE RECORDS SUMMARY | 2023-09-23 11:26 | XMS_ITS | Continuity of Care Document ---
Author Organization [facility] Address [address] [place] [address]- Care Team Providers Care Grinder Set Up Operator Internal Name Role Phone Name Ernie MOE Primary Care Physician Encounter [facility] Date(s): 07/01/20 - 07/31/20 [facility] [address] [place] [id number] Attending Physician: Mahogany Westfall Admitting Physician: AdmMahogany [...] Refills, Maintenance, 07/01/20 8:56:00 EST, EC Capsule, [facility] #[id number], Partial fill upon patient request if the [...]
[2023-09-23] MEDS: LORazepam 2 MG/ML VIAL 1 MG IVPUSH (11:29)
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
[2023-09-23 11:32] LABS: Basophils Percent Auto 0.3 % (0-2); Eosinophils Absolute Auto 0.2 X10*3/uL (0.0-0.4); Eosinophils Percent Auto 2.3 % (0-4); Hematocrit 39.9 % (37.0-47.0); Hemoglobin 12.9 g/dl (12.0-16.0); Imm Gran Abs Auto 0.02 X10*3/uL (0.00-0.03); Imm Gran Pct Auto 0.3 % (0.0-0.4); Lymphocytes Absolute Auto 3.8 X10*3/uL (1.2-4.9); Lymphocytes Percent Auto 51.7 % (20-40); Mean Corpuscular HGB Conc 32.3 g/dl (31.0-35.0); Mean Corpuscular Hemoglobin 26.9 pg (27.0-33.0); Mean Corpuscular Volume 83.1 fL (80.0-98.0); Mean Platelet Volume 10.4 fL (9.4-12.3); Monocytes Absolute Auto 0.4 X10*3/uL (0.1-1.2); Monocytes Percent Auto 5.1 % (2-11); Neutrophils Percent Auto 40.3 % (45-73); Platelet Count 268 X10*3/uL (160-400); Red Cell Distribution Width 13.6 % (11.0-16.0); White Blood Count 7.4 X10*3/uL (4.8-10.8)
[2023-09-23] MEDS: levETIRAcetam in NaCl (iso-os) 1,000 MG/100 ML PIGGYBACK 400 MG IV (11:33)
--- NOTE | 2023-09-23 11:37 | PC.NURSE ---
came out of room reporting patient was having a seizure. Patient with 30 second seizure, provider aware , medicated per mar with good effect. Brought to CT, no further seizure activity at this time
[2023-09-23 11:42] LABS: INTERNATIONAL NORM RATIO 1.1 (0.9-1.1)
[2023-09-23 11:46] LABS: Alanine Aminotransferase 18 U/L (0-31); Albumin Level 4.5 g/dL (3.5-5.0); Alkaline Phosphatase 101 U/L (39-117); Anion Gap 10 (12-20); Aspartate Amino Transferase 16 U/L (5-31); Bilirubin Total 0.3 mg/dL (0.0-1.0); Blood Urea Nitrogen 10 mg/dL (9-16); Calcium 9.7 mg/dL (8.4-10.2); Carbon Dioxide 25 mmol/L (22-29); Chloride 109 mmol/L (96-108); Creatinine Clr Calc Pharmacy 133.8; Estimated Glomerular Filt Rate > 60; Glucose Random 87 mg/dL (60-115); Sodium 140 mmol/L (135-145); Total Protein 8.4 g/dL (6.5-8.0)
[2023-09-23 14:00] VITALS: PULSE 67; RESP 18; O2SAT 98
--- NOTE | 2023-09-23 14:26 | PC.NURSE ---
Resting comfortably, breathing even and unlabored , no seizure activity noted
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
[2023-09-23] MEDS: 0.9 % Sodium Chloride Flush 3 ML SYRINGE IVFLUSH (15:32)
--- NOTE | 2023-09-23 15:54 | PHA.MEDREC ---
Pharmacy Consult ? Medication Reconciliation Pharmacy has completed the medication reconciliation. Patient reports taking her medications including Keppra, topirmate and oxcarbexapine. Contact [facility] pharmacy, patient has not picked up Keppra since December, Topiramte since January and Ocarbazepine 07/2023. She also has not picked up the Eliquis since February. Due patient's non-complaince, [facility] pharmacy is setting up medboxes. Gladys Cooley, CarlD
--- NOTE | 2023-09-23 17:49 | PC.NURSE ---
Alert and oriented, passed swallow eval, family at bedside , no further seizure activity
[2023-09-23 18:17] VITALS: BP 127/83; PULSE 91; RESP 18; TEMP 36.6; O2SAT 98
[2023-09-23] MEDS: LORazepam 2 MG/ML VIAL IVPUSH (19:04)
[2023-09-23 20:46] VITALS: BP 114/77; PULSE 82; RESP 14; TEMP 37.3; O2SAT 97
[2023-09-23] MEDS: Apixaban 5 MG TABLET PO (21:29)
[2023-09-23] MEDS: hydrOXYzine HCL 25 MG TABLET PO (21:29)
[2023-09-23] MEDS: OXcarbazepine 150 MG TABLET PO (21:29)
[2023-09-23] MEDS: levETIRAcetam 500 MG TABLET PO (21:29)
[2023-09-23] MEDS: Topiramate 100 MG TABLET PO (21:29)
[2023-09-23] MEDS: Prazosin HCL 1 MG CAPSULE 2 MG PO (21:29)
[2023-09-23] MEDS: Nortriptyline HCl 10 MG CAPSULE PO (21:29)
[2023-09-23] MEDS: Famotidine 20 MG TABLET PO (21:29)
[2023-09-23] MEDS: levETIRAcetam 1,000 MG TABLET 1000 MG PO (21:29)
[2023-09-23 22:58] VITALS: BP 120/83; PULSE 90; RESP 16; TEMP 36.9; O2SAT 96
[2023-09-24 01:07] VITALS: BP 95/52; PULSE 84; RESP 16; TEMP 36.2; O2SAT 95
[2023-09-24 01:11] VITALS: BMI 48.5
[2023-09-24] MEDS: 0.9 % Sodium Chloride Flush 3 ML SYRINGE IVFLUSH ×2 (01:13→07:37)
[2023-09-24] MEDS: traMADoL HCL 50 MG TABLET PO (01:16)
[2023-09-24 04:00] VITALS: BP 99/60; PULSE 79; RESP 16; TEMP 36; O2SAT 96
[2023-09-24] MEDS: Omeprazole 20 MG CAPSULE.DR PO (05:20)
[2023-09-24 05:53] LABS: MANUAL DIFF FLAG NO
[2023-09-24] MEDS: Ibuprofen 600 MG TABLET PO (05:59)
[2023-09-24 06:10] LABS: Anion Gap 11 (12-20); Blood Urea Nitrogen 11 mg/dL (9-16); Calcium 9.1 mg/dL (8.4-10.2); Carbon Dioxide 21 mmol/L (22-29); Chloride 112 mmol/L (96-108); Creatinine Clr Calc Pharmacy 129.7; Estimated Glomerular Filt Rate > 60; Glucose Random 95 mg/dL (60-115); Potassium 3.7 mmol/L (3.3-5.1); Sodium 140 mmol/L (135-145)
[2023-09-24 06:24] LABS: Basophils Percent Auto 0.5 % (0-2); Eosinophils Absolute Auto 0.2 X10*3/uL (0.0-0.4); Eosinophils Percent Auto 2.9 % (0-4); Hematocrit 36.2 % (37.0-47.0); Hemoglobin 11.6 g/dl (12.0-16.0); Imm Gran Abs Auto 0.01 X10*3/uL (0.00-0.03); Imm Gran Pct Auto 0.2 % (0.0-0.4); Lymphocytes Absolute Auto 3.3 X10*3/uL (1.2-4.9); Mean Corpuscular Hemoglobin 26.7 pg (27.0-33.0); Mean Corpuscular Volume 83.4 fL (80.0-98.0); Mean Platelet Volume 10.3 fL (9.4-12.3); Monocytes Absolute Auto 0.4 X10*3/uL (0.1-1.2); Monocytes Percent Auto 5.7 % (2-11); Neutrophils Absolute Auto 2.3 x10*3/uL (2.0-8.3); Neutrophils Percent Auto 36.7 % (45-73); Platelet Count 234 X10*3/uL (160-400); Red Blood Count 4.34 X10*6/uL (4.20-5.50); Red Cell Distribution Width 13.6 % (11.0-16.0); White Blood Count 6.2 X10*3/uL (4.8-10.8)
--- NOTE | 2023-09-24 06:39 | MHC.PIE ---
p; pt c/o pain 01/07 rt hip. note; prn ultram bid given at 0116 for rt hip pain with pt reporting med not working long enough i; dr valle notified. motrin one time dose ordered d/t pt allergic to codeine e; will cont to monitor
[2023-09-24 07:19] VITALS: BP 105/62; PULSE 88; RESP 18; TEMP 37; O2SAT 97
--- NOTE | 2023-09-24 07:24 | HO.PM.IMPN ---
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 during event patient appeared to be tracking, and quickly aborted without meds. Physical Exam Vital Signs: Vital Signs: Last Vital Signs Temp 96.8 F 09/24/23 04:00 Pulse 79 09/24/23 04:00 Resp 16 09/24/23 04:00 BP 99/60 09/24/23 04:00 Pulse Ox 96 09/24/23 04:00 O2 Del Method Room Air 09/24/23 04:00 BMI result Body Mass Index 48.5 alert, tracking, lungs clear, heart sounds regular Objective Data Active Medications Acetaminophen (Acetaminophen 325 Mg Tablet) 650 mg PO Q6H PRN PRN Reason: Pain, Mild (Pain Scale 1-3) Albuterol Sulfate (Albuterol Sulfate (0.083%) 2.5 Mg/3 Ml Vial.Neb) 2.5 mg INHALE QID PRN PRN Reason: Wheezing Albuterol Sulfate (Albuterol Sulfate 90 Mcg 8 Gm Inhaler) 2 puff INHALE Q4H PRN PRN Reason: Wheezing Apixaban (Apixaban 5 Mg Tablet) 5 mg PO BID [facility] Last Admin: 09/23/23 21:29 Dose: 5 mg Documented By: PASCUAL Baclofen (Baclofen 10 Mg Tablet) 10 mg PO TID PRN PRN Reason: Muscle Spasm Famotidine (Famotidine 20 Mg Tablet) 20 mg PO BID [facility] Last Admin: 09/23/23 21:29 Dose: 20 mg Documented By: PASCUAL Fluoxetine HCl (Fluoxetine Hcl 10 Mg Capsule) 10 mg PO DAILY [facility] Hydroxyzine HCl (Hydroxyzine Hcl 25 Mg Tablet) 25 mg PO BID [facility] Last Admin: 09/23/23 21:29 Dose: 25 mg Documented By: PASCUAL Levetiracetam (Levetiracetam 1,000 Mg Tablet) 1,000 mg PO BID [facility] Last Admin: 09/23/23 21:29 Dose: 1,000 mg Documented By: PASCUAL Levetiracetam (Levetiracetam 500 Mg Tablet) 500 mg PO BID [facility] Last Admin: 09/23/23 21:29 Dose: 500 mg Documented By: PASCUAL Melatonin (Melatonin 3 Mg Tablet) 6 mg PO BEDTIME PRN PRN Reason: Insomnia Nortriptyline HCl (Nortriptyline Hcl 10 Mg Capsule) 10 mg PO BEDTIME [facility] Last Admin: 09/23/23 21:29 Dose: 10 mg Documented By: PASCUAL Omeprazole (Omeprazole 20 Mg Capsule.) 20 mg PO DAILY@0630 [facility] Last Admin: 09/24/23 05:20 Dose: 20 mg Documented By: ROSE Ondansetron HCl (Ondansetron Hcl 4 Mg/2 Ml Vial) 4 mg IVPUSH Q8H PRN PRN Reason: Nausea and Vomiting Oxcarbazepine (Oxcarbazepine 150 Mg Tablet) 150 mg PO BID [facility] Last Admin: 09/23/23 21:29 Dose: 150 mg Documented By: PASCUAL Prazosin HCl (Prazosin Hcl 1 Mg Capsule) 2 mg PO BEDTIME [facility]; Protocol Last Admin: 09/23/23 21:29 Dose: 2 mg Documented By: PASCUAL Sodium Chloride (0.9 % Sodium Chloride Flush 3 Ml Syringe) [facility] Last Admin: 09/24/23 01:13 Dose: 3 ml Documented By: ROSE Sumatriptan Succinate (Sumatriptan Succinate 50 Mg Tablet) 50 mg PO DAILY MRX1 PRN PRN Reason: Migraine Headache Topiramate (Topiramate 100 Mg Tablet) 100 mg PO BID [facility] Last Admin: 09/23/23 21:29 Dose: 100 mg Documented By: PASCUAL Tramadol HCl (Tramadol Hcl 50 Mg Tablet) 50 mg PO BID PRN PRN Reason: severe pain Last Admin: 09/24/23 01:16 Dose: 50 mg Documented By: ROSE Labs 09/24/23 05:27 09/24/23 05:27 Labs: Laboratory Results - last 24 hr 09/23/23 09/23/23 09/24/23 11:02 11:02 05:27 MCV 83.1 83.4 MCH 26.9 L 26.7 L MCHC 32.3 32.0 RDW 13.6 13.6 Plt Count 268 234 MPV 10.4 10.3 Immature Gran % (Auto) 0.3 0.2 Neut % (Auto) 40.3 L 36.7 L Lymph % (Auto) 51.7 H 54.0 H [place] % (Auto) 5.1 5.7 Eos % (Auto) 2.3 2.9 Baso % (Auto) 0.3 0.5 Lymph # (Auto) 3.8 3.3 [place] # (Auto) 0.4 0.4 Eos # (Auto) 0.2 0.2 Baso # (Auto) 0.0 0.0 Abs Immat Gran (auto) 0.02 0.01 Absolute Neuts (auto) 3.0 2.3 Absolute Nucleated RBC 0.000 0.000 Nucleated RBC % (auto) 0.0 0.0 Hold Purple Top SEE NOTE PT 13.0 INR 1.1 Anion Gap 10 L 11 L Estim Creat Clear Calc 133.8 129.7 Estimated GFR > 60 > 60 Random Glucose 87 95 Calcium 9.7 9.1 D Total Bilirubin 0.3 AST 16 ALT 18 Alkaline Phosphatase 101 Total Protein 8.4 H Albumin 4.5 Hold Green Top See Note Hold Yellow Top See Note See Note Assessment and Plan (1) Generalized seizure: Status: Acute Plan 37F PMH morbid obesity, eiplepsy, hidradenitis suppurativa, chronic back pain, dvt/pe, presented with multiple convulsive episodes convulsions epileptic vs non epileptic seizures keppra trileptal neuro eval eeg mild intermittent asthma stable history of DVT/PE eliquis morbid obestiy weight loss full code reason for continued hospitalization:awaiting neuro eval Quality Stroke Does the patient have a stroke diagnosis?: No VTE Prior VTE?: No VTE Risk Level:: Medical - moderate - high VTE Device Contraindication: Treatment Not Indicated VTE Drug Contraindication: N/A - Med Ordered
[2023-09-24 07:25] VITALS: BP 123/66; PULSE 86; RESP 18; TEMP 36; O2SAT 97
[2023-09-24 07:26] LABS: Glucose, Whole Blood 96 mg/dL (60-115)
[2023-09-24] MEDS: hydrOXYzine HCL 25 MG TABLET PO (07:37)
[2023-09-24] MEDS: levETIRAcetam 500 MG TABLET PO (07:37)
[2023-09-24] MEDS: Apixaban 5 MG TABLET PO (07:37)
[2023-09-24] MEDS: Baclofen 10 MG TABLET PO (07:37)
[2023-09-24] MEDS: Famotidine 20 MG TABLET PO (07:37)
[2023-09-24] MEDS: Topiramate 100 MG TABLET PO (07:37)
[2023-09-24] MEDS: levETIRAcetam 1,000 MG TABLET 1000 MG PO (07:37)
[2023-09-24] MEDS: FLUoxetine HCl 10 MG CAPSULE PO (08:03)
[2023-09-24] MEDS: OXcarbazepine 150 MG TABLET PO (08:03)
[2023-09-24 08:10] VITALS: BP 105/62; PULSE 88; RESP 12; TEMP 37; O2SAT 99
--- NOTE | 2023-09-24 08:59 | MHC.CM.PN ---
[facility]AC[facility] DELIVERED PT VERBALIZES UNDERSTANDING. PT LIVES WITH SPOUSE AND CHILDREN, PT HAS 13 HRS /WEEK IN[employer] SERVICES THROUGH [employer].UNSURE IF SHE HAS A VNA? PT USES A CANE/WALKER FOR MOBILITY. PT DECLINES HCP AT THIS TIME. PCP DR. 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 [facility] WILL TRANSPORT HOME. CM WILL CONTINUE TO FOLLOW FOR ANY CHANGE IN DC PLAN/NEEDS.
[2023-09-24 09:19] VITALS: BP 131/66; PULSE 86; RESP 18; TEMP 36.2; O2SAT 100
[2023-09-24 09:24] LABS: Glucose, Whole Blood 90 mg/dL (60-115)
--- NOTE | 2023-09-24 11:21 | PC.NURSE ---
Addendum entered by Lorri Don RN 09/24/23 11:23: Please see rapid response flow sheet for details. Original Note: Pt had two events with seizure like activity that resolved with no pharmacological intervention this AM, please see rapid response take notes.
--- NOTE | 2023-09-24 11:26 | P.CNNE_ITS ---
History of Present Illness Data of Consult Service Date: 09/24/23 Primary Care Provider: [facility] Reason for consult: Seizure disorder 37 years old woman with significant obesity and complex neuropsychiatric history, not precisely known to me but I have seen her few times in the past. She came to see me few years ago after she was admitted at [facility] for seizure disorder. A long-term EEG at [facility] in 2019 was performed when she had multiple seizure-like episodes but no EEG abnormality was noted. She had routine EEG in [facility] in 2019 that was normal. According to the history provided to me in the past, her 1st seizure happened when she was in [facility] when she was put on Keppra. When she saw me, the issue was if her seizures were of epileptic or nonepileptic type and a routine EEG was done that was normal and 48 hour ambulatory EEG was arranged but she missed multiple appointments for that. Because of lack of follow-up, she was discharged from my office. She stated that she was seeing Dr. Self in [facility] but did not want to see him anymore. She and her provided details of her seizures. She said that before the seizure, she was feeling of fullness feeling in her right ear and then she would start shaking. stated that she would shake but generally had not fallen but had urinated sometimes. She has found herself on the ground after apparently a seizure. Now she was here with complaints of multiple seizures. Review of Systems 2 Review of Systems: No recent cold or flu-like illness PMFSH Past Medical History Medical History Morbid obesity due to excess calories Spondylosis of lumbar spine Sacroiliitis Obesity PTSD (post-traumatic stress disorder) Sleep apnea Sacroiliitis Gait disturbance Degenerative disc disease Chronic back pain History of blood transfusion Anemia GERD (gastroesophageal reflux disease) Neuropathy Anxiety Depression Migraine Seizure disorder Asthma Family History Family History Maternal Uncle Lung cancer Father Prostate cancer Surgical History Surgical History H/O excision of epidermal inclusion cyst (12/06/20) Hx of umbilical hernia repair History of partial hysterectomy History of 3 sections Social History Social History Household Members: Spouse and Children Housing: Apartment Are you a primary nurse behavioral health care to a significant other at home: No 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) Alcohol intake: never Comment: no count Patient Tobacco Use Status: Never used Tobacco Second Hand Smoke Exposure: Yes service: No Current occupational status: disabled 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 Meds Allergies Allergy/AdvReac Type Severity Reaction Status Date / Time codeine [CODEINE] Allergy Unknown Itching Verified 09/23/23 11:02 nut - unspecified Allergy Anaphylaxis Verified 09/23/23 11:02 [place] Allergy Severe throat Uncoded 09/23/23 11:02 closed Active Medications: Current Medications Acetaminophen (Acetaminophen 325 Mg Tablet) 650 mg PO Q6H PRN PRN Reason: Pain, Mild (Pain Scale 1-3) Albuterol Sulfate (Albuterol Sulfate (0.083%) 2.5 Mg/3 Ml Vial.Neb) 2.5 mg INHALE QID PRN PRN Reason: Wheezing Albuterol Sulfate (Albuterol Sulfate 90 Mcg 8 Gm Inhaler) 2 puff INHALE Q4H PRN PRN Reason: Wheezing Apixaban (Apixaban 5 Mg Tablet) 5 mg PO BID [facility] Last Admin: 09/24/23 07:37 Dose: 5 mg Baclofen (Baclofen 10 Mg Tablet) 10 mg PO TID PRN PRN Reason: Muscle Spasm Last Admin: 09/24/23 07:37 Dose: 10 mg Famotidine (Famotidine 20 Mg Tablet) 20 mg PO BID [facility] Last Admin: 09/24/23 07:37 Dose: 20 mg Fluoxetine HCl (Fluoxetine Hcl 10 Mg Capsule) 10 mg PO DAILY [facility] Last Admin: 09/24/23 08:03 Dose: 10 mg Hydroxyzine HCl (Hydroxyzine Hcl 25 Mg Tablet) 25 mg PO BID [facility] Last Admin: 09/24/23 07:37 Dose: 25 mg Levetiracetam (Levetiracetam 1,000 Mg Tablet) 1,000 mg PO BID [facility] Last Admin: 09/24/23 07:37 Dose: 1,000 mg Levetiracetam (Levetiracetam 500 Mg Tablet) 500 mg PO BID [facility] Last Admin: 09/24/23 07:37 Dose: 500 mg Melatonin (Melatonin 3 Mg Tablet) 6 mg PO BEDTIME PRN PRN Reason: Insomnia Nortriptyline HCl (Nortriptyline Hcl 10 Mg Capsule) 10 mg PO BEDTIME [facility] Last Admin: 09/23/23 21:29 Dose: 10 mg Omeprazole (Omeprazole 20 Mg Capsule.Dr) 20 mg PO DAILY@0630 [facility] Last Admin: 09/24/23 05:20 Dose: 20 mg Ondansetron HCl (Ondansetron Hcl 4 Mg/2 Ml Vial) 4 mg IVPUSH Q8H PRN PRN Reason: Nausea and Vomiting Oxcarbazepine (Oxcarbazepine 150 Mg Tablet) 150 mg PO BID [facility] Last Admin: 09/24/23 08:03 Dose: 150 mg Prazosin HCl (Prazosin Hcl 1 Mg Capsule) 2 mg PO BEDTIME [facility]; Protocol Last Admin: 09/23/23 21:29 Dose: 2 mg Sodium Chloride (0.9 % Sodium Chloride Flush 3 Ml Syringe) 3 ml IVFLUSH QSHIFT [facility] Last Admin: 09/24/23 07:37 Dose: 3 ml Sumatriptan Succinate (Sumatriptan Succinate 50 Mg Tablet) 50 mg PO DAILY MRX1 PRN PRN Reason: Migraine Headache Topiramate (Topiramate 100 Mg Tablet) 100 mg PO BID [facility] Last Admin: 09/24/23 07:37 Dose: 100 mg Tramadol HCl (Tramadol Hcl 50 Mg Tablet) 50 mg PO BID PRN PRN Reason: severe pain Last Admin: 09/24/23 01:16 Dose: 50 mg Home Medications ?Medication ?Instructions ?Recorded ?Confirmed ?Last Taken ?Type albuterol sulfate 2.5 mg/3 mL 2.5 mg inhalation QID PRN Wheezing 03/22/20 09/23/23 Unknown History (0.083 %) solution for nebulization albuterol sulfate 90 mcg/actuation 2 puff inhalation Q4-6H PRN 03/22/20 09/23/23 Unknown History aerosol inhaler (ProAir HFA) Wheezing nortriptyline 10 mg capsule 10 mg PO BEDTIME 03/22/20 09/23/23 Unknown History baclofen 10 mg tablet 10 mg PO TID PRN Muscle Spasm 09/23/23 09/23/23 Unknown History esomeprazole magnesium 40 mg 40 mg PO DAILY 09/23/23 09/23/23 Unknown History capsule,delayed release famotidine 20 mg tablet 20 mg PO BID 09/23/23 09/23/23 Unknown History fluoxetine 10 mg capsule 10 mg PO DAILY 09/23/23 09/23/23 Unknown History hydroxyzine HCl 25 mg tablet 25 mg PO BID anxiety 09/23/23 09/23/23 Unknown History levetiracetam 1,000 mg tablet 1,000 mg PO BID 09/23/23 09/23/23 Unknown History levetiracetam 500 mg tablet 500 mg PO BID 09/23/23 09/23/23 Unknown History ondansetron HCl 4 mg tablet 4 mg PO Q8H PRN nausea/vomiting 09/23/23 09/23/23 Unknown History oxcarbazepine 150 mg tablet 150 mg PO BID 09/23/23 09/23/23 Unknown History prazosin 2 mg capsule 2 mg PO BEDTIME 09/23/23 09/23/23 Unknown History semaglutide (weight loss) 0.5 0.5 mg subcut WE 09/23/23 09/23/23 Unknown History mg/0.5 mL subcutaneous pen injector (Wegovy) sumatriptan succinate 50 mg tablet 50 mg PO QD-BID migraine 09/23/23 09/23/23 Unknown History topiramate 100 mg tablet 100 mg PO BID 09/23/23 09/23/23 Unknown History tramadol 50 mg tablet 50 mg PO BID PRN severe pain 09/23/23 09/23/23 Unknown History Physical Exam 2 Vital Signs: Vital Signs: Last Vital Signs Temp 97.2 F 09/24/23 09:19 Pulse 86 09/24/23 09:19 Resp 18 09/24/23 09:19 BP 131/66 09/24/23 09:19 Pulse Ox 100 09/24/23 09:19 O2 Del Method Room Air 09/24/23 09:19 BMI result Body Mass Index 48.5 Neuro: Other: Obese woman in no acute distress. Face was symmetrical. Visual polo are full. She was alert awake oriented with normal speech or language. Deep tendon reflexes were trace with flexor plantars. Results Labs 09/24/23 05:27 09/24/23 05:27 Labs: Short CBC 09/23/23 09/24/23 Range/Units 11:02 05:27 WBC 7.4 6.2 (4.8-10.8) X10*3/uL Hgb 12.9 11.6 L (12.0-16.0) g/dl Hct 39.9 36.2 L (37.0-47.0) % Plt Count 268 234 (160-400) X10*3/uL BMP 09/23/23 09/24/23 11:02 05:27 Sodium 140 140 Potassium 4.0 3.7 Chloride 109 H 112 H Carbon Dioxide 25 21 L BUN 10 11 Creatinine 0.82 0.84 Calcium 9.7 9.1 D Liver Function 09/23/23 Range/Units 11:02 Total Bilirubin 0.3 (0.0-1.0) mg/dL AST 16 (5-31) U/L ALT 18 (0-31) U/L Alkaline Phosphatase 101 (39-117) U/L Albumin 4.5 (3.5-5.0) g/dL Noncontrast head CT was unremarkable except a calcified spots in falx cerebri, probably a small meningioma. Assessment and Plan (1) Generalized seizure: Status: Acute 37 years old woman with complex and somewhat not well known neuropsychiatric history with many years of seizure-like episode. She had multiple routine EEGs and long-term EEG while having these episodes not revealing any EEG abnormality suggesting that at least most of these episodes or maybe all of them were nonepileptic in nature. Antiepileptics have not completely resolved her symptoms. She needed formal psychiatric consultation and regular follow-up with a counselor or therapist and maybe some resolution of underlying psychological stresses. Procedures Date of Service Date of Service: 09/24/23
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
[2023-09-27 19:23] LABS: Levetiracetam Keppra 40.4 mcg/mL (6.0-46.0)
[2023-09-28 21:08] LABS: Oxcarbazepine <1.0 mcg/mL (8.0-35.0)
== END 2023-09-24 12:55 | disposition home or self-care (01) ==
LOC: HO.ED 14:41 → HO.EDOVER 15:21 → HO.S3 09-24 00:02
PROVIDERS: Physician Assistant; Admitting Provider Student in an Organized Health Care Education/Training Program; Emergency Provider Emergency Medicine; PCP Internal Medicine Geriatric Medicine; Visit Provider Internal Medicine
DX: G40.909 Epilepsy, unspecified, not intractable, without status epilepticus (principal); J45.20 Mild intermittent asthma, uncomplicated; K21.9 Gastro-esophageal reflux disease without esophagitis; M54.2 Cervicalgia; G43.909 Migraine, unspecified, not intractable, without status migrainosus; E66.01 Morbid (severe) obesity due to excess calories; Z68.42 Body mass index [BMI] 45.0-49.9, adult; Z79.01 Long term (current) use of anticoagulants; Z79.899 Other long term (current) drug therapy; Z86.718 Personal history of other venous thrombosis and embolism
CPT/HCPCS: 36415; 70450; 80048; 80053; 80177; 80339; 82947; 85025; 85610; 95816; 96365; 96375; 96376; 99221; 99285; J1953; J2060

== ENCOUNTER → 2023-09-23 14:57 | Outpatient (BNV) | payer MEDICAID, SELFPAY | PROVIDERS: Admitting Provider Student in an Organized Health Care Education/Training Program; Emergency Provider Emergency Medicine; Visit Provider Student in an Organized Health Care Education/Training Program | DX: R56.9 Unspecified convulsions (principal) | CPT/HCPCS: 99222; 99239 ==

== ENCOUNTER → 2023-09-23 14:57 | Outpatient (BNV) | payer MEDICAID, SELFPAY | PROVIDERS: Admitting Provider Student in an Organized Health Care Education/Training Program; Emergency Provider Emergency Medicine; Visit Provider Psychiatry & Neurology Neurology | DX: R56.9 Unspecified convulsions (principal) | CPT/HCPCS: 99222 ==

== ENCOUNTER 2023-09-28 08:04 | Outpatient (REF) | payer MEDICAID, SELFPAY | END 2023-09-28 08:05 | disposition home or self-care (01) | LOC: HO.HOSX 08:04 | PROVIDERS: Visit Provider Physician Assistant | DX: Z13.89 Encounter for screening for other disorder (principal) ==

== ENCOUNTER 2024-04-13 10:18 | Emergency (ER) | payer MEDICAID, SELFPAY ==
[2024-04-13 11:07] VITALS: BP 115/71; PULSE 70; RESP 18; TEMP 36.7; O2SAT 98; BMI 32.3
[2024-04-13 12:15] LABS: MANUAL DIFF FLAG NO
[2024-04-13 12:18] LABS: Basophils Percent Auto 0.5 % (0-2); Eosinophils Absolute Auto 0.2 X10*3/uL (0.0-0.4); Eosinophils Percent Auto 2.8 % (0-4); Hemoglobin 11.6 g/dl (12.0-16.0); Imm Gran Abs Auto 0.02 X10*3/uL (0.00-0.03); Imm Gran Pct Auto 0.3 % (0.0-0.4); Lymphocytes Absolute Auto 2.9 X10*3/uL (1.2-4.9); Lymphocytes Percent Auto 44.1 % (20-40); Mean Corpuscular HGB Conc 32.2 g/dl (31.0-35.0); Mean Corpuscular Hemoglobin 26.9 pg (27.0-33.0); Mean Corpuscular Volume 83.3 fL (80.0-98.0); Mean Platelet Volume 10.7 fL (9.4-12.3); Monocytes Absolute Auto 0.3 X10*3/uL (0.1-1.2); Monocytes Percent Auto 4.5 % (2-11); Neutrophils Absolute Auto 3.1 x10*3/uL (2.0-8.3); Neutrophils Percent Auto 47.8 % (45-73); Platelet Count 244 X10*3/uL (160-400); Red Blood Count 4.32 X10*6/uL (4.20-5.50); White Blood Count 6.5 X10*3/uL (4.8-10.8)
[2024-04-13] MEDS: levETIRAcetam in NaCl (iso-os) 1,500 MG/100 ML PIGGYBACK 400 MG IV (12:23)
[2024-04-13] MEDS: 0.9 % Sodium Chloride 1,000 ML 999 ML IV (12:23)
[2024-04-13 12:31] LABS: Alanine Aminotransferase 17 U/L (0-31); Albumin Level 3.9 g/dL (3.5-5.0); Alkaline Phosphatase 78 U/L (39-117); Anion Gap 10 (12-20); Aspartate Amino Transferase 22 U/L (5-31); Bilirubin Total 0.4 mg/dL (0.0-1.0); Blood Urea Nitrogen 8 mg/dL (9-16); Calcium 8.4 mg/dL (8.4-10.2); Carbon Dioxide 25 mmol/L (22-29); Chloride 106 mmol/L (96-108); Creatinine Clr Calc Pharmacy 110.2; Estimated Glomerular Filt Rate > 60; Glucose Random 94 mg/dL (60-115); Potassium 3.5 mmol/L (3.3-5.1); Sodium 137 mmol/L (135-145)
[2024-04-13 13:08] VITALS: BP 122/77; PULSE 84; RESP 17; TEMP 36.7; O2SAT 96
[2024-04-13 14:48] VITALS: BP 124/71; PULSE 83; RESP 18; TEMP 36.6; O2SAT 98
[2024-04-13 14:54] LABS: Appearance Urine Clear; Color Urine Yellow; Glucose Urine UA Negative (Negative); Leukocyte Esterase Urine Negative (Negative); Nitrite Urine Negative (Negative); Urine Blood Negative (Negative); Urine Ketones Negative (Negative); Urine Protein Negative (Neg-Trace)
[2024-04-13 14:55] LABS: UPreg QC Valid YES; Urine Pregnancy NEGATIVE (NEGATIVE)
--- NOTE | 2024-04-13 15:08 | ED_ITS ---
HPI - Seizure General Chief Complaint: Seizure Stated Complaint: Seizure Time Seen by Provider: 04/13/24 10:59 Source: patient and family History of Present Illness ED Provider: Katie STALLINGS Narrative: 38-year-old female with known seizure disorder and states that she is on Keppra and denies missing any doses but does report that she had 1 alcoholic drink last night but does not drink on a regular basis in his never had any alcohol withdrawal seizures. Patient was following up for evaluation as to whether or not she could come off of the anticoagulation medication that she is on currently for a PE. Rapid response was called because she was noted to have 1 unwitnessed and a 2nd witnessed seizure. Patient otherwise denies any recent fever, chills and states she has otherwise been feeling well. Seizure History: Yes Related Data Home Medications ?Medication ?Instructions ?Recorded ?Confirmed albuterol sulfate 2.5 mg/3 mL 2.5 mg inhalation QID PRN Wheezing 03/22/20 09/23/23 (0.083 %) solution for nebulization albuterol sulfate 90 mcg/actuation 2 puff inhalation Q4-6H PRN 03/22/20 09/23/23 aerosol inhaler (ProAir HFA) Wheezing nortriptyline 10 mg capsule 10 mg PO BEDTIME 03/22/20 09/23/23 baclofen 10 mg tablet 10 mg PO TID PRN Muscle Spasm 09/23/23 09/23/23 esomeprazole magnesium 40 mg 40 mg PO DAILY 09/23/23 09/23/23 capsule,delayed release famotidine 20 mg tablet 20 mg PO BID 09/23/23 09/23/23 fluoxetine 10 mg capsule 10 mg PO DAILY 09/23/23 09/23/23 hydroxyzine HCl 25 mg tablet 25 mg PO BID anxiety 09/23/23 09/23/23 levetiracetam 1,000 mg tablet 1,000 mg PO BID 09/23/23 09/23/23 levetiracetam 500 mg tablet 500 mg PO BID 09/23/23 09/23/23 ondansetron HCl 4 mg tablet 4 mg PO Q8H PRN nausea/vomiting 09/23/23 09/23/23 oxcarbazepine 150 mg tablet 150 mg PO BID 09/23/23 09/23/23 prazosin 2 mg capsule 2 mg PO BEDTIME 09/23/23 09/23/23 semaglutide (weight loss) 0.5 0.5 mg subcut WE 09/23/23 09/23/23 mg/0.5 mL subcutaneous pen injector (Wegovy) sumatriptan succinate 50 mg tablet 50 mg PO QD-BID migraine 09/23/23 09/23/23 topiramate 100 mg tablet 100 mg PO BID 09/23/23 09/23/23 tramadol 50 mg tablet 50 mg PO BID PRN severe pain 09/23/23 09/23/23 Previous Rx's ?Medication ?Instructions ?Recorded apixaban 5 mg tablet (Eliquis) 5 mg PO BID #60 tabs 10/15/23 Allergies Allergy/AdvReac Type Severity Reaction Status Date / Time codeine [CODEINE] Allergy Unknown Itching Verified 04/13/24 11:08 nut - unspecified Allergy Anaphylaxis Verified 04/13/24 11:08 [place] Allergy Severe throat Uncoded 04/13/24 11:08 closed Review of Systems 2 Review of Systems: Pertinent positives and negatives as stated in HPI PMFSH Past Medical History Medical History Morbid obesity due to excess calories Spondylosis of lumbar spine Sacroiliitis Obesity PTSD (post-traumatic stress disorder) Sleep apnea Sacroiliitis Gait disturbance Degenerative disc disease Chronic back pain History of blood transfusion Anemia GERD (gastroesophageal reflux disease) Neuropathy Anxiety Depression Migraine Seizure disorder Asthma Surgical History H/O excision of epidermal inclusion cyst (12/06/20) Hx of umbilical hernia repair History of partial hysterectomy History of 3 sections Family History Family History Maternal Uncle Lung cancer Father Prostate cancer Social History Social History Household Members: Spouse and Children Housing: Apartment Are you a primary resident care manager to a significant other at home: No 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 have 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) Alcohol intake: never Comment: no count Patient Tobacco Use Status: Never used Tobacco Second Hand Smoke Exposure: Yes Advance Directives: No Advance Directives Information Provided: Yes Do you have a plan to hurt others: No Plan service: No Current occupational status: disabled 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 GENERAL: Elevated BMI, Well developed, well nourished, in no acute distress. HEAD: Normocephalic/atraumatic EYES: PERRLA, EOMI EARS: Ext canals without abnormality NOSE: Nares patent bilateral OROPHARYNX: no oral lesions noted, posterior pharynx clear NECK: Supple, no adenopathy LUNGS: Normal breath sounds. No adventitious sounds or accessory muscle use. SpO2<98> CARDIOVASCULAR: Regular rate and rhythm without noted murmurs ABDOMEN: Soft, non-tender, non-distended with bowel sounds. MUSCULOSKELETAL: No tenderness, deformities, or effusions noted on gross inspection. EXTREMITIES: No cyanosis, clubbing or edema. SKIN: Inspection of the skin reveals no rashes NEUROLOGIC: Alert and oriented x 4. Strength and sensation to light touch were grossly intact x 4. Medications Administered Discontinued Medications Generic Name Dose Route Start Last Admin Trade Name Freq PRN Reason Stop Dose Admin Levetiracetam 1,500 mg in 100 mls @ 400 mls/hr 04/13/24 11:56 04/13/24 13:07 Keppra IV 04/13/24 12:10 Infused ONCE ONE Infusion Sodium Chloride 1,000 mls @ 999 mls/hr 04/13/24 12:00 04/13/24 14:52 Ns IV 04/13/24 13:00 Infused .Q1H1M JOHN Infusion Medical Decision Making Medical Decision Making MDM Narrative: 38-year-old female who on my initial evaluation was in the midst of a seizure, on lifting the patient's arm she keeps it up in the air, eyes are open, she then stopped having a seizure. She was immediately conversant. I confirmed that she is on medication for seizure control and has a pending neurology appointment according to the significant other at bedside. I reviewed and interpreted all investigations and there is no evidence of acute infection, there is a chronically stable normocytic anemia no thrombocytopenia. Glucose-121, otherwise there is no demonstrated RAJINDER/electrolyte or liver enzyme derangements. Urinalysis is negative for UTI or hematuria and urine is negative. 1513: Patient has had no further episodes of seizure-like activity, she received 1500 mg of Keppra, and the Keppra level is pending. I find no evidence of underlying infection, electrolyte derangements and think that there is the slight possibility that the alcohol may have lowered seizure threshold, patient is otherwise hemodynamically stable and at her baseline. She has good outpatient follow-up and does not meet inpatient level of care at this time. Differential Diagnosis Differential Diagnoses: The differential diagnosis associated with the presentation includes See above Admission/Observation Consideration of admission/observation: Escalation of care including admission/observation considered See above Lab Data MDM Lab Attestation statement: I reviewed the patient's lab results. See above 04/13/24 12:01 04/13/24 12:01 Labs: Lab Results 04/13/24 04/13/24 04/13/24 Range/Units 12:01 12:58 14:39 WBC 6.5 (4.8-10.8) X10*3/uL RBC 4.32 (4.20-5.50) X10*6/uL Hgb 11.6 L (12.0-16.0) g/dl Hct 36.0 L (37.0-47.0) % MCV 83.3 (80.0-98.0) fL MCH 26.9 L (27.0-33.0) pg MCHC 32.2 (31.0-35.0) g/dl RDW 14.0 (11.0-16.0) % Plt Count 244 (160-400) X10*3/uL MPV 10.7 (9.4-12.3) fL Immature Gran % (Auto) 0.3 (0.0-0.4) % Neut % (Auto) 47.8 (45-73) % Lymph % (Auto) 44.1 H (20-40) % [place] % (Auto) 4.5 (2-11) % Eos % (Auto) 2.8 (0-4) % Baso % (Auto) 0.5 (0-2) % Lymph # (Auto) 2.9 (1.2-4.9) X10*3/uL [place] # (Auto) 0.3 (0.1-1.2) X10*3/uL Eos # (Auto) 0.2 (0.0-0.4) X10*3/uL Baso # (Auto) 0.0 (0.0-0.2) X10*3/uL Abs Immat Gran (auto) 0.02 (0.00-0.03) X10*3/uL Absolute Neuts (auto) 3.1 (2.0-8.3) x10*3/uL Absolute Nucleated RBC 0.000 (0.0-0.012) X10*3/uL Nucleated RBC % (auto) 0.0 (0.0-0.2) /100WBC Hold Purple Top SEE NOTE Hold Blue Top SEE NOTE Sodium 137 (135-145) mmol/L Potassium 3.5 (3.3-5.1) mmol/L Chloride 106 (96-108) mmol/L Carbon Dioxide 25 (22-29) mmol/L Anion Gap 10 L (12-20) BUN 8 L (9-16) mg/dL Creatinine 0.80 (0.5-1.4) mg/dL Estim Creat Clear Calc 110.2 Estimated GFR > 60 Random Glucose 94 (60-115) mg/dL Calcium 8.4 D (8.4-10.2) mg/dL Total Bilirubin 0.4 (0.0-1.0) mg/dL AST 22 (5-31) U/L ALT 17 (0-31) U/L Alkaline Phosphatase 78 (39-117) U/L Total Protein 7.0 (6.5-8.0) g/dL Albumin 3.9 (3.5-5.0) g/dL Hold Red Top See Note Hold Green Top See Note Urine Color Yellow Urine Appearance Clear Urine pH 6.0 (5.0-9.0) Ur Specific [place] 1.010 (1.005-1.025) Urine Protein Negative (Neg-Trace) mg/dL Urine Glucose (UA) Negative (Negative) mg/dL Urine Ketones Negative (Negative) mg/dL Urine Blood Negative (Negative) Urine Nitrite Negative (Negative) Ur Leukocyte Esterase Negative (Negative) Urine Test NEGATIVE (NEGATIVE) External Record Review External record reviewed: Prior outpatient labs and Outside ED record Critical Care Time Critical Care Time Critical Care Time: Yes Total Critical Care Time: 30 Attestation: I personally attest to this time spent taking care of the patient. Discharge Plan Discharge Clinical Impression: Seizure Patient Disposition: Home, Self-Care Instructions: Recurrent Seizures in Adults (ED) Additional Instructions: Resume all home medications as prescribed. Reach out to your primary care doctor and your doctor who is managing your blood thinners within the next 24 hours to set up appointments for re-evaluation. You need to keep your scheduled appointment with Neurology. Your primary care doctor will need to check the system for your Keppra levels, do not hesitate to return to the emergency room for any worsening of your symptoms. Prescriptions: No Action Eliquis 5 mg Tablet 5 mg PO BID Qty: 60 3RF albuterol sulfate 2.5 mg /3 mL (0.083 %) Solution For Nebulization 2.5 mg INHALATION QID PRN (Reason: Wheezing) nortriptyline 10 mg Capsule 10 mg PO BEDTIME albuterol sulfate [ProAir HFA] 90 mcg/actuation Hfa Aerosol Inhaler 2 puff INHALATION Q4-6H PRN (Reason: Wheezing) oxcarbazepine 150 mg tablet 150 mg PO BID ondansetron HCl 4 mg tablet 4 mg PO Q8H PRN (Reason: nausea/vomiting) sumatriptan succinate 50 mg tablet 50 mg PO QD-BID tramadol 50 mg tablet 50 mg PO BID PRN (Reason: severe pain) famotidine 20 mg tablet 20 mg PO BID baclofen 10 mg tablet 10 mg PO TID PRN (Reason: Muscle Spasm) esomeprazole magnesium 40 mg capsule,delayed release(DR/EC) 40 mg PO DAILY fluoxetine 10 mg capsule 10 mg PO DAILY hydroxyzine HCl 25 mg tablet 25 mg PO BID prazosin 2 mg capsule 2 mg PO BEDTIME Wegovy 0.5 mg/0.5 mL pen injector 0.5 mg subcut WE levetiracetam 500 mg Tablet 500 mg PO BID topiramate 100 mg tablet 100 mg PO BID levetiracetam 1,000 mg tablet 1,000 mg PO BID Referrals: Name,MD Ernie [Primary Care Provider] - Print Language: Urdu
[2024-04-13 16:06] VITALS: BP 124/71; PULSE 83; RESP 18; TEMP 36.6; O2SAT 98
[2024-04-19 10:44] LABS: Levetiracetam Keppra 27.5 mcg/mL (6.0-46.0)
== END 2024-04-13 16:06 | disposition home or self-care (01) ==
PROVIDERS: Emergency Provider Student in an Organized Health Care Education/Training Program; PCP Internal Medicine Geriatric Medicine
DX: R56.9 Unspecified convulsions (principal); R11.2 Nausea with vomiting, unspecified; Z79.899 Other long term (current) drug therapy
CPT/HCPCS: 36415; 80053; 80177; 81003; 81025; 85025; 96361; 96374; 99284; J1953

== ENCOUNTER 2024-05-05 08:04 | Outpatient (AMB) | payer MEDICAID, SELFPAY ==
--- NOTE | 2024-05-05 08:06 | MHC.OFFVIS ---
Vital Signs 05/05/24 08:22 Weight 264 lb Intake Visit Reasons: [facility] - RT hip pain Intake Note: Jihan is a 38 year old female who presents today for a evaluation of her right hip pain. patient reports her pain started about a year ago. She states that her pain has gotten worse over time. Her pain is mainly on the lateral aspect of her hip and radiates to her lower back. Patient has noticed her pain is worse when she is laying on her right side, walking and standing for a long period of time. She has tried and failed icing, Tylenol. Allergies codeine [CODEINE] Allergy (Unknown, Verified 04/13/24 11:08) Itching nut - unspecified Allergy (Verified 04/13/24 11:08) Anaphylaxis [place] Allergy (Severe, Uncoded 04/13/24 11:08) throat closed HPI HPI NewProb - RT hip pain: Details: 38-year-old female who presents in the office today for an evaluation of right hip pain. While in the office today, the patient reports experiencing right hip pain ongoing for a year and has been getting worse over time. She specifies her pain on the lateral aspect of her right hip and radiates down to her lower back. She noticed worsening pain when lying on her right side, and when ambulating or standing for a prolonged time. She has tried and failed icing and Tylenol. Of note, the patient consulted Pain Managment back in 07/2021 when she was suggested for a repeat injection. However, the patient denied injection at that time. [facility] Medical History Morbid obesity due to excess calories Spondylosis of lumbar spine Sacroiliitis Obesity PTSD (post-traumatic stress disorder) Sleep apnea Sacroiliitis Gait disturbance Degenerative disc disease Chronic back pain History of blood transfusion Anemia GERD (gastroesophageal reflux disease) Neuropathy Anxiety Depression Migraine Seizure disorder Asthma Surgical History H/O excision of epidermal inclusion cyst (12/06/20) Hx of umbilical hernia repair History of partial hysterectomy History of 3 sections Family History Maternal Uncle Lung cancer Father Prostate cancer Social History (Reviewed 05/05/24 @ 08:26 by Marika Stoll Household Members: Spouse and Children Housing: Apartment Are you a primary weekend caregiver to a significant other at home: No 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 No ecchymosis, erythema, or edema. Full hip ROM in all planes. Tenderness to palpation over the greater trochanteric bursa along the lateral aspect of the hip going towards the sacrum. 2/5 strength with resisted hip flexion, knee extension, abduction, and abduction. Able to perform straight leg raise. NVI. Assessment & Plan Assessment & Plan (1) Sacroiliitis: Code(s): M46.1 - Sacroiliitis, not elsewhere classified Category: Medical (2) Spondylosis of lumbar spine: Code(s): M47.816 - Spondylosis without myelopathy or radiculopathy, lumbar region Category: Medical Plan Ms. Brothers is a 38-year-old female who presents in the office today for an evaluation of right hip pain. While in the office today, the patient reports experiencing right hip pain ongoing for a year and has been getting worse over time. She specifies her pain on the lateral aspect of her right hip and radiates down to her lower back. She noticed worsening pain when lying on her right side, and when ambulating or standing for a prolonged time. She has tried and failed icing and Tylenol. Of note, the patient consulted Pain Managment back in 07/2021 when she was suggested for a repeat injection. However, the patient denied injection at that time. The patient was referred to Dr. Andrea for further evaluation and treatment. Additionally, I have placed an order for physical therapy for her lower back. Follow-up will be with Dr. Andrea in 6 weeks after physical therapy is completed, or sooner if needed. X-rays of the right hip, which were obtained while in the office today and were reviewed by me, Ann Bright PA-C, revealed: Negative for acute fracture or dislocation. Orders: Orders PT Evaluation and Treatment Today M46.1 - Sacroiliitis, not elsewhere classified, M47.816 - Spondylosis without myelopathy or radiculopathy, lumbar region Patient Instructions: Scribed by Rosalva Doan, medical assistant ob gyn, for Annginger Bright PA-C on 05/05/24 at 8:40 am EST. Coding Level of Care Code Est Pt Level 3 (72627) Diagnoses Sacroiliitis M46.1 Spondylosis of lumbar spine M47.816
== END 2024-05-05 08:44 | disposition home or self-care (01) ==
PROVIDERS: PCP Internal Medicine Geriatric Medicine; Visit Provider Physician Assistant
DX: M46.1 Sacroiliitis, not elsewhere classified (principal); M47.816 Spondylosis without myelopathy or radiculopathy, lumbar region
CPT/HCPCS: 99213

== ENCOUNTER 2024-05-05 09:46 | Outpatient (REF) | payer MEDICAID, SELFPAY | END 2024-05-05 09:47 | disposition home or self-care (01) | LOC: HO.HOSX 09:46 | PROVIDERS: Visit Provider Physician Assistant | DX: M47.816 Spondylosis without myelopathy or radiculopathy, lumbar region (principal); M25.551 Pain in right hip | CPT/HCPCS: 73502; 99212 ==

== ENCOUNTER 2024-05-10 18:47 | Emergency (ER) | payer MEDICAID, SELFPAY ==
--- NOTE | ~2024-05-10 | CT_ITS ---
EXAMINATION: CT ABDOMEN AND PELVIS WITH CONTRAST CLINICAL INFORMATION: Right lower quadrant pain COMPARISON: None TECHNIQUE: Multidetector volumetric imaging was performed from the superior aspect of the liver through the pubic symphysis with intravenous contrast. A total of 85 mL of Omnipaque 350 was utilized for the study. Sagittal and coronal reformatted images were obtained on the technologist's workstation. This CT examination was performed using dose optimization techniques as appropriate, variously including the following: *Automated exposure control *Adjustment of mA and/or kV according to patient size (this includes techniques or standardized protocols for targeted exams where dose is matched to indication/reason for exam; i.e. extremities or head) *Use of iterative reconstruction technique DLP: 932 mGy-cm FINDINGS: LUNG BASES: The visualized lung bases are unremarkable. LIVER, GALLBLADDER, AND BILIARY TREE: The liver is normal in size, shape, and attenuation. No focal hepatic lesion or biliary ductal dilatation is present. The gallbladder is unremarkable with no evidence of radiopaque gallstones, gallbladder wall thickening, or obvious pericholecystic inflammatory changes. PANCREAS: Unremarkable. SPLEEN: Unremarkable. ADRENAL GLANDS: Unremarkable. KIDNEYS AND URETERS: The kidneys are normal in size, shape, and attenuation. No hydronephrosis, hydroureter, or calculi seen. No perinephric stranding. BLADDER: Bladder is nearly empty with a very symmetrically thickened wall GASTROINTESTINAL TRACT: The small and large bowel are unremarkable. The appendix is unremarkable. ABDOMINAL WALL: No significant hernia is appreciated. LYMPH NODES: Normal. VASCULAR: Unremarkable. PELVIC VISCERA: The uterus is not seen. An abnormal adnexal mass is not detected. No free intraperitoneal fluid is present. OSSEOUS STRUCTURES: Unremarkable. CT/CT abdomen pelvis w IV con IMPRESSION: 1. A cause for the patient's right lower quadrant pain has not been found. The appendix is normal. 2. Incidental findings as above. Fleischner guidelines were followed. Electronically signed by: Андрей Alvares MD 05/11/2024 12:12 AM [facility]
[2024-05-10 19:30] VITALS: BP 135/79; PULSE 111; RESP 18; TEMP 36.8; O2SAT 99; BMI 43.6
[2024-05-10 20:03] LABS: MANUAL DIFF FLAG NO
[2024-05-10 20:04] LABS: Basophils Percent Auto 0.2 % (0-2); Eosinophils Absolute Auto 0.2 X10*3/uL (0.0-0.4); Eosinophils Percent Auto 2.7 % (0-4); Hematocrit 35.6 % (37.0-47.0); Hemoglobin 11.7 g/dl (12.0-16.0); Imm Gran Abs Auto 0.01 X10*3/uL (0.00-0.03); Imm Gran Pct Auto 0.2 % (0.0-0.4); Lymphocytes Absolute Auto 1.9 X10*3/uL (1.2-4.9); Lymphocytes Percent Auto 34.9 % (20-40); Mean Corpuscular HGB Conc 32.9 g/dl (31.0-35.0); Mean Corpuscular Hemoglobin 26.8 pg (27.0-33.0); Mean Corpuscular Volume 81.7 fL (80.0-98.0); Mean Platelet Volume 9.9 fL (9.4-12.3); Monocytes Absolute Auto 0.3 X10*3/uL (0.1-1.2); Neutrophils Absolute Auto 3.1 x10*3/uL (2.0-8.3); Platelet Count 238 X10*3/uL (160-400); Red Blood Count 4.36 X10*6/uL (4.20-5.50); Red Cell Distribution Width 13.8 % (11.0-16.0); White Blood Count 5.5 X10*3/uL (4.8-10.8)
--- NOTE | 2024-05-10 20:08 | ED.ABDPAIN ---
HPI - Abdominal Pain General Chief Complaint: Abdominal Pain Stated Complaint: Vominting/Diarrhea/Abdominal pain Time Seen by Provider: 05/10/24 22:07 Source: patient and family Mode of arrival: ambulatory Limitations: no limitations History of Present Illness ED Provider: GERALD STALLINGS narrative: 38 yo female denies PMH other than surgeries of c section, hysterectomy and hernia here with c/o 1 week RLQ pain and n/v/d denies urinary sypmtoms denies travel or food exposures, no fevers. States she was just at [facility] for same and discharged. She is vague will need records. Patient is very enthusiastic and yelling out loud when her abdomen is touched MD elicited complaint: abdominal pain Pertinent past history: other Onset (ago): week(s) (1) Pain Consistency: constant Location: RLQ Severity: severe Quality: stabbing Radiation: none Migration to: no migration Exacerbating factors: movement Relieving factors: nothing Context: history of similar episodes Associated symptoms: nausea, vomiting and diarrhea Treatments prior to arrival: other Related Data Home Medications ?Medication ?Instructions ?Recorded ?Confirmed albuterol sulfate 2.5 mg/3 mL 2.5 mg inhalation QID PRN Wheezing 03/22/20 09/23/23 (0.083 %) solution for nebulization albuterol sulfate 90 mcg/actuation 2 puff inhalation Q4-6H PRN 03/22/20 09/23/23 aerosol inhaler (ProAir HFA) Wheezing nortriptyline 10 mg capsule 10 mg PO BEDTIME 03/22/20 09/23/23 baclofen 10 mg tablet 10 mg PO TID PRN Muscle Spasm 09/23/23 09/23/23 esomeprazole magnesium 40 mg 40 mg PO DAILY 09/23/23 09/23/23 capsule,delayed release famotidine 20 mg tablet 20 mg PO BID 09/23/23 09/23/23 fluoxetine 10 mg capsule 10 mg PO DAILY 09/23/23 09/23/23 hydroxyzine HCl 25 mg tablet 25 mg PO BID anxiety 09/23/23 09/23/23 levetiracetam 1,000 mg tablet 1,000 mg PO BID 09/23/23 09/23/23 levetiracetam 500 mg tablet 500 mg PO BID 09/23/23 09/23/23 ondansetron HCl 4 mg tablet 4 mg PO Q8H PRN nausea/vomiting 09/23/23 09/23/23 oxcarbazepine 150 mg tablet 150 mg PO BID 09/23/23 09/23/23 prazosin 2 mg capsule 2 mg PO BEDTIME 09/23/23 09/23/23 semaglutide (weight loss) 0.5 0.5 mg subcut WE 09/23/23 09/23/23 mg/0.5 mL subcutaneous pen injector (Wegovy) sumatriptan succinate 50 mg tablet 50 mg PO QD-BID migraine 09/23/23 09/23/23 topiramate 100 mg tablet 100 mg PO BID 09/23/23 09/23/23 tramadol 50 mg tablet 50 mg PO BID PRN severe pain 09/23/23 09/23/23 Previous Rx's ?Medication ?Instructions ?Recorded apixaban 5 mg tablet (Eliquis) 5 mg PO BID #60 tabs 10/15/23 dicyclomine 20 mg tablet 20 mg PO TID PRN abdominal 05/11/24 discomfort #30 tabs ondansetron 4 mg disintegrating 4 mg PO Q8H PRN nausea and 05/11/24 tablet vomiting #20 tabs Allergies Allergy/AdvReac Type Severity Reaction Status Date / Time codeine [CODEINE] Allergy Unknown Itching Verified 05/10/24 19:32 nut - unspecified Allergy Anaphylaxis Verified 05/10/24 19:32 [place] Allergy Severe throat Uncoded 05/10/24 19:32 closed Review of Systems Review of Systems Constitutional : No Weight loss, No Fever, No Chills ENT/Mouth : No sore throat, No Rhinorrhea Eyes: No Swelling, No Redness Cardiovascular : No Chest Pain, No SOB, NoEdema Respiratory : No Cough, No Sputum, No Wheezing Gastrointestinal : Positive Nausea, Positive Vomiting, positive Diarrhea, positive abdominal Pain, No Hematochezia, No Melena Genitourinary : No Dysuria, No Urinary Frequency, No Hematuria, No Urgency Musculoskeletal : No joint pain, No Myalgias, No Joint Swelling Skin : No Skin Lesions, No rash Neuro : No Weakness, No Numbness, No Dizziness, No Headache Psych : No Anxiety/Panic, No Depression Heme/Lymph: No Bruising, No Lymphadenopathy Endocrine : No Polyuria, No Polydipsia All other systems reviewed and are negative. PMFSH Past Medical History Attestation statement: The following information was validated with the patient. Source: old records reviewed Medical History Morbid obesity due to excess calories Spondylosis of lumbar spine Sacroiliitis Obesity PTSD (post-traumatic stress disorder) Sleep apnea Sacroiliitis Gait disturbance Degenerative disc disease Chronic back pain History of blood transfusion Anemia GERD (gastroesophageal reflux disease) Neuropathy Anxiety Depression Migraine Seizure disorder Asthma Surgical History H/O excision of epidermal inclusion cyst (12/06/20) Hx of umbilical hernia repair History of partial hysterectomy History of 3 sections Family History Family History Maternal Uncle Lung cancer Father Prostate cancer Social History Social History Household Members: Spouse and Children Housing: Apartment Are you a primary career services manager to a significant other at home: No 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 have visiting nurse or other home 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 Oriented X3. No acute distress. Eyes: Pupils equal, round and reactive to light. ENT: Pharynx normal. Neck: Normal inspection. Neck supple. CVS: Normal heart rate and rhythm. Pulses normal. Respiratory: No respiratory distress. Breath sounds normal. Abdomen: Soft and with just gentle touch yelling out loud . Skin: Skin warm and dry. Normal skin color. Normal skin turgor. Extremities: No lower extremity edema. No calf ttp Neuro: Oriented X 3. No motor deficit. No sensory deficit. Course Course Course Narrative: This is an RME: Additional HPI, ROS, PE not included below will be deferred to primary provider. RME assessment and note performed by: Marisol Gordillo PA-C This is a 38-year-old female who presents emergency department with complaints of right lower quadrant pain. She has had nausea vomiting and diarrhea for the last 1-2 weeks. He was recently admitted to [facility] for the last 3 days however is unsure of the actual diagnosis. Abdomen is soft, with tenderness palpation in the right lower quadrant. Plan: Labs, UA, further ER evaluation needed. Medical Decision Making Medical Decision Making [facility] Narrative: 38 yo female denies PMH other than surgeries of c section, hysterectomy and hernia here with c/o RLQ pain initially did not tell me about her admission to [facility] and is vague I will need records, her pain is way out of proportion to touching her abdomen - at this time I am going to obtain labs, CT scan and dose with IV morphine - could be colitis, appendicitis, renal colic, chronic abdominal pain Differential Diagnosis Differential Diagnoses: The differential diagnosis associated with the presentation includes colitis, appendicitis, renal colic, chronic abdominal pain Admission/Observation Consideration of admission/observation: Escalation of care including admission/observation considered not toxic, no acute findings after 1 week of symptoms stable for DC Lab Data [facility] Lab Attestation statement: I reviewed the patient's lab results. 05/10/24 19:59 05/10/24 19:59 Labs: Lab Results 05/10/24 05/11/24 Range/Units 19:59 00:30 WBC 5.5 (4.8-10.8) X10*3/uL RBC 4.36 (4.20-5.50) X10*6/uL Hgb 11.7 L (12.0-16.0) g/dl Hct 35.6 L (37.0-47.0) % MCV 81.7 (80.0-98.0) fL MCH 26.8 L (27.0-33.0) pg MCHC 32.9 (31.0-35.0) g/dl RDW 13.8 (11.0-16.0) % Plt Count 238 (160-400) X10*3/uL MPV 9.9 (9.4-12.3) fL Immature Gran % (Auto) 0.2 (0.0-0.4) % Neut % (Auto) 56.0 (45-73) % Lymph % (Auto) 34.9 (20-40) % [place] % (Auto) 6.0 (2-11) % Eos % (Auto) 2.7 (0-4) % Baso % (Auto) 0.2 (0-2) % Lymph # (Auto) 1.9 (1.2-4.9) X10*3/uL [place] # (Auto) 0.3 (0.1-1.2) X10*3/uL Eos # (Auto) 0.2 (0.0-0.4) X10*3/uL Baso # (Auto) 0.0 (0.0-0.2) X10*3/uL Abs Immat Gran (auto) 0.01 (0.00-0.03) X10*3/uL Absolute Neuts (auto) 3.1 (2.0-8.3) x10*3/uL Absolute Nucleated RBC 0.000 (0.0-0.012) X10*3/uL Nucleated RBC % (auto) 0.0 (0.0-0.2) /100WBC Sodium 140 (135-145) mmol/L Potassium 3.5 (3.3-5.1) mmol/L Chloride 113 H (96-108) mmol/L Carbon Dioxide 19 L (22-29) mmol/L Anion Gap 12 (12-20) BUN 6 L (9-16) mg/dL Creatinine 0.81 (0.5-1.4) mg/dL Estim Creat Clear Calc 123.8 Estimated GFR > 60 Random Glucose 98 (60-115) mg/dL Calcium 9.4 D (8.4-10.2) mg/dL Total Bilirubin 0.3 (0.0-1.0) mg/dL AST 17 (5-31) U/L ALT 15 (0-31) U/L Alkaline Phosphatase 79 (39-117) U/L Total Protein 7.0 (6.5-8.0) g/dL Albumin 4.0 (3.5-5.0) g/dL Lipase 7 L (8-78) U/L Beta HCG, Quant < 2 mIU/mL Urine Color Yellow Urine Appearance Clear Urine pH 5.5 (5.0-9.0) Ur Specific [place] >= 1.030 H (1.005-1.025) Urine Protein Negative (Neg-Trace) mg/dL Urine Glucose (UA) Negative (Negative) mg/dL Urine Ketones 40 (Negative) mg/dL Urine Blood Trace H (Negative) Urine Nitrite Negative (Negative) Ur Leukocyte Esterase Negative (Negative) Urine RBC 0-2 (0-2) /HPF Urine WBC 0-5 (0-5) /HPF Ur Squamous Epith Cells 0-2 (0-2) /HPF Urine Bacteria None Seen (None Seen) Hyaline Casts 0-2 (0-2) /LPF Independent Interpretation I performed an independent interpretation of an: CT Scan (no cause for pain) Radiology Impression Discussion of test interpretation with radiology: I have reviewed the radiologist's reading. Independent Historian Clinical information obtained from an independent historian. History obtained from or confirmed by: Spouse External Record Review External record reviewed: Outpatient record Medications Administered Discontinued Medications Generic Name Dose Route Start Last Admin Trade Name Freq PRN Reason Stop Dose Admin Sodium Chloride 1,000 mls @ 999 mls/hr 05/10/24 22:33 05/10/24 23:36 Ns IV 05/10/24 23:33 999 mls/hr .Q1H1M ONE Administration Iohexol 85 ml 05/10/24 23:35 05/10/24 23:36 Iohexol 350 Mg/Ml 100 Ml Infus..Btl IV 05/10/24 23:36 85 ml ONCE ONE Administration Morphine Sulfate 4 mg 05/10/24 22:33 05/10/24 23:36 Morphine Sulfate 4 Mg/Ml Cartridge IVPUSH 05/10/24 22:34 4 mg ONCE ONE Administration Protocol Ondansetron HCl 4 mg 05/10/24 22:33 05/10/24 23:37 Ondansetron Hcl 4 Mg/2 Ml Vial IVPUSH 05/10/24 22:34 4 mg ONCE ONE Administration Discharge Plan Discharge Clinical Impression: Abdominal pain Qualifiers: Abdominal location: right lower quadrant Qualified Code(s): R10.31 - Right lower quadrant pain Patient Disposition: Home, Self-Care Instructions: Abdominal Pain (ED) Additional Instructions: labs and CT scan reassuring please follow up with your doctor return for any worsening symptoms or concerns Prescriptions: New ondansetron 4 mg tablet,disintegrating 4 mg PO Q8H PRN (Reason: nausea and vomiting) Qty: 20 0RF dicyclomine 20 mg tablet 20 mg PO TID PRN (Reason: abdominal discomfort) Qty: 30 0RF No Action Eliquis 5 mg Tablet 5 mg PO BID Qty: 60 3RF albuterol sulfate 2.5 mg /3 mL (0.083 %) Solution For Nebulization 2.5 mg INHALATION QID PRN (Reason: Wheezing) nortriptyline 10 mg Capsule 10 mg PO BEDTIME albuterol sulfate [ProAir HFA] 90 mcg/actuation Hfa Aerosol Inhaler 2 puff INHALATION Q4-6H PRN (Reason: Wheezing) oxcarbazepine 150 mg tablet 150 mg PO BID ondansetron HCl 4 mg tablet 4 mg PO Q8H PRN (Reason: nausea/vomiting) sumatriptan succinate 50 mg tablet 50 mg PO QD-BID tramadol 50 mg tablet 50 mg PO BID PRN (Reason: severe pain) famotidine 20 mg tablet 20 mg PO BID baclofen 10 mg tablet 10 mg PO TID PRN (Reason: Muscle Spasm) esomeprazole magnesium 40 mg capsule,delayed release(DR/EC) 40 mg PO DAILY fluoxetine 10 mg capsule 10 mg PO DAILY hydroxyzine HCl 25 mg tablet 25 mg PO BID prazosin 2 mg capsule 2 mg PO BEDTIME Wegovy 0.5 mg/0.5 mL pen injector 0.5 mg subcut WE levetiracetam 500 mg Tablet 500 mg PO BID topiramate 100 mg tablet 100 mg PO BID levetiracetam 1,000 mg tablet 1,000 mg PO BID Print Language: Austrian
[2024-05-10 20:23] LABS: Alanine Aminotransferase 15 U/L (0-31); Alkaline Phosphatase 79 U/L (39-117); Anion Gap 12 (12-20); Aspartate Amino Transferase 17 U/L (5-31); Bilirubin Total 0.3 mg/dL (0.0-1.0); Blood Urea Nitrogen 6 mg/dL (9-16); Calcium 9.4 mg/dL (8.4-10.2); Carbon Dioxide 19 mmol/L (22-29); Chloride 113 mmol/L (96-108); Creatinine Clr Calc Pharmacy 123.8; Estimated Glomerular Filt Rate > 60; Glucose Random 98 mg/dL (60-115); Lipase 7 U/L (8-78); Potassium 3.5 mmol/L (3.3-5.1); Sodium 140 mmol/L (135-145)
[2024-05-10 20:24] LABS: HCG Quantitative < 2 mIU/mL
[2024-05-10 22:00] VITALS: BP 119/71; PULSE 97; RESP 16; TEMP 36.3; O2SAT 100
[2024-05-10 23:36] VITALS: RESP 16
[2024-05-10] MEDS: iohexoL 350 MG/ML 100 ML INFUS..BTL 85 ML IV (23:36)
[2024-05-10] MEDS: Morphine Sulfate 4 MG/ML CARTRIDGE IVPUSH (23:36)
[2024-05-10] MEDS: 0.9 % Sodium Chloride 1,000 ML 999 ML IV (23:36)
[2024-05-10] MEDS: ondansetron HCL 4 MG/2 ML VIAL IVPUSH (23:37)
[2024-05-11 00:08] VITALS: BP 116/76; PULSE 99; RESP 18; TEMP 36.9; O2SAT 100
[2024-05-11 00:39] LABS: Appearance Urine Clear; Color Urine Yellow; Glucose Urine UA Negative (Negative); Leukocyte Esterase Urine Negative (Negative); Nitrite Urine Negative (Negative); PH 5.5 (5.0-9.0); Specific Gravity - Urine >= 1.030 (1.005-1.025); UMIC TRIGGER UACC YES; Urine Blood Trace (Negative); Urine Ketones 40 mg/dL (Negative); Urine Protein Negative (Neg-Trace)
[2024-05-11 00:42] LABS: Bacteria Urine None Seen (None Seen); Hyaline Casts Urine 0-2 /LPF (0-2); RBC Urine 0-2 /HPF (0-2); Squamous Epithelial Cell Urine 0-2 /HPF (0-2); WBC Urine 0-5 /HPF (0-5)
[2024-05-11 01:23] VITALS: BP 116/76; PULSE 99; RESP 18; TEMP 36.9
[2024-05-11 01:36] VITALS: BP 116/76; PULSE 99; RESP 18; TEMP 36.9
== END 2024-05-11 01:37 | disposition home or self-care (01) ==
PROVIDERS: Emergency Provider Emergency Medicine; PCP Internal Medicine Geriatric Medicine
DX: R10.31 Right lower quadrant pain (principal); R11.2 Nausea with vomiting, unspecified
CPT/HCPCS: 36415; 74177; 80053; 81001; 83690; 84702; 85025; 96374; 96375; 99284; J2270; J2405; Q9967

== ENCOUNTER 2024-06-01 10:45 | Outpatient (RCR) | payer MEDICAID, SELFPAY ==
--- NOTE | 2024-06-01 12:03 | MHC.PT.EP ---
[facility] [place] Office [place] Office [place] Office [address] Caesar Mcgregor [address] [phone] F: [phone] F: [phone] F: [phone] F: [phone] Physical Therapy Plan of Care Date of Evaluation: 06/01/24 Date of Surgery: Diagnosis: PT eval and treat, M47.816 Spondylosis without myelopathy or radiculopathy, lumbar region, M46.1 Sacroilitis, not elsewhere classified, Spondylosis of lumbar spine, sacroilititis, date of referral 05/09/24 Assessment: Pt is a RHD 38 y/o female, PMH significant for: Morbid obesity due to excess calories Spondylosis of lumbar spine Sacroiliitis Obesity PTSD (post-traumatic stress disorder) Sleep apnea Sacroiliitis Gait disturbance Degenerative disc disease Chronic back pain History of blood transfusion Anemia GERD (gastroesophageal reflux disease) Neuropathy Anxiety Depression Migraine Seizure disorder Asthma H/O excision of epidermal inclusion cyst (12/06/20) Hx of umbilical hernia repair History of partial hysterectomy History of 3 sections referred to PT for treatment of, PT evaluation and treat, M47.816 Spondylosis without myelopathy or radiculopathy, lumbar region, M46.1 Sacroilitis, not elsewhere classified, Spondylosis of lumbar spine, sacroilitis, date of referral 05/09/24 by HUGO Bright . Pt presents to PT office with Anton by her side. When asked what her PT goals are she states, Therapy is gonna make me worse anyway. Upon further communication with patient, pt was not open to willing to participate in mobility assessment/screening for evaluation. Therapist attempted to educate patient in goals of PT. She was educated that therapist would not make her do things that caused her more pain. Unfortunately pt was not open to active participation/screen/assessment and exhibited significant poor attitude/mindset regarding therapy. She expressed past history of poor outcomes to PT in the past, several times in the past year with no gain. Pt had a confrontation with the front end technician staff upon entrance regarding hand hygiene/use of hand home economist consumer service and she was upset upon entrance into the office. After further discussion in the office, it came up that she had past alternative treatments including aquatic therapy and healthcare consulting manager which helped her. She expresses she has an upcoming appt with ARIELLE on 06/06/24 for a consultation. Pt's states she was told she at one time was a candidate for back surgery. Hip xray report remains pending (was completed on 05/05/24). She was offered injections from pain management but deferred recently (reports having some in the past ~2016). Pt is not good candidate for therapy based on mindset and willingness to actively participate/try new things. Pt was advised to follow up with her referring provider on her appt on 06/13/24 [place] Refer patient back [place] [facility] Frequency and Duration: The patient will be seen No PT at this time Short Term Goals: No further PT is warranted at this time [facility] Goals: No further PT is warranted at this time Treatment Plan: Modalities to reduce pain, spasms and effusion. Manual therapy to restore motion and function. Therapeutic exercise to improve strength and flexibility. Neuromuscular re-education for posture and balance. Therapeutic activities to return to functional activities of daily living. Electronically signed by: Mary Hagan, PT, DPT Please sign and return to therapist. Thank you for your referral.
== END 2024-07-03 07:40 | disposition home or self-care (01) ==
LOC: HO.PTWFD 10:45
PROVIDERS: PCP Internal Medicine Geriatric Medicine; Visit Provider Physician Assistant
DX: M47.816 Spondylosis without myelopathy or radiculopathy, lumbar region (principal); M46.1 Sacroiliitis, not elsewhere classified
CPT/HCPCS: 97163; 97535

== ENCOUNTER 2024-06-14 11:11 | Outpatient (REF) | payer MEDICAID, SELFPAY ==
[2024-06-14 13:06] LABS: MANUAL DIFF FLAG NO
[2024-06-14 13:14] LABS: Basophils Percent Auto 0.3 % (0-2); Eosinophils Absolute Auto 0.3 X10*3/uL (0.0-0.4); Eosinophils Percent Auto 4.7 % (0-4); Hematocrit 37.6 % (37.0-47.0); Hemoglobin 12.1 g/dl (12.0-16.0); Imm Gran Abs Auto 0.01 X10*3/uL (0.00-0.03); Imm Gran Pct Auto 0.2 % (0.0-0.4); Lymphocytes Absolute Auto 2.7 X10*3/uL (1.2-4.9); Lymphocytes Percent Auto 43.8 % (20-40); Mean Corpuscular HGB Conc 32.2 g/dl (31.0-35.0); Mean Corpuscular Hemoglobin 26.7 pg (27.0-33.0); Mean Corpuscular Volume 82.8 fL (80.0-98.0); Monocytes Absolute Auto 0.3 X10*3/uL (0.1-1.2); Monocytes Percent Auto 4.7 % (2-11); Neutrophils Absolute Auto 2.9 x10*3/uL (2.0-8.3); Neutrophils Percent Auto 46.3 % (45-73); Platelet Count 299 X10*3/uL (160-400); Red Blood Count 4.54 X10*6/uL (4.20-5.50); White Blood Count 6.2 X10*3/uL (4.8-10.8)
[2024-06-14 13:23] LABS: D Dimer High Sensitivity < 150 NG/ML
[2024-06-14 13:39] LABS: Alanine Aminotransferase 13 U/L (0-31); Albumin Level 4.2 g/dL (3.5-5.0); Alkaline Phosphatase 80 U/L (39-117); Anion Gap 7 (12-20); Aspartate Amino Transferase 18 U/L (5-31); Bilirubin Total 0.2 mg/dL (0.0-1.0); Blood Urea Nitrogen 9 mg/dL (9-16); Calcium 8.8 mg/dL (8.4-10.2); Carbon Dioxide 24 mmol/L (22-29); Chloride 113 mmol/L (96-108); Estimated Glomerular Filt Rate > 60; Glucose Random 91 mg/dL (60-115); Sodium 140 mmol/L (135-145); Total Protein 7.5 g/dL (6.5-8.0)
[2024-06-14 13:42] LABS: TSH reflex Free T4 0.44 uIU/mL (0.32-4.0)
== END 2024-06-14 11:12 | disposition home or self-care (01) ==
LOC: HO.HHCL 11:11
PROVIDERS: Advanced Practice Midwife; Visit Provider Internal Medicine Medical Oncology
DX: I26.99 Other pulmonary embolism without acute cor pulmonale (principal); R23.2 Flushing
CPT/HCPCS: 36415; 80053; 84443; 85025; 85379

== ENCOUNTER 2024-06-23 09:06 | Outpatient (AMB) | payer MEDICAID, SELFPAY ==
[2024-06-23 09:13] VITALS: BMI 44.1
--- NOTE | 2024-06-23 09:13 | A.OFFVIS_ITS ---
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 States pain is mainly on her lateral aspect of hip and has been present for the last 3 yrs. States her pain has worsen. Denies groin pain, injury or falls. She is experiencing numbness and tingling that radiates down her right side. Patient has tried P.T and states it increased her pain. No past injection for hip. Patient referred by Samantha Bright. Accompanied by: Anton Allergies codeine [CODEINE] Allergy (Unknown, Verified 06/23/24 09:18) Itching nut - unspecified Allergy (Verified 06/23/24 09:18) Anaphylaxis Holcomb Allergy (Severe, Uncoded 06/23/24 09:18) throat closed Medication List - Last Reconciled 06/23/24 by Carol Mccain MD albuterol sulfate 2.5 mg inhalation QID PRN albuterol sulfate 90 mcg/actuation (ProAir HFA) 2 puffs inhalation Q4-6H PRN apixaban (Eliquis) 5 mg PO BID baclofen 10 mg PO TID PRN esomeprazole magnesium 40 mg PO DAILY famotidine 20 mg PO BID fluoxetine 10 mg PO DAILY folic acid 1 mg PO DAILY hydroxyzine HCl 25 mg PO BID levetiracetam 1,000 mg PO BID levetiracetam 500 mg PO BID nortriptyline 10 mg PO BEDTIME ondansetron 4 mg PO Q8H PRN ondansetron HCl 4 mg PO Q8H PRN oxcarbazepine 150 mg PO BID prazosin 2 mg PO BEDTIME semaglutide (weight loss) (Wegovy) 0.5 mg subcut WE sumatriptan succinate 50 mg PO QD-BID topiramate 100 mg PO BID HPI Comments Details: More than 10 years of right-sided radicular back pain and at least 3 years of right hip pain. [place] live, and had epidural injections there. She was offered surgery for some type of congenital issue seen on MRI, but she declined at that time. Here in [place], she has been seen by Orthopedics and pain management for right-sided hip and SI pain. She had right SI joint injection with pain management 2021 without relief. I think an MRI was ordered but I am not sure if that was done or approved. Patient does not think she has had an MRI in the last 3 years in [place]. Finished physical therapy in 05/19/2024, was not able to finish the full course due to too much pain with the exercises. Plain x-rays of right hip showed mild degenerative changes hip and SI joint. History of COVID in 2020, pulmonary embolism, was on Eliquis that was just taken off as of yesterday. Follows with Dr. Garcia for seizures. Right-sided lateral hip pain. Can have a right-sided lower back pain that radiates down to the right foot. Occasional tingling/paresthesias in right foot. [facility] Medical History Morbid obesity due to excess calories Spondylosis of lumbar spine Sacroiliitis Obesity PTSD (post-traumatic stress disorder) Sleep apnea Sacroiliitis Gait disturbance Degenerative disc disease Chronic back pain History of blood transfusion Anemia GERD (gastroesophageal reflux disease) Neuropathy Anxiety Depression Migraine Seizure disorder Asthma Surgical History H/O excision of epidermal inclusion cyst (12/06/20) Hx of umbilical hernia repair History of partial hysterectomy History of 3 sections Family History Maternal Uncle Lung cancer Father Prostate cancer Social History (Updated 06/23/24 @ 09:21 by MANJU Jarrett) Household Members: Spouse and Children Housing: Apartment Are you a primary rn acute care to a significant other at home: No 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 have visiting nurse or 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 Patient was appropriately conversant and oriented. Good historian. MSK: No specific abnormalities found on inspection of the spine and all extremities. Diffusely tender, right paraspinals, facets, SI joint, GT. Lumbar ROM was full. Bilateral hip, knee and ankle ROM WNL. No ligamentous laxity or crepitance. No increased effusion. Right slump sit positive right side? FABERE test positive right hip and groin pain. Strength is 5/5 in all muscle groups tested. No increased tone noted. Neurological: Neurologic examination of the upper and lower extremities was nonfocal with intact sensation, muscle stretch reflexes and without focal motor deficits . Babinski was down going bilaterally. Clonus was negative. Gait is non-antalgic without loss of balance. Results Reviewed Results Reviewed: Ordering Physician: Ann Bright PA-C Date of Service: 05/05/24 Procedure(s): XR hip RT min 2V Accession Number(s): [id number] cc: Ann Bright PA-C~ EXAMINATION: XR RIGHT HIP CLINICAL INFORMATION: Pain in unspecified hip M25.559. COMPARISON: X-ray right hip 10/20/2022. TECHNIQUE: AP view of the pelvis and 2 views of the right hip. FINDINGS: Rounded calcifications in the right hemipelvis redemonstrated. Left hip alignment maintained. Mild degenerative changes in the right hip with superolateral acetabular hypertrophic change. Mild degenerative changes with asymmetric sclerosis and narrowing along the inferior aspect of the right sacroiliac joint. Redemonstration of sclerotic focus overlying the superior aspect of the right sacroiliac joint. XR/XR hip RT min 2V IMPRESSION: Mild degenerative changes right hip and sacroiliac joint. Electronically signed by: Norma Hampton MD 06/14/2024 12:33 PM [facility] I reviewed records from the following: Ortho Pain management Assessment & Plan Assessment & Plan (1) Lumbar disc herniation: Code(s): M51.26 - Other intervertebral disc displacement, lumbar region Category: Medical Plan Suspect she had history of lumbar disc herniation, trialed epidural injections in the past. Told to have some sort of congenital spine but not clear what type. I think we need to further investigate this by repeating the lumbar MRI. Patient is on adequate conservative management without relief. Note though that patient is apprehensive about the further injections. Question sacroiliitis. We will send for labs: JEFFRY and RF at least Assessment and plan discussed with patient, and patient was agreeable. All que stions were answered thoroughly. Follow up after MRI. Carol Mccain MD, LIZ Board Certified, [place] Board of Physical Medicine and Rehabilitation (ABPMR) Board Certified, [place] Board of Electrodiagnostic Medicine (ABEM) Orders: Orders JEFFRY Reflex Titer and Pattern Today M46.1 - Sacroiliitis, not elsewhere classified Rheumatoid Factor Today M46.1 - Sacroiliitis, not elsewhere classified MR lumbar spine wo con Today M46.1 - Sacroiliitis, not elsewhere classified, M51.26 - Other intervertebral disc displacement, lumbar region Coding Level of Care Code New Pt Level 4 (83716) Diagnoses Lumbar disc herniation M51.26
== END 2024-06-23 09:47 | disposition home or self-care (01) ==
PROVIDERS: PCP Internal Medicine Geriatric Medicine; Visit Provider Physical Medicine & Rehabilitation
DX: M51.26 Other intervertebral disc displacement, lumbar region (principal)
CPT/HCPCS: 99204

== ENCOUNTER → 2024-06-23 09:06 | Outpatient (BNVA) | payer MEDICAID, SELFPAY | PROVIDERS: Internal Medicine Medical Oncology; PCP Internal Medicine Geriatric Medicine; Visit Provider Physical Medicine & Rehabilitation | DX: M51.26 Other intervertebral disc displacement, lumbar region (principal) | CPT/HCPCS: 36415; 99202 ==

== ENCOUNTER 2024-06-23 10:58 | Outpatient (REF) | payer MEDICAID, SELFPAY ==
--- OUTSIDE RECORDS SUMMARY | 2024-06-23 13:06 | XMS_ITS | Encounter Summary ---
Author Organization [employer] Address [address] [facility] 7t [place] [address] Care Team Providers Care Machine Chocolate Molder Name Role Phone Name, Ernie MOE Primary Care Provider [phone] Reason for Visit * Reason Onset Date Comments Med Refill 07/30/2023 Encounter Details Date Type Department Care Team ([facility] st Contact Info) Description 07/30/2023 Refill [facility] MEDICINE [address] [place], [place] [phone] Name, MD Ernie [address] [place] [address] Social History Tobacco Use Types Packs/Day Years Used Date Smoking Tobacco: Some Days Cigarettes Passive Smoke Exposure: Current Smokeless Tobacco: Never Alcohol Use Standard Drinks/Week Comments Not Currently 0 (1 standard drink = 0.6 oz pur e alcohol) Depression Answer Date Recorded Patient Health Questionnaire-9 Score 0 10/07/2022 Housing Stability Answer Date Recorded What is your housing situation today? I have june vernon 03/16/[address] you li ve. Do you have problems with any of the following? None of the above 03/16/2023 Food Insecurity Answer Date Recorded Within the past 12 months, y ou worried that your food would run out before you got money to buy more: Never True 03/16/2023 Within the past 12 months,th e food you bought just didn't last and you didn't have enough money to get more: Never True Transportation Answer Date Recorded In the past 12 months, has l ack of transportation kept you from medical appts, meetings, work or from getting things needed for daily living? No 03/16/2023 Utilities Answer Date Recorded In the past 12 months, has t he electric, gas, oil or water company threatened to shut off services in your home? Yes 03/16/2023 Depression Answer Date Recorded Patient Health Questionnaire-2 Score 0 10/07/2022 Comments Unknown Sex and Gender Information Value Date Recorded Sex Assigned at Female 03/30/2022 10:23 AM EDT Legal Sex Female 10:23 AM EDT Gender Identity Female 03/30/2022 10:23 AM EDT Sexual Orientation Straight 03/30/2022 10 :23 AM EDT documented as of this encounter Plan of Treatment Upcoming Encounters Date Type Department Care Team (Late st Contact Info) Description 07/28/2024 11:30 AM EST Office Visit [address] [address] Ernie Nobles MD [address] [place] [phone] 08/28/2024 10:15 AM EDT Office Visit [address] [address] Sasha Coronel CNM [address] [place] [address] documented as of this encounter Visit Diagnoses Not on filedocumented in this encounter Additional Health Concerns Assessment Noted Time PHQ-9 Depression Total Score: 0 10/08/19 23 11:31 AM EDT documented as of this encounter Care Teams Machine Chocolate Molder Relationship Specialty Start Date End Date Ernie Nobles MD [address] [place] [id number] PCP - General Family Medicine 01/06/19 Priscilla Helm Supervisor Cooperage ShopSpecial Education Professor 10/15/23 documented as of this encounter
--- OUTSIDE RECORDS SUMMARY | 2024-06-23 13:06 | XMS_ITS | Encounter Summary ---
Author Organization [employer] Address [address] [facility] 7t [place] [address] Care Team Providers Care Urology Surgeon Name Role Phone Name, Ernie MOE Primary Care Provider [phone] Reason for Visit * Reason Onset Date Comments ER Follow-up 04/14/2024 Encounter Details Date Type Department Care Team ([facility] Contact Info) Description 04/14/2024 Telephone [facility] MEDICINE [address] [place], [place] [phone] Name, MD Ernie [address] [place] [address] ER Follow-up Social History Tobacco Use Types Packs/Day Years Used Date Smoking Tobacco: Former Cigarettes Passive Smoke Exposure: Current Smokeless Tobacco: Never Alcohol Use Standard Drinks/Week Comments Not Currently 0 (1 standard drink = 0.6 oz pur e alcohol) Depression Answer Date Recorded Patient Health Questionnaire-9 Score 0 10/29/2023 Patient Health Questionnaire-9 Score 0 10/29/2023 Last PHQ-9: Questionnaire Data Not on file 0 10/29/2023 Housing Stability Answer Date Recorded What is [...] Date Recorded Patient Health Questionnaire-2 Score 0 10/29/2023 Comments No Sex and Gender Information Value Date Recorded Sex Assigned at Female 03/30/2022 10:23 AM EDT Legal Sex Female 10:23 AM EDT Gender Identity Female 03/30/2022 10:23 AM EDT Sexual Orientation Straight 03/30/2022 10 :23 AM EDT documented as of this encounter Miscellaneous Notes * Telephone Encounter - Landon Oliva - 04/14/2024 10:00 AM EST Patient calling to report ED visit on : Date: 04/13/24 Hospital: [facility] ED Seen for: Seizures Pt requesting for provider to go over lab work that was done at [facility] . Feelbritney Roberts's at ED did not go over them and she seen her Kidney levels were off. documented in this encounter Plan of Treatment Upcoming Encounters Date Type Department Care Team (Late st Contact Info) Description 07/28/2024 11:30 AM EST Office Visit [address] [address] Name, MD Ernie [address] [place] [phone] 08/28/2024 10:15 AM EDT Office Visit [address] [address] Sasha Coronel CNM [address] [place] [phone] documented as of this encounter Goals Goal Patient Goal Type Associated Problems Recent Progress Patient-Stated? Author Patient will adhere to medication regimen General No Evelyn Levine documented as of this encounter Visit Diagnoses Not on filedocumented in this encounter Additional Health Concerns Assessment Noted Time PHQ-9 Depression Total Score: 0 10/29/19 24 10:28 AM EDT documented as of this encounter Care Teams Urology Surgeon Relationship Specialty Start Date End Date Name, MD Ernie [address] [place] [address] PCP - General Family Medicine 01/06/19 Priscilla Helm Pneumatic TesterSharepoint Specialist 10/15/23 documented as of this encounter
--- OUTSIDE RECORDS SUMMARY | 2024-06-23 13:06 | XMS_ITS | Encounter Summary ---
Author Organization [employer] Address [address] [place] [address] 7 [place] [address] Care Team Providers Care Assistant Fitness Manager Name Role Phone Name, Ernie MOE Primary Care Provider [phone] Reason for Visit * Reason Onset Date Comments PT1 11/17/2022 Encounter Details Date Type Department Care Team ([facility] st Contact Info) Description 11/17/2022 Telephone [facility] MEDICINE [address] [place] [address] Name, MD Ernie [address] [place] [address] PT1 Social History Tobacco Use Types Packs/Day Years Used Date Smoking Tobacco: Never Smokeless Tobacco: Never Depression Answer Date Recorded Patient Health Questionnaire-9 Score 0 10/07/2022 Depression Answer Date Recorded Patient Health Questionnaire-2 Score 0 10/07/2022 Comments Unknown Sex and Gender Information Value Date Recorded Sex Assigned at Female 03/30/2022 10:23 AM EDT Legal Sex Female 10:23 AM EDT Gender Identity Female 03/30/2022 10:23 AM EDT Sexual Orientation Straight 03/30/2022 10 :23 AM EDT documented as of this encounter Miscellaneous Notes * Telephone Encounter - Adamaris Rodriguez - 11/17/2022 10:55 AM EDT Patient will recieve approval / denial letter via mail. PT-1 Request [id number] - [address] [address] * Telephone Encounter - Nila Awad - 11/17/2022 9:20 AM EDT PT1- [facility] Date: 12/08/22 Time: 3:15 pm Capsule Filler Needed: Yes Wheel Chair Access? No documented in this encounter Plan of Treatment Upcoming Encounters Date Type Department Care Team (Late st Contact Info) Description 07/28/2024 11:30 AM EST Office Visit [facility] [place] [address] Name, MD Ernie [facility] [place] [address] 08/28/2024 10:15 AM EDT Office Visit [facility] [place] [address] [place] [address] documented as of this encounter Visit Diagnoses Not on filedocumented in this encounter Additional Health Concerns Assessment Noted Time PHQ-9 Depression Total Score: 0 10/08/19 11:31 AM EDT documented as of this encounter Care Teams Assistant Fitness Manager Relationship Specialty Start Date End Date Name, [place] [address] PCP - General Family Medicine 01/06/19 Priscilla Helm Monument LettererDetacher 10/15/23 documented as of this encounter
--- OUTSIDE RECORDS SUMMARY | 2024-06-23 13:06 | XMS_ITS | Encounter Summary ---
Author Organization [employer] Address [address] [facility] 7t [place] [address] Care Team Providers Care Controller Instructor Name Role Phone Name, Ernie MOE Primary Care Provider [phone] Encounter Details Date Type Department Care Team ([facility] st Contact Info) Description 01/13/2023 Telephone [facility] MEDICINE [address] [place], [place] [phone] Name, MD Ernie [address] [place] [address] Social History Tobacco Use Types Packs/Day Years Used Date Smoking Tobacco: Never Smokeless Tobacco: Never Alcohol Use Standard Drinks/Week Comments Never 0 (1 standard drink = 0.6 oz [...] encounter Miscellaneous Notes * Telephone Encounter - Gunjan Dunn LPN - 01/26/2023 9:10 AM EDT LM with [employer] to call us back on info regarding services if provided as indicatedin [employer]. * Telephone Encounter - Cher Irving RN - 01/18/2023 10:16 AM EDT Please review message below and advise. Unsure if pt has WORKFORCE ADVISOR services already established on file, and if so if pt needs a visit prior to renewal. * Telephone Encounter - Karen Pagan - 01/15/2023 11:48 AM EDT Tc from pt requesting a call back regarding WORKFORCE ADVISOR services. States has been transferred to medical records but they had transferred her back and inform to speak with a nurse . * Telephone Encounter - Karen Pagan - 01/13/2023 11:17 AM EDT Tc from pt requesting a new referral / order to renew sow farm technician services . documented in this encounter Plan of Treatment Upcoming Encounters Date Type Department Care Team (Late st Contact Info) Description 07/28/2024 11:30 AM EST Office Visit [facility] [address] [place] [address] Name, MD Ernie [address] [place] [address] 08/28/2024 10:15 AM EDT Office Visit [facility] [address] [place] [address] Sasha Coronel CNM [address] [place] [address] documented as of this encounter Visit Diagnoses Not on filedocumented in this encounter Additional Health Concerns Assessment Noted Time PHQ-9 Depression Total Score: 0 10/08/19 23 11:31 AM EDT documented as of this encounter Care Teams Controller Instructor Relationship Specialty Start Date End Date Name, MD Ernie [address] [place] [address] PCP - General Family Medicine 01/06/19 Priscilla Helm Portfolio StrategistNursing Home Assistant 10/15/23 documented as of this encounter
--- OUTSIDE RECORDS SUMMARY | 2024-06-23 13:06 | XMS_ITS | Clinical Summary ---
Author Organization [facility] Address [address] [place] [address] Care Team Providers Care Business Development Recruiter Name Role Phone Name, Ernie MOE Primary Care Provider [phone] Social History Tobacco Use Types Packs/Day Years Used Date Smoking Tobacco: Never Assessed Sex and Gender Information Value Date Recorded Sex Assigned at Not on file Gender Identity Not on file Sexual Orientation Not on file Plan of Treatment Health Maintenance Due Date Last Done Comments DTaP,Tdap,and Td Vaccines (1 - Tdap) 11/04/2006 Hepatitis B Vaccines (1 of 3 - 19+ 3-dose series) 11/04/2006 Cervical Cancer Screening: P ap Smear 11/04/2008 Depression Screening 05/03/2022 HIV Screening 05/03/2022 Hepatitis C Screening 05/03/2022 Social Influencers of Health Screening 05/03/2022 COVID-19 Vaccine ( - 2023-2 5 season) 2024 Influenza Vaccine (#1) 2024 HIB Vaccines Aged Out No longer eligi ble based on patient's age to complete this topic HPV Vaccines Aged Out No longer eligi ble based on patient's age to complete this topic Hepatitis A Vaccines Aged Out No long er eligible based on patient's age to complete this topic IPV Vaccines Aged Out No longer eligi ble based on patient's age to complete this topic MMR Vaccines Aged Out No longer eligi ble based on patient's age to complete this topic Meningococcal ACWY Vaccine Aged Out N o longer eligible based on patient's age to complete this topic Pneumococcal Vaccine: Pediat rics (0 to 5 Years) and At-Risk Patients (6 to 64 Years) Aged Out No longer eligible b ased on patient's age to complete this topic RSV Immunization Patients Un bc 20 months Aged Out No longer eligible b ased on patient's age to complete this topic Varicella Vaccines Aged Out No longer eligible based on patient's age to complete this topic Care Teams Business Development Recruiter Relationship Specialty Start Date End Date Name, MD Ernie [address] [place], [place] PCP - General Internal Medicine 03/16/19
--- OUTSIDE RECORDS SUMMARY | 2024-06-23 13:06 | XMS_ITS | Encounter Summary ---
Author Organization [employer] Address [address] [facility] 7t [place] [address] Care Team Providers Care Theatrical Dresser Name Role Phone Name, Ernie MOE Primary Care Provider [phone] Encounter Details Date Type Department Care Team ([facility] Contact Info) Description 05/23/2024 9:30 AM EST Office Visit [facility] MEDICINE [address] [place] [address] Katie Zamora MD [address] [place] [address] Seizure (CMS/HCC) (Primary Dx); Right lower quadrant pain; Factor XI deficiency (CMS/HCC); Dietary counseling; Exercise counseling; Class 3 severe obesity with serious comorbidity and body mass index (BMI) of 40.0 to 44.9 in adult, unspecified obesity type (CMS/HCC); History of pulmonary embolism; Iron deficiency anemia, unspecified iron deficiency anemia type Social History Tobacco Use Types Packs/Day Years [...] housing situation today? I have june vernon 05/11/[address] you li ve. Do you have problems with any of the following? None of the above 05/11/2024 Food Insecurity Answer Date Recorded Within the past 12 months, y ou worried that your food would run out before you got money to buy more: Never True 05/11/2024 Within the past 12 months,th e food you bought just didn't last and you didn't have enough money to get more: Never True 04/2024 Transportation Answer Date Recorded In the past 12 months, has l ack of transportation kept you from medical appts, meetings, work or from getting things needed for daily living? No 05/11/2024 Utilities Answer Date Recorded In the past 12 months, has t he electric, gas, oil or water company threatened to shut off services in your home? No 05/11/2024 Depression Answer Date Recorded Patient Health Questionnaire-2 Score 0 10/29/2023 Internet Access Answer Date Recorded Internet Access Q1 Yes 05/11/2024 Internet Access Q2 Not on file 05/11/2024 Comments No Sex and Gender Information Value Date Recorded Sex Assigned at Female 03/30/2022 10:23 AM EDT Legal Sex Female 10:23 AM EDT Gender Identity Female 03/30/2022 10:23 AM EDT Sexual Orientation Straight 03/30/2022 10 :23 AM EDT documented as of this encounter Last Filed Vital Signs Vital Sign Reading Time Taken Comments Blood Pressure 122/84 05/23/2024 9:48 AM EST Pulse 105 05/23/2024 9:48 AM EST Temperature 36.1 ??C (96.9 ??F) 05/23/2024 9:48 AM ES T Respiratory Rate 15 05/23/2024 9:48 AM EST Oxygen Saturation - - Inhaled Oxygen Concentration - - Weight 121 kg (266 lb 12.8 oz) 05/23/2024 9:48 A M EST Height - - Body Mass Index 44.4 03/09/2024 9:23 AM EDT documented in this encounter Progress Notes * Katie Zamora MD - 05/23/2024 9:30 AM EST Subjective Jihan Brothers is a 38 y.o. female who has seizure disorder, history of PE/DVT, Factor XI deficiency, and asthma, and patient presents for hospital discharge follow-up. Hospital Discharge Summary: Reviewed our pharmacist's detail preHDF summary note. Please refer to their note for more extensiveinformation. Briefly, patient was hospitalized in [facility] from 05/08 to 05/10 for seizure. Patient was brought to EDfor seizure, nausea and vomiting, abdominal pain (RLQ). Given iv morphine, fluid, and loaded on Levetiracetam. Neurology nutrition consultant recommended to discontinue Oxcarbazepine and start on lacosamide. Seen in [facility] ED on 05/10/24 for nausea, vomiting, and diarrhea and RLQ abdominal pain. CT was remarkably normal. Rx ondansetron and dicyclomine. Today: The pt reports to have had many seizures as of late. She is currently taking Topiramate, Keppra, and Lacosamide. Trileptal was discontinued. She has a neurologist in [place] who she saw in March, and she has an EEG planned for next year but not yet scheduled. She usually doesn't drive but when she does drive its either alone or with her kids but she is cautious and pulls over if she has to. Shesays she can feel them coming on. She has not had any seizures since her last hospitalization. She would like to have PT-1. She says one of her eyes has been bothering her. She reports hip pain that has been happening for around a year. She has seen an document control specialist that says she needs PT before surgery. They say it is between her hip and lower back, that is resulting from some nerve damage. She takes Aleve and mixes it with Tylenol because the muscle relaxants they gave her do not work and put her straight to sleep. She denies having any injections yet. 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 She is anemic and was taking iron pills and folic acid. She didn't like the big pills so she did some iron IV infusions. She needs to talk to Dr. Sidhu to start doing this again. She still takes Eliquis. She went to see a doctor to see if she should continue this medication, and endedup having a seizure in their office. She can't remember the last time she has had a blood clot, anddenies any family Factor XI deficiency, although her uncle who has a blood disorder she cannot remember. She takes Wegovy for weight loss and it has been effective. She uses hydoxyzine for anxiety and fluoxetine for depression. She reports having bad acid reflux and needs more medication for it. Famotidine still has refill. Esomeprazole was prescribed by PCP in August 2023 without refill. She was taken off of dicyclamine for her IBS because she is on Wegovy which keeps her constipated. 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 She uses Flonase at home. Her blood pressure is good but she is a little bit anemic. She had a partial hysterectomy because her stomach, uterus, and cervix were connected together withscar tissue causing hemorrhage. She also has endometriosis. She has a therapist that she talks to monthly. She reports that she cannot sleep sometimes, and she had a referral for a sleep study but never heard back. I will try to get her an appointment by July. Review of Systems Constitutional: Negative for activity change, appetite change and fever. Respiratory: Negative for shortness of breath. Cardiovascular: Negative for chest pain. Neurological: Positive for seizures. Psychiatric/Behavioral: Positive for sleep disturbance. Objective Vitals: 05/23/24 0948 BP: 122/84 Pulse: 105 Resp: 15 Temp: 96.9 ??F (36.1 ??C) TempSrc: Temporal Weight: 266 lb 12.8 oz (121 kg) Physical Exam Constitutional: General: She is not in acute distress. Appearance: Normal appearance. She is not ill-appearing. HENT: Head: Normocephalic and atraumatic. Mouth/Throat: Mouth: Mucous membranes are moist. Eyes: Extraocular Movements: Extraocular movements intact. Pupils: Pupils are equal, round, and reactive to light. Cardiovascular: Rate and Rhythm: Normal rate and regular rhythm. Heart sounds: No murmur heard. Pulmonary: Effort: Pulmonary effort is normal. No respiratory distress. Breath sounds: Normal breath sounds. No wheezing or rhonchi. Skin: General: Skin is warm. Neurological: Mental Status: She is alert. Mental status is at baseline. Psychiatric: Mood and Affect: Mood normal. Assessment/Plan Problem List Items Addressed This Visit Seizure ([facility]) - Primary -Continue Topiramate, Keppra, and Lacosamide but discontinue Trileptal -EEG with neurologist is [place] is yet to be scheduled by patient -Look into PT-1 transportation service History of pulmonary embolism - following with [facility] Heme, recently - continue apixaban Factor XI deficiency (CMS/HCC) -Following with Dr. Sidhu -Continue apixaban -It has been a while since she has last had a blood clot Right lower quadrant pain -Takes Aleve and Tylenol instead of the muscle relaxants she was given as they make her sleepy -Resolving Iron deficiency anemia - following with Dr. Sidhu - patient will call the office to schedule iron infusion Other Visit Diagnoses Dietary counseling Exercise counseling Class 3 severe obesity with serious comorbidity and body mass index (BMI) of 40.0 to 44.9 in adult,unspecified obesity type (CMS/HCC) Allergies Allergen Reactions Codeine Black [place] Flavoring Agent (Non-Screening) Black [place] Pollen Allergy Skin Test Other mayonnaise and all nuts except peanuts Current Outpatient Medications Medication Instructions albuterol (2.5 MG/3ML) 0.083% nebulizer solution inhale 3 milliliter by nebulization route 3 times every day prn SOB/asthma albuterol 108 (90 Base) MCG/ACT inhaler inhale 2 puff by inhalation route every 4 - 6 hours as needed apixaban (Eliquis) 5 MG tablet take 1 tablet by oral route 2 times every day Blood Pressure kit Does not apply Diclofenac Sodium 1 % gel Apply to the affected area up to 4x/day prn EPINEPHrine (Epipen) 0.3 MG/0.3ML injection syringe inject 0.3 milliliter by intramuscular route once as needed for anaphylaxis esomeprazole (NexIUM) [address] capsule take 1 capsule by oral route every day famotidine (PEPCID) 20 mg, Oral, 2 times daily FLUoxetine (PROzac) 10 MG capsule 1 capsule, Oral, Once Daily fluticasone (Flonase Allergy Relief) 50 MCG/ACT nasal spray Administer 2 sprays into affected nostril(s) 1 (one) time each day. folic acid (Folvite) 1 MG tablet 1 tablet, Oral, Daily hydrOXYzine HCl (Atarax) 25 MG tablet 1 tablet, Oral, 2 times daily PRN lacosamide (VIMPAT) 150 mg, Oral, 2 times daily levETIRAcetam (Keppra) 1000 MG tablet TAKE 1 TABLET BY MOUTH TWICE DAILY IN THE MORNING AND IN THE EVENING levETIRAcetam (Keppra) 500 MG tablet TAKE 1 TABLET BY MOUTH TWICE DAILY IN THE MORNING AND IN THE EVENING (WITH 1,000 MG TABLET) lidocaine (Lidoderm) 5 % patch apply 1 patch by transdermal route every day (May wear up to 12hours.) lidocaine (Xylocaine) 5 % ointment Topical, As needed loratadine (CLARITIN) 10 mg, Oral, Every morning Misc. Devices (Pulse Oximeter) misc Use as directed nortriptyline (PAMELOR) 25 mg, Nightly ondansetron ODT (Zofran-ODT) 4 MG disintegrating tablet 1 tablet, Every 8 hours PRN prazosin (Minipress) 2 MG capsule 1 capsule, Oral, Nightly SUMAtriptan (Imitrex) 50 MG tablet TAKE 1 TABLET BY MOUTH AT ONSET OF MIGRAINE. MAY REPEAT ONCE AFTER 2 HOURS IF NEEDED, DO NOT EXCEED 4 TABLETS IN 24 HOURS topiramate (Topamax) 100 MG tablet TAKE 1 TABLET BY MOUTH TWICE DAILY IN THE MORNING AND IN THE EVENING Wegovy 2.4 mg, Subcutaneous, Weekly Follow-up: 3 months or sooner if any problem arises. Scribe Attestation: Massimo Coats, am serving as a scribe to document services personally performed by Katie Zamora MD,based on the patient's response to questions by provider and provides statements to me. Physicians Attestation: Katie Coats, have reviewed the information by the scribe, Kala Elder, for accuracy and agree with its content. * Sameera Bourne RN - 05/23/2024 9:30 AM EST Pt's care team reviewed. Priscilla Volodymyr [phone] is listed as pt's case worker. documented in this encounter Miscellaneous Notes * Assessment & Plan Note - Katie Zamora MD - 05/29/2024 6:14 AM ESTAssociated Problem(s): Iron deficiency anemia - following with Dr. Sidhu - patient will call the office to schedule iron infusion * Assessment & Plan Note - Katie Zamora MD - 05/29/2024 6:13 AM ESTAssociated Problem(s): History of pulmonary embolism - following with [facility] Heme, recently - continue apixaban * Assessment & Plan Note - Massimo Dominguez - 05/23/2024 11:43 AM ESTAssociated Problem(s): Factor XI deficiency (CMS/HCC) -Following with Dr. Sidhu -Continue apixaban -It has been a while since she has last had a blood clot * Assessment & Plan Note - Massimo Dominguez - 05/23/2024 11:42 AM ESTAssociated Problem(s): Right lower quadrant pain (Resolved 06/14/2024) -Takes Aleve and Tylenol instead of the muscle relaxants she was given as they make her sleepy -Resolving * Assessment & Plan Note - Massimo Dominguez - 05/23/2024 11:41 AM ESTAssociated Problem(s): Seizure (CMS/HCC) (Resolved 06/14/2024) -Continue Topiramate, Keppra, and Lacosamide but discontinue Trileptal -EEG with neurologist is [place] is yet to be scheduled by patient -Look into PT-1 transportation service documented in this encounter Plan of Treatment Upcoming Encounters Date Type Department Care Team (Late st Contact Info) Description 07/28/2024 11:30 AM EST Office Visit [facility] [place] [address] Name, MD Ernie [facility] [place] [address] 08/28/2024 10:15 AM EDT Office Visit [facility] [place] [address] Sasha Coronel CNM [address] [place] [address] documented as of this encounter Goals Goal Patient Goal Type Associated Problems Recent Progress Patient-Stated? 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 Dietary counseling Dietary surveillance and counseling Exercise counseling Class 3 severe obesity with serious comorbidity and body mass index (BMI) of 40.0 to 44.9 in adult, unspecified obesity type (CMS/HCC) History of pulmonary embolism Personal history of venous thrombosis and embolism Iron deficiency anemia, unspecified iron deficiency anemia type documented in this encounter Additional Health Concerns Assessment Noted Time PHQ-9 Depression Total Score: 0 10/29/19 10:28 AM EDT documented as of this encounter Care Teams Theatrical Dresser Relationship Specialty Start Date End Date Name, [place] [address] PCP - General Family Medicine 01/06/19 Priscilla Helm Service Station Console OperatorSausage Meat Trimmer 10/15/23 documented as of this encounter
--- OUTSIDE RECORDS SUMMARY | 2024-06-23 13:06 | XMS_ITS | Encounter Summary ---
Author Organization [employer] Address [address] [facility] 7t [place] [address] Care Team Providers Care High School Teacher Name Role Phone Name, Ernie MOE Primary Care Provider [phone] Reason for Visit * Reason Onset Date Comments Call Back Request 07/06/2023 Encounter Details Date Type Department Care Team ([facility] Contact Info) Description 07/06/2023 Telephone [facility] MEDICINE [address] [place], [place] [phone] Name, MD Ernie [address] [place] [address] Call Back Request Social History Tobacco Use Types Packs/Day Years [...] encounter Miscellaneous Notes * Telephone Encounter - Sameera Bourne RN - 07/06/2023 3:23 PM EST Call returned to pt who reports that she was very [facility] Pt states she will no longer see this provider because of how he talks to people. RN suggested that pt contact [facility] to request another provider. Pt declined. States she does not want to be seen at that practice. [facility] Advised request will besent to pcp for review. * Telephone Encounter - Juliana Hernandez - 07/06/2023 2:13 PM EST Tc from pt requesting to speak with a nurse in regards to neurologist. No other information provided. Please contact pt at [phone] documented in this encounter Plan of Treatment Upcoming Encounters Date Type Department Care Team (Late st Contact Info) Description 07/28/2024 11:30 AM EST Office Visit [facility] MEDICINE [address] [place] [phone] Name, MD Ernie [address] [place] [phone] 08/28/2024 10:15 AM EDT Office Visit [facility] MEDICINE [address] [place] [address] Sasha Coronel CNM [address] [place] [address] documented as of this encounter Visit Diagnoses Not on filedocumented in this encounter Additional Health Concerns Assessment Noted Time PHQ-9 Depression Total Score: 0 10/08/19 23 11:31 AM EDT documented as of this encounter Care Teams High School Teacher Relationship Specialty Start Date End Date Name, MD Ernie [address] [place] [address] PCP - General Family Medicine 01/06/19 Priscilla Helm PerfusionistPrimary Health Care Nurse 10/15/23 documented as of this encounter
--- OUTSIDE RECORDS SUMMARY | 2024-06-23 13:06 | XMS_ITS | Encounter Summary ---
Author Organization [employer] Address [address] [facility] [address] [place] [address] Care Team Providers Care Grand Jury Deputy Sheriff Name Role Phone Name, Ernie MOE Primary Care Provider [phone] Encounter Details Date Type Department Care Team ([facility] st Contact Info) Description 06/30/2023 Abstract [facility] MEDICINE [address] [place] [address] Name, MD Ernie [address] [place] [address] Social History Tobacco Use Types Packs/Day Years [...] the past 12 months, has t he [employer], [employer], oil or water [employer] threatened to shut off services in your [...] Description 07/28/2024 11:30 AM EST Office Visit [address] [address] Name, MD Ernie [address] [place] [phone] 08/28/2024 10:15 AM EDT Office Visit [address] [address] Sasha Coronel CNM [address] [place] [phone] documented as of this encounter Visit Diagnoses Not on filedocumented in this encounter Additional Health Concerns Assessment Noted Time PHQ-9 Depression Total Score: 0 10/08/19 23 11:31 AM EDT documented as of this encounter Care Teams Grand Jury Deputy Sheriff Relationship Specialty Start Date End Date Name, MD Ernie [address] [place] [address] PCP - General Family Medicine 01/06/19 Priscilla Helm Power ManagerCommunity Services Coordinator 10/15/23 documented as of this encounter
--- OUTSIDE RECORDS SUMMARY | 2024-06-23 13:07 | XMS_ITS | Encounter Summary ---
Author Organization [employer] Address [address] [facility] 7t [place] [address] Care Team Providers Care Watch Assembly Instructor Name Role Phone Name, Ernie MOE Primary Care Provider [phone] Reason for Visit * Reason Comments Med Refill Encounter Details Date Type Department Care Team ([facility] Contact Info) Description 03/20/2024 Refill [facility] MEDICINE [address] [place], [place] [phone] Name, MD Ernie [address] [place] [address] Social History Tobacco Use Types Packs/Day Years [...] Description 07/28/2024 11:30 AM EST Office Visit [address] [address] Name, MD Ernie [address] [place] [address] 08/28/2024 10:15 AM EDT Office Visit [address] [address] Sasha Coronel CNM [address] [place] [address] documented as of this encounter Goals Goal Patient Goal Type Associated Problems Recent Progress Patient-Stated? Author Patient will adhere to medication regimen General Evelyn Xavier documented as of this encounter Visit Diagnoses Not on filedocumented in this encounter Additional Health Concerns Assessment Noted Time PHQ-9 Depression Total Score: 0 10/29/19 24 10:28 AM EDT documented as of this encounter Care Teams Watch Assembly Instructor Relationship Specialty Start Date End Date Name, MD Ernie [address] [place] [phone] PCP - General Family Medicine 01/06/19 Priscilla Helm Program Manager TransportationWeapons Mechanic 10/15/23 documented as of this encounter
--- OUTSIDE RECORDS SUMMARY | 2024-06-23 13:07 | XMS_ITS | Encounter Summary ---
Author Organization [facility] [employer] [facility] Address [address] [facility] 7 [place] [address] Care Team Providers Care Stoneworking Belt Sander Name Role Phone Name, Ernie MOE Primary Care Provider [phone] Reason for Referral * Consultation (Routine) - Authorized Specialty Diagnoses / Procedures Referred By Timmy fairchild Referred To Contact Allergy Diagnoses Seasonal allergic rhinitis, unspecified trigger Pankaj Kruger CNP [address] [place] [address] Phone: tel: fax: Fly Larson MD [address] [place] [address] Drive [address] [place] [address] Phone: tel: fax: Referral ID Status Reason Start Date Expiration Date Visits Requested Visits Authorized [id number] Authorized Specialty Services Required 06/21/2024 06/21/2025 1 1 * Imaging (Routine) - Authorized Specialty Diagnoses / Procedures Referred By Timmy fairchild Referred To Contact Radiology Diagnoses Right upper quadrant abdominal pain Procedures US Abdomen Complete Pankaj Kruger CNP [address] [place] [address] Phone: tel: fax: [address] Phone: tel: fax: Referral ID Status Reason Start Date Expiration Date V isits Requested Visits Authorized [id number] Authorized 06/14/2024 06/14/2025 1 1 * Consultation (Urgent) - Authorized Specialty Diagnoses / Procedures Referred By Timmy fairchild Referred To Contact Gastroenterology Diagnoses Seizure disorder (CMS/HCC) Pankaj Kruger CNP [address] [place] [address] Phone: tel: fax: [address] Phone: tel: fax: Referral ID Status Reason Start Date Expiration Date Visits Requested Visits Authorized [id number] Authorized Specialty Services Required 06/14/2024 06/14/2025 6 6 * Neurology (Routine) - Authorized Specialty Diagnoses / Procedures Referred By Timmy fairchild Referred To Contact Diagnoses Seizure disorder ([facility]) Procedures EEG Pankaj Kruger CNP [address] [place] [address] Phone: tel: fax: [address] Phone: tel: fax: Referral ID Status Reason Start Date Expiration Date V isits Requested Visits Authorized [id number] Authorized 06/14/2024 06/14/2025 1 1 Reason for Visit * Reason Comments ED f/u Encounter Details Date Type Department Care Team (Late st Contact Info) Description 06/14/2024 10:00 AM EST Office Visit [facility] [address] [place] [phone] Pankaj Kruger CNP [address] [place] [address] Seizure disorder (CMS/HCC) (Primary Dx); Right upper quadrant abdominal pain; Right lower quadrant pain; Seasonal allergic rhinitis, unspecified trigger Social History Tobacco Use Types Packs/Day Years [...] Sign Reading Time Taken Comments Blood Pressure 108/60 06/14/2024 10:13 AM EST Pulse 88 06/14/2024 10:13 AM EST Temperature 36.7 ??C (98 ??F) 06/14/2024 10:13 AM EST Respiratory Rate 18 06/14/2024 10:13 AM EST Oxygen Saturation 99% 06/14/2024 10:13 AM EST Inhaled Oxygen Concentration - - Weight 120 kg (263 lb 12.8 oz) 06/14/2024 10:13 AM EST Height - - Body Mass Index 43.9 03/09/2024 9:23 AM EDT documented in this encounter Progress Notes * Pankaj KrugerKARINA - 06/14/2024 10:00 AM EST Subjective Patient ID: Jihan Brothers is a 38 y.o. female who presents for ED f/u for seizures. Pt also complaining of abdominal pain today. Seizures Pt reports that she hasn't had a seizure since 06/05. Her medications include Topiramate, Keppra, and Lacosamide. Pt says she stopped taking Lacosamide about 1 week ago d/t visual hallucinations and irritability. Triggers include heat, flashing lights, being overwhelmed, loud noises (alarms) No driving, drives Last Keppra Level: 27.5 03/2024 Followed by Neuro, last in person appointment was 03/2024 Next f/u scheduled for February. Hospitalization 06/05/24 [facility] Pt was in waiting room waiting for her transportation. She presented earlier with 3 seizures. Whilein the waiting room she had tonic clonic activity lasting 2-3 minutes per daughter. There was no postictal period and she was immediately brought back. There was no head strike at this time, she alsodenied MACKEY, CP, or SOB. Also denied nausea, vomiting, or abdominal pain. Denied dysuria, hematuria, urinary incontinence, and urinary frequency. Pt was stabilized and discharged home. Electrocardiogram: NSR, Rate 99bpm, normal axis, normal intervals, no ST segment changes. Plan upon discharge: Medication regimen includes Topiramate, Keppra, and Lacosamide, Trileptal was discontinued Neurology- Dr. Lee Patient had appointment with [facility] Neurology (with Dr. Kyle Lott) on 04/17/24: Provider stated notenough information at this time to definitively state whether patient has epileptic or functional seizures. Plan was to titrate the patient off of ASMs, starting with levetiracetam and topiramate. Next appt scheduled 02/2025 Prior Imaging: Head CT 08/2023 CT/CT head/brain wo IV con IMPRESSION: No acute intracranial pathology. No evidence of intracranial mass, hemorrhage or infarct Abdominal Pain Stomach pain in RLQ and RLQ, pain increases with eating , endorses diarrhea, and nausea, denies seeing in blood in stool. She takes famotidine, esomeprazole, and Zofran for her GERD. She is not followed by GI. Advised to stop taking wegovy about 1 week ago by PCP d/t abdominal pain. CT/CT abdomen pelvis w IV con IMPRESSION: 1. A cause for the patient's right lower quadrant pain has not been found. The appendix is normal. 2. Incidental findings as above. Review of Systems Constitutional: Negative for activity change, appetite change, chills, diaphoresis, fatigue, fever and unexpected weight change. Respiratory: Negative for cough, chest tightness and shortness of breath. Cardiovascular: Negative for chest pain, palpitations and leg swelling. Gastrointestinal: Positive for abdominal pain, diarrhea and nausea. Negative for anal bleeding, blood in stool, constipation, rectal pain and vomiting. Genitourinary: Negative. Musculoskeletal: Negative. Neurological: Negative. Psychiatric/Behavioral: Negative. Objective Vitals: 06/14/24 1013 BP: 108/60 Pulse: 88 Resp: 18 Temp: 98 ??F (36.7 ??C) SpO2: 99% Physical Exam Constitutional: Appearance: Normal appearance. HENT: Head: Normocephalic and atraumatic. Cardiovascular: Rate and Rhythm: Normal rate and regular rhythm. Pulses: Normal pulses. Heart sounds: Normal heart sounds. No murmur heard. No friction rub. No gallop. Pulmonary: Effort: Pulmonary effort is normal. No respiratory distress. Breath sounds: Normal breath sounds. No stridor. No wheezing, rhonchi or rales. Chest: Chest wall: No tenderness. Abdominal: General: Bowel sounds are normal. There is distension. There are no signs of injury. Palpations: Abdomen is soft. There is no mass. Tenderness: There is abdominal tenderness in the right upper quadrant and right lower quadrant. There is guarding and rebound. Hernia: No hernia is present. Neurological: Mental Status: She is alert. Assessment/Plan Problem List Items Addressed This Visit RESOLVED: Right lower quadrant pain Seizure disorder (CMS/HCC) - Primary Pt will hold lacosamide d/t side effects and continue with Keppra and Topiramate Will obtain Keppra level today EKG: NSR, Rate: 86 bpm, normal axis, no ST segment changes, no QT prolongation EEG ordered today Reached out to Neurologist for guidance regarding current med regimen and whether to continue lacosamide or a subsitute med, left message with clinical staff. Plan to f/u with neuro Relevant Orders Referral to Allergy EEG Levetiracetam Referral to Gastroenterology Right upper quadrant abdominal pain Abdominal pain present upon palpation on exam, exam also positive for guarding and rebound tenderness, bowel sounds normal Will obtain abdominal ultrasound today and labs as ordered Urgent referral to GI placed today Refills sent for pepcid, osemeprazole, and zofran Relevant Orders Lipase CBC auto differential Comprehensive Metabolic Panel US Abdomen Complete documented in this encounter Miscellaneous Notes * Assessment & Plan Note - Pankaj Kruger CNP - 06/14/2024 11:28 AM EST Associated Problem(s): Right upper quadrant abdominal pain Abdominal pain present upon palpation on exam, exam also positive for guarding and rebound tenderness, bowel sounds normal Will obtain abdominal ultrasound today and labs as ordered Urgent referral to GI placed today Refills sent for pepcid, osemeprazole, and zofran * Assessment & Plan Note - Pankaj Kruger CNP - 06/14/2024 11:25 AM EST Associated Problem(s): Seizure disorder (CMS/HCC) Pt will hold lacosamide d/t side effects and continue with Keppra and Topiramate Will obtain Keppra level today EKG: NSR, Rate: 86 bpm, normal axis, no ST segment changes, no QT prolongation EEG ordered today Reached out to Neurologist for guidance regarding current med regimen and whether to continue lacosamide or a subsitute med, left message with clinical staff. Plan to f/u with neuro * Addendum Note - Pankaj Kruger CNP - 06/14/2024 10:00 AM ESTAddended by: PANKAJ KRUGER on: 06/21/2024 09:56 AM Modules accepted: Orders documented in this encounter Plan of Treatment Upcoming Encounters Date Type Department Care Team (Late st Contact Info) Description 07/28/2024 11:30 AM EST Office Visit [facility] [address] [place] [address] [phone] Name, MD Ernie [address] [place] [address] 08/28/2024 10:15 AM EDT Office Visit [facility] [address] [place] [phone] Sasha Coronel CNM [address] [place] [address] Scheduled Orders Name Type Priority Associated Diagnoses Orde r Schedule EEG Neurology Routine Seizure disorder ([facility]/HCC) Expected: 06/14/2024, Expires: 12/12/2024 Levetiracetam Lab Routine Seizure disorder ([facility]/HCC) Expected: 06/14/2024 (Approximate), Expires: 06/14/2025 Lipase Lab Routine Right upper quadrant abdominal pain Expected: 06/14/2024, Expires: 06/14/2025 CBC auto differential Lab Routine Right upper quadrant abdominal pain Expected: 06/14/2024 (Approximate), Expires: 06/14/2025 Comprehensive Metabolic Panel Lab Routine Right upper quadrant abdominal pain Expected: 06/14/2024 (Approximate), Expires: 06/14/2025 US Abdomen Complete Imaging Routine Right upper quadrant abdominal pain Expected: 06/14/2024, Expires: 06/14/2025 Scheduled Referrals Name Type Priority Associated Diagnoses Order Schedule Referral to Gastroenterology Outpatient Referral Urgent Seizure disorder ([facility]/HCC) Expected: 06/14/2024 (Approximate), Expires: 06/14/2025 Referral to Allergy Outpatient Referral Routine Seasonal allergic rhinitis, unspecified trigger Expected: 06/21/2024 (Approximate), Expires: 06/21/2025 documented as of this encounter Goals Goal Patient Goal Type Associated Problems Recent Progress Patient-Stated? Author Patient will adhere to medication regimen General No Evelyn Levine documented as of this encounter Visit Diagnoses Diagnosis Seizure disorder ([facility])- Primary Unspecified epilepsy without mention of intractable epilepsy Right upper quadrant abdominal pain Right lower quadrant pain Seasonal allergic rhinitis, unspecified trigger documented in this encounter Additional Health Concerns Assessment Noted Time PHQ-9 Depression Total Score: 0 10/29/19 24 10:28 AM EDT documented as of this encounter Care Teams Stoneworking Belt Sander Relationship Specialty Start Date End Date Name, MD Ernie [address] [place] [address] PCP - General Family Medicine 01/06/19 Priscilla Helm Manager Risk ManagementOptical Glass Etcher 10/15/23 documented as of this encounter
--- OUTSIDE RECORDS SUMMARY | 2024-06-23 13:07 | XMS_ITS | Encounter Summary ---
Author Organization [employer] Address [address] [facility] 7t [place] [address] Care Team Providers Care Development Editor Name Role Phone Name, Ernie MOE Primary Care Provider [phone] Reason for Visit * Reason Comments Transition Of Care (Tcm) Encounter Details Date Type Department Care Team ([facility] st Contact Info) Description 06/05/2024 Patient Outreach [facility] [address] [place], [place] [phone] Name, MD Ernie [address] [place] [address] Transition Of Care (Tcm) Social History Tobacco Use Types Packs/Day Years [...] AM EDT documented as of this encounter Progress Notes * Chacha Claros RN - 06/05/2024 8:56 AM EST Seen in the ED twice in the same day #1 06/05/24 0856 Hospital Discharges and Admission for [facility] Type of Visit Emergency Department Date of Admission/Visit 06/04/24 (3:35pm) Date of Discharge 06/04/24 (7:46pm) [facility] Diagnosis N/A Disposition Discharged Home #2 06/05/24 0857 Hospital Discharges and Admission for [facility] Type of Visit Emergency Department Date of Admission/Visit 06/04/24 (8:47pm) Date of Discharge 06/04/24 (9:39pm) [facility] Diagnosis N/A Disposition Discharged Home * Sameera Bourne RN - 06/05/2024 8:56 AM EST ED f/u has been scheduled with covering provider. documented in this encounter Plan of Treatment Upcoming Encounters Date Type Department Care Team (Late st Contact Info) Description 07/28/2024 11:30 AM EST Office Visit [facility] [address] [place] [phone] Name, MD Ernie [address] [place] [address] 08/28/2024 10:15 AM EDT Office Visit [facility] [address] [place] [address] [phone] Sasha Coronel CNM [address] [place], [place] [phone] documented as of this encounter Goals Goal Patient Goal Type Associated Problems Recent Progress Patient-Stated? Author Patient will adhere to medication regimen General No Evelyn Levine documented as of this encounter Visit Diagnoses Not on filedocumented in this encounter Additional Health Concerns Assessment Noted Time PHQ-9 Depression Total Score: 0 10/29/19 24 10:28 AM EDT documented as of this encounter Care Teams Development Editor Relationship Specialty Start Date End Date Name, MD Ernie [address] [place] [phone] PCP - General Family Medicine 01/06/19 Priscilla Helm Wax BlenderStereotype Finisher 10/15/23 documented as of this encounter
--- OUTSIDE RECORDS SUMMARY | 2024-06-23 13:07 | XMS_ITS | Encounter Summary ---
Author Organization [employer] Address [address] [facility] 7t [place] [address] Care Team Providers Care Rubber Liner Name Role Phone Name, Enrie MOE Primary Care Provider [phone] Encounter Details Date Type Department Care Team (Latest Contact Info) Description 06/16/2024 Travel Social History Tobacco Use Types Packs/Day Years [...] Description 07/28/2024 11:30 AM EST Office Visit [address] [address] NameErnie MD [address] [place] [address] 08/28/2024 10:15 AM EDT Office Visit [address] [address] Sasha Coronel CNM [address] [place] [phone] documented as of this encounter Goals Goal Patient Goal Type Associated Problems Recent Progress Patient-Stated? Author Patient will adhere to medication regimen General Evelyn Xavier documented as of this encounter Visit Diagnoses Not on filedocumented in this encounter Additional Health Concerns Assessment Noted Time PHQ-9 Depression Total Score: 0 10/29/19 24 10:28 AM EDT documented as of this encounter Care Teams Rubber Liner Relationship Specialty Start Date End Date Name, MD Ernie [address] [place] [address] PCP - General Family Medicine 01/06/19 Priscilla Helm Vp Business DevelopmentRounding Machine Operator 10/15/23 documented as of this encounter
--- OUTSIDE RECORDS SUMMARY | 2024-06-23 13:07 | XMS_ITS | Encounter Summary ---
Author Organization [employer] Address [address] [facility] 7t [place] [address] Care Team Providers Care Poultry Barn Manager Name Role Phone Name, Ernie MOE Primary Care Provider [phone] Reason for Visit * Reason Onset Date Comments Results 06/22/2024 Patient walked i n stating Dr. Odonnell remove the medication Eliquis. Patient wanted her pcp to know about it. Encounter Details Date Type Department Care Team ([facility] Contact Info) Description 06/22/2024 Telephone [facility] [address] [place], [place] [phone] Name, MD Ernie [address] [place] [address] Results (Patient walked in stating Dr. Odonnell remove the medication Eliquis. Patient wanted her pcp to know about it. ) Social History Tobacco Use Types Packs/Day Years [...] encounter Miscellaneous Notes * Telephone Encounter - Verónica Valverde RN - 06/22/2024 3:16 PM EST Noted. * Telephone Encounter - Dawn Joyce - 06/22/2024 3:12 PM EST Patient walked in stating Dr. Odonnell remove the medication Eliquis. Patient wanted her pcp to know about it. documented in this encounter Plan of Treatment Upcoming Encounters Date Type Department Care Team (Late st Contact Info) Description 07/28/2024 11:30 AM EST Office Visit [facility] [address] [place] [phone] Name, MD Ernie [address] [place] [phone] 08/28/2024 10:15 AM EDT Office Visit [address] [address] Sasha Coronel, DELONTE [address] [place] [address] documented as of this encounter Goals Goal Patient Goal Type Associated Problems Recent Progress Patient-Stated? Author Patient will adhere to medication regimen General Evelyn Xavier documented as of this encounter Visit Diagnoses Not on filedocumented in this encounter Additional Health Concerns Assessment Noted Time PHQ-9 Depression Total Score: 0 10/29/19 10:28 AM EDT documented as of this encounter Care Teams Poultry Barn Manager Relationship Specialty Start Date End Date Name, MD Ernie [address] [place] [address] PCP - General Family Medicine 01/06/19 Priscilla Helm Statistical SecretaryRetail Helper 10/15/23 documented as of this encounter
--- OUTSIDE RECORDS SUMMARY | 2024-06-23 13:07 | XMS_ITS | Encounter Summary ---
Author Organization [employer] Address [address] [facility] 7t [place] [address] Care Team Providers Care Medication Care Manager Name Role Phone Name, Ernie MOE Primary Care Provider [phone] Reason for Visit * Reason Comments Med Refill Encounter Details Date Type Department Care Team ([facility] Contact Info) Description 04/22/2023 Refill [facility] [address] [place] [address] [phone] Ministerio Vasques MD [address] [place] [address] Right wrist pain Social History Tobacco Use Types Packs/Day Years [...] Description 07/28/2024 11:30 AM EST Office Visit [facility] [address] [place] [address] NameErnie MD [address] [place] [address] 08/28/2024 10:15 AM EDT Office Visit [facility] [address] [place] [address] Sasha Coronel CNM [address] [place] [address] documented as of this encounter Visit Diagnoses Diagnosis Right wrist pain Pain in joint, forearm documented in this encounter Additional Health Concerns Assessment Noted Time PHQ-9 Depression Total Score: 0 10/08/19 23 11:31 AM EDT documented as of this encounter Care Teams Medication Care Manager Relationship Specialty Start Date End Date Ernie Nobles MD [address] [place] [phone] PCP - General Family Medicine 01/06/19 Priscilla Helm Lean LeaderAdjunct Professor Of Law 10/15/23 documented as of this encounter
--- OUTSIDE RECORDS SUMMARY | 2024-06-23 13:07 | XMS_ITS | Encounter Summary ---
Author Organization [email or web address] Address [address] [facility] 7t [place] [address] Care Team Providers Care Plumber Helper Name Role Phone Name, Ernie MOE Primary Care Provider [phone] Reason for Visit * Reason Onset Date Comments Chart Prep 06/06/2024 Encounter Details Date Type Department Care Team ([facility] Contact Info) Description 06/06/2024 Telephone [facility] [address] [place], [place] [phone] Name, MD Ernie [address] [place] [address] Chart Prep Social History Tobacco Use Types Packs/Day Years [...] encounter Miscellaneous Notes * Telephone Encounter - Sim Hughes MA - 06/06/2024 2:45 PM EST Chart Prep Labs: done Images: not applicable Vaccines due: yes Hep B Covid Referrals: pending appt Screenings: STI screening Hep C Overdue care gaps: None documented in this encounter Plan of Treatment Upcoming Encounters Date Type Department Care Team (Late st Contact Info) Description 07/28/2024 11:30 AM EST Office Visit [address] [address] Name, MD Ernie [address] [place] [address] 08/28/2024 10:15 AM EDT Office Visit [address] [address] Sasha Coronel CNM [address] [place] [address] documented as of this encounter Goals Goal Patient Goal Type Associated Problems Recent Progress Patient-Stated? Author Patient will adhere to medication regimen General No Evelyn Levine documented as of this encounter Visit Diagnoses Not on filedocumented in this encounter Additional Health Concerns Assessment Noted Time PHQ-9 Depression Total Score: 0 10/29/19 24 10:28 AM EDT documented as of this encounter Care Teams Plumber Helper Relationship Specialty Start Date End Date Name, MD Ernie [address] [place] [address] PCP - General Family Medicine 01/06/19 Priscilla Helm Counseling Case ManagerChurch Business Administrator 10/15/23 documented as of this encounter
--- OUTSIDE RECORDS SUMMARY | 2024-06-23 13:07 | XMS_ITS | Encounter Summary ---
Author Organization [employer] Address [address] [facility] 7t [place] [address] Care Team Providers Care General Production Worker Name Role Phone Name, Ernie MOE Primary Care Provider [phone] Reason for Visit * Reason Onset Date Comments jul recall 05/25/2024 Encounter Details Date Type Department Care Team ([facility] st Contact Info) Description 05/25/2024 Telephone [facility] [address] [place], [place] [phone] Luis Manuel Ahn MA jul recall Social History Tobacco Use Types Packs/Day Years [...] encounter Miscellaneous Notes * Telephone Encounter - Luis Manuel Ahn MA - 05/25/2024 2:11 PM EST T/C placed to pt. Scheduled recall. Pt agrees with plan. Reminder letter sent . documented in this encounter Plan of Treatment Upcoming Encounters Date Type Department Care Team (Late st Contact Info) Description 07/28/2024 11:30 AM EST Office Visit [address] [address] Name, MD Ernie [address] [place] [address] 08/28/2024 10:15 AM EDT Office Visit [address] [address] Sasha Coronel CNM [address] [place] [address] documented as of this encounter Goals Goal Patient Goal Type Associated Problems Recent Progress Patient-Stated? Author Patient will adhere to medication regimen General Evelyn Xavier documented as of this encounter Visit Diagnoses Not on filedocumented in this encounter Additional Health Concerns Assessment Noted Time PHQ-9 Depression Total Score: 0 10/29/19 10:28 AM EDT documented as of this encounter Care Teams General Production Worker Relationship Specialty Start Date End Date Name, MD Ernie [address] [place] [address] PCP - General Family Medicine 01/06/19 Priscilla Helm Nutrition Services AssistantData Entry Supervisor 10/15/23 documented as of this encounter
--- OUTSIDE RECORDS SUMMARY | 2024-06-23 13:07 | XMS_ITS | Encounter Summary ---
Author Organization [employer] Address [address] [facility] [address] [place] [address] Care Team Providers Care Hose Turner Name Role Phone Name, Ernie MOE Primary Care Provider [phone] Reason for Visit * Reason Onset Date Comments Nurse Triage 06/01/2024 Referral 06/01/2024 Encounter Details Date Type Department Care Team ([facility] st Contact Info) Description 06/01/2024 Telephone [facility] [address], [place] [id number] Name, MD Ernie [address] [place] [address] Nurse Triage; Referral Social History Tobacco Use Types Packs/Day Years [...] Telephone Encounter - Sameera Bourne RN - 06/06/2024 2:55 PM EST T/C to pt. Advised of covering provider recommendation to discuss wegovy alternative after evaluation of abd pain. Pt verbalized understanding, * Telephone Encounter - Rehana Davis NP - 06/06/2024 2:31 PM EST I would suggest pt hold med now and wait until follow up visit to discuss nature of abdominal pain * Telephone Encounter - Sameera Bourne RN - 06/05/2024 10:00 AM EST T/C to pt. Advised of message from PCP: She might have to stop the Wegovy, this medication is known to cause abdominal pain is some patients. We can try a different GLP1 to help with weight loss if she wants Pt agrees to try alternate GLP 1. Advised will send request to a covering provider. Pt reports thatchristian was just in the ED again for a seizure and would like to schedule a follow up. Pt agrees to ED f/u with Blue team provider for [facility] ED visit 06/04/24 Dx: Seizure. ED notes sent to medical records. * Telephone Encounter - Mellisa William RN - 06/02/2024 2:15 PM EST TC x1 PM to pt in regards to referral request. PCP suggests pt may need to stop medication at this time or try alternative. No answer, LVM to return call to office and ask for blue team nurses. * Telephone Encounter - Kiersten Shah RN - 06/01/2024 12:55 PM EST Please see below triage regarding ongoing abd pain. Discussed at [facility] 05/23/24. Pt requesting referral to [facility] [address] [place] [address] Please advise Primary Care team nurse or Referral Team as appropriate regarding plan of care. Pt advised to seek WIC for any worsening symptoms. * Telephone Encounter - Kiersten Shah RN - 06/01/2024 12:50 PM EST Call returned to [employer] [employer] to triage below. Reports having abdominal pain that is both belowand above umbilicus. Pt having pain since 05/08/24. Per pt pain is intermittent. Pt reports having nausea and vomiting. No green bile or blood in vomit. No fever. Pt using tylenol PRN. Pt using nexiumand pepcid. Pt states wants to be referred to [facility] [address] [place] [address] where was being evaluated. Pt states they require new referral. Pt declines WIC at this time. Reviewed WIC operating hours and that wait times vary. Reviewed home care advise, ER precautions and reasons to call back. Protocol Used: Abdominal Pain - Female (Adult) Protocol-Based Disposition: See in Office or Video Visit Today Video visit offer not recorded Positive Triage Question: * Moderate pain (e.g., interferes with normal activities that comes and goes (cramps) lasts > 24hours (Exception: Pain with Vomiting or Diarrhea - see that Protocol.) * All higher-acuity triage questions were negative Care Advice Discussed: * Reassurance and Education - Mild Stomachache * Drink Clear Fluids * Diet * Avoid Aspirin and NSAIDs * Reasons To Call Back - Severe pain lasts over 1 hour - Constant pain lasts over 2 hours - You become worse * Telephone Encounter - Lisa Fall - 06/01/2024 12:48 PM EST Symptom: Abdominal Pain - Female - Not Outcome: Talk to a nurse or provider within 15 minutes Reason: Severe pain now The caller accepted this outcome. [phone] documented in this encounter Plan of Treatment Upcoming Encounters Date Type Department Care Team (Late st Contact Info) Description 07/28/2024 11:30 AM EST Office Visit [address] [address] NameErnie MD [address] [place] [id number] 08/28/2024 10:15 AM EDT Office Visit [address] [address] Sasha Coronel CNM [address] [place] [address] documented as of this encounter Goals Goal Patient Goal Type Associated Problems Recent Progress Patient-Stated? Author Patient will adhere to medication regimen General Evelyn Xavier documented as of this encounter Visit Diagnoses Not on filedocumented in this encounter Additional Health Concerns Assessment Noted Time PHQ-9 Depression Total Score: 0 10/29/19 24 10:28 AM EDT documented as of this encounter Care Teams Hose Turner Relationship Specialty Start Date End Date Name, MD Ernie [address] [place] [id number] PCP - General Family Medicine 01/06/19 Priscilla Helm Motor Patrol OperatorSaddle And Harness Maker 10/15/23 documented as of this encounter
--- OUTSIDE RECORDS SUMMARY | 2024-06-23 13:07 | XMS_ITS | Encounter Summary ---
Author Organization [employer] Address [address] [facility] [address] [place] [address] Care Team Providers Care Ironer Machine Name Role Phone Name, Ernie MOE Primary Care Provider [phone] Encounter Details Date Type Department Care Team (Latest Contact Info) Description 06/14/2024 Travel Social History Tobacco Use Types Packs/Day [...] Description 07/28/2024 11:30 AM EST Office Visit [address] [address] NameErnie MD [address] [place] [phone] 08/28/2024 10:15 AM EDT Office Visit [address] [address] Sasha Coronel CNM [address] [place] [id number] documented as of this encounter Goals Goal Patient Goal Type Associated Problems Recent Progress Patient-Stated? Author Patient will adhere to medication regimen General Evelyn Xavier documented as of this encounter Visit Diagnoses Not on filedocumented in this encounter Additional Health Concerns Assessment Noted Time PHQ-9 Depression Total Score: 0 10/29/19 24 10:28 AM EDT documented as of this encounter Care Teams Ironer Machine Relationship Specialty Start Date End Date Name, MD Ernie [address] [place] [id number] PCP - General Family Medicine 01/06/19 Priscilla Helm Boiler Tube ReamerMerchandise Support Associate 10/15/23 documented as of this encounter
--- OUTSIDE RECORDS SUMMARY | 2024-06-23 13:07 | XMS_ITS | Clinical Summary ---
Author Organization [employer] Address [address] [place] [address] Care Team Providers Care Chief Information Officer Name Role Phone Name, Ernie MOE Primary Care Provider [phone] Allergies Active Allergy Reactions Criticality Noted Date Comments [place] Flavoring Agent (Non-Screening) 12/26/2018 [place] Pollen Allergy Skin Test 12/26/2018 Codeine High 03/16/2016 Other 07/01/2023 mayonnaise and all nuts except peanuts Medications * This document contains information received from the source organization and may not represent a complete record from that organization. [facility] (Pulse Oximeter) [facility] Use as directed 022 Active albuterol 108 (90 Base) MCG/ACT inhaler inhale 2 puff by inhalation route every 4 - 6 hours as needed 022 Active lidocaine (Lidoderm) 5 % patch apply 1 patch by transdermal route every day (May wear up to 12hours.) 021 Active albuterol (2.5 MG/3ML) 0.083% nebulizer solution inhale 3 milliliter by nebulization route 3 times every day prn SOB/asthma 020 Active lidocaine (Xylocaine) 5 % ointment Apply topically if needed for mild pain. Active Blood Pressure kit Active FLUoxetine (PROzac) 10 MG capsule Take 1 capsule by mouth Once daily. 023 Active folic acid (Folvite) 1 MG tablet Take 1 tablet by mouth in the morning. 023 Active hydrOXYzine HCl (Atarax) 25 MG tablet Take 1 tablet by mouth if needed in the morning and at bedtime for anxiety. Active prazosin (Minipress) 2 MG capsule Take 1 capsule by mouth at bedtime. Active Diclofenac Sodium 1 % gelIndications:Ri ght wrist pain Apply to the affected area up to 4x/day prn 100 g 1 Active EPINEPHrine (Epipen) 0.3 MG/0.3ML injection syringe inject 0.3 milliliter by intramuscular route once as needed for anaphylaxis 2 each 1 Active levETIRAcetam (Keppra) 500 MG tablet TAKE 1 TABLET BY MOUTH TWICE DAILY IN THE MORNING AND IN THE EVENING (WITH 1,000 MG TABLET) 60 tablet 3 Active levETIRAcetam (Keppra) 1000 MG tablet TAKE 1 TABLET BY MOUTH TWICE DAILY IN THE MORNING AND IN THE EVENING 180 tablet 2 Active loratadine (Claritin) 10 MG tablet Take 1 tablet (10 mg) by mouth in the morning. 90 tablet 1 Active Semaglutide-Weigh t Management (Wegovy) 2.4 MG/0.75ML solution auto-injector Inject 2.4 mg under the skin 1 (one) time per week. 3 mL 11 024 2024 Active SUMAtriptan (Imitrex) 50 MG tabletIndications :Intractable migraine without aura and without status migrainosus TAKE 1 TABLET BY MOUTH AT ONSET OF MIGRAINE. MAY REPEAT ONCE AFTER 2 HOURS IF NEEDED, DO NOT EXCEED 4 TABLETS IN 24 HOURS 20 tablet 1 Active nortriptyline (Pamelor) 25 MG capsule Take 25 mg by mouth at bedtime. Active lacosamide (Vimpat) 150 mg tablet tablet Take 1 tablet (150 mg) by mouth 2 times daily. 60 tablet Active fluticasone (Flonase) 50 MCG/ACT nasal spray INSTILL 2 SPRAYS IN EACH NOSTRIL ONCE DAILY 48 g Active famotidine (Pepcid) 20 MG tablet Take 1 tablet (20 mg) by mouth 2 times daily. 60 tablet 11 025 2025 Active esomeprazole (NexIUM) [address] capsule take 1 capsule by oral route every day 90 capsule 025 Active ondansetron ODT (Zofran-ODT) 4 MG disintegrating tablet Take 1 tablet (4 mg) by mouth every 8 (eight) hours if needed for vomiting or nausea. 20 tablet Active topiramate (Topamax) 100 MG tabletIndications :Bipolar 1 disorder (CMS/HCC),Chronic low back pain with right-sided sciatica, unspecified back pain laterality,Histor y of pulmonary embolus (PE),Morbid obesity (CMS/HCC),Screeni ng for diabetes mellitus,Screenin g for cholesterol level TAKE 1 TABLET BY MOUTH TWICE DAILY IN THE MORNING AND IN THE EVENING 60 tablet 025 Active apixaban (Eliquis) 5 MG tablet take 1 tablet by oral route 2 times every day 022 2024 Discontinued(T herapy completed) OXcarbazepine (Trileptal) 150 MG tablet Take 1 tablet by mouth 2 times daily. 023 2023 Discontinued(M ed list cleanup (will not trigger notification to Pharmacy)) famotidine (Pepcid) 20 MG tablet Take 1 tablet (20 mg) by mouth 2 times daily. 60 tablet 11 024 2024 Discontinued(R eorder (will not trigger notification to Pharmacy)) esomeprazole (NexIUM) [address] capsule take 1 capsule by oral route every day 90 capsule 024 2024 Discontinued(R eorder (will not trigger notification to Pharmacy)) baclofen (Lioresal) 10 MG tablet Take one tablet TID PRN 30 tablet 024 2023 Discontinued(I neffective) fluticasone (Flonase Allergy Relief) 50 MCG/ACT nasal spray Administer 2 sprays into affected nostril(s) 1 (one) time each day. 48 g 024 2024 Discontinued dicyclomine (Bentyl) 20 MG tablet Take 1 tablet by mouth if needed in the morning, at noon, and at bedtime (abdominal pain). 024 2023 Discontinued(M ed list cleanup (will not trigger notification to Pharmacy)) lacosamide (Vimpat) 150 mg tablet tablet Take 1 tablet by mouth 2 times daily. 2023 Discontinued(R eorder (will not trigger notification to Pharmacy)) ondansetron ODT (Zofran-ODT) 4 MG disintegrating tablet Take 1 tablet by mouth every 8 (eight) hours if needed for vomiting or nausea. 2024 Discontinued(R eorder (will not trigger notification to Pharmacy)) topiramate (Topamax) 100 MG tabletIndications :Bipolar 1 disorder (CMS/HCC),Chronic low back pain with right-sided sciatica, unspecified back pain laterality,Histor y of pulmonary embolus (PE),Morbid obesity (CMS/HCC),Screeni ng for diabetes mellitus,Screenin g for cholesterol level TAKE 1 TABLET BY MOUTH TWICE DAILY IN THE MORNING AND IN THE EVENING 60 tablet 2024 Discontinued Active Problems Problem Noted Date Diagnosed Date Seizure disorder 06/14/2024 Assessment & Plan (06/14/2024 1:35 PM EST): Pt will hold lacosamide d/t side effects [...] clinical staff. Plan to f/u with neuro Right upper quadrant abdominal pain 06/14/2024 Assessment & Plan (06/14/2024 11:28 AM EST): Abdominal pain present upon palpation on exam, exam also positive for guarding and rebound tenderness, bowel sounds normal Will obtain abdominal ultrasound today and labs as ordered Urgent referral to GI placed today Refills sent for pepcid, osemeprazole, and zofran Iron deficiency anemia 05/29/2024 Assessment & Plan (05/29/2024 6:14 AM EST): - following with Dr. 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 Sidhu -Continue apixaban -It has been a while since she has last had a blood clot Neuritis or radiculitis due to rupture of lumbar intervertebral disc 07/01/2023 07/01/2023 07/01/2023 07/01/2023 PTSD (post-traumatic stress disorder) 07/01/2023 07/01/2023 Back pain with right-sided sciatica 01/21/2023 Assessment & Plan (01/21/2023 10:39 AM EDT): Evidence of right sided radiculopathy with weakness and numbness. Referral to PT 01/21/23. Will repeat MRI of spine as symptoms significant changed since 2019. Referral to neurosurgery 01/21/23. Red flags include new onset urinary incontinence. Continue tramadol as prescribed. Trial of ibuprofen PRN. Pt aggress with the plan. Bipolar 1 disorder 07/22/2022 Assessment & Plan (12/28/2022 11:17 AM EDT): Assessment: Patient presented to the ED for seizures that were caused by the rising heat tempeture. She is connected to a therapist and psychiatrist thru [facility]. Patient reports seizures were not mental health related. At this time Jihan Brothers meets criteria for Visit Diagnoses: Problem List Items Addressed This Visit Other Depressive disorder Bipolar 1 disorder ([facility]/HCC) Patient ready to address current needs No, patient has services in place Strengths include: none identified PLAN: 1. Follow up with [facility]: Not recommended for follow-up 2. Patient goal is: No goal established 3. Behavioral Recommendations a. Patient will follow medical recommendations for seizures b. Patient will attend services appointments History of pulmonary embolism 07/22/2022 Overview (08/10/2023): She was seen in the emergency room on 08/18/2020: 34-year-old female was driven into our emergency department by her , patient with complains of severe chest pain in the chest, and bilateral lower extremity swelling and pain in the lower extremities, symptoms started about 2 weeks ago but today the chest pain and lower extremities pain and swelling is the worst today that is why patient seek medical attention, patient declined any re cent travel or history of DVT or PE in the past, patient also declined any cardiac history, patient declined use of heroin or cocaine only use medical marijuana patient also complain of shortness of breath when she has the chest pain. Patient also been complaining of urinary incontinence for the past 3 months. Pain is localized to the mid chest, started 2 weeks ago but today was the worst, with no radiation, described as severe 10/10, associated with shortness of breath, nothing made the pain better, nothing made it worse, patient never had this pain before. CTA of the chest revealed: 1. Focal contrast filling defect within a left lower lobe subsegmental pulmonary artery. Findings may represent a subsegmental pulmonary embolism. Alternatively, findings may be due to underdisten tion with contrast. No additional pulmonary emboli identified. 2. No pulmonary nodule, mass, or airspace consolidation. 3. No significant lymphadenopathy. Bilateral lower extremity ultrasound revealed: No DVT demonstrated in the bilateral lower extremity. She was sent home on Eliquis. She still in on it now. Follow at [facility] hematology Assessment & Plan (05/29/2024 6:13 AM EST): - following with [facility] Heme, recently - continue apixaban Chronic low back pain 05/06/2022 Degeneration of lumbar intervertebral disc 05/06 Depressive disorder 05/06/2022 Epigastric pain 05/06/2022 H/O: hysterectomy 05/06/2022 Hypoxia 05/06/2022 Irritable bowel syndrome 05/06/2022 Migraines 05/06/2022 Moderate persistent asthma without complication 05/06/2022 Severe obesity 05/06/2022 Seasonal allergic rhinitis 05/06/2022 Snoring 05/06/2022 Resolved Problems Problem Noted Date Diagnosed Date Resolved Date Right lower quadrant pain 10/04/2023 Assessment & Plan (05/29/2024 6:11 AM EST): -Takes Aleve and Tylenol instead of the muscle relaxants she was given as they make her sleepy -Resolving Assessment & Plan (10/04/2023 9:57 AM EDT): 37 year old with past medical history IBS, repots of inflamed appendix in past (not visible in chart), started semaglutide 1 month ago with constipation x 10 days now with increasing abdominal pain, chills, nausea and vomiting (vomiting in office) and RLQ pain on exam. Concern for acute abdomen. Pt agrees to ER for evaluation. Abnormal gait 05/06/2022 07/22/2022 Breast lump 05/06/2022 07/22/2022 Homeless family 05/06/2022 07/22/2022 Lives in sheltered housing 05/06/2022 0 07/22/2022 Numbness of lower limb 05/06/202208/09 Obstructive sleep apnea 05/06/2022 03/07/2023 Peripheral neurogenic pain 05/06/2022 0 08/10/2023 Seizure 05/06/2022 06/14/2024 Assessment & Plan (05/29/2024 6:10 AM EST): -Continue Topiramate, Keppra, and Lacosamide but discontinue Trileptal -EEG with neurologist is Lico is yet to be scheduled by patient -Look into PT-1 transportation service Encounters Date Type Department Care Team Description 06/22/2024 Telephone [facility] [address] [place] [phone] Ernie Nobles MD Results (Patient walked in stating Dr. Odonnell remove the medication Eliquis. Patient wanted her pcp to know about it. ) 06/21/2024 Orders Only [facility] [address] [place] [phone] Ernie Nobles MD 06/20/2024 Refill [facility] [address] [place], [place] [phone] Ernie Nobles MD Bipolar 1 disorder ([facility]/HCC); Chronic low back pain with right-sided sciatica, unspecified back pain laterality; History of pulmonary embolus (PE); Morbid obesity ([facility]); Screening for diabetes mellitus; Screening for cholesterol level 06/16/2024 Travel 06/14/2024 10:00 AM EST Office Visit [address] [phone] Juan F Kruger CNP Seizure disorder ([facility]/HCC) (Primary Dx); Right upper quadrant abdominal pain; Right lower quadrant pain; Seasonal allergic rhinitis, unspecified trigger 06/14/2024 Travel 06/06/[address] [address] Ernie Nobles MD Chart Prep 06/05/2024 Patient Outreach [address] [address] Ernie Nobles MD Transition Of Care (Tcm) 06/01/[address] [address] Ernie Nobles MD Nurse Triage; Referral 05/31/[address] [address] Ernie Nobles MD 05/25/[address] [address] Luis Manuel Ahn [place] feb recall 05/23/2024 9:30 AM EST Office Visit [address] [address] Katie Zamora MD Seizure ([facility]/HCC) (Primary Dx); Right lower quadrant pain; Factor XI deficiency ([facility]/HCC); Dietary counseling; Exercise counseling; Class 3 severe obesity with serious comorbidity and body mass index (BMI) of 40.0 to 44.9 in adult, unspecified obesity type ([facility]); History of pulmonary embolism; Iron deficiency anemia, unspecified iron deficiency anemia type 05/23/2024 Travel 05/22/2024 Refill [facility] [address] [place] [address] Ernie Nobles MD Bipolar 1 disorder ([facility]); Chronic low back pain with right-sided sciatica, unspecified back pain laterality; History of pulmonary embolus (PE); Morbid obesity ([facility]); Screening for diabetes mellitus; Screening for cholesterol level 05/21/2024 Refill [facility] [address] [place] [address] Ernie Nobles MD 05/16/2024 Refill [facility] [address] [place] [phone] Ernie Nobles MD Intractable migraine without aura and without status migrainosus 05/11/[address] [address] Verónica Valverde RN 05/11/2024 Patient Outreach [address] [address] Ernie Nobles MD Transition Of Care (Tcm) (HDF- scheduled and SDOH screening negative and Tobacco screening negative) 05/11/2024 Orders Only GENERIC EXTERNAL DATA DEPARTMENT Provider, Generic External Data 05/10/2024 Orders Only GENERIC EXTERNAL DATA DEPARTMENT Provider, Generic External Data 04/20/[address] [address] April Blandon [place] CHART PREP 04/19/[address] [address] Ernie Nobles MD Referral 04/14/2024 Travel 04/14/[address] [address] Ernie Nobles MD ER Follow-up 04/14/2024 Patient Outreach [address] [address] Lu Joy, veneer stock grader Of Care (Tcm) 04/13/2024 Orders Only GENERIC EXTERNAL DATA DEPARTMENT Provider, Generic External Data 04/07/2024 Telephone [facility] [address] [place] [address] Ernie Nobles MD Nurse Triage 03/30/2024 Telephone [facility] [address] [place] [address] NameErnie MD Medication Question; callback requests 03/24/2024 Refill [facility] [address] [place], [place] [phone] NameErnie MD Bipolar 1 disorder ([facility]/HCC); Chronic low back pain with right-sided sciatica, unspecified back pain laterality; History of pulmonary embolus (PE); Morbid obesity ([facility]); Screening for diabetes mellitus; Screening for cholesterol level from Last 3 Months Immunizations Name Administration Dates Next Due Hep B, adult 10/29/2023 INFLUENZA VACCINE QUADRIVALE NT RECOMBINANT PRESERVATIVE FREE RIV4 02/27/2023 Influenza Injectable Quadriv alant Preservative Free IIV4 MDCK 02/06/2020 Influenza injectable quadriv alent IIV4 with preservative 02/14/2019 Influenza injectable quadriv alent preservative free 04/15/2021,07/22/2019 Influenza, seasonal, injecta ble, preservative free 03/09/2024 Moderna Covid-19 Vaccine 12+ 07/18/2021, 05/07/2021,10/30/2020,10/01 Pneumococcal Conjugate PCV 20 10/29/2023 Pneumococcal Polysaccharide PPSV23 10/23/2018 Tdap 04/22/2021 Social History Tobacco Use Types Packs/Day Years Used Date Smoking Tobacco: Former Cigarettes Passive Smoke Exposure: Current Smokeless Tobacco: Never Tobacco Cessation:Counseling Given: Not Answered Alcohol Use Standard Drinks/Week Comments Not Currently [...] Orientation Straight 03/30/2022 10 :23 AM EDT Last Filed Vital Signs Vital Sign Reading Time Taken Comments Blood Pressure 108/60 06/14/2024 10:13 AM EST Pulse 88 06/14/2024 10:13 AM EST Temperature 36.7 ??C (98 ??F) 06/14/2024 10:13 AM EST Respiratory Rate 18 06/14/2024 10:13 AM EST Oxygen Saturation 99% 06/14/2024 10:13 AM EST Inhaled Oxygen Concentration - - Weight 120 kg (263 lb 12.8 oz) 06/14/2024 10:13 AM EST Height 165.1 cm (5' 5 ) 03/09/2024 9:23 AM EDT Body Mass Index 43.9 03/09/2024 9:23 AM EDT Plan of Treatment Upcoming Encounters Date Type Department Care Team (Late st Contact Info) Description 07/28/2024 11:30 AM EST Office Visit [facility] [address] [place], [place] [phone] Name, MD Ernie [address] [place] [address] 08/28/2024 10:15 AM EDT Office Visit [facility] [address] [place] [address] Homer Sasha, CNM [address] [place] [address] Health Maintenance Due Date Last Done Comments HIV Screening 1985 Hepatitis C Screening 11/04/2005 Hepatitis B Vaccines (2 of 3 - 19+ 3-dose series) 11/26/2023 10/29/2023 COVID-19 Vaccine ( season) 2024 07/30/2022, 07/18/2021, 05/07/2021, Additional history exists Family Planning (PISQ) 08/25/2024 08/26/2023 Depression Screening 10/28/2024 10/29/2023, 10/29/19 Alcohol/Substance Use Screening 12/14/2024 12/15/2023 SDOH Screening 05/11/2025 05/11/2024 Tobacco Screening 05/23/2025 05/23/2024 Lipid Panel 07/22/2027 07/22/2022 DTaP/Tdap/Td Vaccines (2 - Td or Tdap) 04/22/2031 04/22/2021 Zoster Vaccines (1 of 2) 11/04/2037 RSV Patients and Patients Aged 60 years or older (1 - 1-dose 75+ series) 11/04/2062 Pneumococcal Vaccine: Pediatrics (0 to 5 Years) and At-Risk Patients (6 to 64 Years) Completed 10/29/2023, 10/23/2018 Influenza Vaccine Completed 03/09/2024, , 04/15/2021, Additional history exists HIB Vaccines Aged Out No longer eligi [...] patient's age to complete this topic Meningococcal Vaccine Aged Out No diane lexii eligible based on patient's age to complete this topic RSV under 20 months Aged Out No longe r eligible based on patient's age to complete this topic Rotavirus Vaccines Aged Out No longer eligible based on patient's age to complete this topic Goals Goal Patient Goal Type Associated Problems Recent Progress Patient-Stated? Author Patient will adhere to medication regimen General Evelyn Xavier Procedures Procedure Name Priority Date/Time Associated Diagnosis Comments TSH W/REFLEX TO FT4 Routine 06/14/2024 1 1:14 AM EST Hot flashes URINALYSIS, COMPLETE, WITH REFLEX TO CULTURE Routine 05/11/2024 12:[address] ABDOMEN PELVIS W CONTRAST Routine 05/10/2024 11:35 PM EST HCG, TOTAL, QN Routine 05/10/2024 7:59 PM EST LIPASE Routine 05/10/2024 7:59 PM EST COMPREHENSIVE METABOLIC PANEL Routine 05/10/2024 7:59 PM EST CBC WITH AUTO DIFFERENTIAL Routine 05/10/2024 7:59 PM EST HCG, QL, URINE Routine 04/13/2024 2:39 PM EST URINALYSIS WITH REFLEX MICROSCOPIC Routine 04/13/2024 2:39 PM EST LEVETIRACETAM Routine 04/13/2024 12:58 PM EST HOLD RED TOP Routine 04/13/2024 12:58 PM EST HOLD GREEN GEL Routine 04/13/2024 12:01 PM EST HOLD GREEN GEL Routine 04/13/2024 12:01 PM EST HOLD LAVENDER - POSSIBLE HEMATOLOGY Routine 04/13/2024 12:01 PM EST COMPREHENSIVE METABOLIC PANEL Routine 04/13/2024 12:01 PM EST HOLD LT BLUE - POSSIBLE COAG Routine 04/13/2024 12:01 PM EST CBC WITH AUTO DIFFERENTIAL Routine 04/13/2024 12:01 PM EST LIPID PANEL, STANDARD Routine 07/22/2022 12:08 PM EST Bipolar 1 disorder (CMS/HCC) Chronic low back pain with right-sided sciatica, unspecified back pain laterality History of pulmonary embolus (PE) Morbid obesity (CMS/HCC) Screening for diabetes mellitus Screening for cholesterol level from Last 3 Months or Most Recently Relevant to Health Maintenance Results * TSH W/Reflex to FT4 (06/14/2024 11:14 AM EST) TSH reflex Free T4 0.44 0.32 - 4.0 uIU/mL [facility] Blood Venous blood specimen / Unknown 06/14/2024 11:14 AM EST 06/14/2024 1:02 PM EST Sasha Coronel [facility] BLOOD ORDERABLES Colleen l Result [facility] [address] [place] [address] [phone] * (ABNORMAL) Urinalysis, Complete, with Reflex to Culture (05/11/2024 12:30 AM EST) Color Urine Yellow [facility] Appearance Urine Clear [facility] PH 5.5 5.0 - 9.0 [facility] Glucose Urine UA Negative Negative mg/dL [facility] Urine Blood Trace(A) Negative [facility] Specific [place] - Urine >=1.030(H) 1.005 - 1.025 [facility] Urine Protein Negative Neg-Trace mg/dL [facility] Urine Ketones 40 Negative mg/dL [facility] Nitrite Urine Negative Negative [facility] Leukocyte Esterase Urine Negative Negative [facility] RBC Urine 0-2 0 - 2 /HPF [facility] Urine WBC 0-5 0 - 5 /HPF [facility] Urine Squamous Epithelial Cell 0-2 0 - 2 /HPF [facility] Urine Bacteria None Seen None Seen [facility] Hyaline Casts, Urine 0-2 0 - 2 /LPF [facility] 05/11/2024 12:3 0 AM EST 05/11/2024 12:34 AM EST Narrative [facility] - 05/11/2024 12:44 AM EST [id number], Clean Catch us Generic External Data Provider LAB URINE ORDERAB LES Final Result [facility] [address] [place] [address] [phone] * CT Abdomen Pelvis w/ Contrast (05/10/2024 11:35 PM EST) Anatomical Region Laterality Modality Body, Pelvis, Abdomen Computed T omography 05/10/2024 11:3 5 PM EST Narrative 05/11/2024 12:16 AM EST ? [facility] ?[address] ?[place] [address] ? CT Scan Report ? Signed ? Patient: Feliciano Brothersleesginger Massey ?MR#: [id number] ?? [id number] ? : 1985 ?Acct:[id number] ? Age/Sex: 38 / F ?ADM Date: 05/10/24 ? Loc: HO.ED ? Attending Dr: ? Ordering Physician: Micaela Paiz DO ?? Date of Service: 05/10/24 ?? Procedure(s): CT abdomen pelvis w IV con ?? Accession Number(s): [id number] ? cc: Micaela Paiz DO; Name,Ernie MOE ? EXAMINATION: ?? CT ABDOMEN AND PELVIS WITH CONTRAST ? CLINICAL INFORMATION: ?? Right lower quadrant pain ? COMPARISON: ?? None ? TECHNIQUE: ?? Multidetector volumetric imaging was performed from the superior aspect ?? of the liver through the pubic symphysis with intravenous contrast. A ?? total of 85 ??mL of Omnipaque 350 was utilized for the study. Sagittal ?? and coronal reformatted images were obtained on the technologist's ?? workstation. ? This CT examination was performed using dose optimization techniques as ?? appropriate, variously including the following: ?? *Automated exposure control ?? *Adjustment of mA and/or kV according to patient size (this includes ?? techniques or standardized protocols for targeted exams where dose is ?? matched to indication/reason for exam; i.e. extremities or head) ?? *Use of iterative reconstruction technique ? DLP: ?? 932 mGy-cm ? FINDINGS: ? LUNG BASES: The visualized lung bases are unremarkable. ? LIVER, GALLBLADDER, AND BILIARY TREE: The liver is normal in size, ?? shape, and attenuation. No focal hepatic lesion or biliary ductal ?? dilatation is present. The gallbladder is unremarkable with no evidence ?? of radiopaque gallstones, gallbladder wall thickening, or obvious ?? pericholecystic inflammatory changes. ? PANCREAS: Unremarkable. ? SPLEEN: Unremarkable. ? ADRENAL GLANDS: Unremarkable. ? KIDNEYS AND URETERS: The kidneys are normal in size, shape, and ?? attenuation. No hydronephrosis, hydroureter, or calculi seen. No ?? perinephric stranding. ? BLADDER: Bladder is nearly empty with a very symmetrically thickened ?? wall ? GASTROINTESTINAL TRACT: The small and large bowel are unremarkable. The ?? appendix is unremarkable. ? ABDOMINAL WALL: No significant hernia is appreciated. ? LYMPH NODES: Normal. ? VASCULAR: Unremarkable. ? PELVIC VISCERA: The uterus is not seen. An abnormal adnexal mass is not ?? detected. No free intraperitoneal fluid is present. ? OSSEOUS STRUCTURES: Unremarkable. ? CT/CT abdomen pelvis w IV con ?? IMPRESSION: ?? 1. ??A cause for the patient's right lower quadrant pain has not been ?? found. The appendix is normal. ?? 2. ??Incidental findings as above. ? Fleischner guidelines were followed. ? Electronically signed by: ??Андрей Alvares MD ??05/11/2024 12:12 AM EST ?? RP ? Dictated By: ?Андрей Alvares MD ? Signed By: ?<Electronically signed by Андрей Alvares MD in OV> ? 05/11/24 0012 ? DD/ 2335 ? TD/TT: 05/10/24 2335 ? Provider Scribe: SS ? Procedure Note Donotuseinterpreter, Image - 05/11/[address] [address] [address] Scan Report Signed Patient: Jihan Brothers [facility]#: [id number] : 1985Acct:[id number] Age/Sex: 38 / FADM Date: 05/10/24 Loc: HO.ED Attending Dr: Ordering Physician: Micaela Paiz DO Date of Service: 05/10/24 Procedure(s): CT abdomen pelvis w IV con Accession Number(s): [id number] cc: Micaela Paiz DO; Name,Ernie MOE EXAMINATION: CT ABDOMEN AND PELVIS WITH CONTRAST CLINICAL INFORMATION: Right lower quadrant pain COMPARISON: None TECHNIQUE: Multidetector volumetric imaging was performed from the superior aspect of the liver through the pubic symphysis with intravenous contrast. A total of 85 mL of Omnipaque 350 was utilized for the study. Sagittal and coronal reformatted images were obtained on the technologist's workstation. This CT examination was performed using dose optimization techniques as appropriate, variously including the following: *Automated exposure control *Adjustment of mA and/or kV according to patient size (this includes techniques or standardized protocols for targeted exams where dose is matched to indication/reason for exam; i.e. extremities or head) *Use of iterative reconstruction technique DLP: 932 mGy-cm FINDINGS: LUNG BASES: The visualized lung bases are unremarkable. LIVER, GALLBLADDER, AND BILIARY TREE: The liver is normal in size, shape, and attenuation. No focal hepatic lesion or biliary ductal dilatation is present. The gallbladder is unremarkable with no evidence of radiopaque gallstones, gallbladder wall thickening, or obvious pericholecystic inflammatory changes. PANCREAS: Unremarkable. SPLEEN: Unremarkable. ADRENAL GLANDS: Unremarkable. KIDNEYS AND URETERS: The kidneys are normal in size, shape, and attenuation. No hydronephrosis, hydroureter, or calculi seen. No perinephric stranding. BLADDER: Bladder is nearly empty with a very symmetrically thickened wall GASTROINTESTINAL TRACT: The small and large bowel are unremarkable. The appendix is unremarkable. ABDOMINAL WALL: No significant hernia is appreciated. LYMPH NODES: Normal. VASCULAR: Unremarkable. PELVIC VISCERA: The uterus is not seen. An abnormal adnexal mass is not detected. No free intraperitoneal fluid is present. OSSEOUS STRUCTURES: Unremarkable. CT/CT abdomen pelvis w IV con IMPRESSION: 1. A cause for the patient's right lower quadrant pain has not been found. The appendix is normal. 2. Incidental findings as above. Fleischner guidelines were followed. Electronically signed by: Андрей Alvares MD 05/11/2024 12:12 AM EST Dictated By: Андрей Alvares MD Signed By: <Electronically signed by Андрей Alvares MD in OV> 05/11/24 0012 DD/ TD/TT: 05/10/242334 Provider Scribe: SS [facility] External Provider IMG CT PROCEDURES Edited Result - Final * (ABNORMAL) CBC auto differential (05/10/2024 7:59 PM EST) Only the most recent of2 resultswithin the time period is included. White Blood Count 5.5 4.8 - 10.8 X10*3/uL [facility] Red Blood Count 4.36 4.20 - 5.50 X10*6/uL [facility] Hemoglobin 11.7(L) 12.0 - 16.0 g/dl [facility] Hematocrit 35.6(L) 37.0 - 47.0 % [facility] Mean Corpuscular Volume 81.7 80.0 - 98.0 fL [facility] Mean Corpuscular Hemoglobin 26.8(L) 27.0 - 33.0 pg [facility] Mean Corpuscular HGB Conc 32.9 31.0 - 35.0 g/dl [facility] Red Cell Distribution Width 13.8 11.0 - 16.0 % [facility] Platelet Count 238 160 - 400 X10*3/uL [facility] Mean Platelet Volume 9.9 9.4 - 12.3 fL [facility] Neutrophils Percent Auto 56.0 45 - 73 % [facility] Imm Gran Pct Auto 0.2 0.0 - 0.4 % [facility] Lymphocytes Percent Auto 34.9 20 - 40 % [facility] Monocytes Percent Auto 6.0 2 - 11 % [facility] Eosinophils Percent Auto 2.7 0 - 4 % [facility] Basophils Percent Auto 0.2 0 - 2 % [facility] NRBC Pct Auto 0.0 0.0 - 0.2 /100WBC [facility] Neutrophils Absolute Auto 3.1 2.0 - 8.3 x10*3/uL [facility] Imm Gran Abs Auto 0.01 0.00 - 0.03 X10*3/uL [facility] Lymphocytes Absolute Auto 1.9 1.2 - 4.9 X10*3/uL [facility] Monocytes Absolute Auto 0.3 0.1 - 1.2 X10*3/uL [facility] Eosinophils Absolute Auto 0.2 0.0 - 0.4 X10*3/uL [facility] Basophils Absolute Auto 0.0 0.0 - 0.2 X10*3/uL [facility] NRBC Abs Auto 0.000 0.0 - 0.012 X10*3/uL [facility] 05/10/2024 7:59 PM EST 05/10/2024 8:01 PM EST us Generic External Data Provider LAB BLOOD ORDERAB LES Final Result [facility] [address] [place] [phone] * hCG, Total, Quantitative (05/10/2024 7:59 PM EST) HCG Quantitative <2 mIU/mL [facility] Comment:Weeks post LMP Appro ximate hCG(Last Menstrual Period) Range (mIU/ml)3 - 4 weeks 9 - 1304 - 5 weeks 75 - 2,6005 - 6 weeks 850 - 20,8006 - 7 weeks 4000 - 100,2007 - 12 weeks 11,500 - 289,72315 - 16 weeks 18,300 - 137,78733 - 29 weeks (2nd trimester) 1,400 - 53,27986 - 41 weeks (3rd trimester) 940 - 60,000The Wagoner B-hCG assay is used for the early detection ofpregnancy; it cannot be used to diagnose any conditionunrelated to . If a B-hCG level is not supportedby the clinical evidence, results should be confirmed by analternative method (qualitative urine hCG, for example). 05/10/2024 7:59 PM EST 05/10/2024 8:01 PM EST us Generic External Data Provider LAB BLOOD ORDERAB LES Final Result Performing Organization Address City/[facility]/ZIP Co de Phone Number [facility] [address] [place] [phone] * (ABNORMAL) Lipase (05/10/2024 7:59 PM EST) Pathologist [facility] Lipase 7(L) 8 - 78 U/L [facility] 05/10/2024 7:59 PM EST 05/10/2024 8:01 PM EST Generic External Data Provider LAB BLOOD ORDERAB LES Final Result Performing Organization Address [facility] Co de Phone Number [facility] [address] [place] [phone] * (ABNORMAL) Comprehensive Metabolic Panel (05/10/2024 7:59 PM EST) Only the most recent of2 resultswithin the time period is included. Pathologist [facility] Sodium 140 135 - 145 mmol/L [facility] Potassium 3.5 3.3 - 5.1 mmol/L [facility] Chloride 113(H) 96 - 108 mmol/L [facility] Carbon Dioxide 19(L) 22 - 29 mmol/L [facility] Anion Gap 12 12 - 20 [facility] Urea Nitrogen (BUN) 6(L) 9 - 16 mg/dL [facility] Creatinine, Serum 0.81 0.5 - 1.4 mg/dL [facility] Creatinine Clr Calc Pharmacy 123.8 [facility] Comment:Provided height and weight: 165.1 cm,118.841 kg.eGFR (calculated from the MDRD study equation) and eCrCl(calculated from the Cockcroft-Gault equation) are based ondifferent parameters and may not yield comparable results.If eCrCl result is absurd, please check patient'sheight/weight. Estimated Glomerular Filt Rate >60 [facility] Comment:Chronic Kidney Disea se: Estimated GFR < 60 mL/min/1.72y6Nuoakd Kidney Disease: Estimated GFR < 15 mL/min/1.73m2 Glucose 98 60 - 115 mg/dL [facility] Calcium 9.4 8.4 - 10.2 mg/dL [facility] Bilirubin, Total 0.3 0.0 - 1.0 mg/dL [facility] Aspartate Amino Transferase 17 5 - 31 U/L [facility] Alanine Aminotransferase 15 0 - 31 U/L [facility] Total Protein 7.0 6.5 - 8.0 g/dL [facility] Albumin Level 4.0 3.5 - 5.0 g/dL [facility] Alkaline Phosphatase 79 39 - 117 U/L [facility] 05/10/2024 7:59 PM EST 05/10/2024 8:01 PM EST us Generic External Data Provider LAB BLOOD ORDERAB LES Final Result [facility] [address] [place] [phone] * HCG, Qualitative, Urine (04/13/2024 2:39 PM EST) Urine NEGATIVE NEGATIVE [facility] Comment:This test was develo ped to detect early . Falsenegative results may occur after the 5th - 7th week ofpregnancy when using this test method. If clinicallyindicated, consider a serum hCG. 04/13/2024 2:39 PM EST 04/13/2024 2:49 PM EST us Generic External Data Provider LAB URINE ORDERAB LES Final Result Performing Organization Address [facility]/ZIP Co de Phone Number [facility] [address] [place] [phone] * Urinalysis w/reflex microscopic (04/13/2024 2:39 PM EST) Color Urine Yellow [facility] Appearance Urine Clear [facility] PH 6.0 5.0 - 9.0 [facility] Glucose Urine UA Negative Negative mg/dL [facility] Urine Blood Negative Negative [facility] Specific Morrow - Urine 1.010 1.005 - 1.025 [facility] Urine Protein Negative Neg-Trace mg/dL [facility] Urine Ketones Negative Negative mg/dL [facility] Nitrite Urine Negative Negative [facility] Leukocyte Esterase Urine Negative Negative [facility] 04/13/2024 2:39 PM EST 04/13/2024 2:49 PM EST Narrative [facility] - 04/13/2024 2:54 PM EST Urine, Clean Catch Generic External Data Provider LAB URINE ORDERAB LES Final Result Performing Organization Address [facility]/ZIP Co de Phone Number [facility] [address] [place] [phone] * Hold Red (04/13/2024 12:58 PM EST) Hold Red See Note [facility] Comment:Specimen held untest ed for 24 hours; Call to requestChemistry testing. 04/13/2024 12:5 8 PM EST 04/13/2024 1:23 PM EST Generic External Data Provider LAB BLOOD ORDERAB LES Final Result Performing Organization Address [facility] Co de Phone Number [facility] [address] [place] [phone] * Levetiracetam (04/13/2024 12:58 PM EST) Levetiracetam 27.5 6.0 - 46.0 mcg/mL [facility] Comment:Brivaracetam (Brivia ct(R), Rikelta(R)) exhibitssignificant cross- reactivity in the Levetiracetam(Keppra(R), Spritam(R)) immunoassay. If Brivaracetamhas been prescribed, order test code [id number] by LCMSMS.THIS TEST WAS PERFORMED AT:[employer] [place] [address]AOVGRTCONUR HERRERA MD,PHD 04/13/2024 12:5 8 PM EST 04/13/2024 2:34 PM EST us Generic External Data Provider LAB BLOOD ORDERAB LES Final Result Performing Organization Address City/[facility]/ZIP Co de Phone Number [facility] [address] [place] [phone] * Hold Green Gel (04/13/2024 12:01 PM EST) Hold Green Gel See Note [facility] Comment:Specimen held untest ed for 24 hours; Call to requestChemistry testing. 04/13/2024 12:0 1 PM EST 04/13/2024 12:16 PM EST Generic External Data Provider HISTORICAL/NON OR DERABLE LABS Final Result Performing Organization Address [facility] de Phone Number [facility] [address] [place] [phone] * Hold Lavender - Possible Hematology (04/13/2024 12:01 PM EST) Hold Lavender - Possible Hematololgy SEE NOTE [facility] Comment:Specimen will be hel d untested for 8 hours. Call Hematologyif testing is desired. 04/13/2024 12:0 1 PM EST 04/13/2024 12:16 PM EST Generic External Data Provider HISTORICAL/NON OR DERABLE LABS Final Result Performing Organization Address [facility] de Phone Number [facility] [address] [place] [phone] * HOLD LT BLUE - POSSIBLE COAG (04/13/2024 12:01 PM EST) Hold Lt Blue - Possible Coag SEE NOTE [facility] Comment:Specimen will be hel d untested for 4 hours. Call Hematologyif testing is desired. 04/13/2024 12:0 1 PM EST 04/13/2024 12:16 PM EST Generic External Data Provider LAB BLOOD ORDERAB LES Final Result Performing Organization Address [facility] Co de Phone Number [facility] [address] [place] [phone] * (ABNORMAL) Lipid Panel, Standard (07/22/2022 12:08 PM EST) Cholesterol, Total 159 <200 mg/dL [facility] HDL Cholesterol 41(L) > OR = 50 mg/dL [facility] Triglycerides 81 <150 mg/dL [facility] LDL Cholesterol 101(H) mg/dL (calc) [facility] Comment: Reference range: <100 Desirable range <100 mg/dL for primary prevention; ?? <70 mg/dL for patients with CHD or diabetic patients with > or = 2 CHD risk factors. LDL-C is now calculated using the Arthur calculation, which is a validated novel method providing better accuracy than the Friedewald equation in the estimation of LDL-C. Blas SS et al. EVA. 2013;310(19): 6006-1538 (http://education.CareinSync/faq/QRB974) Chol/HDLC Ratio 3.9 <5.0 (calc) [facility] Non-HDL Cholesterol 118 <130 mg/dL (calc) [facility] Comment: For patients with diabetes plus 1 major ASCVD risk factor, treating to a non-HDL-C goal of <100 mg/dL (LDL-C of <70 mg/dL) is considered a therapeutic option. Blood Venous blood specimen / Unknown 07/22/2022 12:08 PM EST 07/22/2022 12:08 PM EST Narrative [facility] - 07/23/2022 6:09 AM EST FASTING:NO FASTING: NO Ernie Nobles MD LAB BLOOD ORDERABLES Final Resul t [facility] [address], [place] [address] [facility] [address] [facility], (N[address]) [place] [address] from Last 3 Months or Most Recently Relevant to Health Maintenance Insurance [facility] C3 Care Teams Chief Information Officer Relationship Specialty Start Date End Date Name, MD Ernie [address] [place] [phone] PCP - General Family Medicine 01/06/19 Priscilla Helm Dye MakerBiologist Aide 10/15/23
--- OUTSIDE RECORDS SUMMARY | 2024-06-23 13:07 | XMS_ITS | Encounter Summary ---
Author Organization [employer] Address [address] [facility] 7t [place] [address] Care Team Providers Care Health Spa Manager Name Role Phone Name, Ernie MOE Primary Care Provider [phone] Encounter Details Date Type Department Care Team ([facility] Contact Info) Description 06/21/2024 Orders Only [facility] [address], [place] [phone] Name, MD Ernie [address] [place] [address] Social History Tobacco Use Types Packs/Day Years [...] Description 07/28/2024 11:30 AM EST Office Visit [address] [address] Name, MD Ernie [address] [place] [address] 08/28/2024 10:15 AM EDT Office Visit [address] [address] Sasha Coronel CNM [address] [place] [address] documented as of this encounter Goals Goal Patient Goal Type Associated Problems Recent Progress Patient-Stated? Author Patient will adhere to medication regimen General Evelyn Xavier documented as of this encounter Visit Diagnoses Not on filedocumented in this encounter Additional Health Concerns Assessment Noted Time PHQ-9 Depression Total Score: 0 10/29/19 24 10:28 AM EDT documented as of this encounter Care Teams Health Spa Manager Relationship Specialty Start Date End Date Ernie Nobles MD [address] [place] [phone] PCP - General Family Medicine 01/06/19 Priscilla Helm Solutions ManagerLine Decorator 10/15/23 documented as of this encounter
--- OUTSIDE RECORDS SUMMARY | 2024-06-23 13:07 | XMS_ITS | Encounter Summary ---
Author Organization [employer] Address [address] [facility] 7t [place] [address] Care Team Providers Care Outreach Director Name Role Phone Name, Ernie MOE Primary Care Provider [phone] Reason for Visit * Reason Comments Med Refill Encounter Details Date Type Department Care Team ([facility] st Contact Info) Description 05/31/2024 Refill [facility] MEDICINE [address] [place], [place] [phone] Name, MD Ernie [address] [place] [address] Social History Tobacco Use Types Packs/Day Years [...] Description 07/28/2024 11:30 AM EST Office Visit [address] [address] Name, MD Ernie [address] [place] [address] 08/28/2024 10:15 AM EDT Office Visit [address] [address] Sasha Coronel CNM [address] [place] [address] documented as of this encounter Goals Goal Patient Goal Type Associated Problems Recent Progress Patient-Stated? Author Patient will adhere to medication regimen General Evelyn Xavier documented as of this encounter Visit Diagnoses Not on filedocumented in this encounter Additional Health Concerns Assessment Noted Time PHQ-9 Depression Total Score: 0 10/29/19 24 10:28 AM EDT documented as of this encounter Care Teams Outreach Director Relationship Specialty Start Date End Date Ernie Nobles MD [address] [place] [phone] PCP - General Family Medicine 01/06/19 Priscilla Helm Machinery EngineerOverhead Crane Inspector 10/15/23 documented as of this encounter
--- OUTSIDE RECORDS SUMMARY | 2024-06-23 13:07 | XMS_ITS | Encounter Summary ---
Author Organization [employer] Address [address] [facility] 7t [place] [address] Care Team Providers Care Strategic Planner Name Role Phone Name, Ernie MOE Primary Care Provider [phone] Reason for Visit * Reason Comments Med Refill Encounter Details Date Type Department Care Team ([facility] st Contact Info) Description 06/20/2024 Refill [facility] [address] [place], [place] [phone] Name, MD Ernie [address] [place] [address] Bipolar 1 disorder (CMS/HCC); Chronic low back pain with right-sided sciatica, unspecified back pain laterality; History of pulmonary embolus (PE); Morbid obesity (CMS/HCC); Screening for diabetes mellitus; Screening for cholesterol level Social History Tobacco Use Types Packs/Day Years [...] 07/28/2024 11:30 AM EST Office Visit [address] [address] Name, MD Ernie [address] [place] [address] 08/28/2024 10:15 AM EDT Office Visit [address] [address] Sasha Coronel CNM [address] [place] [address] documented as of this encounter Goals Goal Patient Goal Type Associated Problems Recent Progress Patient-Stated? Author Patient will adhere to medication regimen General Evelyn Xavier documented as of this encounter Visit Diagnoses Diagnosis Bipolar 1 disorder (CMS/HCC) Chronic low back pain with right-sided sciatica, unspecified back pain laterality History of pulmonary embolus (PE) Morbid obesity (CMS/HCC) Morbid obesity Screening for diabetes mellitus Screening for cholesterol level documented in this encounter Additional Health Concerns Assessment Noted Time PHQ-9 Depression Total Score: 0 10/29/19 10:28 AM EDT documented as of this encounter Care Teams Strategic Planner Relationship Specialty Start Date End Date Name, MD Ernie [address] [place] [address] PCP - General Family Medicine 01/06/19 Priscilla Helm [employer] Sales ConsultantCampus Safety Officer 10/15/23 documented as of this encounter
--- OUTSIDE RECORDS SUMMARY | 2024-06-23 13:08 | XMS_ITS | Encounter Summary ---
Author Organization [employer] Address [address] [facility] 7t [place] [address] Care Team Providers Care Ammonia Print Operator Name Role Phone Name, Ernie MOE Primary Care Provider [phone] Reason for Visit * Reason Comments Med Refill Encounter Details Date Type Department Care Team ([facility] Contact Info) Description 02/15/2024 Refill [facility] MEDICINE [address] [place], [place] [phone] Name, MD Ernie [address] [place] [address] Social History Tobacco Use Types Packs/Day Years [...] Description 07/28/2024 11:30 AM EST Office Visit [address] [address] Name, MD Ernie [address] [place] [address] 08/28/2024 10:15 AM EDT Office Visit [address] [address] Sasha Coronel CNM [address] [place] [address] documented as of this encounter Goals Goal Patient Goal Type Associated Problems Recent Progress Patient-Stated? Author Patient will adhere to medication regimen General Evelyn Xavier documented as of this encounter Visit Diagnoses Not on filedocumented in this encounter Additional Health Concerns Assessment Noted Time PHQ-9 Depression Total Score: 0 10/29/19 24 10:28 AM EDT documented as of this encounter Care Teams Ammonia Print Operator Relationship Specialty Start Date End Date Name, MD Ernie [address] [place] [phone] PCP - General Family Medicine 01/06/19 Priscilla Helm Business Taxes SpecialistMedical Screener 10/15/23 documented as of this encounter
--- OUTSIDE RECORDS SUMMARY | 2024-06-23 13:08 | XMS_ITS | Encounter Summary ---
Author Organization [employer] Address [address] [facility] 7t [place] [address] Care Team Providers Care Client Resolution Specialist Name Role Phone Name, Ernie MOE Primary Care Provider [phone] Reason for Visit * Reason Onset Date Comments PT1 02/23/2024 Encounter Details Date Type Department Care Team ([facility] Contact Info) Description 02/23/2024 Telephone [facility] MED[facility] [address] [place], [place] [phone] Name, MD Ernie [address] [place] [address] PT1 Social History Tobacco Use Types Packs/Day [...] encounter Miscellaneous Notes * Telephone Encounter - Kaila Santos - 02/23/2024 12:55 PM EDT Patient calling requesting PT1 Home Address verified: Y/N: Yes Provider name or facility name: [facility] Facility Address: [address] [place] [address] Escort needed: Y/N: Yes Do you have a wheelchair: Y/N: No If yes- Manual or electric: n/a Visits: 2 x a month Patient calling requesting PT1 Home Address verified: Y/N: Yes Provider name or facility name: ([facility]) Dr. Robledo Facility Address: [address] [place] [address] Escort needed: Y/N: Yes Do you have a wheelchair: Y/N: No If yes- Manual or electric: n/a Visits: 2 x a monthly documented in this encounter Plan of Treatment Upcoming Encounters Date Type Department Care Team (Late st Contact Info) Description 07/28/2024 11:30 AM EST Office Visit [facility] [address] [place] [address] Name, MD Ernie [address] [place] [address] 08/28/2024 10:15 AM EDT Office Visit [facility] [address] [place] [address] Sasha Coronel CNM [address] [place] [address] documented as of this encounter Goals Goal Patient Goal Type Associated Problems Recent Progress Patient-Stated? Author Patient will adhere to medication regimen General Evelyn Xavier documented as of this encounter Visit Diagnoses Not on filedocumented in this encounter Additional Health Concerns Assessment Noted Time PHQ-9 Depression Total Score: 0 10/29/19 24 10:28 AM EDT documented as of this encounter Care Teams Client Resolution Specialist Relationship Specialty Start Date End Date Name, MD Ernie [address] [place] [address] PCP - General Family Medicine 01/06/19 Priscilla Helm Supervisor Mold ShopEnergy Sales Broker 10/15/23 documented as of this encounter
--- OUTSIDE RECORDS SUMMARY | 2024-06-23 13:08 | XMS_ITS | Encounter Summary ---
Author Organization [employer] Address [address] [facility] [address] 7t [place] [address] Care Team Providers Care Binder Operator Name Role Phone Name, Ernie MOE Primary Care Provider [phone] Encounter Details Date Type Department Care Team ([facility] Contact Info) Description 09/07/2023 Telephone [facility] [address] [place] [address] Juan, Estela, OD [address] [place] [address] Social History Tobacco Use Types Packs/Day Years [...] t he electric, gas, oil or water [employer] threatened to shut off services in your home? Yes 03/16/2023 Depression Answer Date Recorded Patient Health Questionnaire-2 Score 0 10/07/2022 Comments No Sex and Gender Information Value Date Recorded Sex Assigned at Female 03/30/2022 10:23 AM EDT Legal Sex Female 10:23 AM EDT Gender Identity Female 03/30/2022 10:23 AM EDT Sexual Orientation Straight 03/30/2022 10 :23 AM EDT documented as of this encounter Miscellaneous Notes * Telephone Encounter - Joi Garcia - 09/07/2023 9:50 AM EDT Patient call asking for her [facility] Glasses I inform the patient that her glasses are not here jet, she was frustrated and said is been almost two month waiting for the glasses that she can not believe they are not here yet I said that I am sorry and as soon the glasses arrive we are going to call her that is why I tell the patient that the glasses are going to take 1 1/2 months or 2 months, that [facility] takes so long for the glasses. She said that if she was Kirill or Rodriguez she got itsooner. And hang off. documented in this encounter Plan of Treatment Upcoming Encounters Date Type Department Care Team (Late st Contact Info) Description 07/28/2024 11:30 AM EST Office Visit [address] [address] Name, MD Ernie [address] [place] [address] 08/28/2024 10:15 AM EDT Office Visit [facility] MEDICINE [address] [place] [address] Sasha Coronel CNM [address] [place] [address] documented as of this encounter Visit Diagnoses Not on filedocumented in this encounter Additional Health Concerns Assessment Noted Time PHQ-9 Depression Total Score: 0 10/08/19 11:31 AM EDT documented as of this encounter Care Teams Binder Operator Relationship Specialty Start Date End Date Name, MD Ernie [address] [place] [address] PCP - General Family Medicine 01/06/19 Priscilla Helm Associate Professor Of HistoryCripple Worker 10/15/23 documented as of this encounter
--- OUTSIDE RECORDS SUMMARY | 2024-06-23 13:08 | XMS_ITS | Encounter Summary ---
Author Organization [employer] Address [address] [facility] 7t [place] [address] Care Team Providers Care Utility Worker Roller Shop Name Role Phone Name, Ernie MOE Primary Care Provider Reason for Visit * Reason Onset Date Comments Medication Question 12/23/2023 Encounter Details Date Type Department Care Team ([facility] Contact Info) Description 12/23/2023 Telephone [facility] [address] [place], [place] [phone] Name, MD Ernie [address] [place] [address] Medication Question Social History Tobacco Use Types Packs/Day Years [...] encounter Miscellaneous Notes * Telephone Encounter - Zachariah Del Valle RN - 12/23/2023 1:18 PM EDT T/C to [phone] for below message, no answer. LVM to call back on [phone]. * Telephone Encounter - Ted Mckinley - 12/23/2023 10:32 AM EDT Tc from pt requesting a call back in regards to pych meds, states spoke with psychiatrist and was advised to follow up with PCP however pt did not want to leave any further information. Please contact at [phone] documented in this encounter Plan of Treatment Upcoming Encounters Date Type Department Care Team (Late st Contact Info) Description 07/28/2024 11:30 AM EST Office Visit [address] [phone] Name, MD Ernie [address] [place] [address] 08/28/2024 10:15 AM EDT Office Visit [facility] [address] [place] [address] Sasha Coronel CNM [address] [place] [address] documented as of this encounter Goals Goal Patient Goal Type Associated Problems Recent Progress Patient-Stated? Author Patient will adhere to medication regimen General No Evelyn Levine documented as of this encounter Visit Diagnoses Not on filedocumented in this encounter Additional Health Concerns Assessment Noted Time PHQ-9 Depression Total Score: 0 10/29/19 24 10:28 AM EDT documented as of this encounter Care Teams Utility Worker Roller Shop Relationship Specialty Start Date End Date Name, MD Ernie [address] [place] [address] PCP - General Family Medicine 01/06/19 Priscilla Helm Shop CoordinatorSeptic Tank Installer 10/15/23 documented as of this encounter
--- OUTSIDE RECORDS SUMMARY | 2024-06-23 13:08 | XMS_ITS | Encounter Summary ---
Author Organization [employer] Address [address] [facility] 7t [place] [address] Care Team Providers Care Recreation Therapy Aides Teacher Name Role Phone Name, Ernie MOE Primary Care Provider [phone] Reason for Visit * Reason Onset Date Comments Med Refill 05/21/2024 Encounter Details Date Type Department Care Team ([facility] Contact Info) Description 05/21/2024 Refill [facility] MEDICINE [address] [place], [place] [phone] Name, MD Ernie [address] [place] [address] Social History Tobacco Use Types Packs/Day Years [...] Description 07/28/2024 11:30 AM EST Office Visit [address] [address] NameErnie MD [address] [place] [address] 08/28/2024 10:15 AM EDT Office Visit [address] [address] Sasha Coronel CNM [address] [place] [address] documented as of this encounter Goals Goal Patient Goal Type Associated Problems Recent Progress Patient-Stated? Author Patient will adhere to medication regimen General Evelyn Xavier documented as of this encounter Visit Diagnoses Not on filedocumented in this encounter Additional Health Concerns Assessment Noted Time PHQ-9 Depression Total Score: 0 10/29/19 24 10:28 AM EDT documented as of this encounter Care Teams Recreation Therapy Aides Teacher Relationship Specialty Start Date End Date Ernie Nobles MD [address] [place] [address] PCP - General Family Medicine 01/06/19 Priscilla Helm Tube PusherDirect Marketing Analyst 10/15/23 documented as of this encounter
--- OUTSIDE RECORDS SUMMARY | 2024-06-23 13:08 | XMS_ITS | Encounter Summary ---
Author Organization [employer] Address [address] [facility] 7t [place] [address] Care Team Providers Care Cognos Lead Name Role Phone Name, Ernie MOE Primary Care Provider [phone] Reason for Visit * Reason Onset Date Comments ER Follow-up 08/30/2023 Encounter Details Date Type Department Care Team ([facility] Contact Info) Description 08/30/[address] [facility] MEDICINE [address] [place], [place] [phone] Name, MD Ernie 230 [place] [address] ER Follow-up Social History Tobacco Use Types [...] encounter Miscellaneous Notes * Telephone Encounter - Kota Moore - 08/30/2023 10:13 AM EDT Patient calling to report ED visit on : Date: 08/24, 08/25, 08/26,08/27,08/28 Hospital: [facility] Conteh Seen for: Seizers Patient advised will forward to team nurse for follow up documented in this encounter Plan of Treatment Upcoming Encounters Date Type Department Care Team (Late st Contact Info) Description 07/28/2024 11:30 AM EST Office Visit [facility] [address] [place] [address] NameErnie MD [address] [place] [address] 08/28/2024 10:15 AM EDT Office Visit [facility] [address] [place] [address] Sasha Coronel CNM [address] [place] [address] documented as of this encounter Visit Diagnoses Not on filedocumented in this encounter Additional Health Concerns Assessment Noted Time PHQ-9 Depression Total Score: 0 10/08/19 11:31 AM EDT documented as of this encounter Care Teams Cognos Lead Relationship Specialty Start Date End Date Ernie Nobles MD [address] [place] [address] PCP - General Family Medicine 01/06/19 Priscilla Helm Cleaner AssistantHydraulic Riveter 10/15/23 documented as of this encounter
[2024-06-23 14:00] LABS: Rheumatoid Factor < 13.0 IU/mL (<15.0)
[2024-06-23 15:23] LABS: Alanine Aminotransferase 9 U/L (0-31); Albumin Level 3.9 g/dL (3.5-5.0); Anion Gap 12 (12-20); Aspartate Amino Transferase 17 U/L (5-31); Bilirubin Total 0.3 mg/dL (0.0-1.0); Blood Urea Nitrogen 9 mg/dL (9-16); Calcium 8.9 mg/dL (8.4-10.2); Carbon Dioxide 25 mmol/L (22-29); Chloride 108 mmol/L (96-108); Estimated Glomerular Filt Rate > 60; Glucose Random 89 mg/dL (60-115); Lipase 12 U/L (8-78); Potassium 4.3 mmol/L (3.3-5.1); Sodium 141 mmol/L (135-145); Total Protein 6.8 g/dL (6.5-8.0)
[2024-06-23 16:07] LABS: Alkaline Phosphatase 80 U/L (39-117)
[2024-06-26 15:55] LABS: Anti Nuclear Antibody Screen NEGATIVE (NEGATIVE)
== END 2024-06-23 10:59 | disposition home or self-care (01) ==
LOC: HO.HHCL 10:58
PROVIDERS: Visit Provider Physical Medicine & Rehabilitation
DX: R10.11 Right upper quadrant pain (principal); M46.1 Sacroiliitis, not elsewhere classified; I26.99 Other pulmonary embolism without acute cor pulmonale
CPT/HCPCS: 36415; 80053; 83690; 86038; 86431

== ENCOUNTER → 2024-07-02 13:50 | Outpatient (BNV) | payer MEDICAID, SELFPAY | PROVIDERS: PCP Internal Medicine Geriatric Medicine; Visit Provider Radiology Diagnostic Radiology | DX: M51.26 Other intervertebral disc displacement, lumbar region (principal) | CPT/HCPCS: 72148 ==

== ENCOUNTER 2024-07-02 13:59 | Outpatient (REF) | payer MEDICAID, SELFPAY ==
--- NOTE | ~2024-07-02 | MR_ITS ---
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 No acute fracture or pathologic bone lesion. Cauda equina and conus medullaris within normal limits. Spinal cord terminates at the T12-L1 level. Mild lower lumbar facet hypertrophy. Mild circumferential disc bulge at L4-5 and L5-S1. The discs remain hydrated. There is no significant central canal, lateral recess or neural foraminal narrowing bilaterally. Paraspinous musculature intact. Simple appearing cyst in the left adnexa, Likely a dominant follicle. IMPRESSION: Mild degenerative change in the lower lumbar spine without evidence of central canal, lateral recess or neural foraminal narrowing. This document has been electronically signed by: Kiersten Oh MD on 07/04/2024 09:18:23
== END 2024-07-02 14:00 | disposition home or self-care (01) ==
LOC: HO.MRI 13:59
PROVIDERS: PCP Internal Medicine Geriatric Medicine; Visit Provider Physical Medicine & Rehabilitation
DX: M51.26 Other intervertebral disc displacement, lumbar region (principal); M46.1 Sacroiliitis, not elsewhere classified
CPT/HCPCS: 72148

== ENCOUNTER 2024-07-20 08:43 | Outpatient (REF) | payer MEDICAID, SELFPAY ==
--- OUTSIDE RECORDS SUMMARY | 2024-07-20 09:09 | XMS_ITS | Encounter Summary ---
Author Organization [employer] Address [address] [place] [address] 7 [place] [address] Care Team Providers Care Wardrobe Manager Name Role Phone Name, Ernie MOE Primary Care Provider [phone] Reason for Visit * Reason Onset Date Comments PT1 11/17/2022 Encounter Details Date Type Department Care Team ([facility] st Contact Info) Description 11/17/2022 Telephone [facility] MEDICINE [address] [place] [address] Name, MD Ernie [address] [place] [address] PT1 Social History Tobacco Use Types Packs/Day [...] / denial letter via mail. PT-1 Request [id number] - [address] [address] * Telephone Encounter - Nila Awad - 11/17/2022 9:20 AM EDT PT1- [facility] Md Areli Date: 12/08/22 Time: 3:15 pm Network Planner Needed: Yes Wheel Chair Access? No documented in this encounter Plan of Treatment Upcoming Encounters Date Type Department Care Team (Late st Contact Info) Description 07/28/2024 11:30 AM EST Office Visit [facility] [place] [facility] [place] [address] Name, MD [facility] [place] [address] 08/28/2024 10:15 AM EDT Office Visit [facility] [place] [facility] [place] [address] [place] [address] documented as of this encounter Visit Diagnoses Not on filedocumented in this encounter Additional Health Concerns Assessment Noted Time PHQ-9 Depression Total Score: 0 10/08/19 11:31 AM EDT documented as of this encounter Care Teams Wardrobe Manager Relationship Specialty Start Date End Date Name, [place] [address] PCP - General Family Medicine 01/06/19 Priscilla Helm J2Ee ProgrammerFishing Boat Mate 10/15/23 documented as of this encounter
--- OUTSIDE RECORDS SUMMARY | 2024-07-20 09:09 | XMS_ITS | Clinical Summary ---
Author Organization [facility] Address [address] [place] [address] Care Team Providers Care Heddle Machine Operator Name Role Phone Name, Ernie MOE Primary Care Provider [phone] Social History Tobacco Use Types Packs/Day Years Used Date Smoking Tobacco: Never Assessed Comments Unknown Sex and Gender Information Value Date Recorded Sex Assigned at Not on file Legal Sex Female 12:20 AM EST Gender Identity Not on file Sexual Orientation [...] patient's age to complete this topic Meningococcal B Vacine Aged Out No lo nger eligible based on patient's age to complete [...] age to complete this topic Care Teams Heddle Machine Operator Relationship Specialty Start Date End Date Name, MD Ernie [address] [place] [address] PCP - General Internal Medicine 03/16/19
--- OUTSIDE RECORDS SUMMARY | 2024-07-20 09:09 | XMS_ITS | Encounter Summary ---
Author Organization [employer] Address [address] [facility] 7t [place] [address] Care Team Providers Care Wire Turning Machine Operator Name Role Phone Name, Ernie MOE Primary Care Provider [phone] Encounter Details Date Type Department Care Team ([facility] st Contact Info) Description 01/13/2023 Telephone [facility] MEDICINE [address] [place], [place] [phone] Name, MD Ernie [address] [place] [address] Social History Tobacco Use Types Packs/Day Years [...] below and advise. Unsure if pt has MEN'S DESIGNER services already established on file, and if so if pt needs a visit prior to renewal. * Telephone Encounter - Karen Pagan - 01/15/2023 11:48 AM EDT Tc from pt requesting a call back regarding MEN'S DESIGNER services. States has been transferred to medical records but they had transferred her back and inform to speak with a nurse . * Telephone Encounter - Karen Pagan - 01/13/2023 11:17 AM EDT Tc from pt requesting a new referral / order to renew workers compensation examiner services . documented in this encounter Plan of Treatment Upcoming Encounters Date Type Department Care Team (Late st Contact Info) Description 07/28/2024 11:30 AM EST Office Visit [facility] MEDICINE [address] [place] [address] Name, MD Ernie [address] [place] [address] 08/28/2024 10:15 AM EDT Office Visit [facility] MEDICINE [address] [place] [address] Sasha Coronel CNM [address] [place] [address] documented as of this encounter Visit Diagnoses Not on filedocumented in this encounter Additional Health Concerns Assessment Noted Time PHQ-9 Depression Total Score: 0 10/08/19 23 11:31 AM EDT documented as of this encounter Care Teams Wire Turning Machine Operator Relationship Specialty Start Date End Date Name, MD Ernie [address] [place] [address] PCP - General Family Medicine 01/06/19 Priscilla Helm Caterers HelperComposition Roofer 10/15/23 documented as of this encounter
--- OUTSIDE RECORDS SUMMARY | 2024-07-20 09:09 | XMS_ITS | Encounter Summary ---
Author Organization [employer] Address [address] [facility] 7t [place] [address] Care Team Providers Care Building Drafter Name Role Phone Name, Ernie MOE Primary Care Provider [phone] Encounter Details Date Type Department Care Team ([facility] Contact Info) Description 06/23/2024 Orders Only GENERIC EXTERNAL DATA DEPARTMENT Provider, Generic External Data Social History Tobacco Use Types Packs/Day Years [...] Description 07/28/2024 11:30 AM EST Office Visit [address] [phone] Name, MD Ernie [address] [place] [address] 08/28/2024 10:15 AM EDT Office Visit [address] [address] Sasha Coronel CNM [address] [place] [address] documented as of this encounter Goals Goal Patient Goal Type Associated Problems Recent Progress Patient-Stated? Author Patient will adhere to medication regimen General Evelyn Xavier documented as of this encounter Procedures Procedure Name Priority Date/Time Associated Diagnosis Comments CANCELLED COAG Routine 06/23/2024 11:00 AM EST CANCELLED HEMATOLOGY Routine 06/23/2024 11:00 AM EST documented in this encounter Results * Cancelled Hematology (06/23/2024 11:00 AM EST) Cancelled Hematology SEE NOTE [facility] Comment:CBC CANCELLED, NO SP ECIMEN RECEIVED 06/23/2024 11:0 0 AM EST 06/23/2024 7:09 PM EST us Generic External Data Provider HISTORICAL/NON OR DERABLE LABS Final Result Performing Organization Address [facility] Co de Phone Number [facility] [address] [place] [address] [phone] * Cancelled Coag (06/23/2024 11:00 AM EST) Cancelled Coag SEE NOTE [facility] Comment:DDIMER CANCELLED, NO SPECIMEN RECEIVED 06/23/2024 11:0 0 AM EST 06/23/2024 7:09 PM EST us Generic External Data Provider HISTORICAL/NON OR DERABLE LABS Final Result Performing Organization Address [facility] de Phone Number [facility] [address] [place] [address] [phone] documented in this encounter Visit Diagnoses Not on filedocumented in this encounter Additional Health Concerns Assessment Noted Time PHQ-9 Depression Total Score: 0 10/29/19 24 10:28 AM EDT documented as of this encounter Care Teams Building Drafter Relationship Specialty Start Date End Date Name, MD Ernie [address] [place] [address] PCP - General Family Medicine 01/06/19 Priscilla Helm Chairman Of The BoardProduction Officer 10/15/23 documented as of this encounter
--- OUTSIDE RECORDS SUMMARY | 2024-07-20 09:09 | XMS_ITS | Encounter Summary ---
Author Organization [employer] Address 75 [facility] 7t [place] [address] Care Team Providers Care Purchasing/Receiving Name Role Phone Name, Ernie MOE Primary Care Provider [phone] Encounter Details Date Type Department Care Team ([facility] Contact Info) Description 07/02/2024 Orders Only [facility] External Provider, [facility] Social History Tobacco Use Types Packs/Day Years [...] Description 07/28/2024 11:30 AM EST Office Visit [facility] [address] [place] [address] Name, MD Ernie [address] [place] [address] 08/28/2024 10:15 AM EDT Office Visit [address] [address] Sasha Coronel CNM [address] [place] [address] documented as of this encounter Goals Goal Patient Goal Type Associated Problems Recent Progress Patient-Stated? Author Patient will adhere to medication regimen General Evelyn Xavier documented as of this encounter Procedures Procedure Name Priority Date/Time Associated Diagnosis Comments MR LUMBAR SPINE WO CONTRAST Routine 07/04/2024 9:18 AM EST documented in this encounter Results * MR Lumbar Spine w/o Contrast (07/04/2024 9:18 AM EST) Anatomical Region Laterality Modality Spine, L-spine Magnetic Resonan ce 07/04/2024 9:18 AM EST Narrative 07/04/2024 9:19 AM EST ? [facility] ?[address] ?[place] [address] ? Magnetic Resonance Report ? Signed ? Patient: Zev,Jihan S ?MR#: [id number] ?? [id number] ? : 1985 ?Acct:[id number] ? Age/Sex: 38 / F ?ADM Date: 02/02/25 ? Loc: HO.MRI ? Attending Dr: Carol Mccain MD ? Ordering Physician: Carol Andrea ?? Date of Service: 07/02/24 ?? Procedure(s): MR lumbar spine wo con ?? Accession Number(s): [id number] ? cc: Name,Ernie MOE; Carol Andrea ? 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 MR lumbar spine without gadolinium ? Comparison: MR - MRI LUMBAR SPINE [id number] - 01/01/20 08:47 EDT ? Findings: ?? Normal alignment. ?? No acute fracture or pathologic bone lesion. ?? Cauda equina and conus medullaris within normal limits. Spinal cord ?? terminates at the T12-L1 level. ? Mild lower lumbar facet hypertrophy. Mild circumferential disc bulge at ?? L4-5 and L5-S1. The discs remain hydrated. There is no significant central ?? canal, lateral recess or neural foraminal narrowing bilaterally. ?? Paraspinous musculature intact. ?? Simple appearing cyst in the left adnexa, Likely a dominant follicle. ? IMPRESSION: ?? Mild degenerative change in the lower lumbar spine without evidence of ?? central canal, lateral recess or neural foraminal narrowing. ? This document has been electronically signed by: Kiersten Oh MD on ?? 07/04/2024 09:18:23 ? Dictated By: ?Kiersten Oh MD ? Signed By: ?<Electronically signed by Kiersten Oh MD in OV> ?07/04/24918 ? DD/ 7 ? TD/TT: 07/04/24917 ? Customer Support Coordinator: ? Procedure Note Keila Ybarra - 07/04/[address] [address] Magnetic Resonance Report Signed Patient: Jihan Brothers [facility]#: [id number] : 1985Acct:[id number] Age/Sex: 38 / FADM Date: 07/02/24 Loc: HO.MRI Attending Dr: Carol Mccain MD Ordering Physician: Carol Andrea Date of Service: 07/02/24 Procedure(s): MR lumbar spine wo con Accession Number(s): [id number] cc: Name,Ernie MOE; Carol Andrea CLINICAL HISTORY: M51.26 - Other intervertebral disc displacement, lumbarregion MR lumbar spine without gadolinium Comparison: MR - MRI LUMBAR SPINE [id number] - 01/01/20 08:47 EDT Findings: Normal alignment. No acute fracture or pathologic bone lesion. Cauda equina and conus medullaris within normal limits. Spinal cord terminates at the T12-L1 level. Mild lower lumbar facet hypertrophy. Mild circumferential disc bulge at L4-5 and L5-S1. The discs remain hydrated. There is no significant central canal, lateral recess or neural foraminal narrowing bilaterally. Paraspinous musculature intact. Simple appearing cyst in the left adnexa, Likely a dominant follicle. IMPRESSION: Mild degenerative change in the lower lumbar spine without evidence of central canal, lateral recess or neural foraminal narrowing. This document has been electronically signed by: Kiersten Oh MD on 07/04/2024 09:18:23 Dictated By: Kiersten Oh MD Signed By: <Electronically signed by Kiersten Oh MD in OV> 07/04/24918 DD/ 7 TD/TT: 07/04/24917 Customer Support Coordinator: [facility] External Provider IMG MRI PROCEDURES Edited Result - Final documented in this encounter Visit Diagnoses Not on filedocumented in this encounter Additional Health Concerns Assessment Noted Time PHQ-9 Depression Total Score: 0 10/29/19 24 10:28 AM EDT documented as of this encounter Care Teams Purchasing/Receiving Relationship Specialty Start Date End Date Name, MD Ernie [address] [place] [address] PCP - General Family Medicine 01/06/19 Priscilla Helm Glass Tube BenderPharmacology Professor 10/15/23 documented as of this encounter
--- OUTSIDE RECORDS SUMMARY | 2024-07-20 09:09 | XMS_ITS | Encounter Summary ---
Author Organization [employer] Address 75 [facility] 7t [place] [address] Care Team Providers Care Machine Ceramic Coater Name Role Phone Name, Ernie MOE Primary Care Provider [phone] Reason for Visit * Reason Onset Date Comments ER Follow-up 04/14/2024 Encounter Details Date Type Department Care Team ([facility] Contact Info) Description 04/14/2024 Telephone [facility] MEDICINE [address] [place], [place] [phone] Name, MD Ernie [address] [place] [address] ER Follow-up Social History Tobacco Use Types [...] ED visit on : Date: 04/13/24 Hospital: [facility] ED Seen for: Seizures Pt requesting for provider to go over lab work that was done at [facility] . Feelbritney Roberts's at ED did not go over them and she seen her Kidney levels were off. documented in this encounter Plan of Treatment Upcoming Encounters Date Type Department Care Team (Late st Contact Info) Description 07/28/2024 11:30 AM EST Office Visit [address] [address] Name, MD Ernie [address] [place] [address] 08/28/2024 10:15 AM EDT Office Visit [address] [address] Sasha Coronel CNM [address] [place] [address] documented as of this encounter Goals Goal Patient Goal Type Associated Problems Recent Progress Patient-Stated? Author Patient will adhere to medication regimen General No Evelyn Levine documented as of this encounter Visit Diagnoses Not on filedocumented in this encounter Additional Health Concerns Assessment Noted Time PHQ-9 Depression Total Score: 0 10/29/19 24 10:28 AM EDT documented as of this encounter Care Teams Machine Ceramic Coater Relationship Specialty Start Date End Date Name, MD Ernie [address] [place] [address] PCP - General Family Medicine 01/06/19 Priscilla Helm Three Knife TrimmerWater Tender 10/15/23 documented as of this encounter
--- OUTSIDE RECORDS SUMMARY | 2024-07-20 09:09 | XMS_ITS | Encounter Summary ---
Author Organization [employer] Address 75 [facility] 7t [place] [address] Care Team Providers Care Gas Meter Checker Name Role Phone Name, Ernie MOE Primary Care Provider Reason for Visit * Reason Onset Date Comments Call Back Request 07/06/2023 Encounter Details Date Type Department Care Team ([facility] Contact Info) Description 07/06/2023 Telephone [facility] MEDICINE [address] [place], [place] [phone] Name, MD Ernie [address] [place] [address] Call Back Request Social History Tobacco Use [...] [facility]. Pt states she will no longer see this provider because of how he talks to people. RN suggested that pt contact [facility] to request another provider. Pt declined. States she does not want to be seen at that practice. [facility] Advised request will besent to pcp for review. * Telephone Encounter - Juliana Hernandez - 07/06/2023 2:13 PM EST Tc from pt requesting to speak with a nurse in regards to neurologist. No other information provided. Please contact pt at [phone] documented in this encounter Plan of Treatment Upcoming Encounters Date Type Department Care Team (Late st Contact Info) Description 07/28/2024 11:30 AM EST Office Visit [facility] MEDICINE [address] [place] [address] Name, MD Ernie [address] [place] [address] 08/28/2024 10:15 AM EDT Office Visit [facility]INE [address] [place] [address] Sasha Coronel CNM [address] [place] [address] documented as of this encounter Visit Diagnoses Not on filedocumented in this encounter Additional Health Concerns Assessment Noted Time PHQ-9 Depression Total Score: 0 10/08/19 23 11:31 AM EDT documented as of this encounter Care Teams Gas Meter Checker Relationship Specialty Start Date End Date Name, MD Ernie [address] [place] [address] PCP - General Family Medicine 01/06/19 Priscilla Helm Concrete Engineering TechnicianHyperion Essbase Developer 10/15/23 documented as of this encounter
--- OUTSIDE RECORDS SUMMARY | 2024-07-20 09:09 | XMS_ITS | Encounter Summary ---
Author Organization [employer] Address 75 [facility] 7t [place] [address] Care Team Providers Care Digester Cook Name Role Phone Name, Erine MOE Primary Care Provider [phone] Encounter Details Date Type Department Care Team ([facility] st Contact Info) Description 06/30/2023 Abstract [facility] MEDICINE [address] [place] [address] Name, MD Ernie [address] [place] [address] Social History Tobacco Use Types Packs/Day Years [...] the past 12 months, has t he [employer], [employer], oil or water [employer] threatened to shut off services in your [...] Description 07/28/2024 11:30 AM EST Office Visit [address] [address] Name, MD Ernie [address] [place] [address] 08/28/2024 10:15 AM EDT Office Visit [address] [address] Sasha Coronel CNM [address] [place] [address] documented as of this encounter Visit Diagnoses Not on filedocumented in this encounter Additional Health Concerns Assessment Noted Time PHQ-9 Depression Total Score: 0 10/08/19 23 11:31 AM EDT documented as of this encounter Care Teams Digester Cook Relationship Specialty Start Date End Date Name, MD Ernie [address] [place] [address] PCP - General Family Medicine 01/06/19 Priscilla Helm Manufacturing DirectorDental Office Manager 10/15/23 documented as of this encounter
--- OUTSIDE RECORDS SUMMARY | 2024-07-20 09:09 | XMS_ITS | Encounter Summary ---
Author Organization [employer] Address 75 [facility] 7 [place] [address] Care Team Providers Care Asset Management Coordinator Name Role Phone Name, Ernie MOE Primary Care Provider [phone] Reason for Visit * Reason Onset Date Comments Prior Authorization 07/12/2024 Zepbound Encounter Details Date Type Department Care Team ([facility] Contact Info) Description 07/12/2024 Telephone [facility] MEDICINE 230 [place], [place] [phone] Name, MD Ernie [address] [place] [address] Prior Authorization (Zepbound) Social History Tobacco Use Types Packs/Day Years [...] encounter Miscellaneous Notes * Telephone Encounter - Lourdes Arrington - 07/18/2024 10:39 AM EST PA approval received for Zepbound. Scanned into [employer]. * Addendum Note - Ernie Mcintosh MD - 07/12/2024 2:02 PM ESTAddended by: ERNIE MCINTOSH on: 07/12/2024 02:02 PM Modules accepted: Orders * Telephone Encounter - Ernie Mcintosh MD - 07/12/2024 2:02 PM EST done * Telephone Encounter - Lourdes Arrington - 07/12/2024 1:58 PM EST Please send rx for Zepbound. MH requires updated med list. Thank you * Telephone Encounter - Lourdes Arrington - 07/12/2024 9:59 AM EST PA req form for Zepbound generated, signed and faxed to [facility] on 07/11/24. Confirmation received and sent to scan. If patient calls to check status on above, please advise them to contact Pharmacy . documented in this encounter Plan of Treatment Upcoming Encounters Date Type Department Care Team (Late st Contact Info) Description 07/28/2024 11:30 AM EST Office Visit [address] [address] Name, MD Ernie [address] [place] [address] 08/28/2024 10:15 AM EDT Office Visit [address] [phone] Sasha Coronel CNM [address] [place] [phone] documented as of this encounter Goals Goal Patient Goal Type Associated Problems Recent Progress Patient-Stated? Author Patient will adhere to medication regimen General Evelyn Xavier documented as of this encounter Visit Diagnoses Not on filedocumented in this encounter Additional Health Concerns Assessment Noted Time PHQ-9 Depression Total Score: 0 10/29/19 24 10:28 AM EDT documented as of this encounter Care Teams Asset Management Coordinator Relationship Specialty Start Date End Date NameErnie MD [address] [place] [address] PCP - General Family Medicine 01/06/19 Priscilla Helm Substation Operator TransformingPower Shovel Operator Helper 10/15/23 documented as of this encounter
--- OUTSIDE RECORDS SUMMARY | 2024-07-20 09:09 | XMS_ITS | Encounter Summary ---
Author Organization [employer] Address 75 [facility] 7t [place] [address] Care Team Providers Care Contaminated Land Consultant Name Role Phone Name, Ernie OME Primary Care Provider [phone] Reason for Visit * Reason Onset Date Comments Med Refill 07/30/2023 Encounter Details Date Type Department Care Team ([facility] st Contact Info) Description 07/30/2023 Refill [facility] MEDICINE 230 [place], [place] [phone] Name, MD Ernie [address] [place] [address] Social History Tobacco Use Types Packs/Day Years [...] Description 07/28/2024 11:30 AM EST Office Visit [address] [address] Ernie Nobles MD [address] [place] [address] 08/28/2024 10:15 AM EDT Office Visit [address] [address] Sasha Coronel CNM [address] [place] [address] documented as of this encounter Visit Diagnoses Not on filedocumented in this encounter Additional Health Concerns Assessment Noted Time PHQ-9 Depression Total Score: 0 10/08/19 23 11:31 AM EDT documented as of this encounter Care Teams Contaminated Land Consultant Relationship Specialty Start Date End Date Ernie Nobles MD [address] [place] [address] PCP - General Family Medicine 01/06/19 Priscilla Helm Filament MakerPark Warden 10/15/23 documented as of this encounter
--- OUTSIDE RECORDS SUMMARY | 2024-07-20 09:10 | XMS_ITS | Encounter Summary ---
Author Organization [employer] Address 75 [facility] 7t [place] [address] Care Team Providers Care Fine Grade Bulldozer Operator Name Role Phone Name, Ernie MOE Primary Care Provider [phone] Reason for Visit * Reason Comments Med Refill Encounter Details Date Type Department Care Team ([facility] Contact Info) Description 03/20/2024 Refill [facility] MEDICINE [address] [place], [place] [phone] Name, MD Ernie [address] [place] [address] Social History Tobacco Use Types Packs/Day Years [...] Description 07/28/2024 11:30 AM EST Office Visit [address] [address] Name, MD Ernie [address] [place] [address] 08/28/2024 10:15 AM EDT Office Visit [address] [address] Sasha Coronel CNM [address] [place] [address] documented as of this encounter Goals Goal Patient Goal Type Associated Problems Recent Progress Patient-Stated? Author Patient will adhere to medication regimen General Evelyn Xavier documented as of this encounter Visit Diagnoses Not on filedocumented in this encounter Additional Health Concerns Assessment Noted Time PHQ-9 Depression Total Score: 0 10/29/19 24 10:28 AM EDT documented as of this encounter Care Teams Fine Grade Bulldozer Operator Relationship Specialty Start Date End Date Name, MD Ernie [address] [place] [address] PCP - General Family Medicine 01/06/19 Priscilla Helm Therapeutic SpecialistBuilding Specialist 10/15/23 documented as of this encounter
--- OUTSIDE RECORDS SUMMARY | 2024-07-20 09:10 | XMS_ITS | Encounter Summary ---
Author Organization [employer] Address 75 [facility] 7t [place] [address] Care Team Providers Care Director Speech Name Role Phone Name, Ernie MOE Primary Care Provider [phone] Reason for Visit * Reason Comments Med Refill Encounter Details Date Type Department Care Team ([facility] Contact Info) Description 04/22/2023 Refill [facility] [address] [place] [phone] Ministerio Vasques MD [address] [place] [address] Right wrist pain Social History Tobacco Use [...] Description 07/28/2024 11:30 AM EST Office Visit [facility] MEDICINE [address] [place] [address] NameErnie MD [address] [place] [address] 08/28/2024 10:15 AM EDT Office Visit [facility] MEDICINE [address] [place] [address] Sasha Coronel CNM [address] [place] [address] documented as of this encounter Visit Diagnoses Diagnosis Right wrist pain Pain in joint, forearm documented in this encounter Additional Health Concerns Assessment Noted Time PHQ-9 Depression Total Score: 0 10/08/19 23 11:31 AM EDT documented as of this encounter Care Teams Director Speech Relationship Specialty Start Date End Date Ernie Nobles MD [address] [place] [address] PCP - General Family Medicine 01/06/19 Priscilla Helm Curb SetterEnvironmental Planner 10/15/23 documented as of this encounter
--- OUTSIDE RECORDS SUMMARY | 2024-07-20 09:10 | XMS_ITS | Clinical Summary ---
Author Organization [employer] Address [address] [facility] [address] [place] [address] Care Team Providers Care Payroll Officer Name Role Phone Name, Ernie MOE Primary Care Provider [phone] Allergies Active Allergy Reactions Criticality Noted Date Comments [place] Flavoring Agent (Non-Screening) 12/26/2018 [place] Pollen Allergy Skin Test 12/26/2018 Codeine High 03/16/2016 Other 07/01/2023 mayonnaise and all nuts except peanuts Medications * This document contains information received from the source organization and may not represent a complete record from that organization. [facility] ([facility]ulse [facility] [place] Use as directed 12/23/19 22 Active albuterol 108 (90 Base) MCG/ACT inhaler inhale 2 puff by inhalation route every 4 - 6 hours as needed 09/09/19 22 Active lidocaine (Lidoderm) 5 % patch apply 1 patch by transdermal route every day (May wear up to 12hours.) 04/22/20 21 Active albuterol (2.5 MG/3ML) 0.083% nebulizer solution inhale 3 milliliter by nebulization route 3 times every day prn SOB/asthma 07/19/19 20 Active lidocaine (Xylocaine) 5 % ointment Apply topically if needed for mild pain. Active Blood Pressure kit Active FLUoxetine (PROzac) 10 MG capsule Take 1 capsule by mouth Once daily. 05/07/20 23 Active folic acid (Folvite) 1 MG tablet Take 1 tablet by mouth in the morning. 01/21/20 23 Active hydrOXYzine HCl (Atarax) 25 MG tablet Take 1 tablet by mouth if needed in the morning and at bedtime for anxiety. 05/07/20 23 Active prazosin (Minipress) 2 MG capsule Take 1 capsule by mouth at bedtime. 05/07/20 23 Active Diclofenac Sodium 1 % gelIndications:Ri ght wrist pain Apply to the affected area up to 4x/day prn 100 g 1 09/14/19 24 Active EPINEPHrine (Epipen) 0.3 MG/0.3ML injection syringe inject 0.3 milliliter by intramuscular route once as needed for anaphylaxis 2 each 1 09/14/19 24 Active levETIRAcetam (Keppra) 500 MG tablet TAKE 1 TABLET BY MOUTH TWICE DAILY IN THE MORNING AND IN THE EVENING (WITH 1,000 MG TABLET) 60 tablet 3 02/17/20 24 Active levETIRAcetam (Keppra) 1000 MG tablet TAKE 1 TABLET BY MOUTH TWICE DAILY IN THE MORNING AND IN THE EVENING 180 tablet 2 03/06/20 24 Active loratadine (Claritin) 10 MG tablet Take 1 tablet (10 mg) by mouth in the morning. 90 tablet 1 03/09/20 24 Active SUMAtriptan (Imitrex) 50 MG tabletIndications :Intractable migraine without aura and without status migrainosus TAKE 1 TABLET BY MOUTH AT ONSET OF MIGRAINE. MAY REPEAT ONCE AFTER 2 HOURS IF NEEDED, DO NOT EXCEED 4 TABLETS IN 24 HOURS 20 tablet 1 05/17/20 24 Active nortriptyline (Pamelor) 25 MG capsule Take 25 mg by mouth at bedtime. 03/21/20 24 Active lacosamide (Vimpat) 150 mg tablet tablet Take 1 tablet (150 mg) by mouth 2 times daily. 60 tablet 05/29/20 24 Active fluticasone (Flonase) 50 MCG/ACT nasal spray INSTILL 2 SPRAYS IN EACH NOSTRIL ONCE DAILY 48 g 06/01/19 25 Active famotidine (Pepcid) 20 MG tablet Take 1 tablet (20 mg) by mouth 2 times daily. 60 tablet 11 06/14/19 25 026 Active esomeprazole (NexIUM) [address] capsule take 1 capsule by oral route every day 90 capsule 06/14/19 25 Active ondansetron ODT (Zofran-ODT) 4 MG disintegrating tablet Take 1 tablet (4 mg) by mouth every 8 (eight) hours if needed for vomiting or nausea. 20 tablet 06/14/19 25 Active topiramate (Topamax) 100 MG tabletIndications :Bipolar 1 disorder (CMS/HCC),Chronic low back pain with right-sided sciatica, unspecified back pain laterality,Histor y of pulmonary embolus (PE),Morbid obesity (CMS/HCC),Screeni ng for diabetes mellitus,Screenin g for cholesterol level TAKE 1 TABLET BY MOUTH TWICE DAILY IN THE MORNING AND IN THE EVENING 60 tablet 06/20/19 25 Active Tirzepatide-Weigh t Management (Zepbound) 5 MG/0.5ML solution auto-injector Inject 0.5 mL (5 mg) under the skin 1 (one) time per week. 2 mL 3 07/12/19 25 026 Active apixaban (Eliquis) 5 MG tablet take 1 tablet by oral route 2 times every day 09/02/19 22 025 Discontin ued(Thera py completed ) Semaglutide-Weigh t Management (Wegovy) 2.4 MG/0.75ML solution auto-injector Inject 2.4 mg under the skin 1 (one) time per week. 3 mL 11 03/20/20 24 025 Discontin ued(Thera py completed ) Active Problems Problem Noted Date Diagnosed Date [...] connected to a therapist and psychiatrist thru [facility]. Patient reports seizures were not mental health related. At this time Jihan Brothers meets criteria for Visit Diagnoses: Problem List Items Addressed This Visit Other Depressive disorder Bipolar 1 disorder (CMS/HCC) Patient ready to address current needs No, patient has services in place Strengths include: none identified PLAN: 1. Follow up with [facility]: Not recommended for follow-up 2. Patient goal [...] still in on it now. [place] [facility] [place] Assessment & Plan (05/29/2024 6:13 AM EST): - [place] [facility], recently - continue apixaban Chronic low [...] but discontinue Trileptal -EEG with neurologist is [place] is yet to be scheduled by patient -Look into PT-1 transportation service Encounters Date Type Department Care Team Description 07/12/2024 Telephone [facility] [place] [address] Ernie Nobles MD Prior Authorization (Zepbound) 07/02/2024 Orders Only [facility] External Provider, [facility] 06/23/2024 Orders Only GENERIC EXTERNAL DATA DEPARTMENT Provider, Generic External Data 06/22/2024 Telephone [facility] [place] [address] Ernie Nobles MD Results (Patient walked in stating Dr. Odonnell remove the medication Eliquis. Patient wanted her pcp to know about it. ) 06/21/2024 Orders Only [facility] [place] [address] Ernie Nobles MD 06/20/2024 Refill [facility] MED & PEDS [address] [place], [place] [phone] Ernie Nobles MD Bipolar 1 disorder (CMS/HCC); Chronic low back pain with right-sided sciatica, unspecified back pain laterality; History of pulmonary embolus (PE); Morbid obesity (CMS/HCC); Screening for diabetes mellitus; Screening for cholesterol level 06/16/2024 Travel 06/14/2024 10:00 AM EST Office Visit [facility] [place], [place] [phone] Kruger, Alexxis, TAXI SERVICER Seizure disorder ([facility]/HCC) (Primary Dx); Right upper quadrant abdominal pain; Right lower quadrant pain; Seasonal allergic rhinitis, unspecified trigger 06/14/2024 Travel 06/06/2024 Telephone [facility] [place] [address] Ernie Nobles MD Chart Prep 06/05/2024 Patient Outreach [address] [phone] Ernie Nobles MD Transition Of Care (Tcm) 06/01/[address] [phone] Ernie Nobles MD Nurse Triage; Referral 05/31/[address] [address] Ernie Nobles MD 05/25/2024 Telephone [facility] MEDICINE [address] [place] [address] Luis Manuel Ahn MA feb recall 05/23/2024 9:30 AM EST Office Visit [facility] MEDICINE [address] [place] [phone] Katie Zamora MD Seizure (CMS/HCC) (Primary Dx); Right lower quadrant pain; Factor XI deficiency (CMS/HCC); Dietary counseling; Exercise counseling; Class 3 severe obesity with serious comorbidity and body mass index (BMI) of 40.0 to 44.9 in adult, unspecified obesity type (CMS/HCC); History of pulmonary embolism; Iron deficiency anemia, unspecified iron deficiency anemia type 05/23/2024 Travel 05/22/2024 Refill [facility] [address] [place] [address] Ernie Nobles MD Bipolar 1 disorder (CMS/HCC); Chronic low back pain with right-sided sciatica, unspecified back pain laterality; History of pulmonary embolus (PE); Morbid obesity (CMS/HCC); Screening for diabetes mellitus; Screening for cholesterol level 05/21/2024 Refill [facility] MEDICINE [address] [place] [phone] Ernie Nobles MD 05/16/2024 Refill [facility] WALK-IN CENTER [address] [place] [phone] Ernie Nobles MD Intractable migraine without aura and without status migrainosus 05/11/2024 Telephone [facility] MEDICINE [address] [place] [phone] Verónica Valverde RN 05/11/2024 Patient Outreach [address] [address] Ernie Nobles MD Transition Of Care (Tcm) (HDF- scheduled and SDOH screening negative and Tobacco screening negative) 05/11/2024 Orders Only GENERIC EXTERNAL DATA DEPARTMENT Provider, Generic External Data 05/10/2024 Orders Only GENERIC EXTERNAL DATA DEPARTMENT Provider, Generic External Data 04/20/2024 Telephone [facility] MEDICINE [address] [place] [phone] April Blandon MA CHART PREP 04/19/2024 Telephone [facility] [address] [facility] [place] [address] Name, MD Ernie Referral from Last 3 Months Immunizations Name Administration [...] 07/28/2024 11:30 AM EST Office Visit [facility] MEDICINE [address] [place] [phone] Name, MD Ernie [address] [place] [phone] 08/28/2024 10:15 AM EDT Office Visit [facility] MEDICINE [address] [place] [phone] Sasha Coronel CNM [address] [place] [phone] Health Maintenance Due Date Last Done Comments HIV Screening 1985 Hepatitis C Screening 11/04/2005 Hepatitis B Vaccines (2 of 3 - 19+ 3-dose series) 11/26/2023 10/29/2023 COVID-19 Vaccine (2023- season) 2024 07/30/2022, 07/18/2021, 05/07/2021, Additional history [...] 5 Years) and At-Risk Patients (6 to 49) Years) Completed 10/29/2023, 10/23/2018 Influenza Vaccine Completed [...] to medication regimen General No Evelyn Levine Procedures Procedure Name Priority Date/Time Associated Diagnosis Comments MR LUMBAR SPINE WO CONTRAST Routine 07/04/2024 9:18 AM EST ECG 12-LEAD Routine 06/29/2024 3:07 PM EST Seizure disorder (CMS/HCC) COMPREHENSIVE METABOLIC PANEL Routine 06/23/2024 11:30 AM EST Right upper quadrant abdominal pain LIPASE Routine 06/23/2024 11:30 AM EST Right upper quadrant abdominal pain CANCELLED HEMATOLOGY Routine 06/23/2024 11:00 AM EST CANCELLED COAG Routine 06/23/2024 11:00 AM EST TSH W/REFLEX TO FT4 Routine 06/14/2024 1 [...] AUTO DIFFERENTIAL Routine 05/10/2024 7:59 PM EST LIPID PANEL, STANDARD Routine 07/22/2022 12:08 PM EST Bipolar 1 disorder (CMS/HCC) Chronic low back pain with right-sided sciatica, unspecified back pain laterality History of pulmonary embolus (PE) Morbid obesity (CMS/HCC) Screening for diabetes mellitus Screening for cholesterol level from Last 3 Months or Most Recently Relevant to Health Maintenance Results * MR Lumbar Spine w/o Contrast (07/04/2024 9:18 AM EST) Anatomical Region Laterality Modality Spine, L-spine Magnetic Resonan ce 07/04/2024 9:18 AM EST Narrative 07/04/2024 9:19 AM EST ? [facility] ?[address] ?[place] [address] ? Magnetic Resonance Report ? Signed ? Patient: Zev,Jihan S ?MR#: [id number] ?? [id number] ? : 1985 ?Acct:[id number] ? Age/Sex: 38 / F ?ADM Date: 07/02/24 ? Loc: HO.MRI ? Attending Dr: Carol Mccain MD ? Ordering Physician: Carol Andrea ?? Date of Service: 07/02/24 ?? Procedure(s): MR lumbar spine wo con ?? Accession Number(s): [id number] ? cc: Name,Ernie MOE; Carol Andrea ? 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 MR lumbar spine without gadolinium ? Comparison: MR - MRI LUMBAR SPINE [id number] - 01/01/20 08:47 EDT ? Findings: ?? [...] signed by Kiersten Oh MD in OV> ?07/04/24 0919 ? DD/ 0918 ? TD/TT: 07/04/24 0918 ? Warp Tier: ? Procedure Note Keila Ybarra - 07/04/[address] [place] [address] Magnetic Resonance Report Signed Patient: Jihan Brothers [facility]#: [id number] : 1985Acct:[id number] Age/Sex: 38 / FADM Date: 07/02/24 Loc: HO.MRI Attending Dr: Carol Mccain MD Ordering Physician: Carol Andrea Date of Service: 07/02/24 Procedure(s): MR lumbar spine wo con Accession Number(s): [id number] cc: Name,Ernie MOE; Carol Andrea CLINICAL HISTORY: M51.26 - Other intervertebral disc displacement, lumbarregion MR lumbar spine without gadolinium Comparison: MR - MRI LUMBAR SPINE 24011 - 01/01/20 08:47 EDT Findings: Normal alignment. [...] in OV> 07/04/24918 DD/ 7 TD/TT: 07/04/24917 Warp Tier: [facility] External Provider IMG MRI PROCEDURES Edited Result - Final * ECG 12 lead (06/29/2024 3:07 PM EST) Narrative Juan F Kruger CNP - 06/29/2024 3:07 PM EST NSR, Rate: 86 bpm, normal axis, no ST segment changes, no QT prolongation Juan F Kruger CNP ECG ORDERABLES Final Res ult * Lipase (06/23/2024 11:30 AM EST) Only the most recent of2 resultswithin the time period is included. Lipase 12 8 - 78 U/L [facility] Blood Venous blood specimen / Unknown 06/23/2024 11:30 AM EST 06/23/2024 2:56 PM EST Juan F Kruger [facility] LAB BLOOD ORDERABLES Colleen l Result [facility] [address] [place] [phone] * Comprehensive Metabolic Panel (06/23/2024 11:30 AM EST) Only the most recent of2 resultswithin the time period is included. Sodium 141 135 - 145 mmol/L [facility] Potassium 4.3 3.3 - 5.1 mmol/L [facility] Chloride 108 96 - 108 mmol/L [facility] Carbon Dioxide 25 22 - 29 mmol/L [facility] Anion Gap 12 12 - 20 [facility] Urea Nitrogen (BUN) 9 9 - 16 mg/dL [facility] Creatinine, Serum 0.69 0.5 - 1.4 mg/dL [facility] Estimated Glomerular Filt Rate >60 [facility] Comment:Chronic Kidney Disea se: Estimated GFR < 60 mL/min/1.79c6Spcyri Kidney Disease: Estimated GFR < 15 mL/min/1.73m2 Glucose 89 60 - 115 mg/dL [facility] Calcium 8.9 8.4 - 10.2 mg/dL [facility] Bilirubin, Total 0.3 0.0 - 1.0 mg/dL [facility] Aspartate Amino Transferase 17 5 - 31 U/L [facility] Alanine Aminotransferase 9 0 - 31 U/L [facility] Total Protein 6.8 6.5 - 8.0 g/dL [facility] Albumin Level 3.9 3.5 - 5.0 g/dL [facility] Alkaline Phosphatase 80 39 - 117 U/L [facility] Blood Venous blood specimen / Unknown 06/23/2024 11:30 AM EST 06/23/2024 2:56 PM EST us Juan F Kruger [facility] LAB BLOOD ORDERABLES Colleen l Result Performing Organization Address [facility] Co de Phone Number [facility] [address] [place] [phone] * Cancelled Coag (06/23/2024 11:00 AM EST) Cancelled Coag SEE NOTE [facility] Comment:DDIMER CANCELLED, NO SPECIMEN RECEIVED 06/23/2024 11:0 0 AM EST 06/23/2024 7:09 PM EST Generic External Data Provider HISTORICAL/NON OR DERABLE LABS Final Result Performing Organization Address [facility] Co de Phone Number [facility] [address] [place] [phone] * Cancelled Hematology (06/23/2024 11:00 AM EST) Cancelled Hematology SEE NOTE [facility] Comment:CBC CANCELLED, NO SP ECIMEN RECEIVED 06/23/2024 11:0 0 AM EST 06/23/2024 7:09 PM EST Generic External Data Provider HISTORICAL/NON OR DERABLE LABS Final Result Performing Organization Address [facility] de Phone Number [facility] [address] [place] [phone] * TSH W/Reflex to FT4 (06/14/2024 11:14 AM EST) TSH reflex Free T4 0.44 0.32 - 4.0 uIU/mL [facility] Blood Venous blood specimen / Unknown 06/14/2024 11:14 AM EST 06/14/2024 1:02 PM EST us Sasha [facility] LAB BLOOD ORDERABLES Colleen l Result Performing Organization Address [facility]/ZIP Co de Phone Number [facility] [address] [place] [phone] * (ABNORMAL) Urinalysis, Complete, with Reflex to Culture (05/11/2024 12:30 AM EST) Color Urine Yellow [facility] Appearance Urine Clear [facility] PH 5.5 5.0 - 9.0 [facility] Glucose Urine UA Negative Negative mg/dL [facility] Urine Blood Trace(A) Negative [facility] Specific [place] - Urine >=1.030(H) 1.005 - 1.025 [facility] Urine Protein Negative Neg-Trace mg/dL [facility] Urine Ketones 40 Negative mg/dL [facility] Nitrite Urine Negative Negative [facility] Leukocyte Esterase Urine Negative Negative [facility] RBC Urine 0-2 0 - 2 /HPF [facility] Urine WBC 0-5 0 - 5 /HPF [facility] Urine Squamous Epithelial Cell 0-2 0 - 2 /HPF [facility] Urine Bacteria None Seen None Seen [facility] Hyaline Casts, Urine 0-2 0 - 2 /LPF [facility] 05/11/2024 12:3 0 AM EST 05/11/2024 12:34 AM EST Narrative [facility] - 05/11/2024 12:44 AM EST [id number], Clean Catch us Generic External Data Provider LAB URINE ORDERAB LES Final Result Performing Organization Address [facility]/ZIP Co de Phone Number [facility] [address] [place] [phone] * CT Abdomen Pelvis w/ Contrast (05/10/2024 11:35 PM EST) Anatomical Region Laterality Modality Body, Pelvis, Abdomen Computed T omography 05/10/2024 11:3 5 PM EST Narrative 05/11/2024 12:16 AM EST ? [facility] ?[address] ?[place] [address] ? CT Scan Report ? Signed ? Patient: Zev,Jihan S ?MR#: [id number] ?? [id number] ? : 1985 ?Acct:[id number] ? Age/Sex: 38 / F ?ADM Date: 05/10/24 ? Loc: HO.ED ? Attending Dr: ? Ordering Physician: Micaela Paiz DO ?? Date of Service: 05/10/24 ?? Procedure(s): CT abdomen pelvis w IV con ?? Accession Number(s): [id number] ? cc: Micaela Paiz DO; Name,Ernie MOE [...] DD/ 2335 ? TD/TT: 05/10/24 2335 ? Warp Tier: SS ? Procedure Note Tate, Image - 05/11/[address] [place] [address] [address] Scan Report Signed Patient: Jihan Brothers [facility]#: [id number] : 1985Acct:[id number] Age/Sex: 38 / FADM Date: 05/10/24 Loc: HO.ED Attending Dr: Ordering Physician: Micaela Paiz DO Date of Service: 05/10/24 Procedure(s): CT abdomen pelvis w IV con Accession Number(s): [id number] cc: Micaela Paiz DO; Name,Ernie MOE EXAMINATION: [...] Alvares MD in OV> 05/11/24 0012 DD/ 34 TD/TT: 05/10/242334 Warp Tier: YURI [facility] External Provider IMG CT PROCEDURES Edited Result - Final * (ABNORMAL) CBC auto differential (05/10/2024 7:59 PM EST) White Blood Count 5.5 4.8 - 10.8 X10*3/uL [facility] Red Blood Count 4.36 4.20 - 5.50 X10*6/uL [facility] Hemoglobin 11.7(L) 12.0 - 16.0 g/dl [facility] Hematocrit 35.6(L) 37.0 - 47.0 % [facility] Mean Corpuscular Volume 81.7 80.0 - 98.0 fL [facility] Mean Corpuscular Hemoglobin 26.8(L) 27.0 - 33.0 pg [facility] Mean Corpuscular HGB Conc 32.9 31.0 - 35.0 g/dl [facility] Red Cell Distribution Width 13.8 11.0 - 16.0 % [facility] Platelet Count 238 160 - 400 X10*3/uL [facility] Mean Platelet Volume 9.9 9.4 - 12.3 fL [facility] Neutrophils Percent Auto 56.0 45 - 73 % [facility] Imm Gran Pct Auto 0.2 0.0 - 0.4 % [facility] Lymphocytes Percent Auto 34.9 20 - 40 % [facility] Monocytes Percent Auto 6.0 2 - 11 % [facility] Eosinophils Percent Auto 2.7 0 - 4 % [facility] Basophils Percent Auto 0.2 0 - 2 % [facility] NRBC Pct Auto 0.0 0.0 - 0.2 /100WBC [facility] Neutrophils Absolute Auto 3.1 2.0 - 8.3 x10*3/uL [facility] Imm Gran Abs Auto 0.01 0.00 - 0.03 X10*3/uL [facility] Lymphocytes Absolute Auto 1.9 1.2 - 4.9 X10*3/uL [facility] Monocytes Absolute Auto 0.3 0.1 - 1.2 X10*3/uL [facility] Eosinophils Absolute Auto 0.2 0.0 - 0.4 X10*3/uL [facility] Basophils Absolute Auto 0.0 0.0 - 0.2 X10*3/uL [facility] NRBC Abs Auto 0.000 0.0 - 0.012 X10*3/uL [facility] 05/10/2024 7:59 PM EST 05/10/2024 8:01 PM EST Generic External Data Provider LAB BLOOD ORDERAB LES Final Result Performing Organization Address [facility]/ZIP Co de Phone Number [facility] [address] [place] [phone] * hCG, Total, Quantitative (05/10/2024 7:59 PM EST) HCG Quantitative <2 mIU/mL [facility] Comment:Weeks post LMP Appro ximate hCG(Last Menstrual Period) Range (mIU/ml)3 - 4 weeks 9 - 1304 - 5 weeks 75 - 2,6005 - 6 weeks 850 - 20,8006 - 7 weeks 4000 - 100,2007 - 12 weeks 11,500 - 289,97516 - 16 weeks 18,300 - 137,42702 - 29 weeks (2nd trimester) 1,400 - 53,07423 - 41 weeks (3rd trimester) 940 - 60,000The Wagoner B- hCG assay is used for the early detection ofpregnancy; it cannot be used to diagnose any conditionunrelated to . If a B-hCG level is not supportedby the clinical evidence, results should be confirmed by analternative method (qualitative urine hCG, for example). 05/10/2024 7:59 PM EST 05/10/2024 8:01 PM EST us Generic External Data Provider LAB BLOOD ORDERAB LES Final Result Performing Organization Address City/[facility]/ZIP Co de Phone Number [facility] [address] [place] [phone] * (ABNORMAL) Lipid Panel, Standard (07/22/2022 12:08 PM EST) Cholesterol, Total 159 <200 mg/dL [facility] HDL Cholesterol 41(L) > OR = 50 mg/dL [facility] Triglycerides 81 <150 mg/dL [facility] LDL Cholesterol 101(H) mg/dL (calc) [facility] Comment: Reference range: <100 Desirable range <100 mg/dL for primary prevention; ?? <70 mg/dL for patients with CHD or diabetic patients with > or = 2 CHD risk factors. LDL-C is now calculated using the Arthur calculation, which is a validated novel method providing better accuracy than the Friedewald equation in the estimation of LDL-C. Blas SS et al. EVA. 2013;310(19): 9080-5105 (http://education.[employer]/faq/TKJ340) Chol/HDLC Ratio 3.9 <5.0 (calc) [facility] Non-HDL Cholesterol 118 <130 mg/dL (calc) [facility] Comment: For patients with diabetes plus 1 major ASCVD risk factor, treating to a non-HDL-C goal of <100 mg/dL (LDL-C of <70 mg/dL) is considered a therapeutic option. Blood Venous blood specimen / Unknown 07/22/2022 12:08 PM EST 07/22/2022 12:08 PM EST Narrative [facility] - 07/23/2022 6:09 AM EST FASTING:NO FASTING: NO us Ernie Name MD LAB BLOOD ORDERABLES Final Resul t [facility] [address], [place] [address] [facility] [address] [facility], ([address]) [place] [phone] from Last 3 Months or Most Recently Relevant to Health Maintenance Insurance [facility] C3 Care Teams Payroll Officer Relationship Specialty Start Date End Date Name, MD Ernie [address] [place] [phone] PCP - General Family Medicine 01/06/19 Priscilla Helm Varnish InspectorPrimary Special Education Teacher 10/15/23
--- OUTSIDE RECORDS SUMMARY | 2024-07-20 09:10 | XMS_ITS | Encounter Summary ---
Author Organization [employer] Address 75 [facility] 7t [place] [address] Care Team Providers Care Mica Inspector Name Role Phone Name, Ernie MOE Primary Care Provider [phone] Reason for Visit * Reason Onset Date Comments PT1 02/23/2024 Encounter Details Date Type Department Care Team ([facility] Contact Info) Description 02/23/2024 Telephone [facility] MEDICINE [address] [place], [place] [phone] Name, MD Ernie 230 [place] [address] PT1 Social History Tobacco Use Types Packs/Day [...] Y/N: Yes Provider name or facility name: [facility] Facility Address: [address] [place] [address] Escort needed: Y/N: Yes Do you have a wheelchair: Y/N: No If yes- Manual or electric: n/a Visits: 2 x a month Patient calling requesting PT1 Home Address verified: Y/N: Yes Provider name or facility name: ([facility]) Dr. Robledo Facility Address: [address] [place] [address] Escort needed: Y/N: Yes Do you have a wheelchair: Y/N: No If yes- Manual or electric: n/a Visits: 2 x a monthly documented in this encounter Plan of Treatment Upcoming Encounters Date Type Department Care Team (Late st Contact Info) Description 07/28/2024 11:30 AM EST Office Visit [facility] MEDICINE [address] [place] [address] Name, MD Ernie [address] [place] [address] 08/28/2024 10:15 AM EDT Office Visit [facility] MEDICINE [address] [place] [address] Sasha Coronel CNM 230 [place] [address] documented as of this encounter Goals Goal Patient Goal Type Associated Problems Recent Progress Patient-Stated? Author Patient will adhere to medication regimen General Evelyn Xavier documented as of this encounter Visit Diagnoses Not on filedocumented in this encounter Additional Health Concerns Assessment Noted Time PHQ-9 Depression Total Score: 0 10/29/19 24 10:28 AM EDT documented as of this encounter Care Teams Mica Inspector Relationship Specialty Start Date End Date Name, MD Ernie 230 [place] [address] PCP - General Family Medicine 01/06/19 Priscilla Helm Monomer Recovery SupervisorDulser 10/15/23 documented as of this encounter
--- OUTSIDE RECORDS SUMMARY | 2024-07-20 09:10 | XMS_ITS | Encounter Summary ---
Author Organization [employer] Address 75 [facility] 7t [place] [address] Care Team Providers Care Map Compiler Name Role Phone Name, Ernie MOE Primary Care Provider [phone] Encounter Details Date Type Department Care Team ([facility] Contact Info) Description 06/21/2024 Orders Only [facility] MEDICINE 230 [place], [place] [phone] Name, MD Ernie 230 [place] [address] Social History Tobacco Use Types Packs/Day Years [...] 07/28/2024 11:30 AM EST Office Visit [address] [address] Name, MD Ernie [address] [place] [address] 08/28/2024 10:15 AM EDT Office Visit [address] [address] Sasha Coronel CNM [address] [place] [address] documented as of this encounter Goals Goal Patient Goal Type Associated Problems Recent Progress Patient-Stated? Author Patient will adhere to medication regimen General Evelyn Xavier documented as of this encounter Visit Diagnoses Not on filedocumented in this encounter Additional Health Concerns Assessment Noted Time PHQ-9 Depression Total Score: 0 10/29/19 24 10:28 AM EDT documented as of this encounter Care Teams Map Compiler Relationship Specialty Start Date End Date Ernie Nobles MD [address] [place] [address] PCP - General Family Medicine 01/06/19 Priscilla Helm Taxicab DriverLan Support Specialist 10/15/23 documented as of this encounter
--- OUTSIDE RECORDS SUMMARY | 2024-07-20 09:10 | XMS_ITS | Encounter Summary ---
Author Organization [employer] Address 75 [facility] 7t [place] [address] Care Team Providers Care Renal Technician Name Role Phone Name, Ernie MOE Primary Care Provider [phone] Reason for Visit * Reason Comments Med Refill Encounter Details Date Type Department Care Team ([facility] Contact Info) Description 02/15/2024 Refill [facility] MEDICINE 230 [place], [place] [phone] Name, MD Ernie 230 [place] [address] Social History Tobacco Use Types Packs/Day Years [...] Description 07/28/2024 11:30 AM EST Office Visit [address] [address] Name, MD Ernie [address] [place] [address] 08/28/2024 10:15 AM EDT Office Visit [address] [address] Sasha Coronel CNM [address] [place] [address] documented as of this encounter Goals Goal Patient Goal Type Associated Problems Recent Progress Patient-Stated? Author Patient will adhere to medication regimen General Evelyn Xavier documented as of this encounter Visit Diagnoses Not on filedocumented in this encounter Additional Health Concerns Assessment Noted Time PHQ-9 Depression Total Score: 0 10/29/19 24 10:28 AM EDT documented as of this encounter Care Teams Renal Technician Relationship Specialty Start Date End Date Name, MD Ernie [address] [place] [address] PCP - General Family Medicine 01/06/19 Priscilla Helm Supervisor Prop MakingDirect Selling Counselor 10/15/23 documented as of this encounter
--- OUTSIDE RECORDS SUMMARY | 2024-07-20 09:10 | XMS_ITS | Encounter Summary ---
Author Organization [employer] Address 75 [facility] 7t [place] [address] Care Team Providers Care Preconstruction Manager Name Role Phone Name, Ernie MOE Primary Care Provider [phone] Reason for Visit * Reason Onset Date Comments Results 06/22/2024 Patient walked i n stating Dr. Odonnell remove the medication Eliquis. Patient wanted her pcp to know about it. Encounter Details Date Type Department Care Team ([facility] Contact Info) Description 06/22/2024 Telephone [facility] MEDICINE 230 [place], [place] [phone] Name, MD Ernie 230 [place] [address] Results (Patient walked in stating Dr. Odonnell [...] Description 07/28/2024 11:30 AM EST Office Visit [facility] MEDICINE [address] [place] [address] Name, MD Ernie [address] [place] [address] 08/28/2024 10:15 AM EDT Office Visit [address] [address] Sasha Coronel, DELONTE 230 [place] [address] documented as of this encounter Goals Goal Patient Goal Type Associated Problems Recent Progress Patient-Stated? Author Patient will adhere to medication regimen General Evelyn Xavier documented as of this encounter Visit Diagnoses Not on filedocumented in this encounter Additional Health Concerns Assessment Noted Time PHQ-9 Depression Total Score: 0 10/29/19 10:28 AM EDT documented as of this encounter Care Teams Preconstruction Manager Relationship Specialty Start Date End Date Name, MD Ernie 230 [place] [address] PCP - General Family Medicine 01/06/19 Priscilla Helm Final Dressing CutterAlignment Technician 10/15/23 documented as of this encounter
--- OUTSIDE RECORDS SUMMARY | 2024-07-20 09:10 | XMS_ITS | Encounter Summary ---
Author Organization [employer] Address 75 [facility] 7t [place] [address] Care Team Providers Care Book Solicitor Name Role Phone Name, Ernie MOE Primary Care Provider [phone] Reason for Visit * Reason Comments Med Refill Encounter Details Date Type Department Care Team ([facility] st Contact Info) Description 06/20/2024 Refill [facility] [address] [place], [place] [phone] Name, MD Ernie 230 [place] [address] Bipolar 1 disorder (CMS/HCC); Chronic low back [...] Description 07/28/2024 11:30 AM EST Office Visit [address] [address] Name, MD Ernie [address] [place] [address] 08/28/2024 10:15 AM EDT Office Visit [address] [address] Sasha Coronel CNM [address] [place] [address] documented as of this encounter Goals Goal [...] documented as of this encounter Care Teams Book Solicitor Relationship Specialty Start Date End Date Name, MD Ernie 230 [place] [address] PCP - General Family Medicine 01/06/19 Priscilla Helm Prevention RnSenior Architectural Designer 10/15/23 documented as of this encounter
--- OUTSIDE RECORDS SUMMARY | 2024-07-20 09:10 | XMS_ITS | Encounter Summary ---
Author Organization [employer] Address 75 [facility] 7t [place] [address] Care Team Providers Care Bakery Manager Name Role Phone Name, Ernie MOE Primary Care Provider [phone] Reason for Visit * Reason Onset Date Comments ER Follow-up 08/30/2023 Encounter Details Date Type Department Care Team ([facility] Contact Info) Description 08/30/2023 Telephone [facility] MEDICINE 230 [place], [place] [phone] Name, MD Ernie 230 [place] [address] ER Follow-up Social History Tobacco Use Types [...] on : Date: 08/24, 08/25, 08/26,08/27,08/28 Hospital: [facility] & Conteh Seen for: Seizers Patient advised will forward to team nurse for follow up documented in this encounter Plan of Treatment Upcoming Encounters Date Type Department Care Team (Late st Contact Info) Description 07/28/2024 11:30 AM EST Office Visit [facility] MEDICINE [address] [place] [address] NameErnie MD [address] [place] [address] 08/28/2024 10:15 AM EDT Office Visit [facility] MEDICINE [address] [place] [address] Sasha Coronle CNM [address] [place] [address] documented as of this encounter Visit Diagnoses Not on filedocumented in this encounter Additional Health Concerns Assessment Noted Time PHQ-9 Depression Total Score: 0 10/08/19 11:31 AM EDT documented as of this encounter Care Teams Bakery Manager Relationship Specialty Start Date End Date Ernie Nobles MD [address] [place] [address] PCP - General Family Medicine 01/06/19 Priscilla Helm Stator Plate WasherProduction Broaching Machine Operator 10/15/23 documented as of this encounter
--- OUTSIDE RECORDS SUMMARY | 2024-07-20 09:10 | XMS_ITS | Encounter Summary ---
Author Organization [employer] Address 75 [facility] 7t [place] [address] Care Team Providers Care Counter Pocket Trimmer Name Role Phone Name, Ernie MOE Primary Care Provider [phone] Reason for Visit * Reason Onset Date Comments Med Refill 05/21/2024 Encounter Details Date Type Department Care Team ([facility] Contact Info) Description 05/21/2024 Refill [facility] MEDICINE 230 [place], [place] [phone] Name, MD Ernie 230 [place] [address] Social History Tobacco Use Types Packs/Day Years [...] Description 07/28/2024 11:30 AM EST Office Visit [address] [address] NameErnie MD [address] [place] [address] 08/28/2024 10:15 AM EDT Office Visit [address] [address] Sasha Coronel CNM [address] [place] [address] documented as of this encounter Goals Goal Patient Goal Type Associated Problems Recent Progress Patient-Stated? Author Patient will adhere to medication regimen General Evelyn Xavier documented as of this encounter Visit Diagnoses Not on filedocumented in this encounter Additional Health Concerns Assessment Noted Time PHQ-9 Depression Total Score: 0 10/29/19 24 10:28 AM EDT documented as of this encounter Care Teams Counter Pocket Trimmer Relationship Specialty Start Date End Date Ernie Nobles MD [address] [place] [address] PCP - General Family Medicine 01/06/19 Priscilla Helm Automotive Parts SalespersonData Lead 10/15/23 documented as of this encounter
--- OUTSIDE RECORDS SUMMARY | 2024-07-20 09:10 | XMS_ITS | Encounter Summary ---
Author Organization [employer] Address [address] [facility] [address] 7t [place] [address] Care Team Providers Care Sed High School Teacher Name Role Phone Name, Ernie MOE Primary Care Provider [phone] Encounter Details Date Type Department Care Team ([facility] Contact Info) Description 09/07/2023 Telephone [facility] OPTOM[facility] [address] [place] [address] Juan, Estela, OD 230 [place] [address] Social History Tobacco Use Types Packs/Day Years [...] t he electric, gas, oil or water [employer] threatened to shut off services in your [...] Description 07/28/2024 11:30 AM EST Office Visit [address] [address] Name, MD Ernie [address] [place] [address] 08/28/2024 10:15 AM EDT Office Visit [facility] MEDICINE [address] [place] [address] Sasha Coronel CNM 230 [place] [address] documented as of this encounter Visit Diagnoses Not on filedocumented in this encounter Additional Health Concerns Assessment Noted Time PHQ-9 Depression Total Score: 0 10/08/19 11:31 AM EDT documented as of this encounter Care Teams Sed High School Teacher Relationship Specialty Start Date End Date Name, MD Ernie 230 [place] [address] PCP - General Family Medicine 01/06/19 Priscilla Helm AssociateAnimal Nutritionist 10/15/23 documented as of this encounter
--- OUTSIDE RECORDS SUMMARY | 2024-07-20 09:10 | XMS_ITS | Encounter Summary ---
Author Organization [facility] [employer] Address 75 [facility] 7 [place] [address] Care Team Providers Care Department Supervisor Name Role Phone Name, Ernie MOE Primary Care Provider [phone] Reason for Referral * Consultation (Routine) - Authorized Specialty Diagnoses / Procedures Referred By Timmy fairchild Referred To Contact Allergy Diagnoses Seasonal allergic rhinitis, unspecified trigger Pankaj Kruger CNP [address] [place] [address] Phone: tel: fax: Fly Larson MD [address] [place] [address] Drive [address] [place] [address] Phone: tel: fax: Referral ID Status Reason Start Date Expiration Date Visits Requested Visits Authorized [id number] Authorized Specialty Services Required 06/21/2024 06/21/2025 1 1 * Imaging (Routine) - Closed Specialty Diagnoses / Procedures Referred By Timmy fairchild Referred To Contact Radiology Diagnoses Right upper quadrant abdominal pain Procedures US Abdomen Complete Pankaj Kruger CNP 230 [place] [address] Phone: tel: fax: [address] Phone: tel: fax: Referral ID Status Reason Start Date Expiration Date Visits Re quested Visits Authorized [id number] Closed 06/14/2024 06/14/2025 1 1 * Consultation (Urgent) - Authorized Specialty Diagnoses / Procedures Referred By Timmy fairchild Referred To Contact Gastroenterology Diagnoses Seizure disorder (CMS/HCC) Pankaj Kruger CNP [address] [place] [address] Phone: tel: fax: [address] Phone: tel: fax: Referral ID Status Reason Start Date Expiration Date Visits Requested Visits Authorized [id number] Authorized Specialty Services Required 06/14/2024 06/14/2025 6 6 * Neurology (Routine) - Authorized Specialty Diagnoses / Procedures Referred By Timmy farichild Referred To Contact Diagnoses Seizure disorder ([facility]) Procedures EEG Pankaj Kruger CNP [address] [place] [address] Phone: tel: fax: [address] Phone: tel: fax: Referral ID Status Reason Start Date Expiration Date V isits Requested Visits Authorized [id number] Authorized 06/14/2024 06/14/2025 1 1 Reason for Visit * Reason Comments ED f/u Encounter Details Date Type Department Care Team (Late st Contact Info) Description 06/14/2024 10:00 AM EST Office Visit [facility] MEDICINE [address] [place] [address] Pankaj Kruger CNP [address] [place] [address] Seizure disorder (CMS/HCC) (Primary Dx); Right upper [...] Next f/u scheduled for February. Hospitalization 06/05/24 [facility] Pt was in waiting room waiting for [...] Neurology- Dr. Lee Patient had appointment with [facility] Neurology (with Dr. Kyle Lott) on 04/17/24: [...] on: 06/21/2024 09:56 AM Modules accepted: Orders * Addendum Note - Pankaj Kruger CNP - 06/14/2024 10:00 AM ESTAddended by: PANKAJ KRUGER on: 06/29/2024 03:07 PM Modules accepted: Orders documented in this encounter Plan of Treatment Upcoming Encounters Date Type Department Care Team (Late st Contact Info) Description 07/28/2024 11:30 AM EST Office Visit [address] [address] Name, MD Ernie [address] [place] [address] 08/28/2024 10:15 AM EDT Office Visit [address] [address] Sasha Coronel CNM [address] [place] [address] Scheduled Orders Name Type Priority Associated Diagnoses Orde r Schedule EEG Neurology Routine Seizure disorder ([facility]/HCC) Expected: 06/14/2024, Expires: 12/12/2024 Levetiracetam Lab Routine Seizure disorder (CMS/HCC) Expected: 06/14/2024 (Approximate), Expires: 06/14/2025 CBC auto differential Lab Routine Right upper quadrant abdominal pain Expected: 06/14/2024 (Approximate), Expires: 06/14/2025 US Abdomen Complete Imaging Routine Right upper quadrant abdominal pain Expected: 06/14/2024, Expires: 06/14/2025 Scheduled Referrals Name Type Priority Associated Diagnoses Order Schedule Referral to Gastroenterology Outpatient Referral Urgent Seizure disorder (CMS/HCC) Expected: 06/14/2024 (Approximate), Expires: 06/14/2025 Referral to Allergy Outpatient Referral Routine Seasonal allergic rhinitis, unspecified trigger Expected: 06/21/2024 (Approximate), Expires: 06/21/2025 documented as of this encounter Goals Goal Patient Goal Type Associated Problems Recent Progress Patient-Stated? Author Patient will adhere to medication regimen General Evelyn Xavier documented as of this encounter Procedures Procedure Name Priority Date/Time Associated Diagnosis Comments ECG 12-LEAD Routine 06/29/2024 3:07 PM EST Seizure disorder (CMS/HCC) LIPASE Routine 06/23/2024 11:30 AM EST Right upper quadrant abdominal pain COMPREHENSIVE METABOLIC PANEL Routine 06/23/2024 11:30 AM EST Right upper quadrant abdominal pain documented in this encounter Results * ECG 12 lead (06/29/2024 3:07 PM EST) Pankaj Amaral CNP - 06/29/2024 3:07 PM EST NSR, Rate: 86 bpm, normal axis, no ST segment changes, no QT prolongation Pankaj Kruger [facility] ECG ORDERABLES Final Res ult * Comprehensive Metabolic Panel (06/23/2024 11:30 AM EST) Sodium 141 135 - 145 mmol/L [facility] Potassium 4.3 3.3 - 5.1 mmol/L [facility] Chloride 108 96 - 108 mmol/L [facility] Carbon Dioxide 25 22 - 29 mmol/L [facility] Anion Gap 12 12 - 20 [facility] Urea Nitrogen (BUN) 9 9 - 16 mg/dL [facility] Creatinine, Serum 0.69 0.5 - 1.4 mg/dL [facility] Estimated Glomerular Filt Rate >60 [facility] Comment:Chronic Kidney Disea se: Estimated GFR < 60 mL/min/[id number] Kidney Disease: Estimated GFR < 15 mL/min/1.73m2 Glucose 89 60 - 115 mg/dL [facility] Calcium 8.9 8.4 - 10.2 mg/dL [facility] Bilirubin, Total 0.3 0.0 - 1.0 mg/dL [facility] Aspartate Amino Transferase 17 5 - 31 U/L [facility] Alanine Aminotransferase 9 0 - 31 U/L [facility] Total Protein 6.8 6.5 - 8.0 g/dL [facility] Albumin Level 3.9 3.5 - 5.0 g/dL [facility] Alkaline Phosphatase 80 39 - 117 U/L [facility] Blood Venous blood specimen / Unknown 06/23/2024 11:30 AM EST 06/23/2024 2:56 PM EST [facility] BLOOD ORDERABLES Colleen l Result Performing Organization Address [facility] Co de Phone Number [facility] [address] [place] [phone] * Lipase (06/23/2024 11:30 AM EST) Lipase 12 8 - 78 U/L [facility] Blood Venous blood specimen / Unknown 06/23/2024 11:30 AM EST 06/23/2024 2:56 PM EST [facility] BLOOD ORDERABLES Colleen l Result Performing Organization Address [facility] Co de Phone Number [facility] [address] [place] [phone] documented in this encounter Visit Diagnoses Diagnosis Seizure disorder (CMS/HCC)- Primary Unspecified epilepsy without mention of intractable epilepsy Right upper quadrant abdominal pain Right lower quadrant pain Seasonal allergic rhinitis, unspecified trigger documented in this encounter Additional Health Concerns Assessment Noted Time PHQ-9 Depression Total Score: 0 10/29/19 24 10:28 AM EDT documented as of this encounter Care Teams Department Supervisor Relationship Specialty Start Date End Date Name, MD Ernie [address] [place] [address] PCP - General Family Medicine 01/06/19 Priscilla Helm Distributor Of DirectoriesGarage Hand 10/15/23 documented as of this encounter
== END 2024-07-20 08:44 | disposition home or self-care (01) ==
LOC: HO.NEURO 08:43
PROVIDERS: PCP Internal Medicine Geriatric Medicine
DX: G40.909 Epilepsy, unspecified, not intractable, without status epilepticus (principal)
CPT/HCPCS: 95816

== ENCOUNTER 2024-08-04 11:00 | Outpatient (AMB) | payer MEDICAID, SELFPAY ==
--- NOTE | 2024-08-04 11:00 | A.OFFVIS_ITS ---
Intake Visit Reasons: telehealth Lumbar spine MRI review Intake Note: Jihan is a 38 year old female who presents today via telephone for a MRI review of her lumbar spine. Patient notices that her pain hasn't changed. Allergies codeine [CODEINE] Allergy (Unknown, Verified 08/04/24 11:02) Itching nut - unspecified Allergy (Verified 08/04/24 11:02) Anaphylaxis [place] Allergy (Severe, Uncoded 06/23/24 09:18) throat closed HPI Comments Details: More than 10 years of right-sided radicular back pain and at least 3 years of right hip pain. She was seen in [place] in 2011 and [place] in 2018, where they used to live, and had epidural injections there. She was offered surgery for some type of congenital issue seen on MRI, but she declined at that time. Here in [place], she has been seen by Orthopedics and pain management for right-sided hip and SI pain. She had right SI joint injection with pain management 2021 without relief. I think an MRI was ordered but I am not sure if that was done or approved. Patient does not think she has had an MRI in the last 3 years in [place]. Finished physical therapy in 05/19/2024, was not able to finish the full course due to too much pain with the exercises. Plain x-rays of right hip showed mild degenerative changes hip and SI joint. History of COVID in 2020, pulmonary embolism, was on Eliquis that was just taken off as of yesterday. Follows with Dr. Garcia for seizures. Right-sided lateral hip pain. Can have a right-sided lower back pain that radiates down to the right foot. Occasional tingling/paresthesias in right foot. We have done an MRI that showed spondylosis, without any significant spinal stenosis or nerve compression. Patient has not been back to the office, a few no-shows. Telehealth today so that we can find a discuss MRI. Patient was in court case when I was speaking to her. She maintains that she continues to have right-sided lower back pain that radiates to the right foot. It has not improved since last time I saw her. [facility] Medical History Morbid obesity due to excess calories Spondylosis of lumbar spine Sacroiliitis Obesity PTSD (post-traumatic stress disorder) Sleep apnea Sacroiliitis Gait disturbance Degenerative disc disease Chronic back pain History of blood transfusion Anemia GERD (gastroesophageal reflux disease) Neuropathy Anxiety Depression Migraine Seizure disorder Asthma Surgical History H/O excision of epidermal inclusion cyst (12/06/20) Hx of umbilical hernia repair History of partial hysterectomy History of 3 sections Family History Maternal Uncle Lung cancer Father Prostate cancer Social History (Updated 06/23/24 @ 09:21 by MANJU Jarrett) Household Members: Spouse and Children Housing: Apartment Are you a primary healthcare applications analyst to a significant other at home: No 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 have visiting nurse or other home 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 (process safety engineering technologist) Alcohol intake: never Comment: no count Patient Tobacco Use Status: Never used Tobacco Second Hand Smoke Exposure: Yes Substance Use Type: Marijuana service: No Current occupational status: disabled 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 Female Reproductive History Menstrual Age of Menarche: 12 Telehealth Telehealth Telehealth Platform: Telephone Location of provider rendering services: practice address Location of patient: other Patient Identification confirmed using: Name, : Yes Telehealth method: voice only Patient verbally consented to treatment: Yes Patient verbally consented to billing insurance company: Yes Patient informed of any privacy concerns related to visit: Yes Minutes spent on Phone/Video with Pt.: 10 Assessment & Plan Assessment & Plan (1) Lumbar disc herniation: Code(s): M51.26 - Other intervertebral disc displacement, lumbar region Category: Medical (2) Spondylosis of lumbar spine: Code(s): M47.816 - Spondylosis without myelopathy or radiculopathy, lumbar region Category: Medical Plan Chronic right-sided lower back pain with radiation to the right foot. Has tried various treatments in the past, 2 other states, including physical therapy and injections. Had some sort of allergic reaction to the last facet injections. Patient does not want to go back to procedure/injections anymore. She would like to know what her surgical options are. Referring her to our neuro spine. Assessment and plan discussed with patient, and patient was agreeable. All questions were answered thoroughly. Total of 15 minutes spent today including chart review, results review, history taking, physical examination, discussion of assessment and plan, and coordination of care. Carol Mccain MD, LIZ Board Certified, [place] Board of Physical Medicine and Rehabilitation (ABPMR) Board Certified, [place] Board of Electrodiagnostic Medicine (ABEM) Orders: Referrals Neurosurgery Referral M47.816 - Spondylosis without myelopathy or radiculopathy, lumbar region, M51.26 - Other intervertebral disc displacement, lumbar region Coding Level of Care Code Tele Est Pt Level 3 (60907) Diagnoses Lumbar disc herniation M51.26 Spondylosis of lumbar spine M47.816
--- OUTSIDE RECORDS SUMMARY | 2024-08-04 12:43 | XMS_ITS | Encounter Summary ---
Author Organization [employer] Address [address] [facility] 7t [place] [address] Care Team Providers Care Avionics Supervisor Name Role Phone Name, Ernie MOE Primary Care Provider [phone] Reason for Visit * Reason Onset Date Comments Med Refill 05/21/2024 Encounter Details Date Type Department Care Team ([facility] Contact Info) Description 05/21/2024 Refill [facility] MEDICINE [address] [place], [place] [phone] Name, MD Ernie [address] [place] [address] Social History Tobacco Use Types Packs/Day Years [...] Care Team (Late st Contact Info) Description 08/28/2024 10:15 AM EDT Office Visit [facility] MEDICINE [address] [place] [address] Sasha Coronel CNM [address] [place] [address] documented as of this encounter Goals Goal Patient Goal Type Associated Problems Recent Progress Patient-Stated? Author Patient will adhere to medication regimen General Evelyn Xavier documented as of this encounter Visit Diagnoses Not on filedocumented in this encounter Additional Health Concerns Assessment Noted Time PHQ-9 Depression Total Score: 0 10/29/19 24 10:28 AM EDT documented as of this encounter Care Teams Avionics Supervisor Relationship Specialty Start Date End Date Name, MD Ernie [address] [place] [address] PCP - General Family Medicine 01/06/19 Priscilla Helm Member Certification ManagerJuice Bar Team Member 10/15/23 documented as of this encounter
--- OUTSIDE RECORDS SUMMARY | 2024-08-04 12:43 | XMS_ITS | Encounter Summary ---
Author Organization [employer] Address [address] [facility] [address] [place] [address] Care Team Providers Care X Ray Electronics Wiring Technician Name Role Phone Name, Ernie MOE Primary Care Provider [phone] Encounter Details Date Type Department Care Team ([facility] st Contact Info) Description 09/07/2023 Telephone [facility] OPT[facility] [address] [place] [address] Juan, Estela, OD [address] [place] [address] Social History Tobacco Use Types Packs/Day Years [...] t he electric, gas, oil or water Embedly threatened to shut off services in your [...] Description 08/28/2024 10:15 AM EDT Office Visit [facility] MEDICINE [address] [place] [address] Sasha Coronel CNM [address] [place] [address] documented as of this encounter Visit Diagnoses Not on filedocumented in this encounter Additional Health Concerns Assessment Noted Time PHQ-9 Depression Total Score: 0 10/08/19 23 11:31 AM EDT documented as of this encounter Care Teams X [employer] Electronics Wiring Technician Relationship Specialty Start Date End Date Name, MD Ernie [address] [place] [address] PCP - General Family Medicine 01/06/19 Priscilla Helm Supervisor QuiltingShowroom Salesperson 10/15/23 documented as of this encounter
--- OUTSIDE RECORDS SUMMARY | 2024-08-04 12:43 | XMS_ITS | Encounter Summary ---
Author Organization [email or web address] Address [address] [facility] 7t [place] [address] Care Team Providers Care Sustainable Development Policy Analyst Name Role Phone Name, Ernie MOE Primary Care Provider [phone] Reason for Visit * Reason Onset Date Comments PT1 02/23/2024 Encounter Details Date Type Department Care Team ([facility] Contact Info) Description 02/23/2024 Telephone [facility] MEDICINE [address] [place], [place] [phone] Name, MD Ernie [address] [place] [address] PT1 Social History Tobacco Use Types Packs/Day [...] Y/N: Yes Provider name or facility name: [facility] Facility Address: [address] [place] [address] Escort needed: Y/N: Yes Do you have a wheelchair: Y/N: No If yes- Manual or electric: n/a Visits: 2 x a month Patient calling requesting PT1 Home Address verified: Y/N: Yes Provider name or facility name: ([facility]) Dr. Robledo Facility Address: [address] [place] [address] Escort needed: Y/N: Yes Do you have a wheelchair: Y/N: No If yes- Manual or electric: n/a Visits: 2 x a monthly documented in this encounter Plan of Treatment Upcoming Encounters Date Type Department Care Team ([facility] st Contact Info) Description 08/28/2024 10:15 AM EDT Office Visit [facility] MEDICINE [address] [place] [address] Sasha Coronel CNM [address] [place] [address] documented as of this encounter Goals Goal Patient Goal Type Associated Problems Recent Progress Patient-Stated? Author Patient will adhere to medication regimen General No Evelyn Levine documented as of this encounter Visit Diagnoses Not on filedocumented in this encounter Additional Health Concerns Assessment Noted Time PHQ-9 Depression Total Score: 0 10/29/19 24 10:28 AM EDT documented as of this encounter Care Teams Sustainable Development Policy Analyst Relationship Specialty Start Date End Date Name, MD Ernie [address] [place] [address] PCP - General Family Medicine 01/06/19 Priscilla Helm Lining CloserSteel Heater 10/15/23 documented as of this encounter
--- OUTSIDE RECORDS SUMMARY | 2024-08-04 12:43 | XMS_ITS | Encounter Summary ---
Author Organization [employer] Address [address] [facility] 7t [place] [address] Care Team Providers Care Hairspring Ii Inspector Name Role Phone Name, Ernie MOE Primary Care Provider [phone] Reason for Visit * Reason Comments Med Refill Encounter Details Date Type Department Care Team ([facility] Contact Info) Description 03/20/2024 Refill [facility] MEDICINE [address] [place], [place] [phone] Name, MD Ernie [address] [place] [address] Social History Tobacco Use Types Packs/Day Years [...] Description 08/28/2024 10:15 AM EDT Office Visit [facility] MEDICINE [address] [place] [address] Sasha Coronel CNM [address] [place] [address] documented as of this encounter Goals Goal Patient Goal Type Associated Problems Recent Progress Patient-Stated? Author Patient will adhere to medication regimen General No Evelyn Levine documented as of this encounter Visit Diagnoses Not on filedocumented in this encounter Additional Health Concerns Assessment Noted Time PHQ-9 Depression Total Score: 0 10/29/19 24 10:28 AM EDT documented as of this encounter Care Teams Hairspring Ii Inspector Relationship Specialty Start Date End Date Name, MD Ernie [address] [place] [address] PCP - General Family Medicine 01/06/19 Priscilla Helm Slip SheeterBarber 10/15/23 documented as of this encounter
--- OUTSIDE RECORDS SUMMARY | 2024-08-04 12:43 | XMS_ITS | Encounter Summary ---
Author Organization [employer] Address [address] [facility] 7t [place] [address] Care Team Providers Care Hide Spreader Name Role Phone Name, Ernie MOE Primary Care Provider [phone] Reason for Visit * Reason Onset Date Comments Med Refill 07/26/2024 Encounter Details Date Type Department Care Team ([facility] Contact Info) Description 07/26/2024 Refill [facility] [address] [place], [place] [phone] Name, MD Ernie [address] [place] [address] Intractable migraine without aura and without status migrainosus Social History Tobacco Use Types Packs/Day Years [...] Description 08/28/2024 10:15 AM EDT Office Visit [facility] MEDICINE [address] [place] [address] Sasha Coronel CNM [address] [place] [address] documented as of this encounter Goals Goal Patient Goal Type Associated Problems Recent Progress Patient-Stated? Author Patient will adhere to medication regimen General Evelyn Xavier documented as of this encounter Visit Diagnoses Diagnosis Intractable migraine without aura and without status migrainosus documented in this encounter Additional Health Concerns Assessment Noted Time PHQ-9 Depression Total Score: 0 10/29/19 24 10:28 AM EDT documented as of this encounter Care Teams Hide Spreader Relationship Specialty Start Date End Date Name, MD Ernie [address] [place] [address] PCP - General Family Medicine 01/06/19 Priscilla Helm DecalerStoker Erector 10/15/23 documented as of this encounter
--- OUTSIDE RECORDS SUMMARY | 2024-08-04 12:43 | XMS_ITS | Encounter Summary ---
Author Organization [employer] Address [address] [facility] 7t [place] [address] Care Team Providers Care Security Administrator Name Role Phone Name, Ernie MOE Primary Care Provider [phone] Encounter Details Date Type Department Care Team ([facility] st Contact Info) Description 01/13/2023 Telephone [facility] MEDICINE [address] [place], [place] [phone] Name, MD Ernie [address] [place] [address] Social History Tobacco Use Types Packs/Day Years [...] below and advise. Unsure if pt has SATURATOR OPERATOR services already established on file, and if so if pt needs a visit prior to renewal. * Telephone Encounter - Karen Pagan - 01/15/2023 11:48 AM EDT Tc from pt requesting a call back regarding SATURATOR OPERATOR services. States has been transferred to medical records but they had transferred her back and inform to speak with a nurse . * Telephone Encounter - Karen Pagan - 01/13/2023 11:17 AM EDT Tc from pt requesting a new referral / order to renew water mangle tender services . documented in this encounter Plan of Treatment Upcoming Encounters Date Type Department Care Team (Late st Contact Info) Description 08/28/2024 10:15 AM EDT Office Visit [facility] MEDICINE [address] [place] [address] Sasha Coronel CNM [address] [place] [address] documented as of this encounter Visit Diagnoses Not on filedocumented in this encounter Additional Health Concerns Assessment Noted Time PHQ-9 Depression Total Score: 0 10/08/19 23 11:31 AM EDT documented as of this encounter Care Teams Security Administrator Relationship Specialty Start Date End Date Name, MD Ernie [address] [place] [address] PCP - General Family Medicine 01/06/19 Priscilla Helm Housing LiaisonPhotographer Model 10/15/23 documented as of this encounter
--- OUTSIDE RECORDS SUMMARY | 2024-08-04 12:43 | XMS_ITS | Encounter Summary ---
Author Organization [employer] Address [address] [facility] 7t [place] [address] Care Team Providers Care Field Technician Name Role Phone Name, Ernie MOE Primary Care Provider [phone] Reason for Visit * Reason Onset Date Comments Call Back Request 07/06/2023 Encounter Details Date Type Department Care Team ([facility] Contact Info) Description 07/06/2023 Telephone [facility] MEDICINE [address] [place], [place] [phone] Name, MD Ernie [address] [place] [address] Call Back Request Social History Tobacco Use [...] [facility]. Pt states she will no longer see this provider because of how he talks to people. RN suggested that pt contact [facility] to request another provider. Pt declined. States she does not want to be seen at that practice. [facility] Advised request will besent to pcp for review. * Telephone Encounter - Juliana Hernandez - 07/06/2023 2:13 PM EST Tc from pt requesting to speak with a nurse in regards to neurologist. No other information provided. Please contact pt at [phone] documented in this encounter Plan of Treatment Upcoming Encounters Date Type Department Care Team (Late st Contact Info) Description 08/28/2024 10:15 AM EDT Office Visit [facility] MEDICINE [address] [place], [place] [phone] Sasha Coronel CNM [address] [place] [address] documented as of this encounter Visit Diagnoses Not on filedocumented in this encounter Additional Health Concerns Assessment Noted Time PHQ-9 Depression Total Score: 0 10/08/19 23 11:31 AM EDT documented as of this encounter Care Teams Field Technician Relationship Specialty Start Date End Date Name, MD Ernie [address] [place] [address] PCP - General Family Medicine 01/06/19 Priscilla Helm Track Grinder OperatorTool Repairer 10/15/23 documented as of this encounter
--- OUTSIDE RECORDS SUMMARY | 2024-08-04 12:43 | XMS_ITS | Encounter Summary ---
Author Organization [employer] Address [address] [facility] 7 [place] [address] Care Team Providers Care Ammonia Refrigeration Worker Name Role Phone Name, Ernie MOE Primary Care Provider [phone] Reason for Visit * Reason Onset Date Comments Prior Authorization 07/12/2024 Zepbound Encounter Details Date Type Department Care Team ([facility] Contact Info) Description 07/12/2024 Telephone [facility] MEDICINE [address] [place], [place] [phone] Name, MD Ernie [address] [place] [address] Prior Authorization (Zepbound) Social History Tobacco Use [...] PA approval received for [employer]ep[employer]. Scanned into [employer]. * Addendum Note - Ernie Mcintosh MD [...] for Zepbound generated, signed and faxed to [facility] on 07/11/24. Confirmation received and sent to scan. If patient calls to check status on above, please advise them to contact Pharmacy . documented in this encounter Plan of Treatment Upcoming Encounters Date Type Department Care Team ([facility] st Contact Info) Description 08/28/2024 10:15 AM EDT Office Visit [facility] MEDICINE [address] [place], [place] [phone] Sasha Coronel CNM [address] [place] [address] documented as of this encounter Goals Goal Patient Goal Type Associated Problems Recent Progress Patient-Stated? Author Patient will adhere to medication regimen General Evelyn Xavier documented as of this encounter Visit Diagnoses Not on filedocumented in this encounter Additional Health Concerns Assessment Noted Time PHQ-9 Depression Total Score: 0 10/29/19 10:28 AM EDT documented as of this encounter Care Teams Ammonia Refrigeration Worker Relationship Specialty Start Date End Date Name, MD Ernie [address] [place] [address] PCP - General Family Medicine 01/06/19 Priscilla Helm Expansion Joint BuilderClient Application Support Specialist 10/15/23 documented as of this encounter
--- OUTSIDE RECORDS SUMMARY | 2024-08-04 12:43 | XMS_ITS | Encounter Summary ---
Author Organization [employer] Address [address] [facility] 7t [place] [address] Care Team Providers Care Wardrobe Mistress Name Role Phone Name, Ernie MOE Primary Care Provider [phone] Encounter Details Date Type Department Care Team (Latest Contact Info) Description 07/28/2024 Travel Social History Tobacco Use Types Packs/Day [...] Description 08/28/2024 10:15 AM EDT Office Visit [facility] MEDICINE [address] [place] [address] Sasha Coronel CNM [address] [place] [address] documented as of this encounter Goals Goal Patient Goal Type Associated Problems Recent Progress Patient-Stated? Author Patient will adhere to medication regimen General No Evelyn Levine documented as of this encounter Visit Diagnoses Not on filedocumented in this encounter Additional Health Concerns Assessment Noted Time PHQ-9 Depression Total Score: 0 10/29/19 24 10:28 AM EDT documented as of this encounter Care Teams Wardrobe Mistress Relationship Specialty Start Date End Date Name, MD Ernie [address] [place] [address] PCP - General Family Medicine 01/06/19 Priscilla Helm Supervisor Frame Sample And PatternDonor Services Coordinator 10/15/23 documented as of this encounter
--- OUTSIDE RECORDS SUMMARY | 2024-08-04 12:43 | XMS_ITS | Encounter Summary ---
Author Organization [employer] Address [address] [facility] [address]t [place] [address] Care Team Providers Care University Professor Name Role Phone Name, Ernie MOE Primary Care Provider [phone] Encounter Details Date Type Department Care Team ([facility] st Contact Info) Description 06/30/2023 Abstract [facility] MEDICINE [address] [place] [address] Name, MD Ernie [address] [place] [address] Social History Tobacco Use Types Packs/Day Years [...] the past 12 months, has t he Interview [employer], oil or water company threatened to shut [...] Description 08/28/2024 10:15 AM EDT Office Visit [facility] MEDICINE [address] [place] [address] Sasha Coronel CNM [address] [place] [address] documented as of this encounter Visit Diagnoses Not on filedocumented in this encounter Additional Health Concerns Assessment Noted Time PHQ-9 Depression Total Score: 0 10/08/19 23 11:31 AM EDT documented as of this encounter Care Teams University Professor Relationship Specialty Start Date End Date Name, MD Ernie [address] [place] [address] PCP - General Family Medicine 01/06/19 Priscilla Helm Washery BossDesign And Sales Consultant 10/15/23 documented as of this encounter
--- OUTSIDE RECORDS SUMMARY | 2024-08-04 12:43 | XMS_ITS | Encounter Summary ---
Author Organization [employer] Address [address] [facility] 7t [place] [address] Care Team Providers Care Fundraising Sale Representative Name Role Phone Name, Ernie MOE Primary Care Provider [phone] Reason for Visit * Reason Onset Date Comments Med Refill 07/30/2023 Encounter Details Date Type Department Care Team ([facility] st Contact Info) Description 07/30/2023 Refill [facility] MEDICINE [address] [place], [place] [phone] Name, MD Ernie [address] [place] [address] Social History Tobacco Use Types Packs/Day Years [...] Description 08/28/2024 10:15 AM EDT Office Visit [facility] MEDICINE [address] [place] [address] Sasha Coronel CNM [address] [place] [address] documented as of this encounter Visit Diagnoses Not on filedocumented in this encounter Additional Health Concerns Assessment Noted Time PHQ-9 Depression Total Score: 0 10/08/19 23 11:31 AM EDT documented as of this encounter Care Teams Fundraising Sale Representative Relationship Specialty Start Date End Date Name, MD Ernie [address] [place] [address] PCP - General Family Medicine 01/06/19 Priscilla Helm Shoemaking FinisherBillet Shearer 10/15/23 documented as of this encounter
--- OUTSIDE RECORDS SUMMARY | 2024-08-04 12:43 | XMS_ITS | Encounter Summary ---
Author Organization [employer] Address [address] [facility] [address] [place] [address] Care Team Providers Care Body Liner Name Role Phone Name, Ernie MOE Primary Care Provider [phone] Encounter Details Date Type Department Care Team ([facility] st Contact Info) Description 08/03/[address] [facility] MEDICINE [address] [place], [place] [phone] Davina High, CARMITA Social History Tobacco Use Types Packs/Day Years [...] t he electric, gas, oil or water [employer] threatened to shut off services in your [...] encounter Miscellaneous Notes * Telephone Encounter - Davina High RN - 08/03/2024 12:14 PM EST [facility]c to [facility] in regards to message received from india lawson [place] stating Pharmacy called requesting a new refill on pts medication due to last dose being picked up today. Medication is Tirzepatide-Weight Management (Zepbound) 5 MG/0.5ML solution auto-injector [[id number]] . [facility] pharmacy report pt does not need a new rx and has refills left of the Zepbound medication. No further questions or concerns at this time. * Telephone Encounter - Davina High RN - 08/03/2024 12:14 PM EST ----- Message from Sim Hughes sent at 08/03/2024 11:09 AM EST ----- Regarding: Medication Refill Pharmacy called requesting a new refill on pts medication due to last dose being picked up today. Medication is Tirzepatide-Weight Management (Zepbound) 5 MG/0.5ML solution auto-injector [[id number]] documented in this encounter Plan of Treatment Upcoming Encounters Date Type Department Care Team (Late st Contact Info) Description 08/28/2024 10:15 AM EDT Office Visit [facility] MEDICINE [address] [place] [address] Sasha Coronel CNM [address] [place] [address] documented as of this encounter Goals Goal Patient Goal Type Associated Problems Recent Progress Patient-Stated? Author Patient will adhere to medication regimen Evelyn Johnston documented as of this encounter Visit Diagnoses Not on filedocumented in this encounter Additional Health Concerns Assessment Noted Time PHQ-9 Depression Total Score: 0 10/29/19 10:28 AM EDT documented as of this encounter Care Teams Body Liner Relationship Specialty Start Date End Date Name, MD Ernie [address] [place] [address] PCP - General Family Medicine 01/06/19 Priscilla Helm Child Care DirectorTheatre Program Director 10/15/23 documented as of this encounter
--- OUTSIDE RECORDS SUMMARY | 2024-08-04 12:43 | XMS_ITS | Encounter Summary ---
Author Organization [employer] Address [address] [facility] 7t [place] [address] Care Team Providers Care Box Puller Name Role Phone Name, Ernie MOE Primary Care Provider [phone] Reason for Visit * Reason Comments Med Refill Encounter Details Date Type Department Care Team ([facility] st Contact Info) Description 08/03/[address] [facility] MEDICINE [address] [place], [place] [phone] Name, MD Ernie [address] [place] [address] Social History Tobacco Use Types Packs/Day Years [...] Description 08/28/2024 10:15 AM EDT Office Visit [facility] MEDICINE [address] [place] [address] Sasha Coronel CNM [address] [place] [address] documented as of this encounter Goals Goal Patient Goal Type Associated Problems Recent Progress Patient-Stated? Author Patient will adhere to medication regimen General Evelyn Xavier documented as of this encounter Visit Diagnoses Not on filedocumented in this encounter Additional Health Concerns Assessment Noted Time PHQ-9 Depression Total Score: 0 10/29/19 24 10:28 AM EDT documented as of this encounter Care Teams Box Puller Relationship Specialty Start Date End Date Name, MD Ernie [address] [place] [address] PCP - General Family Medicine 01/06/19 Priscilla Helm Scrum Project ManagerLast Putter Away 10/15/23 documented as of this encounter
--- OUTSIDE RECORDS SUMMARY | 2024-08-04 12:43 | XMS_ITS | Encounter Summary ---
Author Organization [employer] Address [address] [facility] 7t [place] [address] Care Team Providers Care Potato Chip Maker Name Role Phone Name, Ernie MOE Primary Care Provider [phone] Reason for Visit * Reason Comments Med Refill Encounter Details Date Type Department Care Team ([facility] st Contact Info) Description 04/22/2023 Refill [facility] [address] [place] [address] [phone] Ministerio Vasques MD [address] [place] [address] Right wrist pain Social History Tobacco Use [...] Description 08/28/2024 10:15 AM EDT Office Visit [facility] MEDICINE [address] [place] [phone] Sasha Coronel CNM [address] [place] [address] documented as of this encounter Visit Diagnoses Diagnosis Right wrist pain Pain in joint, forearm documented in this encounter Additional Health Concerns Assessment Noted Time PHQ-9 Depression Total Score: 0 10/08/19 23 11:31 AM EDT documented as of this encounter Care Teams Potato Chip Maker Relationship Specialty Start Date End Date Name, MD Ernie [address] [place] [phone] PCP - General Family Medicine 01/06/19 Priscilla Helm Flow NurseHead Gauge Unit Operator 10/15/23 documented as of this encounter
--- OUTSIDE RECORDS SUMMARY | 2024-08-04 12:43 | XMS_ITS | Encounter Summary ---
Author Organization [employer] Address [address] [facility] 7t [place] [address] Care Team Providers Care Charge Weigher Name Role Phone Name, Ernie MOE Primary Care Provider [phone] Reason for Visit * Reason Onset Date Comments ER Follow-up 04/14/2024 Encounter Details Date Type Department Care Team ([facility] Contact Info) Description 04/14/2024 Telephone [facility] MEDICINE [address] [place], [place] [phone] Name, MD Ernie [address] [place] [address] ER Follow-up Social History Tobacco Use Types [...] ED visit on : Date: 04/13/24 Hospital: [facility] Seen for: Seizures Pt requesting for provider to go over lab work that was done at [facility] . Lyndsey Roberts's at ED did not go over them and she seen her Kidney levels were off. documented in this encounter Plan of Treatment Upcoming Encounters Date Type Department Care Team (Late st Contact Info) Description 08/28/2024 10:15 AM EDT Office Visit [facility] MEDICINE [address] [place] [address] Sasha Coronel CNM [address] [place] [address] documented as of this encounter Goals Goal Patient Goal Type Associated Problems Recent Progress Patient-Stated? Author Patient will adhere to medication regimen General No Evelyn Levine documented as of this encounter Visit Diagnoses Not on filedocumented in this encounter Additional Health Concerns Assessment Noted Time PHQ-9 Depression Total Score: 0 10/29/19 24 10:28 AM EDT documented as of this encounter Care Teams Charge Weigher Relationship Specialty Start Date End Date Name, MD Ernie [address] [place] [address] PCP - General Family Medicine 01/06/19 Priscilla Helm Gym ManagerPlant Specialist 10/15/23 documented as of this encounter
--- OUTSIDE RECORDS SUMMARY | 2024-08-04 12:43 | XMS_ITS | Clinical Summary ---
Author Organization [facility] ity Address [address] [place] [address] Care Team Providers Care Management Developer Name Role Phone Name, Ernie MOE Primary Care Provider [phone] Social History Tobacco Use Types Packs/Day Years [...] age to complete this topic Care Teams Management Developer Relationship Specialty Start Date End Date Name, MD Ernie [address] [place] [address] PCP - General Internal Medicine 03/16/19
--- OUTSIDE RECORDS SUMMARY | 2024-08-04 12:43 | XMS_ITS | Encounter Summary ---
Author Organization [employer] Address [address] [facility] 7t [place] [address] Care Team Providers Care Camp Coordinator Name Role Phone Name, Ernie MOE Primary Care Provider [phone] Reason for Visit * Reason Onset Date Comments chartprep 07/25/2024 Encounter Details Date Type Department Care Team ([facility] Contact Info) Description 07/25/2024 Telephone [facility] MED & PEDS [address] [place], [place] [phone] Name, MD Ernie [address] [place] [address] chartprep Social History Tobacco Use Types Packs/Day Years [...] encounter Miscellaneous Notes * Telephone Encounter - Mikala Matamoros MA - 07/25/2024 11:52 AM EST Chart Prep Labs: done Images: done Vaccines due: yes Covid, and hep b Referrals: pending appt Screenings: HIV Overdue care gaps: none documented in this encounter Plan of Treatment Upcoming Encounters Date Type Department Care Team (Late st Contact Info) Description 08/28/2024 10:15 AM EDT Office Visit [facility] MEDICINE [address] [place] [address] Sasha Coronel CNM [address] [place] [address] documented as of this encounter Goals Goal Patient Goal Type Associated Problems Recent Progress Patient-Stated? Author Patient will adhere to medication regimen General No Evelyn Levine documented as of this encounter Visit Diagnoses Not on filedocumented in this encounter Additional Health Concerns Assessment Noted Time PHQ-9 Depression Total Score: 0 10/29/19 24 10:28 AM EDT documented as of this encounter Care Teams Camp Coordinator Relationship Specialty Start Date End Date Name, MD Ernie [address] [place] [address] PCP - General Family Medicine 01/06/19 Priscilla Helm Deep Fat Cook FryDermatological Surgeon 10/15/23 documented as of this encounter
--- OUTSIDE RECORDS SUMMARY | 2024-08-04 12:43 | XMS_ITS | Encounter Summary ---
Author Organization [employer] Address [address] [facility] 7t [place] [address] Care Team Providers Care Weaver [employer]rics Name Role Phone Name, Ernie MOE Primary Care Provider [phone] Reason for Visit * Reason Comments Follow-up Encounter Details Date Type Department Care Team ([facility] Contact Info) Description 07/28/2024 11:30 AM EST Office Visit [facility] MEDICINE [address] [place] [address] [phone] Name, MD Ernie [address] [place] [address] Morbid obesity due to excess calories (CMS/HCC) (Primary Dx); Trochanteric bursitis of right hip; Encounter for immunization Social History Tobacco Use Types Packs/Day Years [...] is your housing situation today? I have [place] 05/11/[address] you [...] Sign Reading Time Taken Comments Blood Pressure 127/79 07/28/2024 11:48 AM EST Pulse 87 07/28/2024 11:48 AM EST Temperature 36.3 ??C (97.3 ??F) 07/28/2024 11:[address] Respiratory Rate 21 07/28/2024 11:48 AM EST Oxygen Saturation 98% 07/28/2024 11:48 AM EST Inhaled Oxygen Concentration - - Weight 125 kg (275 lb) 07/28/2024 11:48 AM EST Height 165.1 cm (5' 5 ) 07/28/2024 11:48 AM EST Body Mass Index 45.76 07/28/2024 11:48 AM EST documented in this encounter Progress Notes * Ernie Nobles MD - 07/28/2024 11:30 AM EST Subjective Patient ID: Jihan Brothers is a 38 y.o. female who presents for Follow-up. Patient comes for a follow-up visit. The patient has morbid obesity. She has been on treatment withGLP-1 for weight loss. She was previously responding well to the use of Wegovy but we had to switchto medication because of her insurance to [facility]. The patient was off therapy for a few months and has gained a few pounds. She is currently on her second week of Zepbound 5 mg. She denies any abdominal pain, no nausea or vomiting, no constipation or diarrhea on the Zepbound. She has noted increased appetite compared to when she was on Wegovy. She denies any recent seizures. The patient tells me she has been following with a neurologist in [place]. Since her last appointment she was taken off Eliquis by hematology. 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 Review of Systems Constitutional: Negative for chills and fever. HENT: Negative for sore throat. Respiratory: Negative for cough, shortness of breath and wheezing. Cardiovascular: Negative for chest pain, palpitations and leg swelling. Gastrointestinal: Negative for abdominal pain. Musculoskeletal: The patient complains of right lateral hip pain. She has history of trochanteric bursitis. Visit Vitals BP 127/79 (BP Location: Left arm, Patient Position: Sitting, BP Cuff Size: Large adult) Pulse 87 Temp 97.3 ??F (36.3 ??C) (Temporal) Resp 21 Ht 5' 5 (1.651 m) Wt 275 lb (125 kg) SpO2 98% BMI 45.76 kg/m?? OB Status Hysterectomy Smoking Status Former BSA 2.39 m?? Objective Physical Exam Constitutional: Appearance: Normal appearance. Cardiovascular: Rate and Rhythm: Normal rate and regular rhythm. Heart sounds: No murmur heard. No gallop. Pulmonary: Effort: Pulmonary effort is normal. No respiratory distress. Breath sounds: Normal breath sounds. No wheezing. Musculoskeletal: Right lower leg: No edema. Left lower leg: No edema. Neurological: Mental Status: She is alert. Assessment/Plan Diagnoses and all orders for this visit: Morbid obesity due to excess calories (CMS/[facility]) Comments: My plan is to increase to Zepbound when she is due for a refill to 7.5 mg once a week. She is encouraged to avoid sweets and soda, try to walk daily. Trochanteric bursitis of right hip Comments: I recommended a short course of meloxicam. Keep upcoming appointment with orthopedics. Encounter for immunization - COVID-19 VACCINE ([employer]) [id number] 12 yrs + Other orders - Flu vaccine greater than or equal to 6 months old, preservative free IM - meloxicam (Mobic) 7.5 MG tablet; Take 1 tablet (7.5 mg) by mouth Once per day. documented in this encounter Plan of Treatment Upcoming Encounters Date Type Department Care Team (Late st Contact Info) Description 08/28/2024 10:15 AM EDT Office Visit [facility] MEDICINE [address] [place], [place] [phone] Sasha Coronel CNM [address] [place], [place] [phone] documented as of this encounter Goals Goal Patient Goal Type Associated Problems Recent Progress Patient-Stated? Author Patient will adhere to medication regimen General Evelyn Xavier documented as of this encounter Visit Diagnoses Diagnosis Morbid obesity due to excess calories (CMS/HCC)- Primary Trochanteric bursitis of right hip Encounter for immunization documented in this encounter Additional Health Concerns Assessment Noted Time PHQ-9 Depression Total Score: 0 10/29/19 24 10:28 AM EDT documented as of this encounter Care Teams Weaver [employer] Fabrics Relationship Specialty Start Date End Date Giuliano, MD Ernie [address] [place] [address] PCP - General Family Medicine 01/06/19 Priscilla Helm Safety Patrol OfficerTraining And Documentation Specialist 10/15/23 documented as of this encounter
--- OUTSIDE RECORDS SUMMARY | 2024-08-04 12:43 | XMS_ITS | Encounter Summary ---
Author Organization [employer] Address [address] [place] [address] [address] [place] [address] Care Team Providers Care Panelboard Operator Name Role Phone Name, Ernie MOE Primary Care Provider [phone] Reason for Visit * Reason Onset Date Comments PT1 11/17/2022 Encounter Details Date Type Department Care Team ([facility] st Contact Info) Description 11/17/2022 Telephone [facility] MEDICINE [address] [place] [phone] Name, MD Ernie [address] [place] [address] PT1 Social History Tobacco Use Types Packs/Day [...] / denial letter via mail. PT-1 Request [id number] - [address] [id number] * Telephone Encounter - Nila Awad - 11/17/2022 9:20 AM EDT PT1- PCP Location: [address] [place] [address] Date: 12/08/22 Time: 3:15 pm Lab Tech Needed: Yes Wheel Chair Access? No documented in this encounter Plan of Treatment Upcoming Encounters Date Type Department Care Team (Late st Contact Info) Description 08/28/2024 10:15 AM EDT Office Visit [facility] MEDICINE [address] [place] [address] Sasha Coronel CNM [address] [place] [address] documented as of this encounter Visit Diagnoses Not on filedocumented in this encounter Additional Health Concerns Assessment Noted Time PHQ-9 Depression Total Score: 0 10/08/19 11:31 AM EDT documented as of this encounter Care Teams Panelboard Operator Relationship Specialty Start Date End Date Name, MD Ernie [address] [place] [address] PCP - General Family Medicine 01/06/19 Priscilla Helm Shake Out WorkerInspector Bicycle 10/15/23 documented as of this encounter
--- OUTSIDE RECORDS SUMMARY | 2024-08-04 12:43 | XMS_ITS | Clinical Summary ---
Author Organization [employer] Address [address] [facility] 7[address] [place] [address] Care Team Providers Care Rn Clinical Documentation Name Role Phone Name, Ernie MOE Primary Care Provider Allergies Active Allergy Reactions Criticality Noted Date Comments [place] Flavoring Agent (Non-Screening) 12/26/2018 [place] Pollen Allergy Skin Test 12/26/2018 Codeine High 03/16/2016 Other 07/01/2023 mayonnaise and all nuts except peanuts Medications * This document contains information received from the source organization and may not represent a complete record from that organization. [facility] (Pulse Oximeter) [facility] Use as [...] Take 1 capsule by mouth at bedtime. 023 Active Diclofenac Sodium 1 % gelIndications:Ri ght wrist pain Apply to the affected area up to 4x/day prn 100 g 1 024 Active EPINEPHrine (Epipen) 0.3 MG/0.3ML injection syringe inject 0.3 milliliter by intramuscular route once as needed for anaphylaxis 2 each 1 Active levETIRAcetam (Keppra) 500 MG tablet TAKE 1 TABLET BY MOUTH TWICE DAILY IN THE MORNING AND IN THE EVENING (WITH 1,000 MG TABLET) 60 tablet 3 024 Active levETIRAcetam (Keppra) 1000 MG tablet TAKE 1 TABLET BY MOUTH TWICE DAILY IN THE MORNING AND IN THE EVENING 180 tablet 2 024 Active loratadine (Claritin) 10 MG tablet Take 1 tablet (10 mg) by mouth in the morning. 90 tablet 1 024 Active SUMAtriptan (Imitrex) 50 MG tabletIndications :Intractable migraine without aura and without status migrainosus TAKE 1 TABLET BY MOUTH AT ONSET OF MIGRAINE. MAY REPEAT ONCE AFTER 2 HOURS IF NEEDED, DO NOT EXCEED 4 TABLETS IN 24 HOURS 20 tablet 1 024 Active nortriptyline (Pamelor) 25 MG capsule Take 25 mg by mouth at bedtime. 024 Active fluticasone (Flonase) 50 MCG/ACT nasal spray INSTILL 2 SPRAYS IN EACH NOSTRIL ONCE DAILY 48 g 025 Active famotidine (Pepcid) 20 MG tablet Take [...] needed for vomiting or nausea. 20 tablet 025 Active topiramate (Topamax) 100 MG tabletIndications :Bipolar 1 disorder (CMS/HCC),Chronic low back pain with right-sided sciatica, unspecified back pain laterality,Histor y of pulmonary embolus (PE),Morbid obesity (CMS/HCC),Screeni ng for diabetes mellitus,Screenin g for cholesterol level TAKE 1 TABLET BY MOUTH TWICE DAILY IN THE MORNING AND IN THE EVENING 60 tablet 025 Active meloxicam (Mobic) 7.5 MG tablet Take 1 tablet (7.5 mg) by mouth Once per day. 30 tablet 025 2025 Active Tirzepatide-Weigh t Management (Zepbound) 7.5 MG/0.5ML solution auto-injector Inject 0.5 mL (7.5 mg) under the skin every 7 (seven) days. 2 mL 025 Active Semaglutide-Weigh t Management (Wegovy) 2.4 MG/0.75ML solution auto-injector Inject 2.4 mg under the skin 1 (one) time per week. 3 mL 11 024 2024 Discontinued(T herapy completed) lacosamide (Vimpat) 150 mg tablet tablet Take 1 tablet (150 mg) by mouth 2 times daily. 60 tablet 024 2024 Discontinued(T herapy completed) Tirzepatide-Weigh t Management (Zepbound) 5 MG/0.5ML solution auto-injector Inject 0.5 mL (5 mg) under the skin 1 (one) time per week. 2 mL 3 025 2024 Discontinued Active Problems Problem Noted Date [...] connected to a therapist and psychiatrist thru N. Patient reports seizures were not mental health related. At this time Jihan Brothers meets criteria for Visit Diagnoses: Problem List Items Addressed This Visit Other Depressive disorder Bipolar 1 disorder ([facility]) Patient ready to address current needs No, patient has services in place Strengths include: none identified PLAN: 1. Follow up with [facility]: Not recommended for follow-up 2. Patient goal [...] lower limb 05/06/202208/09 Obstructive sleep apnea 05/06/2022 03/1 07/2023 Peripheral neurogenic pain 05/06/2022 0 08/10/2023 Seizure 05/06/2022 06/14/2024 Assessment & Plan (05/29/2024 6:10 AM EST): -Continue Topiramate, Keppra, and Lacosamide but discontinue Trileptal -EEG with neurologist is [place] is yet to be scheduled by patient -Look into PT-1 transportation service Encounters Date Type Department Care Team Description 08/03/2024 Refill [facility] [address] [place] [address] Ernie Nobles MD 08/03/[address] [place] [address] Davina High RN 07/28/2024 11:30 AM EST Office Visit [facility] [address] [address] Ernie Nobles MD Morbid obesity due to excess calories (CMS/[facility]) (Primary Dx); Trochanteric bursitis of right hip; Encounter for immunization 07/28/2024 Travel 07/26/2024 Refill [facility] [address] [place] [address] Ernie Nobles MD Intractable migraine without aura and without status migrainosus 07/25/2024 Telephone [facility] [address] [place], [place] [phone] Ernie Nobles MD chartprep 07/12/2024 Telephone [facility] [address] [place], [place] [phone] Ernie Nobles MD Prior Authorization (Zepbound) 07/02/2024 Orders Only [facility] External Provider, [facility] 06/23/2024 Orders Only GENERIC EXTERNAL DATA DEPARTMENT Provider, Generic External Data 06/22/2024 Telephone [facility] [address] [place] [address] Ernie Nobles MD Results (Patient walked in stating Dr. Odonnell remove the medication Eliquis. Patient wanted her pcp to know about it. ) 06/21/2024 Orders Only [facility] [address] [place] [address] Ernie Nobles MD 06/20/2024 Refill [facility] [address] [place] [address] Ernie Nobles MD Bipolar 1 disorder ([facility]/HCC); Chronic low back pain with right-sided sciatica, unspecified back pain laterality; History of pulmonary embolus (PE); Morbid obesity (CMS/HCC); Screening for diabetes mellitus; Screening for cholesterol level 06/16/2024 Travel 06/14/2024 10:00 AM EST Office Visit [facility] [address] [place] [phone] Juan F Kruger CNP Seizure disorder ([facility]/HCC) (Primary Dx); Right upper quadrant abdominal pain; Right lower quadrant pain; Seasonal allergic rhinitis, unspecified trigger 06/14/2024 Travel 06/06/[address] [address] Ernie Nobles MD Chart Prep 06/05/2024 Patient Outreach [address] [address] Ernie Nobles MD Transition Of Care (Tcm) 06/01/[address] [address] Ernie Nobles MD Nurse Triage; Referral 05/31/2024 Refill [facility] [address] [place] [address] Ernie Nobles MD 05/25/[address] [address] Luis Manuel Ahn [place] feb recall 05/23/2024 9:30 AM EST Office Visit [facility] [address] [place] [phone] Katie Zamora MD Seizure ([facility]) (Primary Dx); Right lower quadrant pain; Factor XI deficiency (CMS/HCC); Dietary counseling; Exercise counseling; Class 3 severe obesity with serious comorbidity and body mass index (BMI) of 40.0 to 44.9 in adult, unspecified obesity type (CMS/HCC); History of pulmonary embolism; Iron deficiency anemia, unspecified iron deficiency anemia type 05/23/2024 Travel 05/22/2024 Refill [facility] [address] [place] [address] Ernie Nobles MD Bipolar 1 disorder ([facility]/HCC); Chronic low back pain with right-sided sciatica, unspecified back pain laterality; History of pulmonary embolus (PE); Morbid obesity ([facility]); Screening for diabetes mellitus; Screening for cholesterol level 05/21/2024 Refill [facility] [address] [place] [address] Ernie Nobles MD 05/16/2024 Refill [facility] [address] [place] [address] Ernie Nobles MD Intractable migraine without aura and without status migrainosus 05/11/2024 Telephone [facility] [address] [place] [phone] Verónica Valverde RN 05/11/2024 Patient Outreach [facility] [address] [place] [phone] Ernie Nobles MD Transition Of Care (Tcm) (HDF- scheduled and SDOH screening negative and Tobacco screening negative) 05/11/2024 Orders Only GENERIC EXTERNAL DATA DEPARTMENT Provider, Generic External Data 05/10/2024 Orders Only GENERIC EXTERNAL DATA DEPARTMENT Provider, Generic External Data from Last 3 Months Immunizations Name Administration Dates Next Due Hep B, adult 10/29/2023 INFLUENZA VACCINE QUADRIVALE NT RECOMBINANT PRESERVATIVE FREE RIV4 02/27/2023 Influenza Injectable Quadriv alant Preservative Free IIV4 MDCK 02/06/2020 Influenza injectable quadriv alent IIV4 with preservative 02/14/2019 Influenza injectable quadriv alent preservative free 04/15/2021,07/22/2019 Influenza, seasonal, injecta ble, preservative free 07/28/2024,03/09/2024 Moderna Covid-19 Vaccine 12+ 07/18/2021, 05/07/2021,10/30/2020,10/01 Pfizer Covid-19 Vaccine 12+ 07/28/2024 Pneumococcal Conjugate PCV 20 10/29/2023 Pneumococcal Polysaccharide [...] Mass Index 45.76 07/28/2024 11:48 AM EST Plan of Treatment Upcoming Encounters Date Type Department Care Team (Late st Contact Info) Description 08/28/2024 10:15 AM EDT Office Visit [facility] [address] [place] [address] Sasha Coronel, CNM [address] [place] [address] Health Maintenance Due Date Last Done Comments HIV Screening 1985 Hepatitis C Screening 11/04/2005 Hepatitis B Vaccines (2 of 3 - 19+ 3-dose series) 11/26/2023 10/29/2023 Family Planning (PISQ) 08/25/2024 08/26/2023 Depression Screening 10/28/2024 10/29/2023, 10/29/19 24 Alcohol/Substance Use Screening 12/14/2024 12/15/2023 SDOH Screening 05/11/2025 05/11/2024 Tobacco Screening 07/28/2025 07/28/2024 Lipid Panel 07/22/2027 07/22/2022 DTaP/Tdap/Td Vaccines (2 - Td or Tdap) 04/22/2031 04/22/2021 Zoster Vaccines (1 of 2) 11/04/2037 RSV Patients and Patients Aged 60 years or older (1 - 1-dose 75+ series) 11/04/2062 Pneumococcal Vaccine: Pediatrics (0 to 5 Years) and At-Risk Patients (6 to 49) Years) Completed 10/29/2023, 10/23/2018 COVID-19 Vaccine Completed 07/28/2024, 07/2022, 07/18/2021, Additional history exists Influenza Vaccine Completed 07/28/2024, , 02/27/2023, Additional history exists HIB Vaccines Aged Out [...] EST Narrative 07/04/2024 9:19 AM EST ? [facility] ?[address] ?[place] [address] ? Magnetic Resonance Report ? Signed ? Patient: Jihan Brothers S ?MR#: [id number] ?? [id number] ? : 1985 ?Acct:[id number] ? Age/Sex: 38 / F ?ADM Date: 07/02/24 ? Loc: HO.MRI ? Attending Dr: Carol Mccain MD ? Ordering Physician: Carol Andrea ?? Date of Service: 07/02/24 ?? Procedure(s): MR lumbar spine wo con ?? Accession Number(s): [id number] ? cc: Name,Ernie MOE; Carol Andrea ? 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 MR lumbar spine without gadolinium ? Comparison: MR - MRI LUMBAR SPINE [id number] - 01/01/20 08:47 EDT ? Findings: ?? [...] ? DD/ 7 ? TD/TT: 07/04/24917 ? Senior Managing Director: ? Procedure Note Donotuseinterpreter, Image - 07/04/[address] [address] Magnetic Resonance Report Signed Patient: Jihan Brothers [facility]#: [id number] : 1985Acct:[id number] Age/Sex: 38 / FADM Date: 07/02/24 Loc: HO.MRI Attending Dr: Carol Mccain MD Ordering Physician: Carol Andrea Date of Service: 07/02/24 Procedure(s): MR lumbar spine wo con Accession Number(s): [id number] cc: Name,Ernie MOE; Carol Andrea CLINICAL HISTORY: M51.26 - Other intervertebral disc displacement, lumbarregion MR lumbar spine without gadolinium Comparison: MR - MRI LUMBAR SPINE [id number] - 01/01/20 08:47 EDT Findings: Normal alignment. [...] in OV> 07/04/24918 DD/ 7 TD/TT: 07/04/24917 Senior Managing Director: [facility] External Provider IMG MRI PROCEDURES Edited Result - Final * ECG 12 lead (06/29/2024 3:07 PM EST) Narrative Juan F KrugerKARINA - 06/29/2024 3:07 PM EST NSR, Rate: 86 bpm, normal axis, no ST segment changes, no QT prolongation [facility] ECG ORDERABLES Final Res ult * Lipase (06/23/2024 11:30 AM EST) Only the most recent of2 resultswithin the time period is included. Pathologist [facility] Lipase 12 8 - 78 U/L [facility] Blood Venous blood specimen / Unknown 06/23/2024 11:30 AM EST 06/23/2024 2:56 PM EST [facility] LAB BLOOD ORDERABLES Colleen l Result [facility] [address] [place] [phone] * Comprehensive Metabolic Panel (06/23/2024 11:30 AM EST) Only the most recent of2 resultswithin the time period is included. Pathologist [facility] Sodium 141 135 - 145 mmol/L [facility] Potassium 4.3 3.3 - 5.1 mmol/L [facility] Chloride 108 96 - 108 mmol/L [facility] Carbon Dioxide 25 22 - 29 mmol/L [facility] Anion Gap 12 12 - 20 [facility] Urea Nitrogen (BUN) 9 9 - 16 mg/dL [facility] Creatinine, Serum 0.69 0.5 - 1.4 mg/dL [facility] Estimated Glomerular Filt Rate >60 [facility] Comment:Chronic Kidney Disea se: Estimated GFR < 60 mL/min/1.57h9Ijwahg Kidney Disease: Estimated GFR < 15 mL/min/1.73m2 Glucose 89 60 - 115 mg/dL [facility] Calcium 8.9 8.4 - 10.2 mg/dL [facility] Bilirubin, Total 0.3 0.0 - 1.0 mg/dL [facility] Aspartate Amino Transferase 17 5 - 31 U/L [facility] Alanine Aminotransferase 9 0 - 31 U/L [facility] Total Protein 6.8 6.5 - 8.0 g/dL [facility] Albumin Level 3.9 3.5 - 5.0 g/dL [facility] Alkaline Phosphatase 80 39 - 117 U/L [facility] Blood Venous blood specimen / Unknown 06/23/2024 11:30 AM EST 06/23/2024 2:56 PM EST [facility] LAB BLOOD ORDERABLES Colleen l Result Performing Organization Address [facility] Co de Phone Number [facility] [address] [place] [phone] * Cancelled Coag (06/23/2024 11:00 AM EST) Cancelled Coag SEE NOTE [facility] Comment:DDIMER CANCELLED, NO SPECIMEN RECEIVED 06/23/2024 11:0 0 AM EST 06/23/2024 7:09 PM EST us Generic External Data Provider HISTORICAL/NON OR DERABLE LABS Final Result Performing Organization Address [facility] Co de Phone Number [facility] [address] [place] [phone] * Cancelled Hematology (06/23/2024 11:00 AM EST) Cancelled Hematology SEE NOTE [facility] Comment:CBC CANCELLED, NO SP ECIMEN RECEIVED 06/23/2024 11:0 0 AM EST 06/23/2024 7:09 PM EST Generic External Data Provider HISTORICAL/NON OR DERABLE LABS Final Result Performing Organization Address City/[facility]/ZIP Co de Phone Number [facility] [address] [place] [phone] * TSH W/Reflex to FT4 (06/14/2024 11:14 AM EST) TSH reflex Free T4 0.44 0.32 - 4.0 uIU/mL [facility] Blood Venous blood specimen / Unknown 06/14/2024 11:14 AM EST 06/14/2024 1:02 PM EST Sasha Coronel [facility] LAB BLOOD ORDERABLES Colleen l Result Performing Organization Address [facility] Co de Phone Number [facility] [address] [place] [phone] * (ABNORMAL) Urinalysis, Complete, with Reflex to Culture (05/11/2024 12:30 AM EST) Color Urine Yellow [facility] Appearance Urine Clear [facility] PH 5.5 5.0 - 9.0 [facility] Glucose Urine UA Negative Negative mg/dL [facility] Urine Blood Trace(A) Negative [facility] Specific [place] - Urine >=1.030(H) 1.005 - 1.025 [facility] Urine Protein Negative Neg-Trace mg/dL [facility] Urine Ketones 40 Negative mg/dL [facility] Nitrite Urine Negative Negative [facility] Leukocyte Esterase Urine Negative Negative [facility] RBC Urine 0-2 0 - 2 /HPF [facility] Urine WBC 0-5 0 - 5 /HPF [facility] Urine Squamous Epithelial Cell 0-2 0 - 2 /HPF [facility] Urine Bacteria None Seen None Seen [facility] Hyaline Casts, Urine 0-2 0 - 2 /LPF [facility] 05/11/2024 12:3 0 AM EST 05/11/2024 12:34 AM EST Narrative [facility] - 05/11/2024 12:44 AM EST [id number], Clean Catch us Generic External Data Provider LAB URINE ORDERAB LES Final Result Performing Organization Address [facility]/State/ZIP Co de Phone Number [facility] [address] [facility] [place] [phone] * CT Abdomen Pelvis w/ Contrast (05/10/2024 11:35 PM EST) Anatomical Region Laterality Modality Body, Pelvis, Abdomen Computed T omography 05/10/2024 11:3 5 PM EST Narrative 05/11/2024 12:16 AM EST ? [facility] ?[address] ?[place] [address] ? CT Scan Report ? Signed ? Patient: Zev,Jihan S ?MR#: [id number] ?? [id number] ? : 1985 ?Acct:[id number] ? Age/Sex: 38 / F ?ADM Date: 05/10/24 ? Loc: HO.ED ? Attending Dr: ? Ordering Physician: Micaela Paiz DO ?? Date of Service: 05/10/24 ?? Procedure(s): CT abdomen pelvis w IV con ?? Accession Number(s): [id number] ? cc: Micaela Paiz DO; Name,Ernie MOE [...] DD/ 2335 ? TD/TT: 05/10/24 2335 ? Senior Managing Director: SS ? Procedure Note Tate, Keila - 05/11/[address] [address] [address] Scan Report Signed Patient: Jihan Brothers [facility]#: [id number] : 1985Acct:[id number] Age/Sex: 38 / FADM Date: 05/10/24 Loc: HO.ED Attending Dr: Ordering Physician: Micaela Paiz DO Date of Service: 05/10/24 Procedure(s): CT abdomen pelvis w IV con Accession Number(s): [id number] cc: Micaela Paiz DO; Name,Ernie MOE EXAMINATION: [...] Андрей Alvares MD 05/11/2024 12:12 AM EST RP Dictated By: Андрей Alvares MD Signed By: <Electronically signed by Андрей Alvares MD in OV> 05/11/24 0012 DD/ 34 TD/TT: 05/10/242334 Senior Managing Director: [facility] External Provider IMG CT PROCEDURES Edited Result - Final * (ABNORMAL) CBC auto differential (05/10/2024 7:59 PM EST) White Blood Count 5.5 4.8 - 10.8 X10*3/uL [facility] Red Blood Count 4.36 4.20 - 5.50 X10*6/uL [facility] Hemoglobin 11.7(L) 12.0 - 16.0 g/dl [facility] Hematocrit 35.6(L) 37.0 - 47.0 % [facility] Mean Corpuscular Volume 81.7 80.0 - 98.0 fL [facility] Mean Corpuscular Hemoglobin 26.8(L) 27.0 - 33.0 pg [facility] Mean Corpuscular HGB Conc 32.9 31.0 - 35.0 g/dl [facility] Red Cell Distribution Width 13.8 11.0 - 16.0 % [facility] Platelet Count 238 160 - 400 X10*3/uL [facility] Mean Platelet Volume 9.9 9.4 - 12.3 fL [facility] Neutrophils Percent Auto 56.0 45 - 73 % [facility] Imm Gran Pct Auto 0.2 0.0 - 0.4 % [facility] Lymphocytes Percent Auto 34.9 20 - 40 % [facility] Monocytes Percent Auto 6.0 2 - 11 % [facility] Eosinophils Percent Auto 2.7 0 - 4 % [facility] Basophils Percent Auto 0.2 0 - 2 % [facility] NRBC Pct Auto 0.0 0.0 - 0.2 /100WBC [facility] Neutrophils Absolute Auto 3.1 2.0 - 8.3 x10*3/uL [facility] Imm Gran Abs Auto 0.01 0.00 - 0.03 X10*3/uL [facility] Lymphocytes Absolute Auto 1.9 1.2 - 4.9 X10*3/uL [facility] Monocytes Absolute Auto 0.3 0.1 - 1.2 X10*3/uL [facility] Eosinophils Absolute Auto 0.2 0.0 - 0.4 X10*3/uL [facility] Basophils Absolute Auto 0.0 0.0 - 0.2 X10*3/uL [facility] NRBC Abs Auto 0.000 0.0 - 0.012 X10*3/uL [facility] 05/10/2024 7:59 PM EST 05/10/2024 8:01 PM EST us Generic External Data Provider LAB BLOOD ORDERAB LES Final Result [facility] [address] [place] [phone] * hCG, Total, Quantitative (05/10/2024 7:59 PM EST) HCG Quantitative <2 mIU/mL [facility] Comment:Weeks post LMP Appro ximate hCG(Last Menstrual Period) Range (mIU/ml)3 - 4 weeks 9 - 1304 - 5 weeks 75 - 2,6005 - 6 weeks 850 - 20,8006 - 7 weeks 4000 - 100,2007 - 12 weeks 11,500 - 289,42559 - 16 weeks 18,300 - 137,98381 - 29 weeks (2nd trimester) 1,400 - 53,04537 - 41 weeks (3rd trimester) 940 - [...] Provider LAB BLOOD ORDERAB LES Final Result [facility] [address] [place] [phone] * (ABNORMAL) Lipid Panel, Standard (07/22/2022 12:08 PM EST) Cholesterol, Total 159 <200 mg/dL [facility] HDL Cholesterol 41(L) > OR = 50 mg/dL [facility] Triglycerides 81 <150 mg/dL [facility] LDL Cholesterol 101(H) mg/dL (calc) [facility] Comment: Reference range: <100 Desirable range <100 mg/dL for primary prevention; ?? <70 mg/dL for patients with CHD or diabetic patients with > or = 2 CHD risk factors. LDL-C is now calculated using the Blas-Bruce calculation, which is a validated novel method providing better accuracy than the Friedewald equation in the estimation of LDL-C. Blas SS et al. EVA. 2013;310(19): 4610-6326 (http://education.[employer].DSI MET-TECH/faq/INK486) Chol/HDLC Ratio 3.9 <5.0 (calc) [facility] Non-HDL Cholesterol 118 <130 mg/dL (calc) [facility] Comment: For patients with diabetes plus 1 major ASCVD risk factor, treating to a non-HDL-C goal of <100 mg/dL (LDL-C of <70 mg/dL) is considered a therapeutic option. Blood Venous blood specimen / Unknown 07/22/2022 12:08 PM EST 07/22/2022 12:08 PM EST Narrative [facility] - 07/23/2022 6:09 AM EST FASTING:NO FASTING: NO Ernie Nobles MD LAB BLOOD ORDERABLES Final Resul t [facility] [address] [facility], [place] [address] [facility] [address] [facility], (N[address]2) [place] [address] from Last 3 Months or Most Recently Relevant to Health Maintenance [place] [address] [place] [address] C3 Care Teams Rn Clinical Documentation Relationship Specialty Start Date End Date Name, MD Ernie [address] [place] [address] PCP - General Family Medicine 01/06/19 Priscilla Helm Men'S Leather Dress Belt MakerCable Coverer 10/15/23
--- OUTSIDE RECORDS SUMMARY | 2024-08-04 12:43 | XMS_ITS | Encounter Summary ---
Author Organization [employer] Address [address] [facility] [address] [place] [address] Care Team Providers Care Line Mover Name Role Phone Name, Ernie MOE Primary Care Provider [phone] Reason for Visit * Reason Comments Med Refill Encounter Details Date Type Department Care Team ([facility] st Contact Info) Description 02/15/2024 Refill [facility] [address] [place], [place] [phone] Name, MD Ernie [address] [place] [address] Social History Tobacco Use Types Packs/Day Years [...] Description 08/28/2024 10:15 AM EDT Office Visit [facility] [address] [place] [address] Sasha Coronel CNM [address] [place] [address] documented as of this encounter Goals Goal Patient Goal Type Associated Problems Recent Progress Patient-Stated? Author Patient will adhere to medication regimen General No Evelyn Levine documented as of this encounter Visit Diagnoses Not on filedocumented in this encounter Additional Health Concerns Assessment Noted Time PHQ-9 Depression Total Score: 0 10/29/19 24 10:28 AM EDT documented as of this encounter Care Teams Line Mover Relationship Specialty Start Date End Date Name, MD Ernie [address] [place] [phone] PCP - General Family Medicine 01/06/19 Priscilla Helm Geological DrafterSample Coordinator 10/15/23 documented as of this encounter
--- OUTSIDE RECORDS SUMMARY | 2024-08-04 12:44 | XMS_ITS | Encounter Summary ---
Author Organization [employer] Address [address] [facility] 7[address] [place] [address] Care Team Providers Care Nonprofit Fundraiser Name Role Phone Name, Ernie MOE Primary Care Provider [phone] Reason for Visit * Reason Onset Date Comments ER Follow-up 08/30/2023 Encounter Details Date Type Department Care Team ([facility] Contact Info) Description 08/30/2023 Telephone [facility] [address] [place], [place] [phone] Name, MD Ernie [address] [place] [address] ER Follow-up Social History Tobacco Use Types [...] on : Date: 08/24, 08/25, 08/26,08/27,08/28 Hospital: [facility] Seen for: Seizers Patient advised will forward to team nurse for follow up documented in this encounter Plan of Treatment Upcoming Encounters Date Type Department Care Team (Late st Contact Info) Description 08/28/2024 10:15 AM EDT Office Visit [facility] [address] [place] [address] Sasha Coronel CNM [address] [place] [address] documented as of this encounter Visit Diagnoses Not on filedocumented in this encounter Additional Health Concerns Assessment Noted Time PHQ-9 Depression Total Score: 0 10/08/19 23 11:31 AM EDT documented as of this encounter Care Teams Nonprofit Fundraiser Relationship Specialty Start Date End Date Name, MD Ernie [address] [place] [address] PCP - General Family Medicine 01/06/19 Priscilla Helm Clipper CountersRfid Systems Architect 10/15/23 documented as of this encounter
== END 2024-08-04 11:10 | disposition home or self-care (01) ==
LOC: HO.HOS 11:00
PROVIDERS: PCP Internal Medicine Geriatric Medicine; Visit Provider Physical Medicine & Rehabilitation
DX: M51.26 Other intervertebral disc displacement, lumbar region (principal); M47.816 Spondylosis without myelopathy or radiculopathy, lumbar region
CPT/HCPCS: 99213

== ENCOUNTER → 2024-08-04 11:00 | Outpatient (BNVA) | payer MEDICAID, SELFPAY | PROVIDERS: PCP Internal Medicine Geriatric Medicine; Visit Provider Physical Medicine & Rehabilitation ==

== ENCOUNTER 2024-10-04 18:05 | Outpatient (REF) | payer MEDICAID, SELFPAY | END 2024-10-04 18:06 | disposition home or self-care (01) | LOC: HO.HHCLNP 18:05 | DX: N94.89 Other specified conditions associated with female genital organs and menstrual cycle (principal) | CPT/HCPCS: 87086 ==

== ENCOUNTER 2024-12-07 13:53 | Outpatient (REF) | payer MEDICAID, SELFPAY ==
--- OUTSIDE RECORDS SUMMARY | 2024-12-07 13:58 | XMS_ITS | Encounter Summary ---
Author Organization [employer] Address [address] [facility] [address] [place] [address] Care Team Providers Care Fishing Captain Name Role Phone Name, Ernie MOE Primary Care Provider [phone] Reason for Visit * Reason Onset Date Comments Med Refill 07/30/2023 Encounter Details Date Type Department Care Team ([facility] st Contact Info) Description 07/30/2023 Refill [facility] [address] [place], [place] [phone] Name, MD Ernie [address] [place] [address] Social History Tobacco Use Types Packs/Day Years [...] Care Team (Late st Contact Info) Description 03/02/2025 3:15 PM EDT Office Visit [facility] [address] [place] [phone] Name, MD Ernie [address] [place] [phone] documented as of this encounter Visit Diagnoses Not on filedocumented in this encounter Additional Health Concerns Assessment Noted Time PHQ-9 Depression Total Score: 0 10/08/19 23 11:31 AM EDT documented as of this encounter Care Teams Fishing Captain Relationship Specialty Start Date End Date Name, MD Ernie [address] [place] [address] PCP - General Family Medicine 01/06/19 Priscilla Helm Floral AssociateSwitch Cleaner 10/15/23 documented as of this encounter
--- OUTSIDE RECORDS SUMMARY | 2024-12-07 13:58 | XMS_ITS | Clinical Summary ---
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 Name Role Phone Name, Ernie MOE Primary Care Provider [phone] Social History Tobacco Use Types Packs/Day Years [...] 2023-2 5 season) 2024 Influenza Vaccine (#1) 2025 HIB Vaccines Aged Out No longer eligi [...] age to complete this topic Meningococcal B Vaccine Aged Out No l onger eligible based on patient's age to complete this topic Pneumococcal Vaccine: Pediat rics (0 to 5 Years) and At-Risk Patients (6 to 49 Years) Aged Out No longer eligible b ased on patient's age to complete this topic RSV Immunization Patients Un bc 20 months Aged Out No longer eligible b ased on patient's age to complete this topic Varicella Vaccines Aged Out No longer eligible based on patient's age to complete this topic Care Teams Delicate Fabrics Presser Relationship Specialty Start Date End Date Name, MD Ernie [address] [place] [address] PCP - General Internal Medicine 03/16/19
[2024-12-07 17:10] LABS: MANUAL DIFF FLAG NO
[2024-12-07 17:24] LABS: Hematocrit 37.9 % (37.0-47.0); Hemoglobin 12.1 g/dl (12.0-16.0); Imm Gran Abs Auto 0.02 X10*3/uL (0.00-0.03); Imm Gran Pct Auto 0.3 % (0.0-0.4); Lymphocytes Absolute Auto 2.6 X10*3/uL (1.2-4.9); Mean Corpuscular HGB Conc 31.9 g/dl (31.0-35.0); Mean Corpuscular Hemoglobin 26.6 pg (27.0-33.0); Mean Corpuscular Volume 83.3 fL (80.0-98.0); NRBC Abs Auto 0.000 X10*3/uL (0.0-0.012); NRBC Pct Auto 0.0 /100WBC (0.0-0.2); Platelet Count 258 X10*3/uL (160-400); Red Blood Count 4.55 X10*6/uL (4.20-5.50); White Blood Count 6.0 X10*3/uL (4.8-10.8)
[2024-12-07 17:43] LABS: Alanine Aminotransferase 8 U/L (0-31); Albumin Level 4.4 g/dL (3.5-5.0); Alkaline Phosphatase 73 U/L (39-117); Anion Gap 11 (12-20); Aspartate Amino Transferase 22 U/L (5-31); Blood Urea Nitrogen 8 mg/dL (9-16); Calcium 8.9 mg/dL (8.4-10.2); Carbon Dioxide 23 mmol/L (22-29); Chloride 109 mmol/L (96-108); Estimated Glomerular Filt Rate > 60; Potassium 3.8 mmol/L (3.3-5.1); Sodium 139 mmol/L (135-145); Total Protein 7.5 g/dL (6.5-8.0)
[2024-12-07 17:51] LABS: D Dimer High Sensitivity 254 NG/ML
[2024-12-08 06:08] LABS: Follicle Stimulating Hormone 5.7 mIU/mL
[2024-12-10 19:43] LABS: Levetiracetam Keppra <2.0 mcg/mL (6.0-46.0)
== END 2024-12-07 13:54 | disposition home or self-care (01) ==
LOC: HO.HHCL 13:53
PROVIDERS: Internal Medicine Medical Oncology; PCP Internal Medicine Geriatric Medicine; Visit Provider Internal Medicine Geriatric Medicine
DX: I26.99 Other pulmonary embolism without acute cor pulmonale (principal); R23.2 Flushing; G40.909 Epilepsy, unspecified, not intractable, without status epilepticus
CPT/HCPCS: 36415; 80053; 80177; 83001; 83002; 84443; 85025; 85379

== ENCOUNTER 2024-12-07 15:02 | Emergency (ER) | payer MEDICAID, SELFPAY ==
[2024-12-07 15:10] VITALS: BP 123/91; BP 138/84; PULSE 78; PULSE 90; RESP 20; TEMP 36.6; O2SAT 97; O2SAT 99; BMI 39.4
--- NOTE | 2024-12-07 15:46 | ECG_ITS ---
Test Reason : SEIZURE Blood Pressure : */* mmHG Vent. Rate : 83 BPM Atrial Rate : 83 BPM P-R Int : 180 ms QRS Dur : 70 ms QT Int : 366 ms P-R-T Axes : 49 12 17 degrees QTcB Int : 430 ms Normal sinus rhythm Low voltage QRS Borderline ECG When compared with ECG of 20-Oct-2022 11:17, No significant change was found Referred By: Genny Negro Electronically Signed By: Marvel Mulligan
[2024-12-07 15:49] LABS: MANUAL DIFF FLAG NO
--- NOTE | 2024-12-07 15:53 | ED.SEIZURE ---
HPI - Seizure General Chief Complaint: Seizure Stated Complaint: DTR STS SZ X15M PER EMS Time Seen by Provider: 12/07/24 15:46 Source: patient, EMS, RN notes reviewed and old records reviewed Mode of arrival: EMS Limitations: no limitations History of Present Illness ED Provider: Marky HPI Narrative: patient is a 39-year-old female with history of epilepsy as well as pseudoseizures, PE in the past on Eliquis, obesity, asthma, migraines, anxiety and depression, GERD, neuropathy, anemia, PTSD presenting to the emergency department after witnessed seizure-like activity. Patient states that she was visiting her primary care provider today for regular checkup and they ordered labs. She states that she does not typically eat breakfast and had not eaten anything prior to having her labs drawn. States that on the way back to her car after having her labs drawn she felt lightheaded. She got in her car to get something to eat and head home and continued to feel lightheaded/aura so she pulled over. States she does not remember what occurred after this. Daughter reported witnessing two episodes of seizure like activity lasting approximately 5 minutes each. EMS reporting that patient appeared postictal upon their arrival. Daughter not present at bedside to provide history. Patient awake, alert, oriented x3 on arrival to ED. states she has not felt sick recently and has not missed any of her Keppra doses. MD complaint: possible seizure Seizure History: Yes Place: in car Related Data Home Medications ?Medication ?Instructions ?Recorded ?Confirmed albuterol sulfate 2.5 mg/3 mL 2.5 mg inhalation QID PRN Wheezing 03/22/20 06/23/24 (0.083 %) solution for nebulization albuterol sulfate 90 mcg/actuation 2 puff inhalation Q4-6H PRN 03/22/20 06/23/24 aerosol inhaler (ProAir HFA) Wheezing nortriptyline 10 mg capsule 10 mg PO BEDTIME 03/22/20 06/23/24 baclofen 10 mg tablet 10 mg PO TID PRN Muscle Spasm 09/23/23 06/23/24 esomeprazole magnesium 40 mg 40 mg PO DAILY 09/23/23 06/23/24 capsule,delayed release famotidine 20 mg tablet 20 mg PO BID 09/23/23 06/23/24 fluoxetine 10 mg capsule 10 mg PO DAILY 09/23/23 06/23/24 hydroxyzine HCl 25 mg tablet 25 mg PO BID anxiety 09/23/23 06/23/24 levetiracetam 1,000 mg tablet 1,000 mg PO BID 09/23/23 06/23/24 levetiracetam 500 mg tablet 500 mg PO BID 09/23/23 06/23/24 ondansetron HCl 4 mg tablet 4 mg PO Q8H PRN nausea/vomiting 09/23/23 06/23/24 oxcarbazepine 150 mg tablet 150 mg PO BID 09/23/23 06/23/24 prazosin 2 mg capsule 2 mg PO BEDTIME 09/23/23 06/23/24 semaglutide (weight loss) 0.5 0.5 mg subcut WE 09/23/23 06/23/24 mg/0.5 mL subcutaneous pen injector (Wegovy) sumatriptan succinate 50 mg tablet 50 mg PO QD-BID migraine 09/23/23 06/23/24 topiramate 100 mg tablet 100 mg PO BID 09/23/23 06/23/24 Previous Rx's ?Medication ?Instructions ?Recorded ondansetron 4 mg disintegrating 4 mg PO Q8H PRN nausea and 05/11/24 tablet vomiting #20 tabs apixaban 5 mg tablet (Eliquis) 5 mg PO BID #60 tabs 06/14/24 folic acid 1 mg tablet 1 mg PO DAILY #90 tabs 07/14/24 Allergies Allergy/AdvReac Type Severity Reaction Status Date / Time codeine (CODEINE) Allergy Unknown Itching Verified 12/07/24 15:13 nut - unspecified Allergy Anaphylaxis Verified 12/07/24 15:13 [place] Allergy Severe throat Uncoded 12/07/24 15:13 closed Review of Systems Review of Systems: as per hpi Yes all other systems are reviewed and are negative Constitutional: Constitutional: Reports as per HPI PMFSH Past Medical History Medical History Morbid obesity due to excess calories Spondylosis of lumbar spine Sacroiliitis Obesity PTSD (post-traumatic stress disorder) Sleep apnea Sacroiliitis Gait disturbance Degenerative disc disease Chronic back pain History of blood transfusion Anemia GERD (gastroesophageal reflux disease) Neuropathy Anxiety Depression Migraine Seizure disorder Asthma Surgical History H/O excision of epidermal inclusion cyst (12/06/20) Hx of umbilical hernia repair History of partial hysterectomy History of 3 sections Family History Family History Maternal Uncle Lung cancer Father Prostate cancer Social History Social History (Updated 06/23/24 @ 09:21 by MANJU Jarrett) Household Members: Spouse and Children Housing: Apartment Are you a primary care trainer to a significant other at home: No 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 have 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) Alcohol intake: never Comment: no count Patient Tobacco Use Status: Never used Tobacco Second Hand Smoke Exposure: Yes Substance Use Type: Marijuana Advance Directives: No Advance Directives Information Provided: No Do you have a plan to hurt others: No Plan service: No Current occupational status: disabled 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 Blood pressure normal. Heart rate normal. Respiratory rate normal. Temperature normal. Oxygen saturation normal. Const: General: cooperative, healthy appearing and no acute distress Orientation/consciousness: oriented to person, oriented to place, oriented to time and patient oriented x3 Limitations: no limitations HEENT: Head: Yes normocephalic and Yes atraumatic Ears: external ears normal General nose exam: Normal external nose present Face and sinus: Yes face symmetric Mouth: oropharynx normal and moist mucous membranes Throat: Yes uvula midline Eyes: Pupils: Equal, round and reactive pupils present Neck: Neck: Yes normal visual inspection and Yes supple Resp: Effort & Inspection: normal respiratory effort and able to speak in complete sentences Auscultation: clear to auscultation bilaterally Cardio: Rate: regular rate Rhythm: regular rhythm Heart sounds: S1 normal heart sound present and S2 normal heart sound present GI: Palpation (GI): Soft to palpation and nontender Auscultation: normoactive bowel sounds : General: Yes no CVA tenderness Back/Spine/Pelvis: Back: no CVA tenderness Skin: General skin exam: elasticity normal and turgor normal Neuro: General: oriented to person, oriented to place, oriented to time, patient oriented x3, moves all extremities, no focal motor deficits and CN's II-XI intact bilaterally Cranial nerves: Yes Equal, round and reactive pupils present Cognition (Neuro): normal cognition Extrem: General: Yes full ROM, Yes no pedal edema and Yes no calf tenderness Psych: Mental Status: mental status grossly normal Affect: normal affect Thought process: Normal thought process present Medications Administered Discontinued Medications Generic Name Dose Route Start Last Admin Trade Name Freq PRN Reason Stop Dose Admin Levetiracetam 1,000 mg in 100 mls @ 400 mls/hr 12/07/24 15:47 12/07/24 16:15 Keppra IV 12/07/24 16:01 Infused ONCE ONE Infusion Medical Decision Making Medical Decision Making [facility] Narrative: patient is a 39-year-old female with history of epilepsy as well as pseudoseizures, PE in the past on Eliquis, obesity, asthma, migraines, anxiety and depression, GERD, neuropathy, anemia, PTSD presenting to the emergency department after witnessed seizure-like activity. On exam patient is awake, A+Ox3, VS WNL, afebrile, normal neurological exam without focal deficits, physical exam findings as above. Given reported symptoms and physical exam findings, initial differential includes but is not limited to seizure, pseudoseizure, syncope. Labs notable for anemia and ALISHA transfuse will level, no significant electrolyte abnormalities. UA is without evidence of infection. Lactic acid within normal limits. Viral serology negative. EKG shows normal sinus rhythm. Patient given loading dose of Keppra. Medicated with Tylenol for headache. Given normal lactic and episode occurring immediately following blood draw, feel symptoms more likely due to syncope or pseudo-seizure. Your blood additional seizure-like activity while in the department. Feel patient is stable for discharge home at this time and she is agreeable with this, family at bedside and agreeable as well. Advised to follow up with PCP. Return precautions discussed. Patient verbalized understanding of and agreement with plan. Differential Diagnosis Differential Diagnoses: The differential diagnosis associated with the presentation includes As per MDM Admission/Observation Consideration of admission/observation: Escalation of care including admission/observation considered Patient would have been admitted to the hospital had their clinical presentation warranted hospital admission. Lab Data [facility] Lab Attestation statement: I reviewed the patient's lab results. As per [facility] 12/07/24 15:28 12/07/24 15:28 Labs: Lab Results 12/07/24 12/07/24 Range/Units 15:28 15:59 WBC 6.4 (4.8-10.8) X10*3/uL RBC 3.99 L (4.20-5.50) X10*6/uL Hgb 10.8 L (12.0-16.0) g/dl Hct 33.0 L (37.0-47.0) % MCV 82.7 (80.0-98.0) fL MCH 27.1 (27.0-33.0) pg MCHC 32.7 (31.0-35.0) g/dl RDW 14.7 (11.0-16.0) % Plt Count 228 (160-400) X10*3/uL MPV 10.0 (9.4-12.3) fL Immature Gran % (Auto) 0.2 (0.0-0.4) % Neut % (Auto) 50.6 (45-73) % Lymph % (Auto) 38.8 (20-40) % [place] % (Auto) 4.8 (2-11) % Eos % (Auto) 5.3 H (0-4) % Baso % (Auto) 0.3 (0-2) % Lymph # (Auto) 2.5 (1.2-4.9) X10*3/uL [place] # (Auto) 0.3 (0.1-1.2) X10*3/uL Eos # (Auto) 0.3 (0.0-0.4) X10*3/uL Baso # (Auto) 0.0 (0.0-0.2) X10*3/uL Abs Immat Gran (auto) 0.01 (0.00-0.03) X10*3/uL Absolute Neuts (auto) 3.3 (2.0-8.3) x10*3/uL Absolute Nucleated RBC 0.000 (0.0-0.012) X10*3/uL Nucleated RBC % (auto) 0.0 (0.0-0.2) /100WBC Sodium 139 (135-145) mmol/L Potassium 3.6 (3.3-5.1) mmol/L Chloride 108 (96-108) mmol/L Carbon Dioxide 25 (22-29) mmol/L Anion Gap 10 L (12-20) BUN 7 L (9-16) mg/dL Creatinine 0.72 (0.5-1.4) mg/dL Estim Creat Clear Calc 130.2 Estimated GFR > 60 Random Glucose 80 (60-115) mg/dL Lactic Acid 0.7 (0.5-2.0) mmol/L Calcium 8.4 (8.4-10.2) mg/dL Magnesium 2.1 (1.6-2.6) mg/dL Total Bilirubin 0.4 (0.0-1.0) mg/dL AST 16 (5-31) U/L ALT 10 (0-31) U/L Alkaline Phosphatase 64 (39-117) U/L Total Protein 6.5 (6.5-8.0) g/dL Albumin 3.9 (3.5-5.0) g/dL Beta HCG, Quant < 2 mIU/mL Urine Color Yellow Urine Appearance Clear Urine pH 7.0 (5.0-9.0) Ur Specific [place] 1.015 (1.005-1.025) Urine Protein Negative (Neg-Trace) mg/dL Urine Glucose (UA) Negative (Negative) mg/dL Urine Ketones Negative (Negative) mg/dL Urine Blood Trace H (Negative) Urine Nitrite Negative (Negative) Ur Leukocyte Esterase Negative (Negative) Urine RBC 3-5 H (0-2) /HPF Urine WBC 0-5 (0-5) /HPF Ur Squamous Epith Cells 0-2 (0-2) /HPF Urine Bacteria None Seen (None Seen) Hyaline Casts 0-2 (0-2) /LPF Influenza Type A (PCR) NEGATIVE (Negative) Influenza Type B (PCR) NEGATIVE (Negative) RSV RNA Qual (PCR) NEGATIVE (Negative) SARS-CoV-2 RNA (RT-PCR) NEGATIVE (Negative) Independent Interpretation I performed an independent interpretation of an: EKG (Normal sinus rhythm, rate 83 beats per minute, normal UT interval and QTC, no significant change from prior) External Record Review External record reviewed: Inpatient record, Office record and Outpatient record Discharge Plan Discharge Clinical Impression: Witnessed seizure-like activity Patient Disposition: Home, Self-Care Additional Instructions: You were evaluated in the emergency department today after witnessed seizure-like activity. You did not have any additional seizures while here in the emergency department. Your evaluation did not show evidence of any conditions requiring emergent medical treatment at this time. You were given a loading dose of Keppra while in the ED. We recommend that you follow-up with your neurologist and PCP within the next 2 days. Return to the emergency department with additional episodes of seizures, dizziness or lightheadedness, confusion, difficulty walking or any other concerning symptoms. Prescriptions: No Action Eliquis 5 mg Tablet 5 mg PO BID Qty: 60 3RF albuterol sulfate 2.5 mg /3 mL (0.083 %) Solution For Nebulization 2.5 mg INHALATION QID PRN (Reason: Wheezing) nortriptyline 10 mg Capsule 10 mg PO BEDTIME albuterol sulfate [ProAir HFA] 90 mcg/actuation Hfa Aerosol Inhaler 2 puff INHALATION Q4-6H PRN (Reason: Wheezing) folic acid 1 mg Tablet 1 mg PO DAILY Qty: 90 4RF oxcarbazepine 150 mg tablet 150 mg PO BID ondansetron HCl 4 mg tablet 4 mg PO Q8H PRN (Reason: nausea/vomiting) sumatriptan succinate 50 mg tablet 50 mg PO QD-BID famotidine 20 mg tablet 20 mg PO BID baclofen 10 mg tablet 10 mg PO TID PRN (Reason: Muscle Spasm) esomeprazole magnesium 40 mg capsule,delayed release(DR/EC) 40 mg PO DAILY fluoxetine 10 mg capsule 10 mg PO DAILY hydroxyzine HCl 25 mg tablet 25 mg PO BID prazosin 2 mg capsule 2 mg PO BEDTIME Wegovy 0.5 mg/0.5 mL pen injector 0.5 mg subcut WE levetiracetam 500 mg Tablet 500 mg PO BID topiramate 100 mg tablet 100 mg PO BID levetiracetam 1,000 mg tablet 1,000 mg PO BID ondansetron 4 mg tablet,disintegrating 4 mg PO Q8H PRN (Reason: nausea and vomiting) Qty: 20 0RF Print Language: [place]an
[2024-12-07 15:55] LABS: Hematocrit 33.0 % (37.0-47.0); Hemoglobin 10.8 g/dl (12.0-16.0); Imm Gran Abs Auto 0.01 X10*3/uL (0.00-0.03); Imm Gran Pct Auto 0.2 % (0.0-0.4); Lymphocytes Absolute Auto 2.5 X10*3/uL (1.2-4.9); Mean Corpuscular HGB Conc 32.7 g/dl (31.0-35.0); Mean Corpuscular Hemoglobin 27.1 pg (27.0-33.0); Mean Corpuscular Volume 82.7 fL (80.0-98.0); NRBC Abs Auto 0.000 X10*3/uL (0.0-0.012); NRBC Pct Auto 0.0 /100WBC (0.0-0.2); Platelet Count 228 X10*3/uL (160-400); Red Blood Count 3.99 X10*6/uL (4.20-5.50); White Blood Count 6.4 X10*3/uL (4.8-10.8)
[2024-12-07] MEDS: levETIRAcetam in NaCl (iso-os) 1,000 MG/100 ML PIGGYBACK 400 MG IV (16:00)
[2024-12-07 16:07] LABS: Alanine Aminotransferase 10 U/L (0-31); Albumin Level 3.9 g/dL (3.5-5.0); Alkaline Phosphatase 64 U/L (39-117); Anion Gap 10 (12-20); Aspartate Amino Transferase 16 U/L (5-31); Blood Urea Nitrogen 7 mg/dL (9-16); Calcium 8.4 mg/dL (8.4-10.2); Carbon Dioxide 25 mmol/L (22-29); Chloride 108 mmol/L (96-108); Creatinine Clr Calc Pharmacy 130.2; Estimated Glomerular Filt Rate > 60; Potassium 3.6 mmol/L (3.3-5.1); Sodium 139 mmol/L (135-145); Total Protein 6.5 g/dL (6.5-8.0)
[2024-12-07 16:25] LABS: Appearance Urine Clear; Glucose Urine UA Negative (Negative); PH 7.0 (5.0-9.0); Specific Gravity - Urine 1.015 (1.005-1.025); UMIC TRIGGER UA YES
[2024-12-07 16:41] LABS: Magnesium 2.1 mg/dL (1.6-2.6)
[2024-12-07 16:57] LABS: Resp Syncy Virus RNA Qual PCR NEGATIVE (Negative); SARS COV2 PCR INHOUSE NEGATIVE (Negative)
[2024-12-07 17:21] VITALS: BP 133/90; PULSE 83; RESP 18; TEMP 36.6; O2SAT 100
[2024-12-07 17:23] VITALS: BP 133/90; PULSE 83; RESP 18; TEMP 36.6; O2SAT 100
[2024-12-10 19:43] LABS: Levetiracetam Keppra <2.0 mcg/mL (6.0-46.0)
== END 2024-12-07 17:26 | disposition home or self-care (01) ==
PROVIDERS: Registered Nurse Emergency; Emergency Provider Emergency Medicine; PCP Internal Medicine Geriatric Medicine
DX: R56.9 Unspecified convulsions (principal); Z86.711 Personal history of pulmonary embolism; Z79.01 Long term (current) use of anticoagulants; J45.909 Unspecified asthma, uncomplicated; K21.9 Gastro-esophageal reflux disease without esophagitis
CPT/HCPCS: 36415; 80053; 80177; 81001; 83605; 83735; 84702; 85025; 87637; 93005; 96374; 99284; 99285; J1953

== ENCOUNTER → 2024-12-07 15:46 | Outpatient (BNV) | payer MEDICAID, SELFPAY | PROVIDERS: Emergency Provider Emergency Medicine; PCP Internal Medicine Geriatric Medicine; Visit Provider Internal Medicine Cardiovascular Disease | DX: R56.9 Unspecified convulsions (principal) | CPT/HCPCS: 93010 ==

== ENCOUNTER 2025-01-03 19:01 | Emergency (ER) | payer MEDICAID, SELFPAY ==
--- NOTE | ~2025-01-03 | CT_ITS ---
CLINICAL HISTORY: Seizure; Headache CT head without contrast Comparison: CT/REG/SR - CT HEAD/BRAIN WO IV CON - 09/23/23 11:32 EDT Findings: No intra-axial mass, midline shift, hydrocephalus, or acute hemorrhage. No significant atrophy-like change or white matter disease. Ethmoid sinus disease. Mastoid air cells are normal. The orbits are unremarkable. There is no acute fracture. IMPRESSION: 1. No acute intracranial findings. This document has been electronically signed by: Tod Motta MD on 01/03/2025 23:30:56
--- NOTE | ~2025-01-03 | CT_ITS ---
CLINICAL HISTORY: N V; RUQ RLQ Tenderness CT abdomen and pelvis with contrast Comparison: CT/AZ/SR - CT ABDOMEN PELVIS WITH IV CONTRAST - 05/10/24 23:25 EST Findings: Study limited by patient's body habitus and streak artifact from the patient's arms. No consolidation or effusion. The most superior aspect of the right hepatic lobe is excluded from view. The most superior aspect of the spleen is excluded from view. The gallbladder and remaining solid organs are within normal limits. No renal stones. No bowel obstruction, pneumoperitoneum, or pneumatosis. Status post TAHBSO. Normal appendix. The bones are intact. IMPRESSION: No acute findings. This document has been electronically signed by: Tod Motta MD on 01/04/2025 02:35:03
--- NOTE | 2025-01-03 19:05 | ECG_ITS ---
Test Reason : ?SEIZURE Blood Pressure : */* mmHG Vent. Rate : 99 BPM Atrial Rate : * BPM P-R Int : * ms QRS Dur : 58 ms QT Int : 320 ms P-R-T Axes : * -10 -3 degrees QTcB Int : 410 ms Artifact in tracing Normal sinus rhythm Low voltage QRS Nonspecific ST abnormality Abnormal ECG When compared with ECG of 07-Dec-2024 15:59, T wave inversion now evident in Anterior leads Referred By: Atiya Shepherd Electronically Signed By: DARRELL HYDE
[2025-01-03 19:06] VITALS: BP 135/54; PULSE 100; RESP 18; TEMP 37.1; O2SAT 98; BMI 43.4
--- NOTE | 2025-01-03 19:16 | ED_ITS ---
HPI - General Adult General Chief complaint: General Medical Stated complaint: Seizure, n/v, right side pain Time Seen by Provider: 01/03/25 19:06 Source: patient and family Mode of arrival: ambulatory Limitations: no limitations History of Present Illness ED Provider: Raymundo CHOI HPI narrative: The patient is a 39-year-old female with history of PE, no longer anticoagulated, as well as morbid obesity, lumbar disc herniation, sacroiliitis, hidradenitis, PTSD, anxiety, depression, bipolar disorder, and a history of pseudo-seizure versus seizure, who presents to the ED by private vehicle with her reporting patient was eating a salad at 6 flags when she developed severe pain in the right abdomen followed by multiple episodes of bilious but nonbloody vomiting, followed by multiple episodes of seizure-like activity. Patient denies urinary incontinence or biting of the tongue. Patient reports she has been compliant with her Tegretol and Keppra. Patient denies associated chest pain, shortness of breath, or focal neurological deficit. The patient reports 1 month ago she began taking Zepbound, has been experiencing intermittent right-sided abdominal pain since initiating Zepbound, however today's pain was markedly more severe. In the ED patient reports ongoing headache, and right-sided abdominal pain with nausea. The patient denies any recent fall or other head strike. Patient reports she was feeling otherwise at her baseline health prior to eating the salad. 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 for which she has been evaluated but not undergone appendectomy. The patient's chart review reveals most recent neurology consultation was in August of 2023 which sites multiple EEGs while having seizure-like activity without any EEG or abnormality, suggesting the witnessed episodes were nonepileptic in nature. Related Data Home Medications ?Medication ?Instructions ?Recorded ?Confirmed albuterol sulfate 2.5 mg/3 mL 2.5 mg inhalation QID OK N Wheezing 03/22/20 06/23/24 (0.083 %) solution for nebulization albuterol sulfate 90 mcg/actuation 2 puff inhalation Q 4-6H PRN 03/22/20 06/23/24 aerosol inhaler (ProAir HFA) Wheezing nortriptyline 10 mg capsule 10 mg PO BEDTIME 03/22/20 06/23/24 baclofen 10 mg tablet 10 mg PO TID PRN Muscle Spas m 09/23/23 06/23/24 esomeprazole magnesium 40 mg 40 mg PO DAILY 09/23/23 0 06/23/24 capsule,delayed release famotidine 20 mg tablet 20 mg PO BID 09/23/23 fluoxetine 10 mg capsule 10 mg PO DAILY 09/23/2306/01 hydroxyzine HCl 25 mg tablet 25 mg PO BID anxiety 08/3006/23/24 levetiracetam 1,000 mg tablet 1,000 mg PO BID 09/23/23 06/23/24 levetiracetam 500 mg tablet 500 mg PO BID 09/23/23 ondansetron HCl 4 mg tablet 4 mg PO Q8H PRN nausea/vom iting 09/23/23 06/23/24 oxcarbazepine 150 mg tablet 150 mg PO BID 09/23/23 prazosin 2 mg capsule 2 mg PO BEDTIME 09/23/23 semaglutide (weight loss) 0.5 0.5 mg subcut WE 06/23/24 mg/0.5 mL subcutaneous pen injector (Wegovy) sumatriptan succinate 50 mg tablet 50 mg PO QD-BID capo villalpando 09/23/23 06/23/24 topiramate 100 mg tablet 100 mg PO BID 09/23/2306/23 Previous Rx's ?Medication ?Instructions ?Recorded ondansetron 4 mg disintegrating 4 mg PO Q8H PRN nausea and 05/11/24 tablet vomiting #20 tabs apixaban 5 mg tablet (Eliquis) 5 mg PO BID #60 tabs folic acid 1 mg tablet 1 mg PO DAILY #90 tabs 07/14 Allergies Allergy/AdvReac Type Severity Reaction Status Date / Time codeine (CODEINE) Allergy Unknown Itching Verified 01/03/25 19:10 nut - unspecified Allergy Anaphylaxis Verified 01/03/25 19:10 [place] Allergy Severe throat Uncoded 12/07/24 15:13 closed Review of Systems 2 Review of Systems: Yes all other systems are reviewed and are negative PMFSH Past Medical History Medical History Morbid obesity due to excess calories Spondylosis of lumbar spine Sacroiliitis Obesity PTSD (post-traumatic stress disorder) Sleep apnea Sacroiliitis Gait disturbance Degenerative disc disease Chronic back pain History of blood transfusion Anemia GERD (gastroesophageal reflux disease) Neuropathy Anxiety Depression Migraine Seizure disorder Asthma Surgical History H/O excision of epidermal inclusion cyst (12/06/20) Hx of umbilical hernia repair History of partial hysterectomy History of 3 sections Family History Family History Maternal Uncle Lung cancer Father Prostate cancer Social History Social History (Updated 06/23/24 @ 09:21 by MANJU Jarrett) Household Members: Spouse and Children Housing: Apartment Are you a primary animal care taker to a significant other at home: No 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 have visiting nurse or other home 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 (certified technician) Alcohol intake: current Alcohol intake frequency: holidays/special occasions only Comment: no count Patient Tobacco Use Status: Never used Tobacco Smoked in Last 30 Days: No Second Hand Smoke Exposure: Yes Use of substances other than those prescribed or required for medical reasons: Yes Substance Use Type: Marijuana Advance Directives: No Advance Directives Information Provided: Yes Patient : No service: No Current occupational status: disabled 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 Vital signs as documented. HEAD: Atraumatic, normocephalic. EYES: EOMs grossly intact, pupils equal, conjunctiva clear, no exudate. ENT: Nares patent, no discharge. Airway patent, no audible stridor, visible mucosa is pink and moist without noted lesions. NECK: Trachea is midline, no obvious masses or gross abnormalities. CHEST: Symmetric movement, normal appearance. LUNGS: LS present and CTAB, no w/r/r. Non-labored work of breathing. CARDIAC: Regular Rhythm, S1/S2 appreciated, no murmurs, rubs or gallops. ABDOMEN: Abdomen soft x4 quadrants, positive tenderness to palpation of the right upper and lower quadrants, negative rebound, negative Rovsing's, no palpable masses or organomegaly. : Deferred. EXTREMITIES: Normal tone, moves all extremities spontaneously without reported pain. No obvious acute injury or deformity noted. NEURO: Alert and oriented x3, CN II-XII appear grossly intact. Cerebellar Functioning grossly intact. No obvious sensory or motor deficits. No active tonic-clonic activity. Speech clear and appropriate. PSYCH: normal affect, appropriate eye contact, fluid speech, with appropriate response to questioning. No reported suicidality or homicidality. SKIN: Warm, dry, color appropriate, normal turgor. No rashes noted. Vital Signs: Vital Signs - 24 hr 01/03/25 19:06 01/03/25 21:38 01/04/25 00:07 Temperature 98.8 F 97.8 F 98.8 F Pulse Rate 100 82 78 Respiratory Rate 18 14 14 Blood Pressure 135/54 L 131/75 123/83 Pulse Oximetry 98 97 97 Oxygen Delivery Method Room Air Room Air Room Air 01/04/25 01:46 Temperature 0 F L Pulse Rate 0 L Respiratory Rate 20 Blood Pressure 00/00 L Pulse Oximetry Oxygen Delivery Method BMI result Body Mass Index 43.4 Medications Administered Discontinued Medications Generic Name Dose Route Start Last Admin Trade Name Freq PRN Reason Stop Dose Admin Sodium Chloride 1,000 mls @ 999 mls/hr 01/03/25 19:15 01/03/25 20:44 Ns IV 01/03/25 20:15 Infused .Q1H1M JOHN Infusion Iohexol 100 ml 01/03/25 21:44 01/03/25 21:45 Iohexol 350 Mg/Ml 100 Ml Infus..Btl IV 01/03/25 21:45 100 ml ONCE ONE Administration Ketorolac Tromethamine 15 mg 01/03/25 23:51 01/04/25 00:04 Ketorolac Tromethamine 15 Mg/Ml Vial IVPUSH 01/03/25 23:52 15 mg ONCE ONE Administration Morphine Sulfate 4 mg 01/03/25 19:14 01/03/25 19:33 Morphine Sulfate 4 Mg/Ml Cartridge IVPUSH 01/03/25 19:15 4 mg ONCE ONE Administration Protocol Ondansetron HCl 4 mg 01/03/25 19:30 01/03/25 19:33 Ondansetron Hcl 4 Mg/2 Ml Vial IVPUSH 01/03/25 19:31 4 mg ONCE ONE Administration Medical Decision Making Medical Decision Making MDM Narrative: 7:45 PM 01/03/2025 (Maria Victoria CHOI): Patient is a 39-year-old female presenting to the ED for evaluation after eating a salad at 6 flags and experiencing multiple rounds of vomiting followed by seizure-like activity. Patient has a history of seizure-like activity which has been previously evaluated by Neurology in 2023 and found to be nonepileptic in nature. The patient in the ED reports headache and ongoing right upper quadrant and right lower quadrant abdominal pain and tenderness. The patient began taking Zepbound 1 month ago, denies any other recent changes in medications or noncompliance with seizure medications. The patient in the ED is alert and oriented, no active tonic-clonic activity. The patient is reporting ongoing headache and abdominal pain, we will evaluate with laboratory workup including prolactin, as well as evaluate LFTs and lipase due to recent initiation of Zepbound, and obtain CT head noncontrast as well as CT abdomen and pelvis with contrast to evaluate for other acute intra-abdominal pathology or cause for seizure activity. 11:50 PM 01/03/2025 (Maria Victoria CHOI): The patient's laboratory evaluation is reassuring, there is no leukocytosis, significant anemia, electrolyte abnormality, or RAJINDER. Lipase is 7. The patient's CT head shows no evidence of acute intracranial pathology. Patient reports abdominal pain is reoccurring, given the patient's reassuring head CT we will treat with Toradol and await CT abdomen and pelvis interpretation. 1:27 AM 01/04/2025 (Maria Victoria CHOI): The patient's CT abdomen and pelvis interpretation is still pending, real Radiology has been contacted and a read has been requested. This provider went to reassess and update the patient regarding the unexpected delay in her disposition. During reassessment the patient reports her symptoms have resolved and patient is demanding to be discharged. Patient was advised it was against medical advice to be discharged prior to completion of workup with CT interpretation. Patient advised she would like to be discharged against medical advice. The patient has been oriented to person, time, and place, and exhibited no clinical evidence of exogenous intoxication to a level that would impair her ability to delineate a choice. The patient was able to communicate her reason to forgo waiting for CT imaging results. The patient demonstrated her understanding of this provider's concern for possibly missing an emergent cause for her symptoms by repeating the concern in their own terms. The patient was able to state her understanding of the potential negative outcomes of failing to diagnose and treat her condition, including continued or worsening pain, permanent disability or disfigurement, a decreased quality of life, or . As such, the patient has demonstrated capacity to make her own medical decisions regardless of whether this provider agrees with her reasoning. The patient was strongly encouraged to follow up with her PCP or specialist for continued care. She was also advised that she is welcome to return to the ED at any time for re-evaluation, regardless of her current decision to leave against medical advice. Patient stated her understanding. After discussion as noted above, the patient decided to leave the ED against medical advice. AMA paperwork was signed prior to leaving the department. 4:07 AM 01/04/2025 (Maria Victoria CHOI): Patient's CT has resulted and shows no acute findings in the abdomen or pelvis. Admission/Observation Consideration of admission/observation: Escalation of care including admission/observation considered Lab Data MDM Lab Attestation statement: I reviewed the patient's lab results. 01/03/25 19:23 01/03/25 20:10 Labs: Lab Results 01/03/25 01/03/25 Range/Units 19:23 20:10 WBC 7.7 (4.8-10.8) X10*3/uL RBC 4.40 (4.20-5.50) X10*6/uL Hgb 11.9 L (12.0-16.0) g/dl Hct 35.5 L (37.0-47.0) % MCV 80.7 (80.0-98.0) fL MCH 27.0 (27.0-33.0) pg MCHC 33.5 (31.0-35.0) g/dl RDW 14.4 (11.0-16.0) % Plt Count 229 (160-400) X10*3/uL MPV 9.9 (9.4-12.3) fL Immature Gran % (Auto) 0.3 (0.0-0.4) % Neut % (Auto) 61.0 (45-73) % Lymph % (Auto) 32.9 (20-40) % Glenn % (Auto) 4.5 (2-11) % Eos % (Auto) 1.0 (0-4) % Baso % (Auto) 0.3 (0-2) % Lymph # (Auto) 2.5 (1.2-4.9) X10*3/uL Glenn # (Auto) 0.4 (0.1-1.2) X10*3/uL Eos # (Auto) 0.1 (0.0-0.4) X10*3/uL Baso # (Auto) 0.0 (0.0-0.2) X10*3/uL Abs Immat Gran (auto) 0.02 (0.00-0.03) X10*3/uL Absolute Neuts (auto) 4.7 (2.0-8.3) x10*3/uL Absolute Nucleated RBC 0.000 (0.0-0.012) X10*3/uL Nucleated RBC % (auto) 0.0 (0.0-0.2) /100WBC Sodium 141 (135-145) mmol/L Potassium 3.5 (3.3-5.1) mmol/L Chloride 108 (96-108) mmol/L Carbon Dioxide 25 (22-29) mmol/L Anion Gap 12 (12-20) BUN 10 (9-16) mg/dL Creatinine 0.78 (0.5-1.4) mg/dL Estim Creat Clear Calc 127.0 Estimated GFR > 60 Random Glucose 82 (60-115) mg/dL Lactic Acid 0.9 (0.5-2.0) mmol/L Calcium 8.5 (8.4-10.2) mg/dL Magnesium 2.0 (1.6-2.6) mg/dL Total Bilirubin 0.4 (0.0-1.0) mg/dL AST 19 (5-31) U/L ALT 10 (0-31) U/L Alkaline Phosphatase 69 (39-117) U/L Total Creatine Kinase 124 (26-140) U/L Total Protein 6.9 (6.5-8.0) g/dL Albumin 4.2 (3.5-5.0) g/dL Lipase 7 L (8-78) U/L Radiology Impression Discussion of test interpretation with radiology: I have reviewed the radiologist's reading. Radiologist Impression: CLINICAL HISTORY: Seizure; Headache CT head without contrast Comparison: CT/REG/SR - CT HEAD/BRAIN WO IV CON - 4/25/24 11:32 EDT Findings: No intra-axial mass, midline shift, hydrocephalus, or acute hemorrhage. No significant atrophy-like change or white matter disease. Ethmoid sinus disease. Mastoid air cells are normal. The orbits are unremarkable. There is no acute fracture. IMPRESSION: 1. No acute intracranial findings. This document has been electronically signed by: Tod Motta MD on 01/03/2025 23:30:56 CLINICAL HISTORY: N V; RUQ RLQ Tenderness CT abdomen and pelvis with contrast Comparison: CT/OK/SR - CT ABDOMEN PELVIS WITH IV CONTRAST - 05/10/24 23:25 EST Findings: Study limited by patient's body habitus and streak artifact from the patient's arms. No consolidation or effusion. The most superior aspect of the right hepatic lobe is excluded from view. The most superior aspect of the spleen is excluded from view. The gallbladder and remaining solid organs are within normal limits. No renal stones. No bowel obstruction, pneumoperitoneum, or pneumatosis. Status post TAHBSO. Normal appendix. The bones are intact. IMPRESSION: No acute findings. This document has been electronically signed by: Tod Motta MD on 01/04/2025 02:35:03 Discharge Plan Discharge Clinical Impression: Seizure-like activity Nausea and vomiting Qualifiers: Vomiting type: unspecified Qualified Code(s): R11.2 - Nausea with vomiting, unspecified Abdominal pain Qualifiers: Abdominal location: generalized Qualified Code(s): R10.84 - Generalized abdominal pain Patient Disposition: Left Against Medical Advice Instructions: Nonepileptic Seizures (ED), Acute Nausea and Vomiting (ED), Abdominal Pain (ED) Additional Instructions: Thank you for choosing [facility]'s Emergency Department for your care today. At this time you have chosen to sign out from the emergency department against medical advice. Please follow up with your primary care physician for re-evaluation, additional management of your symptoms, and continued preventative care. If you do not have a primary care physician, please call the [facility] at [phone] to establish a new primary care physician. While waiting to establish your new primary care physician, you can call our Walk-in Care [facility] at [phone] for non-emergency needs. Despite your decision to leave today against our advice, you are welcome to please return to the emergency department at any time if you change your mind, or if you develop a severe or sudden change in your symptoms, a fever over 100.4 that does not improve with Tylenol or Ibuprofen, recurrent vomiting, or any other new or worsening symptoms or concerns. Prescriptions: No Action Eliquis 5 mg Tablet 5 mg PO BID Qty: 60 3RF albuterol sulfate 2.5 mg /3 mL (0.083 %) Solution For Nebulization 2.5 mg INHALATION QID PRN (Reason: Wheezing) nortriptyline 10 mg Capsule 10 mg PO BEDTIME albuterol sulfate [ProAir HFA] 90 mcg/actuation Hfa Aerosol Inhaler 2 puff INHALATION Q4-6H PRN (Reason: Wheezing) folic acid 1 mg Tablet 1 mg PO DAILY Qty: 90 4RF oxcarbazepine 150 mg tablet 150 mg PO BID ondansetron HCl 4 mg tablet 4 mg PO Q8H PRN (Reason: nausea/vomiting) sumatriptan succinate 50 mg tablet 50 mg PO QD-BID famotidine 20 mg tablet 20 mg PO BID baclofen 10 mg tablet 10 mg PO TID PRN (Reason: Muscle Spasm) esomeprazole magnesium 40 mg capsule,delayed release(DR/EC) 40 mg PO DAILY fluoxetine 10 mg capsule 10 mg PO DAILY hydroxyzine HCl 25 mg tablet 25 mg PO BID prazosin 2 mg capsule 2 mg PO BEDTIME Wegovy 0.5 mg/0.5 mL pen injector 0.5 mg subcut WE levetiracetam 500 mg Tablet 500 mg PO BID topiramate 100 mg tablet 100 mg PO BID levetiracetam 1,000 mg tablet 1,000 mg PO BID ondansetron 4 mg tablet,disintegrating 4 mg PO Q8H PRN (Reason: nausea and vomiting) Qty: 20 0RF Referrals: Name,MD Ernie [Primary Care Provider, Internal Medicine] Clinical Impression: Seizure-like activity; Nausea and vomiting; Abdominal pain Stand Alone Forms: Against Medical Advice Interventions: ED Discharge Assessment Last Done: 01/04/25 01:46 Discharge Date/Time: 01/04/25 01:48 Print Language: Estonian
[2025-01-03 19:29] LABS: MANUAL DIFF FLAG NO
[2025-01-03 19:31] LABS: Hematocrit 35.5 % (37.0-47.0); Hemoglobin 11.9 g/dl (12.0-16.0); Imm Gran Abs Auto 0.02 X10*3/uL (0.00-0.03); Imm Gran Pct Auto 0.3 % (0.0-0.4); Lymphocytes Absolute Auto 2.5 X10*3/uL (1.2-4.9); Mean Corpuscular HGB Conc 33.5 g/dl (31.0-35.0); Mean Corpuscular Hemoglobin 27.0 pg (27.0-33.0); Mean Corpuscular Volume 80.7 fL (80.0-98.0); NRBC Abs Auto 0.000 X10*3/uL (0.0-0.012); NRBC Pct Auto 0.0 /100WBC (0.0-0.2); Platelet Count 229 X10*3/uL (160-400); Red Blood Count 4.40 X10*6/uL (4.20-5.50); White Blood Count 7.7 X10*3/uL (4.8-10.8)
[2025-01-03 20:28] LABS: Alanine Aminotransferase 10 U/L (0-31); Albumin Level 4.2 g/dL (3.5-5.0); Alkaline Phosphatase 69 U/L (39-117); Anion Gap 12 (12-20); Aspartate Amino Transferase 19 U/L (5-31); Blood Urea Nitrogen 10 mg/dL (9-16); Calcium 8.5 mg/dL (8.4-10.2); Carbon Dioxide 25 mmol/L (22-29); Chloride 108 mmol/L (96-108); Creatinine Clr Calc Pharmacy 127.0; Estimated Glomerular Filt Rate > 60; Lipase 7 U/L (8-78); Magnesium 2.0 mg/dL (1.6-2.6); Potassium 3.5 mmol/L (3.3-5.1); Sodium 141 mmol/L (135-145); Total Protein 6.9 g/dL (6.5-8.0)
[2025-01-03 21:38] VITALS: BP 131/75; PULSE 82; RESP 14; TEMP 36.6; O2SAT 97
[2025-01-03] MEDS: iohexoL 350 MG/ML 100 ML INFUS..BTL IV (21:45)
[2025-01-04 00:07] VITALS: BP 123/83; PULSE 78; RESP 14; TEMP 37.1; O2SAT 97
--- NOTE | 2025-01-04 01:20 | PC.NURSE ---
Pt upset, swearing at this bond underwriter, requesting IV removal. Pt explained that CT scan has not been read, provider Maria Victoria Moreno made aware.
[2025-01-04 01:46] VITALS: BP 00/00; PULSE 0; RESP 20; TEMP -17.7; TEMP 0
[2025-01-09 01:15] LABS: Levetiracetam Keppra <2.0 mcg/mL (6.0-46.0)
== END 2025-01-04 01:48 | disposition left against medical advice (07) ==
PROVIDERS: Physician Assistant; Physician Assistant Medical; Emergency Provider Emergency Medicine; PCP Internal Medicine Geriatric Medicine
DX: R56.9 Unspecified convulsions (principal); R11.2 Nausea with vomiting, unspecified; R10.84 Generalized abdominal pain; R94.31 Abnormal electrocardiogram [ECG] [EKG]; Z79.01 Long term (current) use of anticoagulants; Z79.899 Other long term (current) drug therapy
CPT/HCPCS: 36415; 70450; 74177; 80053; 80177; 80339; 82550; 83605; 83690; 83735; 84146; 85025; 93005; 96361; 96374; 96375; 99284; 99285; J1885; J2270; J2405; Q9967

== ENCOUNTER → 2025-01-03 19:05 | Outpatient (BNV) | payer MEDICAID, SELFPAY | PROVIDERS: Emergency Provider Emergency Medicine; PCP Internal Medicine Geriatric Medicine; Visit Provider Internal Medicine | DX: R94.31 Abnormal electrocardiogram [ECG] [EKG] (principal) | CPT/HCPCS: 93010 ==

== ENCOUNTER → 2025-01-03 19:14 | Outpatient (BNV) | payer MEDICAID, SELFPAY | PROVIDERS: Emergency Provider Emergency Medicine; PCP Internal Medicine Geriatric Medicine; Visit Provider Student in an Organized Health Care Education/Training Program | DX: R10.813 Right lower quadrant abdominal tenderness (principal); G40.89 Other seizures | CPT/HCPCS: 70450; 74177 ==

== ENCOUNTER 2025-02-05 09:09 | Emergency (ER) | payer MEDICAID, SELFPAY ==
--- NOTE | 2025-02-05 | ECG_ITS ---
Test Reason : DYSPNEA Blood Pressure : */* mmHG Vent. Rate : 73 BPM Atrial Rate : 73 BPM P-R Int : 180 ms QRS Dur : 76 ms QT Int : 380 ms P-R-T Axes : 33 -1 -1 degrees QTcB Int : 418 ms Normal sinus rhythm Normal ECG When compared with ECG of 03-Jan-2025 19:12, Sinus rhythm has replaced Junctional rhythm ST no longer depressed in Anterior leads T wave inversion no longer evident in Anterior leads Referred By: Generic ED Physician Electronically Signed By: MARCE RASMUSSEN MD
--- NOTE | ~2025-02-05 | XR_ITS ---
EXAMINATION: XR CHEST 1 VIEW HISTORY: cough, sob COMPARISON: Comparison is made with the prior examination dated 05/15/2019. FINDINGS: A single AP portable view of the chest performed at 9:59 AM is submitted. The lungs are expanded and clear. There is no pleural effusion, pneumothorax, or pulmonary vascular congestion. The heart is normal in size. The bones are intact. XR/XR chest 1V IMPRESSION: No acute cardiopulmonary abnormality. Electronically signed by: Segun Chavarria MD 02/05/2025 10:10 AM EDT
[2025-02-05 09:23] VITALS: BP 135/64; PULSE 86; RESP 24; TEMP 36.9; O2SAT 100; BMI 41.5
[2025-02-05 10:16] LABS: MANUAL DIFF FLAG NO
[2025-02-05 10:19] LABS: Hematocrit 34.8 % (37.0-47.0); Hemoglobin 11.6 g/dl (12.0-16.0); Imm Gran Abs Auto 0.01 X10*3/uL (0.00-0.03); Imm Gran Pct Auto 0.1 % (0.0-0.4); Lymphocytes Absolute Auto 2.3 X10*3/uL (1.2-4.9); Mean Corpuscular HGB Conc 33.3 g/dl (31.0-35.0); Mean Corpuscular Hemoglobin 27.4 pg (27.0-33.0); Mean Corpuscular Volume 82.1 fL (80.0-98.0); NRBC Abs Auto 0.000 X10*3/uL (0.0-0.012); NRBC Pct Auto 0.0 /100WBC (0.0-0.2); Platelet Count 271 X10*3/uL (160-400); Red Blood Count 4.24 X10*6/uL (4.20-5.50); White Blood Count 6.8 X10*3/uL (4.8-10.8)
[2025-02-05 10:34] LABS: Alanine Aminotransferase 9 U/L (0-31); Albumin Level 4.0 g/dL (3.5-5.0); Alkaline Phosphatase 73 U/L (39-117); Anion Gap 13 (12-20); Aspartate Amino Transferase 15 U/L (5-31); Blood Urea Nitrogen 8 mg/dL (9-16); Calcium 8.6 mg/dL (8.4-10.2); Carbon Dioxide 24 mmol/L (22-29); Chloride 108 mmol/L (96-108); Creatinine Clr Calc Pharmacy 131.8; Estimated Glomerular Filt Rate > 60; Potassium 3.7 mmol/L (3.3-5.1); Sodium 141 mmol/L (135-145); Total Protein 6.8 g/dL (6.5-8.0)
[2025-02-05 10:40] LABS: COVID-19 Test Negative (Negative); IDNOW Serial# 55D5AD1C; IDNOW Serial# 58CA691E; Influenza B2 Negative (Negative)
[2025-02-05 10:46] LABS: Troponin-I High Sensitivity < 2.7 ng/L (<3.5-17.0)
--- OUTSIDE RECORDS SUMMARY | 2025-02-05 11:15 | XMS_ITS | Encounter Summary ---
Author Organization [employer] Address [address] [facility] [address] [place] [address] Care Team Providers Care Biology Professor Name Role Phone Name, Ernie MOE Primary Care Provider [phone] Aleksandra Saez Unavailable Aleksandra Saez Unavailable Reason for Visit * Reason Onset Date Comments Med Refill 07/30/2023 Encounter Details Date Type Department Care Team (Late st Contact Info) Description 07/30/2023 Refill [facility] [address], [place] [phone] Name, MD Ernie [address] [place] [address] Social History Tobacco Use Types Packs/Day Years [...] Description 03/02/2025 3:15 PM EDT Office Visit [facility] [address] [place] [phone] NameErnie MD [address] [place] [phone] documented as of this encounter Visit Diagnoses Not on filedocumented in this encounter Additional Health Concerns Assessment Noted Time PHQ-9 Depression Total Score: 0 10/08/19 23 11:31 AM EDT documented as of this encounter Care Teams Biology Professor Relationship Specialty Start Date End Date Name, MD Ernie [address] [place] [phone] PCP - General Family Medicine 01/06/19 Aleksandra Saez 01/04/25 01/12/25 Aleksandra Saez 02/05/25 Priscilla Helm Material Handler FloorpersonSupervisor Patching 10/15/23 documented as of this encounter
--- OUTSIDE RECORDS SUMMARY | 2025-02-05 11:15 | XMS_ITS | Encounter Summary ---
Author Organization [employer] Address [address] [facility] [address] [place] [address] Care Team Providers Care Mammography Tech Name Role Phone Name, Ernie MOE Primary Care Provider [phone] Aleksandra Saez Unavailable Aleksandra Saez Unavailable Reason for Visit * Reason Onset Date Comments PT1 11/17/2022 Encounter Details Date Type Department Care Team ([facility] st Contact Info) Description 11/17/2022 Telephone [facility] [address] [place] [address] Name, MD Ernie [address] [place] [id number] PT1 Social History Tobacco Use Types Packs/Day [...] / denial letter via mail. PT-1 Request [id number] - [address] [id number] * Telephone Encounter - Nila Ballesterosz - 11/17/2022 9:20 AM EDT PT1- PCP Location: [address] [place] [address] Date: 12/08/22 Time: 3:15 pm Speed Belt Sander Tender Needed: Yes Wheel Chair Access? No documented in this encounter Plan of Treatment Upcoming Encounters Date Type Department Care Team (Late st Contact Info) Description 03/02/2025 3:15 PM EDT Office Visit [facility] [address] [place] [address] Name, MD Ernie [address] [place] [address] documented as of this encounter Visit Diagnoses Not on filedocumented in this encounter Additional Health Concerns Assessment Noted Time PHQ-9 Depression Total Score: 0 10/08/19 11:31 AM EDT documented as of this encounter Care Teams Mammography Tech Relationship Specialty Start Date End Date Name, MD Ernie [address] [place] [phone] PCP - General Family Medicine 01/06/19 Aleksandra Saez 01/04/25 01/12/25 Aleksandra Saez 02/05/25 Priscilla Helm Show Card LettererBusiness And Marketing Teacher 10/15/23 documented as of this encounter
--- OUTSIDE RECORDS SUMMARY | 2025-02-05 11:15 | XMS_ITS ---
Author Organization [employer] Address [address] [facility] 7 [place] [address] Care Team Providers Care Bus Steward Name Role Phone Name, Ernie MOE Primary Care Provider [phone] Aleksandra Saez CHW Complex Status:Outreach In Progress (Enrolling) Start date:02/05/2025 Enrollment reason:ADT Feed Overview CP Assigned Patient- Pt went to [facility] ED on 02/05/25. Case Team Name Relationship Phone Aleksandra Saez(Responsible Staff) [phone] Continued Care and Services Coordination
--- OUTSIDE RECORDS SUMMARY | 2025-02-05 11:15 | XMS_ITS | Encounter Summary ---
Author Organization [employer] Address [address] [facility] 7t [place] [address] Care Team Providers Care Integrated Logistics Support Manager Name Role Phone Name, Ernie MOE Primary Care Provider Aleksandra Saez Unavailable Alkesandra Saez Unavailable Reason for Visit * Reason Onset Date Comments Med Refill 05/21/2024 Encounter Details Date Type Department Care Team (Late st Contact Info) Description 05/21/2024 Refill [facility] [address] [place], [place] [phone] Name, MD Ernie [address] [place] [address] Social History Tobacco Use Types Packs/Day Years [...] Description 03/02/2025 3:15 PM EDT Office Visit [facility] [address] [place] [phone] Name, MD Ernie [address] [place] [address] documented as of this encounter Goals Goal Patient Goal Type Associated Problems Recent Progress Patient-Stated? Author Patient will adhere to medication regimen General Evelyn Xavier documented as of this encounter Visit Diagnoses Not on filedocumented in this encounter Additional Health Concerns Assessment Noted Time PHQ-9 Depression Total Score: 0 10/29/19 24 10:28 AM EDT documented as of this encounter Care Teams Integrated Logistics Support Manager Relationship Specialty Start Date End Date Name, MD Ernie [address] [place] [address] PCP - General Family Medicine 01/06/19 Aleksandra Saez 01/04/25 01/12/25 Aleksandra Saez 02/05/25 Priscilla Helm Insurance Verify RepStudent Services Vice President 10/15/23 documented as of this encounter
--- OUTSIDE RECORDS SUMMARY | 2025-02-05 11:15 | XMS_ITS | Encounter Summary ---
Author Organization [employer] Address [address] [facility] 7t [place] [address] Care Team Providers Care Immunology Teacher Name Role Phone Name, Ernie MOE Primary Care Provider [phone] Aleksandra Saez Unavailable Aleksandra Saez Unavailable Reason for Visit * Reason Comments Med Refill Encounter Details Date Type Department Care Team ([facility] st Contact Info) Description 04/22/[address] [facility] [address] [place] [address] [phone] Ministerio Vasques MD [address] [place], [place] [phone] Right wrist pain Social History Tobacco Use [...] Description 03/02/2025 3:15 PM EDT Office Visit [facility] [address] [place] [phone] Name, MD Ernie [address] [place] [address] documented as of this encounter Visit Diagnoses Diagnosis Right wrist pain Pain in joint, forearm documented in this encounter Additional Health Concerns Assessment Noted Time PHQ-9 Depression Total Score: 0 10/08/19 23 11:31 AM EDT documented as of this encounter Care Teams Immunology Teacher Relationship Specialty Start Date End Date Name, MD Ernie [address] [place] [address] PCP - General Family Medicine 01/06/19 Aleksandra Saez 01/04/25 01/12/25 Aleksandra Saez 02/05/25 Priscilla Helm PcaForge Shop Supervisor 10/15/23 documented as of this encounter
--- OUTSIDE RECORDS SUMMARY | 2025-02-05 11:15 | XMS_ITS | Encounter Summary ---
Author Organization [employer] Address [address] [facility] 7t [place] [address] Care Team Providers Care Thermite Welder Name Role Phone Name, Ernie MOE Primary Care Provider [phone] Aleksandra Saez Unavailable Aleksandra Saez Unavailable Reason for Visit * Reason Onset Date Comments Call Back Request 07/06/2023 Encounter Details Date Type Department Care Team ([facility] st Contact Info) Description 07/06/2023 Telephone [facility] [address] [place], [place] [phone] Name, MD Ernie [address] [place] [address] Call Back Request Social History Tobacco Use [...] [facility]. Pt states she will no longer see this provider because of how he talks to people. RN suggested that pt contact [facility] to request another provider. Pt declined. States she does not want to be seen at that practice. Pt requesting to be referred to [facility]. Advised request will besent to pcp for review. * Telephone Encounter - Juliana Hernandez - 07/06/2023 2:13 PM EST Tc from pt requesting to speak with a nurse in regards to neurologist. No other information provided. Please contact pt at [phone] documented in this encounter Plan of Treatment Upcoming Encounters Date Type Department Care Team (Late st Contact Info) Description 03/02/2025 3:15 PM EDT Office Visit [facility] [address] [place], [place] [phone] Name, MD Ernie [address] [place] [address] documented as of this encounter Visit Diagnoses Not on filedocumented in this encounter Additional Health Concerns Assessment Noted Time PHQ-9 Depression Total Score: 0 10/08/19 23 11:31 AM EDT documented as of this encounter Care Teams Thermite Welder Relationship Specialty Start Date End Date Name, MD Ernie [address] [place] [address] PCP - General Family Medicine 01/06/19 Aleksandra Saez 01/04/25 01/12/25 Aleksandra Saez 02/05/25 Priscilla Helm Shuttle Route Vehicle OperatorShipper 10/15/23 documented as of this encounter
--- OUTSIDE RECORDS SUMMARY | 2025-02-05 11:15 | XMS_ITS | Clinical Summary ---
Author Organization [facility] ity Address [address] [place] [address] Care Team Providers Care Flatbed Company Driver Name Role Phone Name, Ernie MOE Primary Care Provider [phone] Social History Tobacco Use Types Packs/Day Years [...] Cervical Cancer Screening: P ap Smear 11/04/2008 HIV Screening 05/03/2022 Hepatitis C Screening 05/03/2022 Social Influencers of Health Screening 05/03/2022 Depression Screening 05/31/2024 COVID-19 Vaccine ( - 2023-2 5 season) 2025 Influenza Vaccine (#1) 2025 HIB Vaccines Aged [...] age to complete this topic Care Teams Flatbed Company Driver Relationship Specialty Start Date End Date Name, MD Ernie [address] [place] [address] PCP - General Internal Medicine 03/16/19
--- OUTSIDE RECORDS SUMMARY | 2025-02-05 11:15 | XMS_ITS | Encounter Summary ---
Author Organization [email or web address] Address 75 [facility] 7t [place] [address] Care Team Providers Care Respite Worker Name Role Phone Name, Ernie MOE Primary Care Provider [phone] Aleksandra Saez Unavailable Encounter Details Date Type Department Care Team ([facility] st Contact Info) Description 02/05/2025 Orders Only [facility] External Provider, [facility] Social History Tobacco Use Types Packs/Day Years Used Date Smoking Tobacco: Former Cigarettes Passive Smoke Exposure: Current Smokeless Tobacco: Never Alcohol Use Standard Drinks/Week Comments Not Currently 0 (1 standard drink = 0.6 oz pur e alcohol) Depression Answer Date Recorded Patient Health Questionnaire-9 Score 4 10/04/2024 Patient Health Questionnaire-9 Score 4 10/04/2024 Last PHQ-9: Questionnaire Data Not on file 0 10/04/2024 Housing Stability Answer Date Recorded What is [...] Date Recorded Patient Health Questionnaire-2 Score 0 10/04/2024 Internet Access Answer Date Recorded Internet Access [...] Description 03/02/2025 3:15 PM EDT Office Visit [facility] [address] [place], [place] [phone] Name, MD Ernie [address] [place] [address] documented as of this encounter Goals Goal Patient Goal Type Associated Problems Recent Progress Patient-Stated? Author Patient will adhere to medication regimen General No Evelyn Levine documented as of this encounter Procedures Procedure Name Priority Date/Time Associated Diagnosis Comments INFLUENZA A B2 ID NOW ([employer]ed[employer]) Routine 02/05/2025 10:11 AM EDT COVID-19 ID NOW ([employer]) Routine 02/05/2025 10:11 AM EDT HIGH SENSITIVITY TROPONIN I Routine 02/05/2025 10:11 AM EDT CBC WITH AUTO DIFFERENTIAL Routine 02/05/2025 10:11 AM EDT COMPREHENSIVE METABOLIC PANEL Routine 02/05/2025 10:11 AM EDT XR CHEST 1 VIEW Routine 02/05/2025 9:59 AM EDT documented in this encounter Results * High Sensitivity Troponin I (02/05/2025 10:11 AM EDT) TROPONIN I HIGH SENSITIVITY <2.7 <3.5 - 17.0 ng/L [facility] Comment:The Isabel high sens itivity Troponin-I results should beused in conjunction with other diagnostic information suchas ECG, clinical observations and information, and patientsymptoms to aid in the diagnosis of WI. 02/05/2025 10:1 1 AM EDT 02/05/2025 10:15 AM EDT Generic External Data Provider LAB BLOOD ORDERAB LES Final Result Performing Organization Address [facility]/ZIP Co de Phone Number [facility] [address] [place] [phone] * Influenza A B2 ID NOW (Isabel) (02/05/2025 10:11 AM EDT) IDNOW SERIAL# [id number] [facility] Influenza A Negative Negative [facility] Influenza B2 Negative Negative [facility] Influenza A B2 Note See Note [facility] Comment:The Isabel ID NOW In fluenza A B2 test is used for thequalitative detection of influenza A and B from patientswith signs and symptoms of respiratory infection.Negative results do not preclude influenza virus infectionand should not be used as the sole basis for diagnosis,treatment or other patient management decisions.There is a risk of false negative results due to thepresence of variants in the viral targets of the assay, lowlevels of virus in the specimen and co- infection withRespiratory Syncytial Virus. 02/05/2025 10:1 1 AM EDT 02/05/2025 10:15 AM EDT Generic External Data Provider LAB MICROBIOLOGY - GENERAL ORDERABLES Final Result Performing Organization Address [facility] Co de Phone Number [facility] [address] [place] [phone] * COVID-19 ID NOW (ISABEL) (02/05/2025 10:11 AM EDT) IDNOW SERIAL# [id number] [facility] COVID-19 TEST Negative Negative [facility] COVID-19 NOTE See Note [facility] Comment: Results are for the identification of SARS-CoV2 RNA. TheSARS-CoV2 RNA is generally detectable in respiratory samplesduring the acute phase of infection. Positive results areindicative of the presence of SARS-CoV-2 RNA; clinicalcorrelation with patient history and other diagnosticinformation is necessary to determine patient infectionstatus. Positive results do not rule out bacterial infectionor co- infection with other viruses.Testing facilities within the [facility] and itsterritories are required to report all positive results tothe appropriate public health authorities.Negative results should be treated as presumptive and, ifinconsistent with clinical signs and symptoms or necessaryfor patient management, should be tested with differentauthorized or cleared molecular tests. Negative results donot preclude SARS-CoV2 RNA infection and should not be usedas the sole basis for patient management decisions. Negativeresults should be considered in the context of a patient'srecent exposures, history and the presence of clinical signsand symptoms consistent with COVID-19.This test has been authorized by the FDA under an EmergencyUse Authorization (EUA) for use by authorized laboratories.Testing performed on the zanda ID NOW utilizing NAAT. 02/05/2025 10:1 1 AM EDT 02/05/2025 10:15 AM EDT us Generic External Data Provider LAB MOLECULAR CASIE GNOSTICS ORDERABLES Final Result [facility] [address] [place] [phone] * (ABNORMAL) Comprehensive Metabolic Panel (02/05/2025 10:11 AM EDT) Sodium 141 135 - 145 mmol/L [facility] Potassium 3.7 3.3 - 5.1 mmol/L [facility] Chloride 108 96 - 108 mmol/L [facility] Carbon Dioxide 24 22 - 29 mmol/L [facility] Anion Gap 13 12 - 20 [facility] Urea Nitrogen (BUN) 8(L) 9 - 16 mg/dL [facility] Creatinine, Serum 0.74 0.5 - 1.4 mg/dL [facility] Creatinine Clr Calc Pharmacy 131.8 [facility] Comment:Provided height and weight: 166.37 cm,115 kg.eGFR (calculated from the MDRD study equation) and eCrCl(calculated from the Cockcroft-Gault equation) are based ondifferent parameters and may not yield comparable results.If eCrCl result is absurd, please check patient'sheight/weight. Estimated Glomerular Filt Rate >60 [facility] Comment:Chronic Kidney Disea se: Estimated GFR < 60 mL/min/1.43i8Qoxqna Kidney Disease: Estimated GFR < 15 mL/min/1.73m2 Glucose 92 60 - 115 mg/dL [facility] Calcium 8.6 8.4 - 10.2 mg/dL [facility] Bilirubin, Total 0.3 0.0 - 1.0 mg/dL [facility] Aspartate Amino Transferase 15 5 - 31 U/L [facility] Alanine Aminotransferase 9 0 - 31 U/L [facility] Total Protein 6.8 6.5 - 8.0 g/dL [facility] Albumin Level 4.0 3.5 - 5.0 g/dL [facility] Alkaline Phosphatase 73 39 - 117 U/L [facility] 02/05/2025 10:1 1 AM EDT 02/05/2025 10:15 AM EDT us Generic External Data Provider LAB BLOOD ORDERAB LES Final Result [facility] [address] [place] [address] [phone] * (ABNORMAL) CBC auto differential (02/05/2025 10:11 AM EDT) White Blood Count 6.8 4.8 - 10.8 X10*3/uL [facility] Red Blood Count 4.24 4.20 - 5.50 X10*6/uL [facility] Hemoglobin 11.6(L) 12.0 - 16.0 g/dl [facility] Hematocrit 34.8(L) 37.0 - 47.0 % [facility] Mean Corpuscular Volume 82.1 80.0 - 98.0 fL [facility] Mean Corpuscular Hemoglobin 27.4 27.0 - 33.0 pg [facility] Mean Corpuscular HGB Conc 33.3 31.0 - 35.0 g/dl [facility] Red Cell Distribution Width 14.6 11.0 - 16.0 % [facility] Platelet Count 271 160 - 400 X10*3/uL [facility] Mean Platelet Volume 9.6 9.4 - 12.3 fL [facility] Neutrophils Percent Auto 57.3 45 - 73 % [facility] Imm Gran Pct Auto 0.1 0.0 - 0.4 % [facility] Lymphocytes Percent Auto 32.9 20 - 40 % [facility] Monocytes Percent Auto 5.6 2 - 11 % [facility] Eosinophils Percent Auto 3.8 0 - 4 % [facility] Basophils Percent Auto 0.3 0 - 2 % [facility] NRBC Pct Auto 0.0 0.0 - 0.2 /100WBC [facility] Neutrophils Absolute Auto 3.9 2.0 - 8.3 x10*3/uL [facility] Imm Gran Abs Auto 0.01 0.00 - 0.03 X10*3/uL [facility] Lymphocytes Absolute Auto 2.3 1.2 - 4.9 X10*3/uL [facility] Monocytes Absolute Auto 0.4 0.1 - 1.2 X10*3/uL [facility] Eosinophils Absolute Auto 0.3 0.0 - 0.4 X10*3/uL [facility] Basophils Absolute Auto 0.0 0.0 - 0.2 X10*3/uL [facility] NRBC Abs Auto 0.000 0.0 - 0.012 X10*3/uL [facility] 02/05/2025 10:1 1 AM EDT 02/05/2025 10:15 AM EDT us Generic External Data Provider LAB BLOOD ORDERAB LES Final Result [facility] [address] [place] [phone] * XR Chest 1 View (02/05/2025 9:59 AM EDT) Anatomical Region Laterality Modality Chest Radiographic Anay ging 02/05/2025 9:59 AM EDT Narrative 02/05/2025 10:13 AM EDT [address] [address] XRay Report Signed Patient: Jihan Brothers MR#: [id number] : 1985 Acct:[id number] Age/Sex: 39 / F ADM Date: 02/05/25 Loc: HO.ED Attending Dr: Ordering Physician: Generic ED Physician Date of Service: 02/05/25 Procedure(s): XR chest 1V Accession Number(s): [id number] cc: [facility] ED Physician; Name,Ernie MOE Reason for Exam: cough, sob EXAMINATION: XR CHEST 1 VIEW HISTORY: cough, sob COMPARISON: Comparison is made with the prior examination dated 05/15/2019. FINDINGS: A single AP portable view of the chest performed at 9:59 AM is submitted. The lungs are expanded and clear. There is no pleural effusion, pneumothorax, or pulmonary vascular congestion. The heart is normal in size. The bones are intact. XR/XR chest 1V IMPRESSION: No acute cardiopulmonary abnormality. Electronically signed by: Segun Chavarria MD 02/05/2025 10:10 AM EDT Dictated By: Segun Chavarria MD Signed By: <Electronically signed by Segun Chavarria MD in OV> 02/05/25 1010 DD/ 0959 TD/TT: 02/05/25 1006 Certified Nurses Aide: Procedure Note Donotuseinterpreter, Image - 02/05/[address] [place] [address] XRay Report Signed Patient: Jihan Brothers [facility]#: [id number] : 1985Acct:[id number] Age/Sex: 39 / FADM Date: 02/05/25 Loc: HO.ED Attending Dr: Ordering Physician: Generic ED Physician Date of Service: 02/05/25 Procedure(s): XR chest 1V Accession Number(s): [id number] cc: Generic ED Physician; Name,Ernie MOE Reason for Exam: cough, sob EXAMINATION: XR CHEST 1 VIEW HISTORY: cough, sob COMPARISON: Comparison is made with the prior examination dated 05/15/2019. FINDINGS: A single AP portable view of the chest performed at 9:59 AM is submitted. The lungs are expanded and clear. There is no pleural effusion, pneumothorax, or pulmonary vascular congestion. The heart is normal in size. The bones are intact. XR/XR chest 1V IMPRESSION: No acute cardiopulmonary abnormality. Electronically signed by: Segun Chavarria MD 02/05/2025 10:10 AM EDT Dictated By: Segun Chavarria MD Signed By: <Electronically signed by Segun Chavarria MD in OV> 02/05/25 1010 DD/ 0959 TD/TT: 02/05/25 1006 Certified Nurses Aide: [facility] External Provider IMG XR PROCEDURES Edited Result - Final documented in this encounter Visit Diagnoses Not on filedocumented in this encounter Additional Health Concerns Assessment Noted Time PHQ-9 Depression Total Score: 4 10/05/19 25 10:01 AM EDT documented as of this encounter Care Teams Respite Worker Relationship Specialty Start Date End Date Name, MD Ernie [address] [place] [address] PCP - General Family Medicine 01/06/19 Aleksandra Saez 02/05/25 Priscilla Helm Pictures EditorCulinary Worker 10/15/23 documented as of this encounter
--- OUTSIDE RECORDS SUMMARY | 2025-02-05 11:15 | XMS_ITS | Encounter Summary ---
Author Organization [employer] Address [address] [facility] 7t [place] [address] Care Team Providers Care Packaging Design Engineer Name Role Phone Name, Ernie MOE Primary Care Provider Aleksandra Saez Unavailable Encounter Details Date Type Department Care Team ([facility] Contact Info) Description 02/05/2025 Patient Outreach [facility] [address] [place], [place] [phone] Name, MD Ernie [address] [place] [address] Social History Tobacco Use Types Packs/Day Years [...] Description 03/02/2025 3:15 PM EDT Office Visit [facility] [address] [place] [address] Name, MD Ernie [address] [place] [address] documented as of this encounter Goals Goal Patient Goal Type Associated Problems Recent Progress Patient-Stated? Author Patient will adhere to medication regimen General Evelyn Xavier documented as of this encounter Visit Diagnoses Not on filedocumented in this encounter Additional Health Concerns Assessment Noted Time PHQ-9 Depression Total Score: 4 10/05/19 25 10:01 AM EDT documented as of this encounter Care Teams Packaging Design Engineer Relationship Specialty Start Date End Date Name, MD Ernie [address] [place] [address] PCP - General Family Medicine 01/06/19 Aleksandra Saez 02/05/25 Priscilla Helm Saw CleanerBox Printing Machine Operator 10/15/23 documented as of this encounter
--- OUTSIDE RECORDS SUMMARY | 2025-02-05 11:15 | XMS_ITS | Encounter Summary ---
Author Organization [employer] Address [address] [facility] 7t [place] [address] Care Team Providers Care Sulfonator Operator Name Role Phone Name, Ernie MOE Primary Care Provider [phone] Aleksandra Saez Unavailable Aleksandra Saez Unavailable Encounter Details Date Type Department Care Team ([facility] st Contact Info) Description 06/30/2023 Abstract [facility] [address] [place], [place] [phone] Name, MD Ernie [address] [place] [address] Social History Tobacco Use Types Packs/Day Years [...] Description 03/02/2025 3:15 PM EDT Office Visit [facility] [address] [place] [address] Name, MD Ernie [address] [place] [address] documented as of this encounter Visit Diagnoses Not on filedocumented in this encounter Additional Health Concerns Assessment Noted Time PHQ-9 Depression Total Score: 0 10/08/19 23 11:31 AM EDT documented as of this encounter Care Teams Sulfonator Operator Relationship Specialty Start Date End Date Name, MD Ernie [address] [place] [address] PCP - General Family Medicine 01/06/19 Aleksandra Saez 01/04/25 01/12/25 Aleksandra Saez 02/05/25 Priscilla Helm Vat House SupervisorFilters Assembler 10/15/23 documented as of this encounter
--- OUTSIDE RECORDS SUMMARY | 2025-02-05 11:15 | XMS_ITS | Encounter Summary ---
Author Organization [employer] Address 75 [facility] 7t [place] [address] Care Team Providers Care It Compliance Manager Name Role Phone Name, Ernie MOE Primary Care Provider [phone] Aleksandra Saez Unavailable Aleksandra Saez Unavailable Reason for Visit * Reason Comments Med Refill Encounter Details Date Type Department Care Team ([facility] st Contact Info) Description 02/15/2024 Refill [facility] [address] [place], [place] [phone] Name, MD Ernie [address] [place] [address] Social History Tobacco Use Types Packs/Day Years [...] Description 03/02/2025 3:15 PM EDT Office Visit [facility] [address] [place] [address] Name, MD Ernie [address] [place] [address] documented as of this encounter Goals Goal Patient Goal Type Associated Problems Recent Progress Patient-Stated? Author Patient will adhere to medication regimen General Evelyn Xavier documented as of this encounter Visit Diagnoses Not on filedocumented in this encounter Additional Health Concerns Assessment Noted Time PHQ-9 Depression Total Score: 0 10/29/19 24 10:28 AM EDT documented as of this encounter Care Teams It Compliance Manager Relationship Specialty Start Date End Date Name, MD Ernie [address] [place] [address] PCP - General Family Medicine 01/06/19 Aleksandra Saez 01/04/25 01/12/25 Aleksandra Saez 02/05/25 Priscilla Helm Tube HeaterDirectional Bore Operator 10/15/23 documented as of this encounter
--- OUTSIDE RECORDS SUMMARY | 2025-02-05 11:15 | XMS_ITS | Encounter Summary ---
Author Organization [employer] Address [address] [place] [address] Care Team Providers Care Supervisor Chemical Name Role Phone Name, Ernie MOE Primary Care Provider [phone] Aleksandra Saez Unavailable Aleksandra Saez Unavailable Encounter Details Date Type Department Care Team ([facility] Contact Info) Description 01/13/2023 Telephone [facility] MEDICINE [address], [place] [id number] Name, MD Ernie [address] [place] [address] Social History Tobacco Use Types Packs/Day Years [...] Dunn LPN - 01/26/2023 9:10 AM EDT with [employer] to call us back on info regarding services if provided as indicatedin [employer]. * Telephone Encounter - Cher Irving RN - 01/18/2023 10:16 AM EDT Please review message below and advise. Unsure if pt has [employer] services already established on file, and if so if pt needs a visit prior to renewal. * Telephone Encounter - Karen Pagan - 01/15/2023 11:48 AM EDT Tc from pt requesting a call back regarding [employer] services. States has been transferred to medical records but they had transferred her back and inform to speak with a nurse . * Telephone Encounter - Karen Pagan - 01/13/2023 11:17 AM EDT Tc from pt requesting a new referral / order to renew pin cleaner services . documented in this encounter Plan of Treatment Upcoming Encounters Date Type Department Care Team (Late st Contact Info) Description 03/02/2025 3:15 PM EDT Office Visit [facility] MEDICINE [address] [place] [id number] Name, MD Ernie [address] [place] [address] documented as of this encounter Visit Diagnoses Not on filedocumented in this encounter Additional Health Concerns Assessment Noted Time PHQ-9 Depression Total Score: 0 10/08/19 23 11:31 AM EDT documented as of this encounter Care Teams Supervisor Chemical Relationship Specialty Start Date End Date Name, MD Ernie [address] [place] [id number] PCP - General Family Medicine 01/06/19 Aleksandra Saez 01/04/25 01/12/25 Aleksandra Saez 02/05/25 Priscilla Helm Hand Tube WinderLathe Puller 10/15/23 documented as of this encounter
--- OUTSIDE RECORDS SUMMARY | 2025-02-05 11:15 | XMS_ITS | Clinical Summary ---
Author Organization [employer] Address [address] [facility] 7[address] [place] [address] Care Team Providers Care Radiologic Technologist Mammogram Name Role Phone Name, Ernie MOE Primary Care Provider [phone] Aleksandra Saez Unavailable Allergies Active Allergy Reactions Criticality Noted Date Comments [place] Flavoring Agent (Non-Screening) 12/26/2018 [place] Pollen Allergy Skin Test 12/26/2018 Codeine High 03/16/2016 Other 07/01/2023 mayonnaise and all nuts except peanuts Medications * This document contains information received from the source organization and may not represent a complete record from that organization. [facility] (Pulse Oximeter) [facility] Use as directed 022 Active albuterol 108 [...] mild pain. Active Blood Pressure kit Active folic acid (Folvite) 1 MG tablet Take 1 tablet by mouth in the morning. 023 Active hydrOXYzine HCl (Atarax) 25 MG tablet Take 1 tablet by mouth if needed in the morning and at bedtime for anxiety. 023 Active prazosin (Minipress) 2 MG capsule Take 1 capsule by mouth at bedtime. 023 Active Diclofenac Sodium 1 % gelIndications:R ight wrist pain Apply to the affected area up to 4x/day prn 100 g 1 024 Active EPINEPHrine (Epipen) 0.3 MG/0.3ML injection syringe inject 0.3 milliliter by intramuscular route once as needed for anaphylaxis 2 each 1 Active levETIRAcetam (Keppra) 1000 MG tablet TAKE 1 TABLET BY MOUTH TWICE DAILY IN THE MORNING AND IN THE EVENING 180 tablet 2 024 Active loratadine (Claritin) 10 MG tablet Take 1 tablet (10 mg) by mouth in the morning. 90 tablet 1 024 Active nortriptyline (Pamelor) 25 MG capsule Take 25 mg by mouth at bedtime. 024 Active famotidine (Pepcid) 20 MG tablet Take [...] vomiting or nausea. 20 tablet 025 Active meloxicam (Mobic) 7.5 MG tablet TAKE 1 TABLET BY MOUTH EVERY DAY 30 tablet 1 025 Active SUMAtriptan (Imitrex) 50 MG tabletIndication s:Intractable migraine without aura and without status migrainosus TAKE 1 TABLET BY MOUTH AT ONSET OF MIGRAINE. MAY REPEAT ONCE AFTER 2 HOURS IF NEEDED, DO NOT EXCEED 4 TABLETS IN 24 HOURS 20 tablet 1 025 Active levETIRAcetam (Keppra) 500 MG tablet TAKE 1 TABLET BY MOUTH TWICE DAILY IN THE MORNING AND IN THE EVENING (WITH 1000 MG TABLET) 60 tablet 3 025 Active fluticasone (Flonase) 50 MCG/ACT nasal spray INSTILL 2 SPRAYS IN EACH NOSTRIL ONCE DAILY 48 g 025 Active baclofen (Lioresal) 20 MG tablet Take 1 tablet (20 mg) by mouth 2 times daily for 10 days. 20 tablet 025 Active Zepbound 10 MG/0.5ML solution auto-injector INJECT ONE PEN (=10MG) SUBCUTANEOUSLY ONCE A WEEK DIRECTED 2 mL 2 Active topiramate (Topamax) 100 MG tabletIndication s:Bipolar 1 disorder (CMS/HCC),Chroni c low back pain with right-sided sciatica, unspecified back pain laterality,Histo ry of pulmonary embolus (PE),Morbid obesity (CMS/HCC),Screen ing for diabetes mellitus,Screeni ng for cholesterol level TAKE 1 TABLET BY MOUTH TWICE DAILY IN THE MORNING AND IN THE EVENING 60 tablet 1 Active FLUoxetine (PROzac) 10 MG capsule Take 1 capsule (10 mg) by mouth in the morning. 30 capsule 2 Active FLUoxetine (PROzac) 10 MG capsule Take 1 capsule (10 mg) by mouth in the morning. 30 capsule 2 025 2024 Discontinued(R eorder (will not trigger notification to Pharmacy)) topiramate (Topamax) 100 MG tabletIndication s:Bipolar 1 disorder (CMS/HCC),Chroni c low back pain with right-sided sciatica, unspecified back pain laterality,Histo ry of pulmonary embolus (PE),Morbid obesity (CMS/HCC),Screen ing for diabetes mellitus,Screeni ng for cholesterol level TAKE 1 TABLET BY MOUTH TWICE DAILY IN THE MORNING AND IN THE EVENING 60 tablet 1 025 2024 Discontinued Active Problems Problem Noted [...] Visit Other Depressive disorder Bipolar 1 disorder ([facility]) Patient ready to address current needs No, patient has services in place Strengths include: none identified PLAN: 1. Follow up with [facility]: Not recommended for follow-up 2. Patient goal [...] still in on it now. Follow at [facility] hematology Assessment & Plan (05/29/2024 6:13 AM EST): - following with [facility] Heme, recently - continue apixaban Chronic low [...] but discontinue Trileptal -EEG with neurologist is [place] is yet to be scheduled by patient -Look into PT-1 transportation service Encounters Date Type Department Care Team Description 02/05/2025 Orders Only [facility] External Provider, [facility] 02/05/[address] [facility] [address] [place] [address] Ernie Nobles MD Care Coordination ([facility] ED Follow Up) 02/05/[address] [facility] [address] [place] [address] Ernie Nobles MD Care Coordination (CP Care Coordination Chart Review) 02/05/2025 Patient Outreach [address] [address] Ernie Nobles MD 02/01/2025 Telephone [facility] [address] [place] [phone] Ernie Nobles MD Prior Auth Procedure (pt requesting the pa for setbound) 01/19/2025 Refill [facility] [address] [place] [phone] Ernie Nobles MD 01/12/[address] [facility] [address] [place] [address] Ernie Nobles MD Care Coordination (Communication to PT assigned CP Coordinator) 01/06/[address] [facility] [address] [place] [address] Ernie Nobles MD Bipolar 1 disorder (CMS/HCC); Chronic low back pain with right-sided sciatica, unspecified back pain laterality; History of pulmonary embolus (PE); Morbid obesity (CMS/HCC); Screening for diabetes mellitus; Screening for cholesterol level 01/04/[address] [facility] [address] [place] [address] Ernie Nobles MD Care Coordination ([facility] ED F/U) 01/04/2025 Patient Outreach [facility] [address] [place] [address] Ernie Nobles MD Care Coordination (CP Care Coordination Chart Review) 01/04/2025 Patient Outreach [facility] [address] [place] [address] Ernie Nobles MD 12/26/2024 Refill [facility] [address] [place] [phone] Ernie Nobles MD 12/08/2024 Results Follow-Up [address] [address] Ernie Nobles MD TSH W/Reflex to FT4, FSH, LH 12/07/2024 1:15 PM EDT Office Visit [address] [address] Ernie Nobles MD Severe obesity (CMS/HCC) (Primary Dx); Hot flashes; History of anemia; Chronic midline low back pain without sciatica 12/07/2024 Orders Only GENERIC EXTERNAL DATA DEPARTMENT Provider, Generic External Data 12/07/2024 Travel 12/06/2024 Telephone [facility] [address] [place] [phone] Luis Manuel Ahn [place] chart prep 12/04/2024 Refill [facility] [address] [place] [address] Ernie Nobles MD 11/22/[address] [address] Luis Manuel Ahn [place] appt change from Last 3 Months Immunizations Immunization Administration Dates Next Due Hep B, adult [...] Sign Reading Time Taken Comments Blood Pressure 134/78 12/07/2024 1:18 PM EDT Pulse 96 12/07/2024 1:18 PM EDT Temperature 36.1 C (96.9 F) 12/07/2024 1:18 PM EDT Respiratory Rate 14 12/07/2024 1:18 PM EDT Oxygen Saturation 95% 12/07/2024 1:18 PM EDT Inhaled Oxygen Concentration - - Weight 120 kg (265 lb 6.4 oz) 12/07/2024 1:18 PM EDT Height 165.1 cm (5' 5 ) 12/07/2024 1:18 PM EDT Body Mass Index 44.16 12/07/2024 1:18 PM EDT Plan of Treatment Upcoming Encounters Date Type Department Care Team (Late st Contact Info) Description 03/02/2025 3:15 PM EDT Office Visit [facility] [address] [place] [address] Name, MD Ernie [address] [place] [address] Health Maintenance Due Date Last Done Comments HIV Screening 1985 HPV Vaccines (1 - 3-dose series) 11/04/2002 Hepatitis C Screening 11/04/2005 Hepatitis B Vaccines (2 of 3 - 19+ 3-dose series) 11/26/2023 10/29/2023 Influenza Vaccine (#1) 2025 , 03/09/2024, 03/09/2024, Additional history exists SDOH Screening 05/11/2025 05/11/2024 Alcohol/Substance Use Screening 10/04/2025 10/04/2024 Depression Screening 10/04/2025 10/04/2024, 10/05/19 Disability Screening 12/07/2025 12/07/2024 Tobacco Screening 12/07/2025 12/07/2024 Lipid Panel 07/22/2027 07/22/2022 DTaP/Tdap/Td Vaccines (2 - Td or Tdap) 04/22/2031 04/22/2021 Zoster Vaccines (1 of 2) 11/04/2037 RSV Patients and Patients Aged 60 years or older (1 - 1-dose 75+ series) 11/04/2062 Pneumococcal Vaccine: Pediatrics (0 to 5 Years) and At-Risk Patients (6 to 49) Years Completed 10/29/2023, 10/23/2018 COVID-19 Vaccine Completed 07/28/2024, 07/2022, 07/18/2021, Additional history exists Family Planning (PISQ) Discontinued HIB Vaccines Aged Out No longer eligi [...] Procedure Name Priority Date/Time Associated Diagnosis Comments HIGH SENSITIVITY TROPONIN I Routine 02/05/2025 10:11 AM EDT COVID-19 ID NOW (ISABEL) Routine 02/05/2025 10:11 AM EDT COMPREHENSIVE METABOLIC PANEL Routine 02/05/2025 10:11 AM EDT CBC WITH AUTO DIFFERENTIAL Routine 02/05/2025 10:11 AM EDT INFLUENZA A B2 ID NOW (ISABEL) Routine 02/05/2025 10:11 AM EDT XR CHEST 1 VIEW Routine 02/05/2025 9:[address] ABDOMEN PELVIS W CONTRAST Routine 01/04/2025 2:[address] HEAD WO CONTRAST Routine 01/03/2025 1 1:30 PM EDT LEVETIRACETAM Routine 12/07/2024 3:59 PM EDT HCG, TOTAL, QN Routine 12/07/2024 3:59 PM EDT MAGNESIUM Routine 12/07/2024 3:59 PM EDT LACTIC ACID Routine 12/07/2024 3:59 PM EDT URINALYSIS, COMPLETE Routine 12/07/2024 3:59 PM EDT SARS COV2/INFLUENZA A/B AND RSV RNA QL NAAT Routine 12/07/2024 3:59 PM EDT D DIMER HIGH SENSITIVITY Routine 12/07/2024 1:59 PM EDT COMPREHENSIVE METABOLIC PANEL Routine 12/07/2024 1:59 PM EDT CBC WITH AUTO DIFFERENTIAL Routine 12/07/2024 1:59 PM EDT LH Routine 12/07/2024 1:59 PM EDT Hot flashes FSH Routine 12/07/2024 1:59 PM EDT Hot flashes TSH W/REFLEX TO FT4 Routine 12/07/2024 1 :59 PM EDT Hot flashes LEVETIRACETAM Routine 12/07/2024 1:59 PM EDT Seizure disorder (CMS/HCC) LIPID PANEL, STANDARD Routine 07/22/2022 12:08 PM EST Bipolar 1 disorder (CMS/HCC) Chronic low back pain with right-sided sciatica, unspecified back pain laterality History of pulmonary embolus (PE) Morbid obesity (CMS/HCC) Screening for diabetes mellitus Screening for cholesterol level from Last 3 Months or Most Recently Relevant to Health Maintenance Results * Influenza A B2 ID NOW (Isabel) (02/05/2025 10:11 AM EDT) IDNOW SERIAL# [id number] [facility] Influenza A Negative Negative [facility] Influenza B2 Negative Negative [facility] Influenza A B2 Note See Note [facility] Comment:The Isabel ID NOW In [...] EDT us Generic External Data Provider LAB MICROBIOLOGY - GENERAL ORDERABLES Final Result [facility] [address] [place] [phone] * COVID-19 ID NOW (ISABEL) (02/05/2025 10:11 AM EDT) IDNOW SERIAL# [id number] [facility] COVID-19 TEST Negative Negative [facility] COVID-19 NOTE See Note [facility] Comment: Results are for the identification of SARS-CoV2 RNA. TheSARS-CoV2 RNA is generally detectable in respiratory samplesduring the acute phase of infection. Positive results areindicative of the presence of SARS-CoV-2 RNA; clinicalcorrelation with patient history and other diagnosticinformation is necessary to determine patient infectionstatus. Positive results do not rule out bacterial infectionor co- infection with other viruses.Testing facilities within the [facility] and [facility] are required to report all positive results [...] use by authorized laboratories.Testing performed on the [email or web address] ID NOW utilizing NAAT. 02/05/2025 10:1 1 AM EDT 02/05/2025 10:15 AM EDT Generic External Data Provider LAB MOLECULAR CASIE GNOSTICS ORDERABLES Final Result Performing Organization Address [facility] Co de Phone Number [facility] [address] [place] [phone] * High Sensitivity Troponin I (02/05/2025 10:11 AM EDT) Pathologist [facility] TROPONIN I HIGH SENSITIVITY <2.7 <3.5 - 17.0 ng/L [facility] Comment:The Isabel high sens itivity Troponin-I results should beused in conjunction with other diagnostic information suchas ECG, clinical observations and information, and patientsymptoms to aid in the diagnosis of [place]. 02/05/2025 10:1 1 AM EDT 02/05/2025 10:15 AM EDT Generic External Data Provider LAB BLOOD ORDERAB LES Final Result Performing Organization Address [facility] Co de Phone Number [facility] [address] [place] [phone] * (ABNORMAL) CBC auto differential (02/05/2025 10:11 AM EDT) Only the most recent of2 resultswithin the time period is included. White Blood Count 6.8 4.8 - 10.8 X10*3/uL [facility] Red Blood Count 4.24 4.20 - 5.50 X10*6/uL [facility] Hemoglobin 11.6(L) 12.0 - 16.0 g/dl [facility] Hematocrit 34.8(L) 37.0 - 47.0 % [facility] Mean Corpuscular Volume 82.1 80.0 - 98.0 fL [facility] Mean Corpuscular Hemoglobin 27.4 27.0 - 33.0 pg [facility] Mean Corpuscular HGB Conc 33.3 31.0 - 35.0 g/dl [facility] Red Cell Distribution Width 14.6 11.0 - 16.0 % [facility] Platelet Count 271 160 - 400 X10*3/uL [facility] Mean Platelet Volume 9.6 9.4 - 12.3 fL [facility] Neutrophils Percent Auto 57.3 45 - 73 % [facility] Imm Gran Pct Auto 0.1 0.0 - 0.4 % [facility] Lymphocytes Percent Auto 32.9 20 - 40 % [facility] Monocytes Percent Auto 5.6 2 - 11 % [facility] Eosinophils Percent Auto 3.8 0 - 4 % [facility] Basophils Percent Auto 0.3 0 - 2 % [facility] NRBC Pct Auto 0.0 0.0 - 0.2 /100WBC [facility] Neutrophils Absolute Auto 3.9 2.0 - 8.3 x10*3/uL [facility] Imm Gran Abs Auto 0.01 0.00 - 0.03 X10*3/uL [facility] Lymphocytes Absolute Auto 2.3 1.2 - 4.9 X10*3/uL [facility] Monocytes Absolute Auto 0.4 0.1 - 1.2 X10*3/uL [facility] Eosinophils Absolute Auto 0.3 0.0 - 0.4 X10*3/uL [facility] Basophils Absolute Auto 0.0 0.0 - 0.2 X10*3/uL [facility] NRBC Abs Auto 0.000 0.0 - 0.012 X10*3/uL [facility] 02/05/2025 10:1 1 AM EDT 02/05/2025 10:15 AM EDT us Generic External Data Provider LAB BLOOD ORDERAB LES Final Result [facility] [address] [place] [phone] * (ABNORMAL) Comprehensive Metabolic Panel (02/05/2025 10:11 AM EDT) Only the most recent of2 resultswithin the time period is included. Sodium 141 135 - 145 mmol/L [facility] Potassium 3.7 3.3 - 5.1 mmol/L [facility] Chloride 108 96 - 108 mmol/L [facility] Carbon Dioxide 24 22 - 29 mmol/L [facility] Anion Gap 13 12 - 20 [facility] Urea Nitrogen (BUN) 8(L) 9 - 16 mg/dL [facility] Creatinine, Serum 0.74 0.5 - 1.4 mg/dL [facility] Creatinine Clr Calc Pharmacy 131.8 [facility] Comment:Provided height and weight: 166.37 cm,115 kg.eGFR (calculated from the MDRD study equation) and eCrCl(calculated from the Cockcroft-Gault equation) are based ondifferent parameters and may not yield comparable results.If eCrCl result is absurd, please check patient'sheight/weight. Estimated Glomerular Filt Rate >60 [facility] Comment:Chronic Kidney Disea se: Estimated GFR < 60 mL/min/[id number] Kidney Disease: Estimated GFR < 15 mL/min/1.73m2 Glucose 92 60 - 115 mg/dL [facility] Calcium 8.6 8.4 - 10.2 mg/dL [facility] Bilirubin, Total 0.3 0.0 - 1.0 mg/dL [facility] Aspartate Amino Transferase 15 5 - 31 U/L [facility] Alanine Aminotransferase 9 0 - 31 U/L [facility] Total Protein 6.8 6.5 - 8.0 g/dL [facility] Albumin Level 4.0 3.5 - 5.0 g/dL [facility] Alkaline Phosphatase 73 39 - 117 U/L [facility] 02/05/2025 10:1 1 AM EDT 02/05/2025 10:15 AM EDT us Generic External Data Provider LAB BLOOD ORDERAB LES Final Result Performing Organization Address City/State/[facility] Co de Phone Number [facility] [address] [place] [phone] * XR Chest 1 View (02/05/2025 9:59 AM EDT) Anatomical Region Laterality Modality Chest Radiographic Anay ging 02/05/2025 9:59 AM EDT Narrative 02/05/2025 10:13 AM EDT [address] [address] XRay Report Signed Patient: Jihan Brothers MR#: [id number] : 1985 Acct:[id number] Age/Sex: 39 / F ADM Date: 02/05/25 Loc: .ED Attending Dr: Ordering Physician: [facility] ED Physician Date of Service: 02/05/25 Procedure(s): XR chest 1V Accession Number(s): [id number] cc: [facility] ED Physician; Name,Ernie MOE Reason for [...] 02/05/25 1010 DD/ 0959 TD/TT: 02/05/25 1006 Glue Size Machine Operator: Procedure Note Donotcandeter, Image - 02/05/[address] [address] XRay Report Signed Patient: Jihan Brothers [facility]#: [id number] : 1985Acct:[id number] Age/Sex: 39 / FADM Date: 02/05/25 Loc: .ED Attending Dr: Ordering Physician: Generic ED Physician Date of Service: 02/05/25 Procedure(s): XR chest 1V Accession Number(s): [id number] cc: Generic ED Physician; Name,Ernie MOE Reason [...] 02/05/25 1010 DD/ 0959 TD/TT: 02/05/25 1006 Glue Size Machine Operator: us [facility] External Provider IMG XR PROCEDURES Edited Result - Final * CT Abdomen Pelvis w/ Contrast (01/04/2025 2:35 AM EDT) Anatomical Region Laterality Modality Body, Pelvis, Abdomen Computed T omography 01/04/2025 2:35 AM EDT Narrative 01/04/2025 2:36 AM EDT [address] [address] [address] Scan Report Signed Patient: Jihan Brothers MR#: [id number] : 1985 Acct:[id number] Age/Sex: 39 / F ADM Date: 01/03/25 Loc: HO.ED Attending Dr: Ordering Physician: Raymundo Frazier PA-C Date of Service: 01/03/25 Procedure(s): CT abdomen pelvis w IV con Accession Number(s): [id number] cc: Raymundo Frazier PA-C; Name,Ernie MOE Report Number: [id number]: Total DLP = 775.00 mGy-cm CLINICAL HISTORY: N V; RUQ RLQ Tenderness CT abdomen and pelvis with contrast Comparison: CT/PA/SR - CT ABDOMEN PELVIS WITH IV CONTRAST - 05/10/24 23:25 EST Findings: Study limited by patient's body habitus and streak artifact from the patient's arms. No consolidation or effusion. The most superior aspect of the right hepatic lobe is excluded from view. The most superior aspect of the spleen is excluded from view. The gallbladder and remaining solid organs are within normal limits. No renal stones. No bowel obstruction, pneumoperitoneum, or pneumatosis. Status post TAHBSO. Normal appendix. The bones are intact. IMPRESSION: No acute findings. This document has been electronically signed by: Tod Motta MD on 01/04/2025 02:35:03 Dictated By: Tod Motta MD Signed By: <Electronically signed by Tod Motta MD in OV> 01/04/25 0341 DD/ 0235 TD/TT: 01/04/25 0235 Glue Size Machine Operator: Procedure Note Donotuseinterpreter, Image - 01/04/[address] [address] [address] Scan Report Signed Patient: Jihan Brothers SMR#: [id number] : 1985Acct:[id number] Age/Sex: 39 / FADM Date: 01/03/25 Loc: HO.ED Attending Dr: Ordering Physician: Raymundo Frazier PA-C Date of Service: 01/03/25 Procedure(s): CT abdomen pelvis w IV con Accession Number(s): [id number] cc: Raymundo Frazier PA-C; Name,Ernie MOE Report Number: [id number]: Total DLP = 775.00 mGy-cm CLINICAL HISTORY: N V; RUQ RLQ Tenderness CT abdomen and pelvis with contrast Comparison: CT/PA/SR - CT ABDOMEN PELVIS WITH IV CONTRAST - 05/10/24 23:25 EST Findings: Study limited by patient's body habitus and streak artifact from the patient's arms. No consolidation or effusion. The most superior aspect of the right hepatic lobe is excluded from view. The most superior aspect of the spleen is excluded from view. The gallbladder and remaining solid organs are within normal limits. No renal stones. No bowel obstruction, pneumoperitoneum, or pneumatosis. Status post TAHBSO. Normal appendix. The bones are intact. IMPRESSION: No acute findings. This document has been electronically signed by: Tod Motta MD on 01/04/2025 02:35:03 Dictated By: Tod Motta MD Signed By: <Electronically signed by Tod Motta MD in OV> 01/04/25 0341 DD/ 0235 TD/TT: 01/04/25 0235 Glue Size Machine Operator: [facility] External Provider IMG CT PROCEDURES Edited Result - Final * CT Head w/o Contrast (01/03/2025 11:30 PM EDT) Anatomical Region Laterality Modality Head, Neck Computed Tomogra phy 01/03/2025 11:3 0 PM EDT Narrative 01/03/2025 11:32 PM EDT [place] [address] CT Scan Report Signed Patient: Jihan Brothers MR#: [id number] : 1985 Acct:[id number] Age/Sex: 39 / F ADM Date: 01/03/25 Loc: HO.ED Attending Dr: Ordering Physician: Raymundo Frazier PA-C Date of Service: 01/03/25 Procedure(s): CT head/brain wo IV con Accession Number(s): [id number] cc: Raymundo Frazier PA-C; Name,Ernie MOE Report Number: [id number]: Total DLP = 782.00 mGy-cm CLINICAL HISTORY: Seizure; Headache CT head without contrast Comparison: CT/REG/SR - CT HEAD/BRAIN WO IV CON - 09/23/23 11:32 EDT Findings: No intra-axial mass, midline shift, hydrocephalus, or acute hemorrhage. No significant atrophy-like change or white matter disease. Ethmoid sinus disease. Mastoid air cells are normal. The orbits are unremarkable. There is no acute fracture. IMPRESSION: 1. No acute intracranial findings. This document has been electronically signed by: Tod Motta MD on 01/03/2025 23:30:56 Dictated By: Tod Motta MD Signed By: <Electronically signed by Tod Motta MD in OV> 01/03/252330 DD/ 29 TD/TT: 01/03/252329 Glue Size Machine Operator: Procedure Note Donotuseinterpreter, Image - 01/04/[address] [place] [address] [address] Scan Report Signed Patient: Jihan Brothers [facility]#: [id number] : 1985Acct:[id number] Age/Sex: 39 / FADM Date: 01/03/25 Loc: HO.ED Attending Dr: Ordering Physician: Raymundo Frazier PA-C Date of Service: 01/03/25 Procedure(s): CT head/brain wo IV con Accession Number(s): [id number] cc: Raymundo Frazier PA-C; Ernie Nobles MD Report Number: [id number]: Total DLP = 782.00 mGy-cm CLINICAL HISTORY: Seizure; Headache CT head without contrast Comparison: CT/REG/SR - CT HEAD/BRAIN WO IV CON - 09/23/23 11:32 EDT Findings: No intra-axial mass, midline shift, hydrocephalus, or acute hemorrhage. No significant atrophy-like change or white matter disease. Ethmoid sinus disease. Mastoid air cells are normal. The orbits are unremarkable. There is no acute fracture. IMPRESSION: 1. No acute intracranial findings. This document has been electronically signed by: Tod Motta MD on 01/03/2025 23:30:56 Dictated By: Tod Motta MD Signed By: <Electronically signed by Tod Motta MD in OV> 01/03/252330 DD/ 29 TD/TT: 01/03/252329 Glue Size Machine Operator: [facility] External Provider IMG CT PROCEDURES Edited Result - Final * SARS-CoV-2 RNA, Influenza A/B, and RSV RNA, Ql NAAT (12/07/2024 3:59 PM EDT) Influenza A PCR NEGATIVE Negative [facility] Influenza B PCR NEGATIVE Negative [facility] Resp Syncy Virus RNA Qual PCR NEGATIVE Negative [facility] SARS COV2 PCR NEGATIVE Negative [facility] Comment:All test results mus t be correlated with clinical findings.Negative results do not preclude SARS-CoV2, influenza Avirus, influenza B virus and/or RSV infectionand should not be used as the sole basis for treatment orother patient management decisions. Negative results must becombined with clinical observations, patient history, andepidemiological information.This test has not been evaluated for monitoring treatment ofinfection.This test has been authorized by the FDA under an EmergencyUse Authorization (EUA) for use by authorized laboratories.Testing performed on the [employer] GeneXpert utilizingreal-time RT-PCR.All SARS CoV2 and positive influenza A/B results arereported to [facility]. 12/07/2024 3:59 PM EDT 12/07/2024 4:16 PM EDT Generic External Data Provider LAB MICROBIOLOGY - GENERAL ORDERABLES Final Result [facility] [address] [place] [address] [phone] * (ABNORMAL) Levetiracetam (12/07/2024 3:59 PM EDT) Only the most recent of2 resultswithin the time period is included. Levetiracetam <2.0(A) 6.0 - 46.0 mcg/mL [facility] Comment:Brivaracetam (Brivia ct(R), Rikelta(R)) exhibitssignificant cross- reactivity in the Levetiracetam(Keppra(R), Spritam(R)) immunoassay. If Brivaracetamhas been prescribed, order test code [id number] by [employer].THIS TEST WAS PERFORMED AT:[employer] [id number] [place] [address]KLVSLEMONUR HERRERA MD,PHD 12/07/2024 3:59 PM EDT 12/07/2024 4:16 PM EDT us Generic External Data Provider LAB BLOOD ORDERAB LES Final Result [facility] [address] [place] [phone] * (ABNORMAL) Urinalysis Complete (12/07/2024 3:59 PM EDT) Color Urine Yellow [facility] Appearance Urine Clear [facility] PH 7.0 5.0 - 9.0 [facility] Glucose Urine UA Negative Negative mg/dL [facility] Urine Blood Trace(A) Negative [facility] Specific [place] - Urine 1.015 1.005 - 1.025 [facility] Urine Protein Negative Neg-Trace mg/dL [facility] Urine Ketones Negative Negative mg/dL [facility] Nitrite Urine Negative Negative [facility] Leukocyte Esterase Urine Negative Negative [facility] RBC Urine 3-5(A) 0 - 2 /HPF [facility] Urine WBC 0-5 0 - 5 /HPF [facility] Urine Squamous Epithelial Cell 0-2 0 - 2 /HPF [facility] Urine Bacteria None Seen None Seen [facility] Hyaline Casts, Urine 0-2 0 - 2 /LPF [facility] 12/07/2024 3:59 PM EDT 12/07/2024 4:16 PM EDT us Generic External Data Provider LAB URINE ORDERAB LES Final Result [facility] [address] [place] [phone] [phone] * hCG, Total, Quantitative (12/07/2024 3:59 PM EDT) HCG Quantitative <2 mIU/mL [facility] Comment:Weeks post LMP Appr oximate hCG(Last Menstrual Period) Range (mIU/ml)3 - 4 weeks 9 - 1304 - 5 weeks 75 - 2,6005 - 6 weeks 850 - 20,8006 - 7 weeks 4000 - 100,2007 - 12 weeks 11,500 - 289,43948 - 16 weeks 18,300 - 137,33245 - 29 weeks (2nd trimester) 1,400 - 53,94222 - 41 weeks (3rd trimester) 940 - 60,000The Isabel B- hCG assay is used for the early detection ofpregnancy; it cannot be used to diagnose any conditionunrelated to . If a B-hCG level is not supportedby the clinical evidence, results should be confirmed by analternative method (qualitative urine hCG, for example). 12/07/2024 3:59 PM EDT 12/07/2024 4:16 PM EDT us Generic External Data Provider LAB BLOOD ORDERAB LES Final Result Performing Organization Address City/[facility]/ZIP Co de Phone Number [facility] [address] [place] [phone] * Magnesium (12/07/2024 3:59 PM EDT) Magnesium 2.1 1.6 - 2.6 mg/dL [facility] 12/07/2024 3:59 PM EDT 12/07/2024 4:16 PM EDT us Generic External Data Provider LAB BLOOD ORDERAB LES Final Result Performing Organization Address [facility] Co de Phone Number [facility] [address] [place] [phone] * Lactic Acid (12/07/2024 3:59 PM EDT) Lactic Acid 0.7 0.5 - 2.0 mmol/L [facility] 12/07/2024 3:59 PM EDT 12/07/2024 4:15 PM EDT Generic External Data Provider LAB BLOOD ORDERAB LES Final Result Performing Organization Address [facility] Number [facility] [address] [place] [phone] * D Dimer High Sensitivity (12/07/2024 1:59 PM EDT) D Dimer High Sensitivity 254 NG/ML [facility] Comment:Critical DDIMER sent by a secure message and confirmed by Aida 12/07/24 at 1750 by HOLLY.D-DIMER HS REFERENCE RANGENote: Our assay reports D-Dimer Units (D-DU).The cut-off value for venous thromboembolic (VTE) disease is230 ng/mL. This value has a very high negative predictivevalue when the patient has a low to moderate clinicalprobability of VTE.The upper limit of normal is 243 ng/mL. 12/07/2024 1:59 PM EDT 12/07/2024 5:03 PM EDT Generic External Data Provider LAB BLOOD ORDERAB LES Final Result Performing Organization Address [facility] Phone Number [facility] [address] [place] [phone] * TSH W/Reflex to FT4 (12/07/2024 1:59 PM EDT) TSH reflex Free T4 0.85 0.32 - 4.0 uIU/mL [facility] Blood Venous blood specimen / Unknown 12/07/2024 1:59 PM EDT 12/07/2024 5:08 PM EDT us Ernie Nobles MD LAB BLOOD ORDERABLES Final Resul t Performing Organization Address [facility] Co de Phone Number [facility] [address] [place] [phone] [phone] * LH (12/07/2024 1:59 PM EDT) Lutenizing Hormone 7.6 mIU/mL [facility] Comment:Reference Range Foll icular Phase 1.9-12.5 Mid-Cycle Peak 8.7-76.3 Luteal Phase 0.5-16.9 Postmenopausal 10.0-54.7THIS TEST WAS PERFORMED AT:[facility] [place] [id number] KATZ MD Blood Venous blood specimen / Unknown 12/07/2024 1:59 PM EDT 12/07/2024 5:08 PM EDT us Ernie Nobles MD LAB BLOOD ORDERABLES Final Resul t Performing Organization Address [facility] Co de Phone Number [facility] [address] [place] [phone] * FSH (12/07/2024 1:59 PM EDT) Follicle Stimulating Hormone 5.7 mIU/mL [facility] Comment:Reference Range Foll icular Phase 2.5-10.2 Mid-cycle Peak 3.1-17.7 Luteal Phase 1.5- 9.1 Postmenopausal 23.0-116.3THIS TEST WAS PERFORMED AT:[employer] [address] [id number] KATZ MD Blood Venous blood specimen / Unknown 12/07/2024 1:59 PM EDT 12/07/2024 5:08 PM EDT us Ernie Nobles MD LAB BLOOD ORDERABLES Final Resul t Performing Organization Address City/[facility]/ZIP Co de Phone Number [facility] [address] [place] [phone] * (ABNORMAL) Lipid Panel, Standard (07/22/2022 12:08 PM EST) Cholesterol, Total 159 <200 mg/dL [facility] HDL Cholesterol 41(L) > OR = 50 mg/dL [facility] Triglycerides 81 <150 mg/dL [facility] LDL Cholesterol 101(H) mg/dL (calc) [facility] Comment: Reference range: <100 Desirable range <100 mg/dL for primary prevention; <70 mg/dL for patients with CHD or diabetic patients with > or = 2 CHD risk factors. LDL-C is now calculated using the Blas-Bruce calculation, which is a validated novel method providing better accuracy than the Friedewald equation in the estimation of LDL-C. Blas SS et al. EVA. 2013;310(19): 6057-9667 (http://education.Refinder by [employer]/faq/RBT060) Chol/HDLC Ratio 3.9 <5.0 (calc) [facility] Non-HDL Cholesterol 118 <130 mg/dL (calc) [facility] Comment: For patients with diabetes plus 1 major ASCVD risk factor, treating to a non-HDL-C goal of <100 mg/dL (LDL-C of <70 mg/dL) is considered a therapeutic option. Blood Venous blood specimen / Unknown 07/22/2022 12:08 PM EST 07/22/2022 12:08 PM EST Narrative [facility] - 07/23/2022 6:09 AM EST FASTING:NO FASTING: NO us Ernie Nobles MD LAB BLOOD ORDERABLES Final Resul t [facility] [address], [address], [place] [address] [employer] [facility] [address], ([address]) [place] [address] from Last 3 Months or Most Recently Relevant to Health Maintenance Insurance [facility] C3 Care Teams Radiologic Technologist Mammogram Relationship Specialty Start Date End Date Name, MD Ernie [address] [place] [address] PCP - General Family Medicine 01/06/19 Aleksandra Saez 02/05/25 Priscilla e[employer] Business Office DirectorWireline Operator 10/15/23
--- OUTSIDE RECORDS SUMMARY | 2025-02-05 11:15 | XMS_ITS | Encounter Summary ---
Author Organization [employer] Address [address] [facility] 7t [place] [address] Care Team Providers Care Switchboard Operator Helper Name Role Phone Name, Ernie MOE Primary Care Provider [phone] Aleksandra Saez Unavailable Reason for Visit * Reason Comments Care Coordination CP Care Coordination Chart Review Encounter Details Date Type Department Care Team (Latest Contact Info) Description 02/05/2025 Patient Outreach [facility] [address] [place] [address] Name, MD Ernie [address] [place] [address] Care Coordination (CP Care Coordination Chart Review) Social History Tobacco Use Types Packs/Day Years [...] as of this encounter Progress Notes * Aleksandra Saez - 02/05/2025 9:09 AM EDT [facility] Coordinator, Aleksandra Saez, performed chart review, as patient has experienced anADT event and has been identified as being engaged with a [facility] Program. Patient is assigned to CP Program ICP to Spouting Installer Priscilla Helm. Patient visited [facility] ED on . Last appointment in PCP office on 12/07/24 Next appointment scheduled for 03/02/25. documented in this encounter Plan of Treatment Upcoming Encounters Date Type Department Care Team (Late st Contact Info) Description 03/02/2025 3:15 PM EDT Office Visit [facility] [address] [place] [address] Name, MD Ernie [address] [place] [address] documented as of this encounter Goals Goal Patient Goal Type Associated Problems Recent Progress Patient-Stated? Author Patient will adhere to medication regimen General No Evelyn Levine documented as of this encounter Visit Diagnoses Not on filedocumented in this encounter Additional Health Concerns Assessment Noted Time PHQ-9 Depression Total Score: 4 10/05/19 10:01 AM EDT documented as of this encounter Care Teams Switchboard Operator Helper Relationship Specialty Start Date End Date Name, MD Ernie [address] [place] [address] PCP - General Family Medicine 01/06/19 Aleksandra Saez 02/05/25 Priscilla Helm Sales Order CoordinatorBoilermaker Apprentice 10/15/23 documented as of this encounter
--- OUTSIDE RECORDS SUMMARY | 2025-02-05 11:15 | XMS_ITS | Encounter Summary ---
Author Organization [employer] Address [address] [facility] 7t [place] [address] Care Team Providers Care Dry Dip Worker Name Role Phone Name, Ernie MOE Primary Care Provider [phone] Aleksandra Saez Unavailable Aleksandra Saez Unavailable Reason for Visit * Reason Onset Date Comments Med Refill 08/29/2024 Encounter Details Date Type Department Care Team (Late st Contact Info) Description 08/29/2024 Refill [facility] [address] [place], [place] [phone] Name, MD Ernie [address] [place] [address] Social History Tobacco Use Types Packs/Day Years [...] Description 03/02/2025 3:15 PM EDT Office Visit [facility] [address] [place] [phone] Name, MD Ernie [address] [place] [address] documented as of this encounter Goals Goal Patient Goal Type Associated Problems Recent Progress Patient-Stated? Author Patient will adhere to medication regimen General Evelyn Xavier documented as of this encounter Visit Diagnoses Not on filedocumented in this encounter Additional Health Concerns Assessment Noted Time PHQ-9 Depression Total Score: 0 10/29/19 24 10:28 AM EDT documented as of this encounter Care Teams Dry Dip Worker Relationship Specialty Start Date End Date Name, MD Ernie [address] [place] [address] PCP - General Family Medicine 01/06/19 Aleksandra Saez 01/04/25 01/12/25 Aleksandra Saez 02/05/25 Priscilla Helm Nascar DriverWine Cellar Stock Clerk 10/15/23 documented as of this encounter
--- OUTSIDE RECORDS SUMMARY | 2025-02-05 11:15 | XMS_ITS | Encounter Summary ---
Author Organization [employer] Address [address] [facility] 7t [place] [address] Care Team Providers Care Finisher Map And Chart Name Role Phone Name, Ernie MOE Primary Care Provider [phone] Reason for Visit * Reason Onset Date Comments Prior Auth Procedure 02/01/2025 pt requesti ng the pa for setbound Encounter Details Date Type Department Care Team ([facility] Contact Info) Description 02/01/2025 Telephone [facility] [address] [place], [place] [phone] Name, MD Ernie [address] [place] [address] Prior Auth Procedure (pt requesting the pa for setbound) Social History Tobacco Use Types Packs/Day Years [...] encounter Miscellaneous Notes * Telephone Encounter - Lanie Garcia [place] - 02/01/2025 11:36 AM EDT pt requesting the pa for setbound documented in this encounter Plan of Treatment Upcoming Encounters Date Type Department Care Team (Late st Contact Info) Description 03/02/2025 3:15 PM EDT Office Visit [facility] [address] [place] [address] Name, MD Ernie [address] [place] [address] documented as of this encounter Goals Goal Patient Goal Type Associated Problems Recent Progress Patient-Stated? Author Patient will adhere to medication regimen General No Evelyn Levine documented as of this encounter Visit Diagnoses Not on filedocumented in this encounter Additional Health Concerns Assessment Noted Time PHQ-9 Depression Total Score: 4 10/05/19 25 10:01 AM EDT documented as of this encounter Care Teams Finisher Map And Chart Relationship Specialty Start Date End Date Name, MD Ernie [address] [place] [address] PCP - General Family Medicine 01/06/19 Priscilla Helm Residential Carpet InstallerMaterials Engineer 10/15/23 documented as of this encounter
--- OUTSIDE RECORDS SUMMARY | 2025-02-05 11:15 | XMS_ITS | Encounter Summary ---
Author Organization [employer] Address [address] [facility] 7t [place] [address] Care Team Providers Care Ornamenter Name Role Phone Name, Ernie MOE Primary Care Provider [phone] Aleksandra Saez Unavailable Aleksandra Saez Unavailable Reason for Visit * Reason Onset Date Comments Med Refill 07/26/2024 Encounter Details Date Type Department Care Team (Late st Contact Info) Description 07/26/2024 Refill [facility] [address] [place] [address] [phone] Name, MD Ernie [address] [place], [place] [phone] Intractable migraine without aura and without status [...] is your housing situation today? I have juen vernon 05/11/[address] you [...] 3:15 PM EDT Office Visit [facility] [address] [place] [address] Name, MD Ernie [address] [place] [address] documented as of this encounter Goals Goal [...] documented as of this encounter Care Teams Ornamenter Relationship Specialty Start Date End Date Name, MD Ernie [address] [place] [address] PCP - General Family Medicine 01/06/19 Aleksandra Saez 01/04/25 01/12/25 Aleksandra Saez 02/05/25 Priscilla Helm Hot ShotUrban Planner 10/15/23 documented as of this encounter
--- OUTSIDE RECORDS SUMMARY | 2025-02-05 11:15 | XMS_ITS | Encounter Summary ---
Author Organization [employer] Address [address] [facility] 7t [place] [address] Care Team Providers Care Parachute Inspector Name Role Phone Name, Ernie MOE Primary Care Provider [phone] Aleksandra Saez Unavailable Aleksandra Saez Unavailable Reason for Visit * Reason Onset Date Comments Med Refill 12/26/2024 Encounter Details Date Type Department Care Team (Late st Contact Info) Description 12/26/2024 Refill [facility] [address] [place], [place] [phone] Name, MD Ernie [address] [place] [address] Social History Tobacco Use Types Packs/Day Years [...] Description 03/02/2025 3:15 PM EDT Office Visit [facility] [address] [place] [phone] Name, MD Ernie [address] [place] [address] documented as of this encounter Goals Goal Patient Goal Type Associated Problems Recent Progress Patient-Stated? Author Patient will adhere to medication regimen General Evelyn Xavier documented as of this encounter Visit Diagnoses Not on filedocumented in this encounter Additional Health Concerns Assessment Noted Time PHQ-9 Depression Total Score: 4 10/05/19 25 10:01 AM EDT documented as of this encounter Care Teams Parachute Inspector Relationship Specialty Start Date End Date Name, MD Ernie [address] [place] [address] PCP - General Family Medicine 01/06/19 Aleksandra Saez 01/04/25 01/12/25 Aleksandra Saez 02/05/25 Priscilla Helm Instrument Technician ApprenticeInspecting Engineer 10/15/23 documented as of this encounter
--- OUTSIDE RECORDS SUMMARY | 2025-02-05 11:15 | XMS_ITS | Encounter Summary ---
Author Organization [facility] [employer] Address [address] [facility] 7t [place] [address] Care Team Providers Care Financial Sales Manager Name Role Phone Name, Ernie MOE Primary Care Provider [phone] Aleksandra Saez Unavailable Reason for Visit * Reason Comments Care Coordination [facility] D Follow Up Encounter Details Date Type Department Care Team (Latest Contact Info) Description 02/05/2025 Patient Outreach [facility] [address] [place], [place] [phone] Name, MD Ernie [address] [place] [address] Care Coordination ([facility] ED Follow Up) Social History Tobacco Use Types Packs/Day Years [...] Progress Notes * Aleksandra Saez - 02/05/2025 9:13 AM EDT [facility] assigned patient visited [facility] on 02/05/25. ED visit note has been scanned into patient's chart. Notification sent to the Triage Nurse team to follow up with patient for ED status check and medication reconciliation. documented in this encounter Plan of Treatment Upcoming Encounters Date Type Department Care Team ([facility] st Contact Info) Description 03/02/2025 3:15 PM EDT Office Visit [facility] [address] [place] [address] NameErnie MD [address] [place] [address] documented as of this encounter Goals Goal Patient Goal Type Associated Problems Recent Progress Patient-Stated? Author Patient will adhere to medication regimen General Evelyn Xavier documented as of this encounter Visit Diagnoses Not on filedocumented in this encounter Additional Health Concerns Assessment Noted Time PHQ-9 Depression Total Score: 4 10/05/19 25 10:01 AM EDT documented as of this encounter Care Teams Financial Sales Manager Relationship Specialty Start Date End Date Ernie Nobles MD [address] [place] [address] PCP - General Family Medicine 01/06/19 Aleksandra Saez 02/05/25 Priscilla Helm Brick Yard HandBusiness Unit Controller 10/15/23 documented as of this encounter
--- OUTSIDE RECORDS SUMMARY | 2025-02-05 11:15 | XMS_ITS | Encounter Summary ---
Author Organization [employer] Address [address] [facility] 7t [place] [address] Care Team Providers Care Nursing Clerk Name Role Phone Name, Ernie MOE Primary Care Provider [phone] Aleksandra Saez Unavailable Aleksandra Saez Unavailable Reason for Visit * Reason Comments Med Refill Encounter Details Date Type Department Care Team ([facility] st Contact Info) Description 03/20/2024 Refill [facility] [address] [place], [place] [phone] Name, MD Ernie [address] [place] [address] Social History Tobacco Use Types Packs/Day Years [...] Description 03/02/2025 3:15 PM EDT Office Visit [facility] [address] [place] [phone] Name, MD Ernie [address] [place] [address] documented as of this encounter Goals Goal Patient Goal Type Associated Problems Recent Progress Patient-Stated? Author Patient will adhere to medication regimen General Evelyn Xavier documented as of this encounter Visit Diagnoses Not on filedocumented in this encounter Additional Health Concerns Assessment Noted Time PHQ-9 Depression Total Score: 0 10/29/19 24 10:28 AM EDT documented as of this encounter Care Teams Nursing Clerk Relationship Specialty Start Date End Date Name, MD Ernie [address] [place] [address] PCP - General Family Medicine 01/06/19 Aleksandra Saez 01/04/25 01/12/25 Aleksandra Saez 02/05/25 Priscilla Helm Computer Systems IntegratorMetal Window Screen Assembler 10/15/23 documented as of this encounter
--- OUTSIDE RECORDS SUMMARY | 2025-02-05 11:16 | XMS_ITS | Encounter Summary ---
Author Organization [employer] Address [address] [facility] 7t [place] [address] Care Team Providers Care Farmworker Livestock Name Role Phone Name, Ernie MOE Primary Care Provider [phone] Aleksandra Saez Unavailable Aleksandra Saez Unavailable Encounter Details Date Type Department Care Team ([facility] Contact Info) Description 09/07/2023 Telephone [facility] [address] [place], [place] [phone] JuanEstela, OD [address] [place] [address] Social History Tobacco Use Types Packs/Day Years [...] Miscellaneous Notes * Telephone Encounter - Joi Jose - 09/07/2023 9:50 AM EDT Patient call [...] Description 03/02/2025 3:15 PM EDT Office Visit [facility] [address] [place] [address] Name, MD Ernie [address] [place] [address] documented as of this encounter Visit Diagnoses Not on filedocumented in this encounter Additional Health Concerns Assessment Noted Time PHQ-9 Depression Total Score: 0 10/08/19 23 11:31 AM EDT documented as of this encounter Care Teams Farmworker Livestock Relationship Specialty Start Date End Date NameErnie MD [address] [place] [address] PCP - General Family Medicine 01/06/19 Aleksandra Saez 01/04/25 01/12/25 Aleksandra Saez 02/05/25 Priscilla Helm Bread And Pastry BakerEngineering Supplies Sales 10/15/23 documented as of this encounter
--- OUTSIDE RECORDS SUMMARY | 2025-02-05 11:16 | XMS_ITS | Encounter Summary ---
Author Organization [facility] Address [address] [place] [address] Phone Care Team Providers Care Pre School Manager Name Role Phone Name, Ernie MOE Primary Care Provider [phone] Pcp, Unknown Unavailable Unavailable Encounter Details Date Type Department Care Team (Late st Contact Info) Description 05/19/2024 Telephone [facility] Department of Neurology [address] [place] [address], 8th Floor, [address] [place] [address] Kyle Lott MD [address] [place] [id number] [email or web address] Social History Tobacco Use Types Packs/Day Years Used Date Smoking Tobacco: Never Assessed Education Answer Date Recorded Are you interested in more education? Not on elsa e 07/20/2023 Are you concerned about learning? Not on file 07/20/2023 No 07/20/2023 No 07/20/2023 Digital Access Answer Date Recorded No 07/20/2023 No 07/20/2023 Reliable internet access at home? Not on file 07/20/2023 Device with a working camera? Not on file Comments Unknown Sex and Gender Information Value Date Recorded Sex Assigned at Female 12/20/2023 9:25 AM EDT Legal Sex Female 2:09 PM EST Gender Identity Female 12/20/2023 9:25 AM EDT Sexual Orientation Straight 12/20/2023 9: 25 AM EDT documented as of this encounter Plan of Treatment Upcoming Encounters Date Type Department Care Team (Late st Contact Info) Description 02/12/2025 1:30 PM EDT Office Visit [facility] Department of Neurology [address] [place] [address], 8th Floor, [address] [place] [address] Mary Trujillo MD [address] [place] [address] [address] [place] [address] [email or web address] documented as of this encounter Visit Diagnoses Not on filedocumented in this encounter Care Teams Pre School Manager Relationship Specialty Start Date End Date Name, MD Ernie [address] [place] [address] PCP - General Internal Medicine 07/20/23 Pcp, Unknown 07/20/23 documented as of this encounter Additional Source Comments The information contained in this document represents components of the legal health record. It is not the complete legal health record.[facility]
--- OUTSIDE RECORDS SUMMARY | 2025-02-05 11:16 | XMS_ITS | Clinical Summary ---
Author Organization [facility] Address [facility] [address] [place] [address] Phone Care Team Providers Care Cancer Spec Name Role Phone Name, Ernie MOE Primary Care Provider [phone] Pcp, Unknown Unavailable Unavailable Allergies Active Allergy Reactions Criticality Noted Date Comments Codeine High 03/16/2016 Medications esomeprazole (NEXIUM) 40 MG capsule Take 40 mg by mouth daily before breakfast. Active famotidine (PEPCID) 20 MG tablet Take 20 mg by mouth 2 (two) times a day. Active FLUoxetine (PROZAC) 10 MG capsule Take 10 mg by mouth nightly at bedtime. Active folic acid (FOLVITE) 800 MCG tablet Take 1,000 mcg by mouth every evening. Active hydrOXYzine (ATARAX) 25 MG tablet Take 25 mg by mouth 3 (three) times a day as needed for anxiety. Active levETIRAcetam (KEPPRA) 1000 MG tablet Take 1,500 mg by mouth 2 (two) times a day. Active loratadine (CLARITIN) 10 mg tablet Take 10 mg by mouth daily. Active topiramate (TOPAMAX) 100 MG tablet Take 100 mg by mouth 2 (two) times a day. Active WEGOVY 2.4 mg/0.75 mL subcutaneous pen injection INJECT ONE PEN (=2.4MG) SUBCUTANEOUSLY ONCE A WEEK DIRECTED Active SUMAtriptan (IMITREX) 50 MG tablet TAKE 1 TABLET BY MOUTH AT ONSET OF MIGRAINE. MAY REPEAT ONCE AFTER 2 HOURS IF NEEDED, DO NOT EXCEED 4 TABLETS IN 24 HOURS 06/29/19 Active Social History Tobacco Use Types Packs/Day Years Used Date Smoking Tobacco: Never Smokeless Tobacco: Never Alcohol Use Standard Drinks/Week Comments Never 0 (1 standard drink = 0.6 oz pur e alcohol) Education Answer Date Recorded Are you interested in more education? Not on elsa e 07/20/2023 Are you concerned about learning? Not on file 07/20/2023 No 07/20/2023 No 07/20/2023 Digital Access Answer Date Recorded No 07/20/2023 No 07/20/2023 Reliable internet access at home? Not on file 07/20/2023 Device with a working camera? Not on file Comments No Sex and Gender Information Value Date Recorded Sex Assigned at Female 12/20/2023 9:25 AM EDT Legal Sex Female 2:09 PM EST Gender Identity Female 12/20/2023 9:25 AM EDT Sexual Orientation Straight 12/20/2023 9: 25 AM EDT Last Filed Vital Signs Vital Sign Reading Time Taken Comments Blood Pressure 107/74 06/28/2024 12:40 PM EST Pulse 86 06/28/2024 12:40 PM EST Temperature 36.9 C (98.5 F) 06/28/2024 12:40 PM EST Respiratory Rate - - Oxygen Saturation 98% 06/28/2024 12:40 PM EST Inhaled Oxygen Concentration - - Weight 118.4 kg (261 lb) 06/28/2024 12:40 PM EST Height 166.4 cm (5' 5.5 ) 06/28/2024 12:40 PM ES T Body Mass Index 42.77 06/28/2024 12:40 PM EST Plan of Treatment Upcoming Encounters Date Type Department Care Team (Late st Contact Info) Description 02/12/2025 1:30 PM EDT Office Visit [facility] Department of Neurology [address] [place] [address], 8th Floor, [address] [place] [id number] Mary Trujillo MD [address] [place] [address] [address] [place] [address] [email or web address] Health Maintenance Due Date Last Done Comments HEPATITIS C SCREENING 11/04/2005 HIV ONE-TIME SCREENING (18-6 5 YEARS) 11/04/2005 PAP SMEAR 11/04/2008 SCREENING FOR DIABETES 11/04/2022 INFLUENZA VACCINE (#1) 2024 COVID-19 VACCINE (1 - 2023-2 5 season) 2025 DEPRESSION SCREENING 08/04/2025 08/04/2024, 08/04/2024 Adult Td,Tdap Booster 04/22/2031 04/22/2021 PNEUMOCOCCAL VACCINES (0-49 years) Aged Out 10/23/2018 No longer eligible b ased on patient's age to complete this topic SMOKING STATUS SCREENING (On ce After 26 Yrs) Completed 06/28/2024 HEPATITIS A VACCINES Aged Out No long er eligible based on patient's age to complete this topic HIB VACCINES Aged Out No longer eligi ble based on patient's age to complete this topic MENINGOCOCCAL VACCINES (ACWY) Aged Out No longer eligible based on patient's age to complete this topic MENINGOCOCCAL VACCINES (B) Aged Out N o longer eligible based on patient's age to complete this topic Medical Devices Not on file Insurance [address] [place] [address] [place] [address] C3 ACO C3 ACO C3 ACO C3 ACO [facility] C3 ACO Care Teams Cancer Spec Relationship Specialty Start Date End Date Name, MD Ernie [address] [place] [id number] PCP - General Internal Medicine 07/20/23 Pcp, Unknown 07/20/23 Additional Source Comments The information contained in this document represents components of the legal health record. It is not the complete legal health record.[facility]
--- OUTSIDE RECORDS SUMMARY | 2025-02-05 11:16 | XMS_ITS | Encounter Summary ---
Author Organization [employer] Address [address] [facility] [address] [place] [address] Care Team Providers Care Truck Driver Rubbish Collector Name Role Phone Name, Ernie MOE Primary Care Provider [phone] Aleksandra Saez Unavailable Aleksandra Saez Unavailable Reason for Visit * Reason Onset Date Comments ER Follow-up 08/30/2023 Encounter Details Date Type Department Care Team ([facility] st Contact Info) Description 08/30/2023 Telephone [facility] [address] [place], [place] [id number] Name, MD Ernie [address] [place] [address] ER Follow-up Social History Tobacco Use Types [...] on : Date: 08/24, 08/25, 08/26,08/27,08/28 Hospital: [facility] Seen for: Seizsonu Patient advised will forward to team nurse for follow up documented in this encounter Plan of Treatment Upcoming Encounters Date Type Department Care Team (Late st Contact Info) Description 03/02/2025 3:15 PM EDT Office Visit [facility] [address] [place] [address] Name, MD Ernie [address] [place] [address] documented as of this encounter Visit Diagnoses Not on filedocumented in this encounter Additional Health Concerns Assessment Noted Time PHQ-9 Depression Total Score: 0 10/08/19 23 11:31 AM EDT documented as of this encounter Care Teams Truck Driver Rubbish Collector Relationship Specialty Start Date End Date Name, MD Ernie [address] [place] [id number] PCP - General Family Medicine 01/06/19 Aleksandra Saez 01/04/25 01/12/25 Aleksandra Saez 02/05/25 Prisclila Helm Volunteer RecruiterSql Database Programmer 10/15/23 documented as of this encounter
--- NOTE | 2025-02-05 11:33 | ED.SOB ---
HPI - SOB/Dyspnea General Chief Complaint: Dyspnea Stated Complaint: sob Time Seen by Provider: 02/05/25 10:31 Source: patient Mode of arrival: ambulatory Limitations: no limitations History of Present Illness ED Provider: HPI Narrative: 39-year-old woman, with history of obstructive sleep apnea, smokes marijuana, reports history of PE during COVID, recently stopped from blood thinners by PCP, reporting cough for about 3 weeks worse at night, concerned she has pneumonia no chest pain, no hemoptysis, no recent surgeries no prolonged travel. Related Data Home Medications ?Medication ?Instructions ?Recorded ?Confirmed albuterol sulfate 2.5 mg/3 mL 2.5 mg inhalation QID PRN Wheezing 03/22/20 06/23/24 (0.083 %) solution for nebulization albuterol sulfate 90 mcg/actuation 2 puff inhalation Q4-6H PRN 03/22/20 06/23/24 aerosol inhaler (ProAir HFA) Wheezing nortriptyline 10 mg capsule 10 mg PO BEDTIME 03/22/20 06/23/24 baclofen 10 mg tablet 10 mg PO TID PRN Muscle Spasm 09/23/23 06/23/24 esomeprazole magnesium 40 mg 40 mg PO DAILY 09/23/23 06/23/24 capsule,delayed release famotidine 20 mg tablet 20 mg PO BID 09/23/23 06/23/24 fluoxetine 10 mg capsule 10 mg PO DAILY 09/23/23 06/23/24 hydroxyzine HCl 25 mg tablet 25 mg PO BID anxiety 09/23/23 06/23/24 levetiracetam 1,000 mg tablet 1,000 mg PO BID 09/23/23 06/23/24 levetiracetam 500 mg tablet 500 mg PO BID 09/23/23 06/23/24 ondansetron HCl 4 mg tablet 4 mg PO Q8H PRN nausea/vomiting 09/23/23 06/23/24 oxcarbazepine 150 mg tablet 150 mg PO BID 09/23/23 06/23/24 prazosin 2 mg capsule 2 mg PO BEDTIME 09/23/23 06/23/24 semaglutide (weight loss) 0.5 0.5 mg subcut WE 09/23/23 06/23/24 mg/0.5 mL subcutaneous pen injector (Wegovy) sumatriptan succinate 50 mg tablet 50 mg PO QD-BID migraine 09/23/23 06/23/24 topiramate 100 mg tablet 100 mg PO BID 09/23/23 06/23/24 Previous Rx's ?Medication ?Instructions ?Recorded ondansetron 4 mg disintegrating 4 mg PO Q8H PRN nausea and 05/11/24 tablet vomiting #20 tabs apixaban 5 mg tablet (Eliquis) 5 mg PO BID #60 tabs 06/14/24 folic acid 1 mg tablet 1 mg PO DAILY #90 tabs 07/14/24 fluticasone propionate 50 2 spray intranasal DAILY #16 grams 02/05/25 mcg/actuation nasal spray,suspension (Flonase Allergy Relief) prednisone 20 mg tablet 40 mg (2 x 20 mg) PO DAILY 5 days 02/05/25 #10 tabs Allergies Allergy/AdvReac Type Severity Reaction Status Date / Time codeine (CODEINE) Allergy Unknown Itching Verified 02/05/25 09:29 nut - unspecified Allergy Anaphylaxis Verified 02/05/25 09:29 [place] Allergy Severe throat Uncoded 02/05/25 09:29 closed Review of Systems Constitutional: Constitutional: Reports as per [facility] Past Medical History Medical History Morbid obesity due to excess calories Spondylosis of lumbar spine Sacroiliitis Obesity PTSD (post-traumatic stress disorder) Sleep apnea Sacroiliitis Gait disturbance Degenerative disc disease Chronic back pain History of blood transfusion Anemia GERD (gastroesophageal reflux disease) Neuropathy Anxiety Depression Migraine Seizure disorder Asthma Surgical History H/O excision of epidermal inclusion cyst (12/06/20) Hx of umbilical hernia repair History of partial hysterectomy History of 3 sections Family History Family History Maternal Uncle Lung cancer Father Prostate cancer Social History Social History (Updated 06/23/24 @ 09:21 by MANJU Jarrett) Household Members: Spouse and Children Housing: Apartment Are you a primary primary care sales representative to a significant other at home: No 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 have visiting nurse or other home 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 (humane officer) Alcohol intake: current Alcohol intake frequency: holidays/special occasions only Comment: no count Patient Tobacco Use Status: Never used Tobacco Second Hand Smoke Exposure: Yes Substance Use Type: Marijuana Advance Directives: No Advance Directives Information Provided: Yes service: No Current occupational status: disabled 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 Physical Exam Vital Signs: Vital Signs: Last Vital Signs Temp 98.5 F 02/05/25 09:23 Pulse 86 02/05/25 09:23 Resp 24 H 02/05/25 09:23 BP 135/64 02/05/25 09:23 Pulse Ox 100 02/05/25 09:23 O2 Del Method Room Air 02/05/25 09:23 BMI result Body Mass Index 41.5 Const: Other: Gen: ?Overall well-appearing patient, heavy-set woman HEENT: Boggy nasal mucosa bilaterally Neck: Supple, no LAD CV: RRR, no obvious murmurs appreciated Resp: ?No wheezing rales rhonchi no stridor moving air well Abd: ?Bowel sounds are present, no tenderness no rebound no rigidity MSK: FROM, strength 5/5 all extremities Skin: Warm, dry, intact, Neuro: ?Alert and oriented x3, moving upper and lower extremities symmetrically, no obvious facial asymmetry noted Medical Decision Making Medical Decision Making [facility] Narrative: Overall well-appearing, no hypoxia tachycardic to suspect PE, chest x-ray without pneumonia, cough going on for the past 3 weeks worse when she is in bed, nasal mucosa is boggy, physical examination is consistent with postnasal drip, likely exacerbated by exposure to marijuana smoke Differential Diagnosis Differential Diagnoses: The differential diagnosis associated with the presentation includes (CHF, COPD exacerbation, pneumonia, pneumothorax, ACS, PE,) Admission/Observation Consideration of admission/observation: Escalation of care including admission/observation considered Lab Data [facility] Lab Attestation statement: I reviewed the patient's lab results. 02/05/25 10:11 02/05/25 10:11 Labs: Lab Results 02/05/25 Range/Units 10:11 WBC 6.8 (4.8-10.8) X10*3/uL RBC 4.24 (4.20-5.50) X10*6/uL Hgb 11.6 L (12.0-16.0) g/dl Hct 34.8 L (37.0-47.0) % MCV 82.1 (80.0-98.0) fL MCH 27.4 (27.0-33.0) pg MCHC 33.3 (31.0-35.0) g/dl RDW 14.6 (11.0-16.0) % Plt Count 271 (160-400) X10*3/uL MPV 9.6 (9.4-12.3) fL Immature Gran % (Auto) 0.1 (0.0-0.4) % Neut % (Auto) 57.3 (45-73) % Lymph % (Auto) 32.9 (20-40) % [place] % (Auto) 5.6 (2-11) % Eos % (Auto) 3.8 (0-4) % Baso % (Auto) 0.3 (0-2) % Lymph # (Auto) 2.3 (1.2-4.9) X10*3/uL [place] # (Auto) 0.4 (0.1-1.2) X10*3/uL Eos # (Auto) 0.3 (0.0-0.4) X10*3/uL Baso # (Auto) 0.0 (0.0-0.2) X10*3/uL Abs Immat Gran (auto) 0.01 (0.00-0.03) X10*3/uL Absolute Neuts (auto) 3.9 (2.0-8.3) x10*3/uL Absolute Nucleated RBC 0.000 (0.0-0.012) X10*3/uL Nucleated RBC % (auto) 0.0 (0.0-0.2) /100WBC Sodium 141 (135-145) mmol/L Potassium 3.7 (3.3-5.1) mmol/L Chloride 108 (96-108) mmol/L Carbon Dioxide 24 (22-29) mmol/L Anion Gap 13 (12-20) BUN 8 L (9-16) mg/dL Creatinine 0.74 (0.5-1.4) mg/dL Estim Creat Clear Calc 131.8 Estimated GFR > 60 Random Glucose 92 (60-115) mg/dL Calcium 8.6 (8.4-10.2) mg/dL Total Bilirubin 0.3 (0.0-1.0) mg/dL AST 15 (5-31) U/L ALT 9 (0-31) U/L Alkaline Phosphatase 73 (39-117) U/L Troponin I High Sens < 2.7 (<3.5-17.0) ng/L Total Protein 6.8 (6.5-8.0) g/dL Albumin 4.0 (3.5-5.0) g/dL COVID-19 (ADNIELA) Negative (Negative) COVID-19 Clin Com See Note Influenza Type A (LIILANE) Negative (Negative) Influenza Type B (LILIANE) Negative (Negative) Influenza A & B Note See Note Independent Interpretation I performed an independent interpretation of an: EKG (73 beats per minute otherwise normal ECG without dysrhythmia, AV celio blocks or ST-T changes to suspect underlying ACS, my independent interpretation) Radiology Impression Discussion of test interpretation with radiology: I have reviewed the radiologist's reading. (No acute cardiopulmonary abnormality) Prescription Management I considered prescription management with: Antibiotic Discharge Plan Discharge Clinical Impression: Post-nasal drip, Bronchitis Additional Instructions: Your blood work is reassuring there was no suspicion that you are having an infection, actually based on your exam and presentation the most likely cause for your cough at night is postnasal drip which is irritation of the nasal mucosa and so clear mucus drips from your nose down your throat and it activates a cough reflex, start Flonase spray twice a day and oral steroids you should start feeling better next 3 days Any type of smoking we will irritate your nasal passages so if you have to use marijuana I would just switch to either edibles or tincture Follow up with the PCP Your chest x-ray EKG otherwise reassuring And I would not worry about PE with the your presentation Prescriptions: New prednisone 20 mg tablet 40 mg PO DAILY 5 Days Qty: 10 0RF fluticasone propionate [Flonase Allergy Relief] 50 mcg/actuation spray,suspension 2 spray intranasal DAILY Qty: 16 0RF Rx Instructions: administer into each nostril No Action Eliquis 5 mg Tablet 5 mg PO BID Qty: 60 3RF albuterol sulfate 2.5 mg /3 mL (0.083 %) Solution For Nebulization 2.5 mg INHALATION QID PRN (Reason: Wheezing) nortriptyline 10 mg Capsule 10 mg PO BEDTIME albuterol sulfate [ProAir HFA] 90 mcg/actuation Hfa Aerosol Inhaler 2 puff INHALATION Q4-6H PRN (Reason: Wheezing) folic acid 1 mg Tablet 1 mg PO DAILY Qty: 90 4RF oxcarbazepine 150 mg tablet 150 mg PO BID ondansetron HCl 4 mg tablet 4 mg PO Q8H PRN (Reason: nausea/vomiting) sumatriptan succinate 50 mg tablet 50 mg PO QD-BID famotidine 20 mg tablet 20 mg PO BID baclofen 10 mg tablet 10 mg PO TID PRN (Reason: Muscle Spasm) esomeprazole magnesium 40 mg capsule,delayed release(DR/EC) 40 mg PO DAILY fluoxetine 10 mg capsule 10 mg PO DAILY hydroxyzine HCl 25 mg tablet 25 mg PO BID prazosin 2 mg capsule 2 mg PO BEDTIME Wegovy 0.5 mg/0.5 mL pen injector 0.5 mg subcut WE levetiracetam 500 mg Tablet 500 mg PO BID topiramate 100 mg tablet 100 mg PO BID levetiracetam 1,000 mg tablet 1,000 mg PO BID ondansetron 4 mg tablet,disintegrating 4 mg PO Q8H PRN (Reason: nausea and vomiting) Qty: 20 0RF Print Language: Yakut
[2025-02-05 12:00] VITALS: BP 123/77; PULSE 72; RESP 16; TEMP 36.4; O2SAT 97
[2025-02-05 12:27] VITALS: BP 123/77; PULSE 72; RESP 16; TEMP 36.4; O2SAT 97
== END 2025-02-05 12:28 | disposition home or self-care (01) ==
PROVIDERS: Emergency Provider Emergency Medicine; PCP Internal Medicine Geriatric Medicine
DX: J40 Bronchitis, not specified as acute or chronic (principal); R09.82 Postnasal drip; R07.9 Chest pain, unspecified; R05.9 Cough, unspecified; R06.02 Shortness of breath; Z03.818 Encounter for observation for suspected exposure to other biological agents ruled out
CPT/HCPCS: 71045; 80053; 84484; 85025; 87502; 87635; 93005; 99283; 99284; J8540

== ENCOUNTER → 2025-02-05 09:41 | Outpatient (BNV) | payer MEDICAID, SELFPAY | PROVIDERS: Emergency Provider Emergency Medicine; PCP Internal Medicine Geriatric Medicine; Visit Provider Internal Medicine Cardiovascular Disease | DX: R06.00 Dyspnea, unspecified (principal) | CPT/HCPCS: 93010 ==

== ENCOUNTER → 2025-02-05 09:59 | Outpatient (BNV) | payer MEDICAID, SELFPAY | PROVIDERS: Emergency Provider Emergency Medicine; PCP Internal Medicine Geriatric Medicine; Visit Provider Radiology Diagnostic Radiology | DX: R05.9 Cough, unspecified (principal); R06.02 Shortness of breath | CPT/HCPCS: 71045 ==